=== PATIENT | male | born 1945 | race Caucasian/White ===

== ENCOUNTER 2018-04-02 10:15 | Outpatient (CLI) | payer MEDICARE, BC, SELFPAY ==
[2018-04-02 11:14] LABS: Absolute Basophil Count 0.03 k/cumm (0.0-0.2); Absolute Eosinophil Count 0.22 k/cumm (0.0-0.7); Absolute Lymphocyte Count 0.96 k/cumm (1.2-3.4); Absolute Monocyte Count 0.36 k/cumm (0.11-0.7); Basophils % 0.8; Eosinophils % 5.5; HCT 37.1 % (40.0-50.0); HGB 12.6 g/dL (13.5-17.5); Lymphocytes % 24.2; Mean Corpuscular Hemoglobin 29.5 pg (27.0-33.0); Mean Corpuscular Volume 86.9 fL (80-95); Mean Platelet Volume 8.6 fL (8.0-11.0); Monocytes % 9.1; Neutrophils % 60.4; Platelet Count 175 x1000/uL (130-400); RBC 4.27 m/cumm (4.50-6.00); RBC Distribution Width 13.1 % (11.8-14.1); White Blood Cell Count 3.97 k/cumm (4.4-10.8)
[2018-04-02 12:33] LABS: ALT 22 U/L (12-78); AST 19 U/L (15-37); Albumin 3.8 g/dL (3.4-5.0); Alkaline Phosphatase 68 U/L (46-116); Anion Gap 8.5 mmol/L (3-11); BUN 16 mg/dL (7-18); Bilirubin, Total 0.5 mg/dL (0.2-1.0); CO2 29.5 mmol/L (21.0-32.0); Calcium 8.9 mg/dL (8.5-10.1); Chloride 103 mmol/L (98-107); Cholesterol 183 mg/dL (50-200); Estimated GFR 49.68 (mL/min/1.73m2); Glucose 89 mg/dL (70-100); HDL Cholesterol 32 mg/dL (40-60); LDL CHOLESTEROL 104 mg/dL (<100); Potassium 3.7 mmol/L (3.5-5.1); Sodium 141 mmol/L (136-145); TSH (W/Ref FT4) 3.78 uIU/mL (0.358-3.74); Total Protein 6.8 g/dL (6.4-8.2); Triglyceride 214 mg/dL (30-150); Vitamin B12 1310 pg/mL (193-986)
[2018-04-02 12:57] LABS: FREE T4 0.95 ng/dL (0.76-1.46); Hemoglobin A1C 5.1 % (4.5-6.2)
== END 2018-04-02 10:35 ==
PROVIDERS: PCP Nurse Practitioner Family; Visit Provider Nurse Practitioner Family
DX: N18.9 Chronic kidney disease, unspecified (principal); E03.9 Hypothyroidism, unspecified; E78.5 Hyperlipidemia, unspecified; R73.01 Impaired fasting glucose; I10 Essential (primary) hypertension; F32.9 Major depressive disorder, single episode, unspecified
CPT/HCPCS: 36415; 80053; 80061; 83721; 82607; 83036; 84439; 84443; 85025

== ENCOUNTER 2018-04-09 15:48 | Outpatient (CLI) | payer MEDICARE, BC, SELFPAY ==
[2018-04-09 17:10] LABS: Iron 71 ug/dL (50-175); Total Iron Binding Capacity 370 ug/dL (250-450); Transferrin Sat 19 % (20-55)
[2018-04-09 17:25] LABS: Ferritin 37 ng/mL (8-388)
[2018-04-09 18:04] LABS: Folate > 20.0 ng/mL (8.6-20.0)
[2018-04-12 16:36] LABS: Erythropoietin 27.5 mIU/mL (2.6 - 18.5)
== END 2018-04-09 16:08 ==
PROVIDERS: PCP Nurse Practitioner Family; Visit Provider Nurse Practitioner Family
DX: D64.9 Anemia, unspecified (principal)
CPT/HCPCS: 36415; 82668; 82728; 82746; 83540; 83550

== ENCOUNTER 2018-07-15 08:19 | Outpatient (CLI) | payer OTHER, SELFPAY ==
[2018-07-15 14:21] LABS: Abs Immature Grans 0.01 k/cumm (0.0-0.09); Absolute Basophil Count 0.04 k/cumm (0.0-0.2); Absolute Eosinophil Count 0.23 k/cumm (0.0-0.7); Absolute Lymphocyte Count 1.37 k/cumm (1.2-3.4); Absolute Monocyte Count 0.44 k/cumm (0.11-0.7); Basophils % 0.8; Eosinophils % 4.6; HCT 38.5 % (40.0-50.0); HGB 13.8 g/dL (13.5-17.5); Immature Grans % 0.2; Lymphocytes % 27.5; Mean Corp. HGB Concentration 35.8 g/dL (32.0-36.0); Mean Corpuscular Hemoglobin 30.4 pg (27.0-33.0); Mean Corpuscular Volume 84.8 fL (80-95); Mean Platelet Volume 8.7 fL (8.0-11.0); Monocytes % 8.8; Neutrophils % 58.1; Platelet Count 154 x1000/uL (130-400); RBC 4.54 m/cumm (4.50-6.00); RBC Distribution Width 12.4 % (11.8-14.1); White Blood Cell Count 4.99 k/cumm (4.4-10.8)
== END 2018-07-15 08:39 ==
PROVIDERS: PCP Nurse Practitioner Family; Visit Provider Nurse Practitioner Family
DX: D64.9 Anemia, unspecified (principal)
CPT/HCPCS: 36415; 85025

== ENCOUNTER 2019-02-04 10:30 | Outpatient (CLI) | payer OTHER, SELFPAY ==
[2019-02-04 11:45] LABS: Hemoglobin A1C 5.2 % (4.5-6.2)
[2019-02-04 11:52] LABS: Anion Gap 8.5 mmol/L (3-11); BUN 19 mg/dL (7-18); CO2 31.5 mmol/L (21.0-32.0); CREATININE 1.41 mg/dL (0.70-1.30); Calcium 8.8 mg/dL (8.5-10.1); Calculated LDL 112 mg/dL; Chloride 102 mmol/L (98-107); Cholesterol 179 mg/dL (50-200); Estimated GFR 49.27 (mL/min/1.73m2); Glucose 90 mg/dL (70-100); HDL Cholesterol 39 mg/dL (40-60); Sodium 142 mmol/L (136-145); Triglyceride 144 mg/dL (30-150)
== END 2019-02-04 10:50 ==
PROVIDERS: PCP Nurse Practitioner Family; Visit Provider Nurse Practitioner Family
DX: I10 Essential (primary) hypertension (principal); E78.5 Hyperlipidemia, unspecified; R73.01 Impaired fasting glucose
CPT/HCPCS: 36415; 80048; 80061; 83036

== ENCOUNTER 2019-04-16 10:45 | Outpatient (CLI) | payer OTHER, SELFPAY ==
[2019-04-16 12:14] LABS: TSH (W/Ref FT4) 7.69 uIU/mL (0.36-3.74)
[2019-04-16 12:46] LABS: FREE T4 0.83 ng/dL (0.76-1.46)
== END 2019-04-16 11:05 ==
PROVIDERS: PCP Nurse Practitioner Family; Visit Provider Nurse Practitioner Family
DX: E03.9 Hypothyroidism, unspecified (principal)
CPT/HCPCS: 36415; 84439; 84443

== ENCOUNTER 2020-08-09 03:10 | Outpatient (CLI) | payer OTHER, SELFPAY ==
[2020-08-09 10:03] LABS: Abs Immature Grans 0.01 10^3/uL (0.0-0.06); Absolute Basophil Count 0.06 10^3/uL (0.0-0.2); Absolute Eosinophil Count 0.22 10^3/uL (0.0-0.7); Absolute Lymphocyte Count 1.14 10^3/uL (1.2-3.4); Absolute Monocyte Count 0.33 10^3/uL (0.1-0.8); Absolute Neutrophil Count 2.54 10^3/uL (1.2-6.7); Basophils % 1.4; Eosinophils % 5.1; HCT 43.1 % (40.0-50.0); HGB 14.8 g/dL (13.5-17.5); Immature Grans % 0.2; Lymphocytes % 26.5; MCH 29.5 pg (27.0-33.0); MCHC 34.3 % (32.0-36.0); MPV 8.4 fL (8.0-11.0); Monocytes % 7.7; Neutrophils % 59.1; Nucleated RBC 0 %; Platelet Count 171 10^3/uL (130-400); RBC 5.01 10^6/uL (4.36-5.78); RDW-SD 37.6 fL
[2020-08-09 11:36] LABS: ALT 37 U/L (16-63); AST 22 U/L (15-37); Albumin 4.1 g/dL (3.4-5.0); Alkaline Phosphatase 76 U/L (46-116); Anion Gap 8.9 mmol/L (3-11); BUN 13 mg/dL (7-18); Bilirubin, Total 0.4 mg/dL (0.2-1.0); CO2 30.1 mmol/L (21.0-32.0); CREATININE 1.3 mg/dL (0.70-1.30); Calcium 8.9 mg/dL (8.5-10.1); Calculated LDL 92 mg/dL (<100); Chloride 105 mmol/L (98-107); Cholesterol 173 mg/dL (<200); Estimated GFR 53.82 (mL/min/1.73m2); Glucose 84 mg/dL (74-106); HDL Cholesterol 33 mg/dL (40-60); Potassium 4.4 mmol/L (3.5-5.1); Sodium 144 mmol/L (136-145); TSH (W/Ref FT4) 6.61 uIU/mL (0.36-3.74); Total Protein 7.3 g/dL (6.4-8.2); Triglyceride 240 mg/dL (<150)
[2020-08-09 11:52] LABS: FREE T4 0.83 ng/dL (0.76-1.46)
== END 2020-08-09 03:11 | disposition home or self-care (01) ==
LOC: LBO 03:10
PROVIDERS: PCP Nurse Practitioner Family; Visit Provider Nurse Practitioner Family
DX: E03.9 Hypothyroidism, unspecified (principal); E78.5 Hyperlipidemia, unspecified; I10 Essential (primary) hypertension; R73.01 Impaired fasting glucose
CPT/HCPCS: 36415; 80053; 80061; 83036; 84439; 84443; 85025

== ENCOUNTER 2021-08-09 02:36 | Outpatient (CLI) | payer MEDICARE, SELFPAY | END 2021-08-09 02:37 | disposition home or self-care (01) | LOC: LBO 02:36 | PROVIDERS: PCP Nurse Practitioner Family; Visit Provider Nurse Practitioner Family ==

== ENCOUNTER 2021-08-20 05:59 | Outpatient (CLI) | payer MEDICARE, SELFPAY ==
[2021-08-20 09:57] LABS: Hemoglobin A1C 5.2 % (<5.7)
[2021-08-20 10:43] LABS: Anion Gap 4.2 mmol/L (3-11); BUN 15 mg/dL (7-18); CO2 30.8 mmol/L (21.0-32.0); CREATININE 1.3 mg/dL (0.70-1.30); Calcium 8.8 mg/dL (8.5-10.1); Chloride 104 mmol/L (98-107); Estimated GFR 53.67 (mL/min/1.73m2); Glucose 84 mg/dL (74-106); Potassium 4.2 mmol/L (3.5-5.1); Sodium 139 mmol/L (136-145); TSH (W/Ref FT4) 8.32 uIU/mL (0.36-3.74)
== END 2021-08-20 06:00 | disposition home or self-care (01) ==
LOC: LBO 05:59
PROVIDERS: PCP Nurse Practitioner Family; Referring Provider Nurse Practitioner Family; Visit Provider Nurse Practitioner Family
DX: E03.9 Hypothyroidism, unspecified (principal); I10 Essential (primary) hypertension; R73.01 Impaired fasting glucose; N18.9 Chronic kidney disease, unspecified
CPT/HCPCS: 36415; 80048; 83036; 84439; 84443

== ENCOUNTER 2022-01-06 03:54 | Outpatient (CLI) | payer MEDICARE, SELFPAY ==
[2022-01-06 16:01] LABS: TSH (W/Ref FT4) 2.74 uIU/mL (0.36-3.74)
== END 2022-01-06 03:55 | disposition home or self-care (01) ==
LOC: LBO 03:54
PROVIDERS: PCP Nurse Practitioner Family; Visit Provider Nurse Practitioner Family
DX: E03.9 Hypothyroidism, unspecified (principal)
CPT/HCPCS: 36415; 84443

== ENCOUNTER 2022-08-22 01:33 | Outpatient (CLI) | payer MEDICARE, SELFPAY ==
[2022-08-22 10:36] LABS: Abs Immature Grans 0.01 10^3/uL (0.0-0.06); Absolute Basophil Count 0.06 10^3/uL (0.0-0.2); Absolute Eosinophil Count 0.24 10^3/uL (0.0-0.7); Absolute Monocyte Count 0.51 10^3/uL (0.1-0.8); Absolute Neutrophil Count 4.14 10^3/uL (1.2-6.7); Eosinophils % 3.8; HGB 15.4 g/dL (13.5-17.5); Immature Grans % 0.2; Lymphocytes % 20.8; MCH 30.3 pg (27.0-33.0); MCHC 35.8 % (32.0-36.0); MCV 85 fL (80-95); MPV 8.6 fL (8.0-11.0); Monocytes % 8.1; Neutrophils % 66.1; Platelet Count 171 10^3/uL (130-400); RBC 5.09 10^6/uL (4.36-5.78); RDW 12.1 % (11.8-14.1); RDW-SD 37.1 fL; WBC 6.26 10^3/uL (4.4-10.8)
[2022-08-22 11:27] LABS: ALT 24 U/L (16-63); AST 16 U/L (15-37); Alkaline Phosphatase 103 U/L (46-116); Anion Gap 3.8 mmol/L (3-11); BUN 16 mg/dL (7-18); Bilirubin, Total 0.5 mg/dL (0.2-1.0); CO2 31.2 mmol/L (21.0-32.0); CREATININE 1.2 mg/dL (0.70-1.30); Calcium 9.5 mg/dL (8.5-10.1); Chloride 105 mmol/L (98-107); Estimated GFR 62.29 (mL/min/1.73m2); Glucose 106 mg/dL (74-106); Potassium 3.9 mmol/L (3.5-5.1); Sodium 140 mmol/L (136-145); Total Protein 7.7 g/dL (6.4-8.2)
[2022-08-22 11:42] LABS: FREE T4 0.96 ng/dL (0.76-1.46)
== END 2022-08-22 01:34 | disposition home or self-care (01) ==
PROVIDERS: PCP Nurse Practitioner Family; Visit Provider Nurse Practitioner Family
DX: E78.5 Hyperlipidemia, unspecified (principal); N18.9 Chronic kidney disease, unspecified; I10 Essential (primary) hypertension; Z13.1 Encounter for screening for diabetes mellitus; E03.9 Hypothyroidism, unspecified; R73.01 Impaired fasting glucose
CPT/HCPCS: 36415; 80053; 83036; 84439; 84443; 85025

== ENCOUNTER 2023-05-21 06:30 | Inpatient (IN) | payer MEDICARE, SELFPAY ==
[2023-05-21] VITALS (98 sets, daily range): BP systolic 118–230; BP diastolic 67–132; PULSE 57–101; RESP 9–126; TEMP 36.3–36.9; O2SAT 86–100
--- NOTE | 2023-05-21 06:00 | RT.EKG_ITS ---
APPROVED REPORT Exam: Resting ECG Reason for Exam: stroke alert Patient Location: E HR:74 bpm ECG Measurements Heart Rate 74 AXIS DC 180 P 60 QRSd 102 QRS 85 QT 397 T 8 QTc 441 Conclusion Sinus rhythm...normal P axis, V-rate 60- [address] segment or T wave abnormalities to suggest occluisve MN
--- NOTE | 2023-05-21 06:00 | DI.CT_ITS ---
Exam(s) CT HEAD - STROKE PROTOCOL EXAM: CT HEAD - STROKE PROTOCOL CLINICAL HISTORY: fall, slurred speech, AMS. TECHNIQUE: Imaging Protocol: Axial computed tomography images with coronal and sagittal reformatted images were created and reviewed COMPARISON: No previous for comparison. FINDINGS: The examination is limited due to patient motion artifact. Ventricles and Extra axial spaces: Normal in size and morphology for the patient's age. There is a 0. 8 cm round hyperdense lesion in the foramen of Monro most suggestive of a colloid cyst. No hydroceph alus is seen. Hemorrhage: None. Cerebral parenchyma: There is an area of decreased attenuation with a face mint of the sulci in the r ight occipital lobe. There is also an area of decreased attenuation in the medial aspect of the righ t thalamus. The findings are suspicious for acute infarct. There are areas of decreased attenuation in the white matter consistent with small vessel ischemic disease. Midline shift: None. Brainstem/Cerebellum: Normal. Calvarium: Normal. Visualized Paranasal sinuses/Mastoids: Clear. Soft Tissues: Unremarkable. IMPRESSION: 1. There are 2 areas of decreased attenuation, in the right occipital lobe and the right thalamus, eli spicious for acute infarct. MRI should be considered for further evaluation. 2. 0.8 cm hyperdense lesion in the foramen of Monro suggestive of a colloid cyst. There is no result ant hydrocephalus. 3. No calvarial fracture. RADIATION DOSE DELIVERED: 766.04mGy.cm Total DLP DATA REPOSITORY: All CT scans at this facility are submitted to the National Radiology Data Registry (NRDR) Dose Index Registry (DIR) with the [employer] (ACR). RADIATION OPTIMIZATION: All CT scans at this facility use at least one of these dose optimization te chniques: automated exposure control; mA and/or kV adjustment per patient size (includes targeted exa ms where dose is matched to clinical indication); or iterative reconstruction.
--- NOTE | 2023-05-21 06:37 | ED.GENADUL_ITS ---
HPI General Mode of arrival: EMS . Date/Time Provider Initiated Documentation: 05/21/23 06:37 . Limitations to Documentation: altered mental status . Information obtained by: patient, EMS and old records reviewed . HPI Narrative: 78yo M with hx of HTN, CKD3, hypothyroid, HLD presenting via EMS for altered mental status. History from EMS, patient unable to provide much history on arrival. Medical history from annual wellness visit note 08/13/22. Per EMS, called this morning and reported that patient fell at approximately 1700 yesterday and she helped him back to bed. Unknown if he struck his head. reportedly observed him stomping his feet and shaking his arms and noted that this morning he was acting confused. Per EMS, did not seem to be a reliable historian. Patient unable to provide meaningful history on arrival. Does state 'everything' hurts. Denies numbness or weakness. Related Data Home Medications Medication Instructions Recorded Confirmed cholecalciferol (vitamin D3) 25 1,000 unit PO DAILY 09/29/14 05/21/23 mcg (1,000 unit) capsule (Vitamin D3) multivitamin (Daily Multi-Vitamin 1 ea PO DAILY 09/29/14 05/21/23 tablet) omega-3 acid ethyl esters 1 gram 2 gm PO BID #120 tab-caps 12/19/14 05/21/23 capsule melatonin 10 mg capsule 10 mg PO HS PRN 11/10/18 05/21/23 glucosamine HCl 1,500 mg tablet 1,500 mg PO DAILY 08/02/20 05/21/23 atenolol 50 mg tablet See Rx Instructions .Route 06/30/22 05/21/23 .COMPLEX #90 tabs tamsulosin 0.4 mg capsule (Flomax) 0.4 mg PO DAILY #90 tab-caps 07/30/22 05/21/23 losartan 100 mg tablet 100 mg PO DAILY #90 tab-caps 08/14/22 05/21/23 trazodone 50 mg tablet 50 mg PO HS #90 tab-caps 09/30/22 05/21/23 levothyroxine 137 mcg tablet See Rx Instructions .Route 12/25/22 05/21/23 .COMPLEX #90 tabs omeprazole 20 mg capsule,delayed 20 mg PO DAILY #90 tab-caps 01/05/23 05/21/23 release Previous Rx's Medication Instructions Recorded atenolol 50 mg tablet See Rx Instructions .Route 06/30/22 .COMPLEX #90 tabs tamsulosin 0.4 mg capsule (Flomax) 0.4 mg PO DAILY #90 tab-caps 07/30/22 losartan 100 mg tablet 100 mg PO DAILY #90 tab-caps 08/14/22 trazodone 50 mg tablet 50 mg PO HS #90 tab-caps 09/30/22 levothyroxine 137 mcg tablet See Rx Instructions .Route 12/25/22 .COMPLEX #90 tabs omeprazole 20 mg capsule,delayed 20 mg PO DAILY #90 tab-caps 01/05/23 release Allergies Allergy/AdvReac Type Severity Reaction Status Date / Time bupropion AdvReac Other (See Verified 05/21/23 07:27 Comment) Review of Systems Narrative: see HPI Exam Narrative Exam Narrative: General: Alert, well nourished, in no acute distress. Head: Normocephalic, atraumatic Neck: Trachea midline, ?Neck supple. ENT: ?MMM.? No oropharygeal lesions or exudate. Cardiac: ?RRR, no murmurs appreciated Resp: No respiratory distress. CTAB. Abd: ?Soft, non-distended, nontender Extremities: ?No deformities.? No peripheral edema. Neuro: ? GCS 14. Oriented to person only.? PERRL.? Motor- 5/5 strength symmetric bilateral upper and lower extremities including shoulder abductors/adductors, elbow flexors/extensors, wrist flexors/extensors, finger abductors/adductors, hipflexors/extensors, knee flexors/extensors, ankle dorsiflexors and planter flexors. Sensation- ?Intact to light touch and symmetric multiple dermatomes including upper and lower extremities Gait: Steady gait with equal normal steps. No truncal ataxia. CRANIAL NERVES: II: Pupils equal and reactive, III, IV, : Rightward gaze preference, no leftward gaze past midline. No nystagmus. V: normal sensation in V1, V2, and V3 segments bilaterally VII: no asymmetry, no nasolabial fold flattening VIII: normal hearing to speech IX, X: normal palatal elevation, no uvular deviation XI: 5/5 head turn and 5/5 shoulder shrug bilaterally XII: midline tongue protrusion Medical Decision Making 78yo M with hx of HTN, CKD3, hypothyroid, HLD presenting via EMS for altered mental status. History from EMS, patient unable to provide much history on arrival. Medical history from annual wellness visit note 08/13/22. EMS obtained history from patient's , per EMS she did not appear to be a reliable historian. Reportedly patient fell yesterday at around 1700; this is our best approximation of last known well time. This morning was confused which is reportedly not normal for him. Normal blood glucose for EMS. Hypertensive on arrival 192/96 (improved to 172/80 without intervention); vital signs otherwise reassuring. On exam patient oriented to person only, rightward gaze preference with no leftward gaze past midline. Good strength and sensation throughout. Not a candidate for thrombolysis based on time of symptom onset. EKG on arrival with no sequalae of occlusive MT. Stroke labs sent. CT head non-con ordered; no intracranial hemmaroghe on view; discussed with Dr. Domingo of [facility] with findings of acute/subacute right occipital infarct as well as right thalamic infarct of indeterminate acuity. -Labs reviewed as below, CBC reassuring with no leukcoytosis or anemia, CMP with no actionable abnormalities, TSH normal; remainder of labs pending. -CTA ordered, likely MRI when available Signed out to oncoming physician, will need additional imaging/neurology/admission vs transfer Medical Records Medical records reviewed: Yes I reviewed the patient's medical records. Lab Data Lab results reviewed: Yes I reviewed the patient's lab results. Labs: Laboratory Tests Range/Units 05/21/23 05/21/23 06:38 06:38 WBC (4.4-10.8) 10^3/uL 7.59 RBC (4.36-5.78) 10^6/uL 4.62 Hgb (13.5-17.5) g/dL 14.2 Hct (40.0-50.0) % 39.2 L MCV (80-95) fL 85 MCH (27.0-33.0) pg 30.7 MCHC (32.0-36.0) % 36.2 H RDW (11.8-14.1) % 12.6 Plt Count (130-400) 10^3/uL 142 MPV (8.0-11.0) fL 8.5 Immature Gran % 0.4 Neutrophils % 88.2 Lymphocytes % 6.5 Monocytes % 4.2 Eosinophils % 0.3 Basophils % 0.4 Nucleated RBC % (0.0-0.3) % 0.0 Absolute Neutrophils (1.2-6.7) 10^3/uL 6.70 Absolute Lymphocytes (1.2-3.4) 10^3/uL 0.49 L Absolute Monocytes (0.1-0.8) 10^3/uL 0.32 Absolute Eosinophils (0.0-0.7) 10^3/uL 0.02 Absolute Basophils (0.0-0.2) 10^3/uL 0.03 Sodium (136-145) mmol/L 142 Potassium (3.5-5.1) mmol/L 4.1 Chloride (98-107) mmol/L 106 Carbon Dioxide (21.0-32.0) mmol/L 26.6 Anion Gap (3-11) mmol/L 9.4 BUN (7-18) mg/dL 14 Creatinine (0.70-1.30) mg/dL 1.2 Est GFR (CKD-EPI 2020) (mL/min/1.73m2) 61.90 Glucose (74-106) mg/dL 135 H Calcium (8.5-10.1) mg/dL 8.9 Total Bilirubin (0.2-1.0) mg/dL 0.6 AST (15-37) U/L 16 ALT (16-63) U/L 22 Alkaline Phosphatase (46-116) U/L 72 Troponin I (< or =60) ng/L < 50 Cancelled Total Protein (6.4-8.2) g/dL 7.3 Albumin (3.4-5.0) g/dL 3.9 TSH (0.36-3.74) uIU/mL 2.65 Quality:SDOH Health Related Social Needs: No Data to Display Critical Care Time Critical Care Time Critical Care Time: Yes Total Critical Care Time: 32 Attestation: Due to a high probability of clinically significant, life threatening deterioration, the patient required my highest level of preparedness to intervene emergently and I personally spent this critical care time directly and personally managing the patient. This critical care time included obtaining a history; examining the patient; pulse oximetry; ordering and review of studies; arranging urgent treatment with development of a management plan; evaluation of patient's response to treatment; frequent reassessment; and, discussions with other providers. This critical care time was performed to assess and manage the high probability of imminent, life-threatening deterioration that could result in multi-organ failure. It was exclusive of separately billable procedures. PFSH All Active Problems CKD (chronic kidney disease) (Acute) Insomnia, unspecified (Chronic 07/09/16) IFG (impaired fasting glucose) (Chronic 03/19/16) Hypothyroidism, unspecified (Chronic 04/23/15) Hypertension (Chronic 12/11/14) Hyperlipidemia (Chronic 04/23/15) GERD (gastroesophageal reflux disease) (Chronic 12/11/14) ADHD (attention deficit hyperactivity disorder), combined type (Chronic 11/04/17) Medical History Major depressive disorder with current active episode (11/04/17) Psychiatry consult (Dr. Calvillo) 10/2017 Sigmoid diverticulum (01/01/16) Surgical History [place]oscopy - IV Sedation (01/01/16) [place] [facility] [place] Mother Personal history of malignant neoplasm BREAST Heart disease VALVE REPLACEMENT Father Personal history of malignant neoplasm SKIN Brother Essential hypertension Hyperlipidemia Grandfather Personal history of malignant neoplasm Grandfather Heart disease Grandmother Stroke Grandmother No problems noted. Social History Smoking/Tobacco Use Status: Former Tobacco Use Quit Date: 04/27/1968 Smoking risk assessment performed?: Yes Alcohol Intake: former Drug use: Never Substance use type: does not use Caregiver/Support person: No Communication Needs: None current occupation: Retired (formerly worked for [employer]) What type of physical activity do you participate in: other Details: rowing machine Duration: 60-90 minutes/day Frequency: daily Sign Out Sign Out Data: Sign Out Comment: LKN 1700, confusion and rightward gaze deviation. Acute R occipital infarct, ? acute R thalamic infarct. Pending CTA, will need neuro and MRI Last updated by Colleen Cassidy MD at 05/21/23 07:28 Discharge Plan Discharge Details Chief Complaint: AMS/LOC Primary Care Provider: Serina Prakash ED Provider: Colleen Cassidy Home Meds and New Rx's Prescriptions: No Action melatonin 10 mg capsule 10 mg PO HS PRN glucosamine HCl 1,500 mg tablet 1,500 mg PO DAILY Rx Instructions: administer with a meal multivitamin [Daily Multi-Vitamin] 1 EACH tablet 1 ea PO DAILY cholecalciferol (vitamin D3) [Vitamin D3] 1,000 UNIT capsule 1,000 unit PO DAILY omega-3 acid ethyl esters 1 GM capsule 2 gm PO BID Qty: 120 atenolol 50 mg tablet See Rx Instructions .ROUTE .COMPLEX Qty: 90 3RF Dose Instruction: TAKE ONE TABLET BY MOUTH EVERY DAY Rx Instructions: TAKE ONE TABLET BY MOUTH EVERY DAY tamsulosin [Flomax] 0.4 mg capsule 0.4 mg PO DAILY Qty: 90 3RF losartan 100 mg tablet 100 mg PO DAILY Qty: 90 3RF trazodone 50 mg tablet 50 mg PO HS Qty: 90 3RF levothyroxine 137 mcg tablet See Rx Instructions .ROUTE .COMPLEX Qty: 90 3RF Dose Instruction: TAKE ONE TABLET BY MOUTH EVERY MORNING ON AN EMPTY STOMACH, AT LEAST 30-60 MINUTES BEFORE FOOD Rx Instructions: TAKE ONE TABLET BY MOUTH EVERY MORNING ON AN EMPTY STOMACH, AT LEAST 30-60 MINUTES BEFORE FOOD omeprazole 20 mg capsule,delayed release(DR/EC) 20 mg PO DAILY Qty: 90 3RF Rx Instructions: Take on an empty stomach at least 30 minutes before first meal
[2023-05-21 06:43] LABS: Abs Immature Grans 0.03 10^3/uL (0.0-0.06); Absolute Basophil Count 0.03 10^3/uL (0.0-0.2); Absolute Eosinophil Count 0.02 10^3/uL (0.0-0.7); Absolute Lymphocyte Count 0.49 10^3/uL (1.2-3.4); Absolute Monocyte Count 0.32 10^3/uL (0.1-0.8); Basophils % 0.4; Eosinophils % 0.3; HCT 39.2 % (40.0-50.0); HGB 14.2 g/dL (13.5-17.5); Immature Grans % 0.4; Lymphocytes % 6.5; MCH 30.7 pg (27.0-33.0); MCHC 36.2 % (32.0-36.0); MCV 85 fL (80-95); MPV 8.5 fL (8.0-11.0); Monocytes % 4.2; Neutrophils % 88.2; Platelet Count 142 10^3/uL (130-400); RBC 4.62 10^6/uL (4.36-5.78); RDW 12.6 % (11.8-14.1); RDW-SD 38.5 fL; WBC 7.59 10^3/uL (4.4-10.8)
[2023-05-21 06:57] LABS: PTT Activated 25.1 sec (23.6-32.8)
--- NOTE | 2023-05-21 07:08 | DI.VRAD_ITS ---
Addendum created by Jose Domingo MD on 05/21/2023 7:11:26 AM EST: Addendum: THIS REPORT CONTAINS FINDINGS THAT MAY BE CRITICAL TO PATIENT CARE. The findings were verbally communicated via telephone conference with DR. ELIZABETH MURRIETA at 7:10 AM EST on 05/21/2023. The findings were acknowledged and understood. Initial report created on 05/21/2023 7:08:32 AM EST: PROCEDURE INFORMATION: Exam: CT Head Without Contrast Exam date and time: 05/21/2023 6:55 AM Age: 78 years old Clinical indication: Stroke-like symptoms; Altered mental status/memory loss TECHNIQUE: Imaging protocol: Computed tomography of the head without contrast. Other technique: STROKE PROTOCOL was implemented. COMPARISON: No relevant prior studies available. FINDINGS: Brain: No acute intracranial hemorrhage is seen. There is subtle decreased attenuation involving right occipital lobe compatible with recent infarct. Focal decreased attenuation also noted in the right thalamus which could represent recent infarct. MR diffusion imaging could provide more accurate characterization of acute versus chronic ischemic disease. Very prominent atherosclerotic calcification involves the left carotid siphon. Note: Critical finding notification process initiated at 0703 hours EST. Cerebral ventricles: The ventricles are normal size and position for age. Incidental note of a 9 mm hyperdense lesion at the roof of the 3rd ventricle, compatible with colloid cyst. Paranasal sinuses: Visualized portions of paranasal sinuses are well aerated. Mastoid air cells: Visualized portions of mastoid sinuses are not opacified. Bones/joints: No obvious fracture or aggressive destructive lesion involving the cranium. Soft tissues: Other than as stated above, no obvious acute abnormality. IMPRESSION: 1. Acute or subacute right occipital lobe infarct. Right thalamic infarct also could be recent. No acute hemorrhage or significant mass effect. 2. 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 No hydrocephalus. ASSESSMENT: ASPECTS ([place] Stroke Program Early CT Score) is 10. Dictated and Authenticated by: Jose Domingo MD. Ordering:ELENA Macias MD
[2023-05-21 07:11] LABS: ALT 22 U/L (16-63); AST 16 U/L (15-37); Albumin 3.9 g/dL (3.4-5.0); Alkaline Phosphatase 72 U/L (46-116); Anion Gap 9.4 mmol/L (3-11); BUN 14 mg/dL (7-18); Bilirubin, Total 0.6 mg/dL (0.2-1.0); CO2 26.6 mmol/L (21.0-32.0); CREATININE 1.2 mg/dL (0.70-1.30); Calcium 8.9 mg/dL (8.5-10.1); Chloride 106 mmol/L (98-107); Glucose 135 mg/dL (74-106); Potassium 4.1 mmol/L (3.5-5.1); Sodium 142 mmol/L (136-145); TSH (W/Ref FT4) 2.65 uIU/mL (0.36-3.74); Total Protein 7.3 g/dL (6.4-8.2); Troponin I < 50 ng/L (< or =60)
[2023-05-21] MEDS: Normal Saline - Diluent 50 ML VIAL IJ (08:29)
--- NOTE | 2023-05-21 08:44 | DI.CT_ITS ---
Exam(s) CT BRAIN NECK CTA EXAM: CT BRAIN NECK CTA CLINICAL HISTORY: R occipital infarct, R thalamic infarct on non-con. TECHNIQUE: Imaging Protocol: Axial CT angiography was performed with multi-slice acquisition and mu lti-planar and/or 3D reconstructions. CONTRAST MATERIAL: Intravenous: Contrast contrast volume:structured data in ml mL COMPARISON: CT RENAL COLIC WO CONTRAST from 09/27/[address] HEAD - STROKE PROTOCOL from 05/21/2023 FINDINGS: The examination is limited due to patient motion artifact. CT Head w: Ventricles and Extra axial spaces: Normal in size and morphology for the patient's age. The 8 mm hype rdense round lesion in the region of the foramen of Monro is again seen and is most suggestive of a c olloid cyst. There is no hydrocephalus present. Hemorrhage: None. Cerebral parenchyma: There again seen areas of decreased attenuation in the right occipital lobe with sulcal effacement and in the right thalamus. The findings are most suspicious for acute infarcts. There is also a question of a subtle area of decreased attenuation in the anterior aspect of the left temporal lobe. No intraparenchymal enhancing masses are identified. Midline shift: None. Brainstem/Cerebellum: Normal. Calvarium: Normal. Visualized Paranasal sinuses/Mastoids: Clear. Soft Tissues: Unremarkable. Enhancement: Unremarkable. CTA Neck W: Common Carotid: Right: No dissection, occlusion or significant stenosis. Left: No dissection, occlusion or significant stenosis. External Carotid: Right: No occlusion or significant stenosis. Left: No occlusion or significant stenosis. Internal Carotid: Right: No dissection, occlusion or significant stenosis. Left: No dissection, occlusion or significant stenosis. Mild atherosclerosis at the origin of the le ft internal carotid artery. Vertebral Artery: Right: There is patient motion artifact which limits examination. No definite occlusion is seen. Left: Due to patient motion artifact, portions of the mid left vertebral artery are poorly visualize d. No definite occlusion is seen. Lung Apices: Normal. Bones: Within normal limits for the patient's age. There is reversal of the normal cervical lordosis centered at C4. Multilevel neural foraminal stenosis is seen in the cervical spine. Soft Tissues: Normal. Thyroid gland: There is a 6 mm hypodense nodule in the right lobe of the thyroid gland. No follow-up is recommended. CTA Brain W: Internal Carotid Arteries: There is atherosclerosis seen in the cavernous portions of the internal ca rotid arteries bilaterally. There is approximately 50 percent stenosis of the cavernous portion of t he left internal carotid artery. No significant stenosis is seen in the right internal carotid arter y. No occlusion is identified. No aneurysm is appreciated. Anterior Cerebral Arteries: Right: No aneurysm, occlusion or significant stenosis. Left: No aneurysm, occlusion or significant stenosis. Middle Cerebral Arteries: Right: No aneurysm, occlusion or significant stenosis. Left: No aneurysm, occlusion or significant stenosis. Posterior Cerebral Arteries: Right: No aneurysm, occlusion or significant stenosis. Left: There is occlusion of the left distal P1 segment and narrowing of the left P2 segment. Vertebral Arteries: Right: No aneurysm, occlusion or significant stenosis. Left: No aneurysm, occlusion or significant stenosis. Basilar Artery: No aneurysm, occlusion or significant stenosis. IMPRESSION: 1. Examination limited by patient motion artifact. 2. No definite occlusion is seen on the CT angiography of the neck. 3. Areas of decreased attenuation are again seen in the right thalamus and the right occipital lobe s uggestive of infarcts. Question of an area of decreased attenuation also seen anteriorly in the left temporal lobe. This may represent an infarct. 4. Occlusion of the distal left P1 segment and narrowing of the left P2 segment. 5. No intracranial enhancing masses are seen. RADIATION DOSE DELIVERED: 1,283.84mGy.cm Total DLP DATA REPOSITORY: All CT scans at this facility are submitted to the National Radiology Data Registry (NRDR) Dose Index Registry (DIR) with the [employer] (ACR). RADIATION OPTIMIZATION: All CT scans at this facility use at least one of these dose optimization te chniques: automated exposure control; mA and/or kV adjustment per patient size (includes targeted exa ms where dose is matched to clinical indication); or iterative reconstruction.
--- NOTE | 2023-05-21 10:25 | NUR.NOTE ---
Nursing Note: Pt confused, A&O x 1. Pt attempting to leave his bed and pull out his IV. printer repair technician assigned to sit with patient and re-orient patient as needed.
--- NOTE | 2023-05-21 10:35 | W.EDPROG ---
Date of service: 05/21/23 Time of Service: 10:35 Medical Decision Making Care was signed out by Dr. Cassidy, please see her documentation regarding initial ED presentation and course. Plan at signout was to follow-up on CTA imaging. CTA of the head and neck interpreted by radiology: Examination limited by patient motion artifact. No definitive occlusion is seen on the CTA angio of the neck. Areas of decreased attenuation are again seen in the right thalamus and right occipital lobe suggestive of infarcts. Question of an area of decreased attenuation also seen anteriorly in the left temporal lobe. This may represent an infarct. Occlusion of the distal left P1 segment and narrowing of the left P2 segment. No intracranial enhancing masses are seen. I called and spoke with neurology on-call at [facility] [place], Dr. Feldman, discussed ED presentation and course including diagnostics. CTA imaging and CT of the brain was sent for review. Diagnostics were reviewed by Dr. Feldman and he recommends no intervention at this time. Plan to admit the patient to an [facility] for further treatment. I will give full dose aspirin. I spoke with Dr. Pang, on-call hospitalist, who will admit the patient. Lab Data Lab results reviewed: Yes I reviewed the patient's lab results. Labs: Laboratory Tests Range/Units 05/21/23 05/21/23 06:38 06:38 WBC (4.4-10.8) 10^3/uL 7.59 RBC (4.36-5.78) 10^6/uL 4.62 Hgb (13.5-17.5) g/dL 14.2 Hct (40.0-50.0) % 39.2 L MCV (80-95) fL 85 MCH (27.0-33.0) pg 30.7 MCHC (32.0-36.0) % 36.2 H RDW (11.8-14.1) % 12.6 Plt Count (130-400) 10^3/uL 142 MPV (8.0-11.0) fL 8.5 Immature Gran % 0.4 Neutrophils % 88.2 Lymphocytes % 6.5 Monocytes % 4.2 Eosinophils % 0.3 Basophils % 0.4 Nucleated RBC % (0.0-0.3) % 0.0 Absolute Neutrophils (1.2-6.7) 10^3/uL 6.70 Absolute Lymphocytes (1.2-3.4) 10^3/uL 0.49 L Absolute Monocytes (0.1-0.8) 10^3/uL 0.32 Absolute Eosinophils (0.0-0.7) 10^3/uL 0.02 Absolute Basophils (0.0-0.2) 10^3/uL 0.03 APTT (23.6-32.8) sec 25.1 Sodium (136-145) mmol/L 142 Potassium (3.5-5.1) mmol/L 4.1 Chloride (98-107) mmol/L 106 Carbon Dioxide (21.0-32.0) mmol/L 26.6 Anion Gap (3-11) mmol/L 9.4 BUN (7-18) mg/dL 14 Creatinine (0.70-1.30) mg/dL 1.2 Est GFR (CKD-EPI 2020) (mL/min/1.73m2) 61.90 Glucose (74-106) mg/dL 135 H Calcium (8.5-10.1) mg/dL 8.9 Total Bilirubin (0.2-1.0) mg/dL 0.6 AST (15-37) U/L 16 ALT (16-63) U/L 22 Alkaline Phosphatase (46-116) U/L 72 Troponin I (< or =60) ng/L < 50 Cancelled Total Protein (6.4-8.2) g/dL 7.3 Albumin (3.4-5.0) g/dL 3.9 TSH (0.36-3.74) uIU/mL 2.65 Quality:SDOH Health Related Social Needs: No Data to Display Sign Out Sign Out Data: Sign Out Comment: LKN 1700, confusion and rightward gaze deviation. Acute R occipital infarct, ? acute R thalamic infarct. Pending CTA, will need neuro and MRI Last updated by Colleen Cassidy MD at 05/21/23 07:28 Discharge Plan Disposition Patient Dis[facility]: [facility] Condition: Serious Discharge Details Clinical Impression: Acute CVA (cerebrovascular accident), At risk for falls, Hypertension Admit Date/Time: 05/21/23 11:29 Admit Provider: Angel Pang Attending Provider: Angel Pang Primary Care Provider: Serina Prakash ED Provider: James Luna Discharge Data Discharge Date/Time-TO BE ENTERED AT DEPARTURE: 05/21/23 13:04
[2023-05-21 10:38] LABS: Bilirubin Negative (Negative); Blood Negative (Negative); Clarity Clear (Clear); Glucose Negative (Negative); Ketones Negative (Negative); Leukocyte Esterase Negative (Negative); Nitrite Negative (Negative); Urobilinogen 0.2 mg/dL (Up to 0.2)
[2023-05-21] MEDS: Aspirin 325 MG TAB PO (10:44)
[2023-05-21] MEDS: LORazepam 2 MG/ML VIAL 1 MG IVP ×2 (11:15→13:50)
[2023-05-21] MEDS: Midazolam 2 MG/2 ML VIAL (12:48)
--- NOTE | 2023-05-21 13:37 | W.PC.ACHO ---
Registration Status: REG ER Primary Language: Preferred Language: Thai ED Information & Data Chief Complaint AMS/LOC 05/21/23 06:40 Chief Complaint AMS/LOC 05/21/23 06:30 Triage Note Pt arrives via EMS s/p 05/21/23 06:30 calling states pt fell at approx. 1700. Pt was assisted back to bed by who states pt is not acting right. Pt arrives w alleged AMS/confusion. states pt did not take sleep meds last night but was seen stomping feet and shaking arms in a disorderly rhythm. EMS states pt tongue/jaw was moving sporadically. BG =141 +CSMTs on neuro exam by MD upon arrival. Pt regulary closing eyes and scrunching them. Unable to obtain futher hx from pt d/t pt condition. Medical / Surgical History (Last Reviewed 08/13/22 @ 13:31 by Serina Prakash NP) Sigmoid diverticulum (01/01/16) Major depressive disorder with current active episode (11/04/17) (Last Reviewed 08/13/22 @ 13:31 by Serina Prakash NP) Status post cholecystectomy Colonoscopy - IV Sedation (01/01/16) Most Recent Vital Signs Temperature 36.6 C 05/21/23 06:30 Temperature Source Tympanic 05/21/23 06:30 Pulse 88 05/21/23 12:47 Pulse 83 05/21/23 12:50 Respiratory Rate 22 05/21/23 12:50 Respiratory Effort Normal 05/21/23 06:40 Respiratory Depth Normal 05/21/23 06:40 Respiratory Pattern Normal 05/21/23 06:40 Blood Pressure 192/107 H 05/21/23 12:47 Blood Pressure Mean 134 05/21/23 12:47 Blood Pressure Position Supine 05/21/23 06:30 Pulse Oximetry 94 05/21/23 12:50 Oxygen Delivery Method Room Air 05/21/23 06:30 Oxygen Flow Rate 0 05/21/23 06:30 Pain Level 0 05/21/23 06:30 Allergies bupropion Adverse Reaction (Verified 05/21/23 07:27) Other (See Comment) muscle aches, tremor Precautions Isolation Fall precaution 05/21/23 06:40 Active Medications Generic Name Dose Route Start Last Admin Trade Name Freq PRN Reason Stop Dose Admin Sodium Chloride 50 ml 05/21/23 08:30 05/21/23 08:29 Normal Saline - Diluent 50 Ml Vial IJ 50 ml .FOR DI USE AISSATOU Administration IV IV Catheter Type [Right Saline Lock Antecubital] IV Catheter Type [Left Saline Lock Antecubital] IV Catheter Gauge [Right 18 Antecubital] IV Catheter Gauge [Left 18 Antecubital] Diet Orders Category Date Time Status Nothing Per Oral [DIET] Nutrition 05/21/23 Breakfast Active Diagnostics 05/21/23 05/21/23 05/21/23 Range/Units 10:32 06:38 06:38 WBC 7.59 (4.4-10.8) 10^3/uL RBC 4.62 (4.36-5.78) 10^6/uL Hgb 14.2 (13.5-17.5) g/dL Hct 39.2 L (40.0-50.0) % MCV 85 (80-95) fL MCH 30.7 (27.0-33.0) pg MCHC 36.2 H (32.0-36.0) % RDW 12.6 (11.8-14.1) % Plt Count 142 (130-400) 10^3/uL MPV 8.5 (8.0-11.0) fL Immature Gran % 0.4 Neutrophils % 88.2 Lymphocytes % 6.5 Monocytes % 4.2 Eosinophils % 0.3 Basophils % 0.4 Nucleated RBC % 0.0 (0.0-0.3) % Absolute Neutrophils 6.70 (1.2-6.7) 10^3/uL Absolute Lymphocytes 0.49 L (1.2-3.4) 10^3/uL Absolute Monocytes 0.32 (0.1-0.8) 10^3/uL Absolute Eosinophils 0.02 (0.0-0.7) 10^3/uL Absolute Basophils 0.03 (0.0-0.2) 10^3/uL APTT 25.1 (23.6-32.8) sec Sodium 142 (136-145) mmol/L Potassium 4.1 (3.5-5.1) mmol/L Chloride 106 (98-107) mmol/L Carbon Dioxide 26.6 (21.0-32.0) mmol/L Anion Gap 9.4 (3-11) mmol/L BUN 14 (7-18) mg/dL Creatinine 1.2 (0.70-1.30) mg/dL Est GFR (CKD-EPI 2020) 61.90 (mL/min/1.73m2) Glucose 135 H (74-106) mg/dL Calcium 8.9 (8.5-10.1) mg/dL Total Bilirubin 0.6 (0.2-1.0) mg/dL AST 16 (15-37) U/L ALT 22 (16-63) U/L Alkaline Phosphatase 72 (46-116) U/L Troponin I Cancelled < 50 (< or =60) ng/L Total Protein 7.3 (6.4-8.2) g/dL Albumin 3.9 (3.4-5.0) g/dL TSH 2.65 (0.36-3.74) uIU/mL Urine Color Yellow (Yellow) Urine Clarity Clear (Clear) Urine pH 6.0 (5-8) Ur Specific [place] 1.010 (1.005-1.025) Urine Protein Negative (Negative) mg/dL Urine Ketones Negative (Negative) mg/dL Urine Blood Negative (Negative) Urine Nitrite Negative (Negative) Urine Bilirubin Negative (Negative) Urine Urobilinogen 0.2 (Up to 0.2) mg/dL Ur Leukocyte Esterase Negative (Negative) Urine Glucose Negative (Negative) mg/dL [id number] Documentation Fingerstick Glucose Start: 05/21/23 06:13 Freq: .Stat Status: Active Protocol: Activity Type Activity Date Activity User E-sign Co-sign Detail Recorded Client Recorded Date Recorded By Document 05/21/23 09:10 OUMAR DAJONAS(3) [id number] 05/21/23 09:11 RINAG DAJOSEON(4) Intake and Output - 24 Hour Total 05/21/23 06:09 thru 05/21/23 06:30 Weight 85 kg Falls Risk Assessment History of Falls Admit Due to Fall 05/21/23 06:40 Contributing Factors Confusion,Unstable, 05/21/23 06:40 Medications Ambulatory Aids Independent 05/21/23 06:40 Tubes/Lines With any additional score 05/21/23 06:40 Gait Evaluation W/any additional score 05/21/23 06:40 Cognition Cognitive impairment 05/21/23 06:40 Fall Total Score 89 05/21/23 06:40 Level of Risk Maximum Risk 05/21/23 06:40 Restraint Information Behavior Requiring Restraints/ Harm to Patient,Harm to Staff & Others Seclusion Note Pt placed in soft restraints x 4. Pt altered, trying to get out of his bed. RN and MD attempted to re-orient patient and de-escalate without success. Pt behaving aggressively with staff, swinging arms and legs at staff. Problems (Last Reviewed 08/13/22 @ 13:31 by Serina Prakash NP) Hypertension (Chronic) At risk for falls (Acute) Acute CVA (cerebrovascular accident) (Acute) Notes 05/21/23 10:25 Nursing Notes by Sandhya Lockwood Nursing Note: Pt confused, A&O x 1. Pt attempting to leave his bed and pull out his IV. environmental services tech assigned to sit with patient and re-orient patient as needed. Initialized on 05/21/23 10:25 - END OF NOTE v v v v v v v v v Sending and/or Receiving Nurses: Please use comment section below to note any information pertinent to the patient hand-off not included above. Information / Comments: Report received from: Sandhya BRENNER from ER
[2023-05-21] MEDS: dexmedeTOMidine IN 0.9 % NACL 400 MCG/100 ML BTL IV (13:59)
[2023-05-21] MEDS: Pantoprazole 40 MG VIAL IVP (15:23)
[2023-05-21] MEDS: Enoxaparin 40 MG/0.4 ML SYR SC (15:23)
--- NOTE | 2023-05-21 15:23 | W.PM.HP.N ---
Date of service: 05/21/23 Time of Service: 15:24 Assessment and Plan Assessment and plan (1) Acute CVA (cerebrovascular accident): Status: Acute Assessment and plan: probable bilateral CVA which raises concerns for cardioembolic source. Hold anticoagulation for now, continue ASA suppository. dc precedex d/t risk for hypotension. If he becomes agitated off the precedex then I would try IM Haldol prn. will get MRI brain tomorrow along w/ echo bubble study. consult SITE IDENTIFICATION SPECIALIST, OT and PT all can see him tomorrow, hopefully he will be more alert and responsive. continue telemetry monitoring to look for PAF, will get 30 day event recorder upon discharge from hospital if no atrial arrhythmias are detected on this admission. Prognosis is guarded at this point. I will give gentle hydration w/ D5LR to help support his BP, cerebral perfusion and to prevent hypoglycemia. If not awakening w/ cessation of Precedex then may need EEG. No visible signs of seizures but remains at increased risk d/t recent CVA. When able to take po then will switch his ASA to oral and add atorvastatin. Glycohemoglobin A1c and lipid panel added to tomorrow labs. Patient seen w/ Dr. Cooney. Critical care time spent interviewing and examining the patient, reviewing studies, discussing case with patient's nurse and consulting physicians was 60 minutes (2) Hypothyroidism, unspecified: Status: Chronic Assessment and plan: levothyroxine changed to parenteral at half dose until he can take oral. Qualifiers: Hypothyroidism type: unspecified Qualified Code(s): E03.9 - Hypothyroidism, unspecified (3) Hypertension: Status: Chronic Assessment and plan: hold antihypertensive medication allowing passive elevated BP for 48 hours post stroke. Qualifiers: Hypertension type: essential hypertension Qualified Code(s): I10 - Essential (primary) hypertension (4) Hyperlipidemia: Status: Chronic Assessment and plan: check lipid panel and begin atorvastatin when able to take po Qualifiers: Hyperlipidemia type: unspecified Qualified Code(s): E78.5 - Hyperlipidemia, unspecified (5) GERD (gastroesophageal reflux disease): Status: Chronic Assessment and plan: will give iv protonix until able to take oral PPI Qualifiers: Esophagitis presence: esophagitis presence not specified Qualified Code(s): K21.9 - Gastro-esophageal reflux disease without esophagitis (6) DVT prophylaxis: Status: Acute Assessment and plan: enoxaparin 40 mg SC daily (7) Discharge planning issues: Status: Acute Assessment and plan: patient and his live alone in [facility], they moved here about 60 yr ago, they do not have any children nor any near by family. He has a brother who lives in [place] according to his . She requires his assitance at home as she gets around in wheel chair, and has had frequent falls. I anticipate that he will require a prolonged rehab period once his CVA has been worked up and he is stablilzed from his CVA. History of Present Illness History of Present Illness Chief Complaint: stroke Narrative: 78-year-old male with a history of GERD, hypertension, hypothyroidism who according to his he is usually fairly healthy vegetarian who was in his usual state of health until around 11 PM last night. When they went to bed last night he was complaining of a buzzing feeling in his head. However ED provider documented the EMS documents the and told them that the patient fell last night around 5 PM and she had to help him back to bed. However usually the patient has gait instability and requires a wheelchair and usually her has to help her back into her chair. This morning noted that he was confused and unsteady gait and called EMS. Evaluation in the emergency department included routine labs and CT imaging of his brain and cerebrovascular circulation. Noncontrast CT scan of his brain showed 2 areas of decreased attenuation in the right occipital lobe and right thalamus suspicious for acute infarct. 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 There is no evidence of hydrocephalus and no skull fracture. CTA of his head and neck was somewhat limited due to patient motion artifact but no definite occlusion was seen in the cervical vessels. However he had decreased attenuation again seen in the right thalamus and right occipital lobe suggestive of a stroke but also a questionable area of decreased attenuation seen anteriorly in the left temporal lobe. He was also found to have occlusion of the distal left P1 and narrowing of the left P2 segment. MRI was recommended but could not be completed because the patient was combative in the emergency department required sedation with Ativan and propofol. Echo with bubble study was ordered but could not be completed as the earth science laboratory technician was overbooked for echocardiograms for the day. Labs including CBC that was normal. Chemistry panel also was normal except for glucose of 135. No electrolyte abnormalities and normal kidney and liver function. TSH is normal at 2.65. Treatment in the emergency department consisted of aspirin 325 mg orally. Although the patient did swallow it he did have some coughing choking spell afterwards. Patient was made n.p.o. and was admitted for treatment of his CVA. Cardiac rhythm on his EKG and telemetry showed sinus rhythm. Review of his history with his reveals no history of heart failure or myocardial infarction and no history of cardiac arrhythmias that she is aware of. He had no antecedent complaints of chest pain or palpitations. His seem somewhat vague about his history he said that other than multivitamins and eating a vegetarian diet has been fairly healthy. However his med list does include levothyroxine for hypothyroidism as well as losartan and atenolol for hypertension and omeprazole for GERD as well as tamsulosin for BPH. After arrival to the intensive care unit patient was very combative disoriented not able to communicate with us not able to follow commands but moving all 4 extremities thrashing about the bed and required sedation with Ativan and Precedex drip. Patient is quite hypertensive on arrival with blood pressures in the 180s to low 200s stage. However since initiation of Precedex drip his blood pressures have come down into the 120s to 140 range. Review of Systems Unobtainable due to mental condition PFSH All Active Problems (Updated 05/21/23 @ 16:56 by Angel Pang MD) Discharge planning issues (Acute) DVT prophylaxis (Acute) Hypertension (Chronic) At risk for falls (Acute) Acute CVA (cerebrovascular accident) (Acute) CKD (chronic kidney disease) (Acute) Insomnia, unspecified (Chronic 07/09/16) IFG (impaired fasting glucose) (Chronic 03/19/16) Hypothyroidism, unspecified (Chronic 04/23/15) Hypertension (Chronic 12/11/14) Hyperlipidemia (Chronic 04/23/15) GERD (gastroesophageal reflux disease) (Chronic 12/11/14) ADHD (attention deficit hyperactivity disorder), combined 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 Calvillo) 10/2017 Surgical History Status post cholecystectomy [facility] Colonoscopy - IV Sedation (01/01/16) Family History Mother Personal history of malignant neoplasm BREAST Heart disease VALVE REPLACEMENT Father Personal history of malignant neoplasm SKIN Brother Essential hypertension Hyperlipidemia Grandfather Personal history of malignant neoplasm Grandfather Heart disease Grandmother Stroke Grandmother No problems noted. 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 Duration: 60-90 minutes/day Frequency: daily Meds Allergies and Home Medications Allergies Allergy/AdvReac Type Severity Reaction Status Date / Time bupropion AdvReac Other (See Verified 05/21/23 07:27 Comment) Home Medications Medication Instructions Recorded Confirmed Type cholecalciferol (vitamin D3) 25 1,000 unit PO DAILY 09/29/14 05/21/23 History mcg (1,000 unit) capsule (Vitamin D3) multivitamin (Daily Multi-Vitamin 1 ea PO DAILY 09/29/14 05/21/23 History tablet) omega-3 acid ethyl esters 1 gram 2 gm PO BID #120 tab-caps 12/19/14 05/21/23 History capsule melatonin 10 mg capsule 10 mg PO HS PRN 11/10/18 05/21/23 History glucosamine HCl 1,500 mg tablet 1,500 mg PO DAILY 08/02/20 05/21/23 History atenolol 50 mg tablet See Rx Instructions .Route 06/30/22 05/21/23 Rx .COMPLEX #90 tabs tamsulosin 0.4 mg capsule (Flomax) 0.4 mg PO DAILY #90 tab-caps 07/30/22 05/21/23 Rx losartan 100 mg tablet 100 mg PO DAILY #90 tab-caps 08/14/22 05/21/23 Rx trazodone 50 mg tablet 50 mg PO HS #90 tab-caps 09/30/22 05/21/23 Rx levothyroxine 137 mcg tablet See Rx Instructions .Route 12/25/22 05/21/23 Rx .COMPLEX #90 tabs omeprazole 20 mg capsule,delayed 20 mg PO DAILY #90 tab-caps 01/05/23 05/21/23 Rx release Exam Narrative Exam Narrative: Elderly white male who is somnolent not responsive to commands but responsive to tactile stimulation. There is no facial asymmetry. Pupils admit point sluggish but reactive to direct and consensual light. There are some asymmetry with the right pupil slightly larger than the left. Negative doll's eyes. Corneal reflex intact. Gag reflex intact. Tongue is midline. Neck supple normal palpation of C-spine. Normal carotid pulses no bruits no JVD no thyromegaly Lungs are clear to auscultation anteriorly and laterally. Heart is regular rate and rhythm no S3 or S4 gallop normal S1-S2 heart tones Abdomen soft nondistended normal bowel sounds no organomegaly, scar in left inguinal space consistent w/ inguinal herniorrhaphy Neuro: HEENT as above, motor, unable to follow commands, but brisk withdrawal of right hand/arm to tactile stimulation, left hand/arm w/ decorticate posturing, withdrawal of both feet and legs to tactile stimulation, DTR brisk, left toe questionable upgoing w/ Babinski, right toe is neutral neutral A lot of myoclonus of legs w/ any stimulation Results Labs 05/21/23 06:38 05/21/23 06:38 Labs: Laboratory Results - last 24 hr 05/21/23 05/21/23 05/21/23 06:38 06:38 10:32 WBC 7.59 RBC 4.62 Hgb 14.2 Hct 39.2 L MCV 85 MCH 30.7 MCHC 36.2 H RDW 12.6 Plt Count 142 MPV 8.5 Immature Gran % 0.4 Neutrophils % 88.2 Lymphocytes % 6.5 Monocytes % 4.2 Eosinophils % 0.3 Basophils % 0.4 Nucleated RBC % 0.0 Absolute Neutrophils 6.70 Absolute Lymphocytes 0.49 L Absolute Monocytes 0.32 Absolute Eosinophils 0.02 Absolute Basophils 0.03 APTT 25.1 Sodium 142 Potassium 4.1 Chloride 106 Carbon Dioxide 26.6 Anion Gap 9.4 BUN 14 Creatinine 1.2 Est GFR (CKD-EPI 2021) 61.90 Glucose 135 H Calcium 8.9 Total Bilirubin 0.6 AST 16 ALT 22 Alkaline Phosphatase 72 Troponin I < 50 Cancelled Total Protein 7.3 Albumin 3.9 TSH 2.65 Urine Color Yellow Urine Clarity Clear Urine pH 6.0 Ur Specific [place] 1.010 Urine Protein Negative Urine Ketones Negative Urine Blood Negative Urine Nitrite Negative Urine Bilirubin Negative Urine Urobilinogen 0.2 Ur Leukocyte Esterase Negative Urine Glucose Negative Last Vital Signs Temp 36.6 C 05/21/23 06:30 Pulse 88 05/21/23 12:47 Resp 22 05/21/23 12:50 BP 192/107 H 05/21/23 12:47 Pulse Ox 94 05/21/23 12:50 Time Spent Time spent with Patient: 55-74 minutes Time was spent: preparing to see the patient(eg.review tests), referring, communicating with other health intensive care anaesthetist, indepentently interpreting results, counseling the patient (Counseling patient's counseling patient's ) and care coordination
--- NOTE | 2023-05-21 15:57 | NCONE_ITS ---
Date of service: 05/21/23 Time of Service: 15:57 Assessment and Plan Assessment and plan (1) Acute CVA (cerebrovascular accident): Status: Acute (2) Hypertension: Status: Chronic Assessment and plan: Mr. Hanna presents with AMS and agitation in the setting of acute R occipital and thalamic strokes with possible L temporal ischemia as well. Unclear what other neurological deficits he may have at this time as exam was limited due to presence of sedation. Etiology of his strokes remains unknown. Work-up: -MRI brain w/o to asses for acute stroke -TTE with bubble study -Telemetry -A1c -Lipid panel Medications: -aspirin daily for secondary stroke prevention - 324mg MT currently until AMS resolves -atorvastatin 80mg daily for secondary stroke prevention once able to swallow (then titrate at d/c for goal LDL <70) Other: -Allow permissive hypertension [id number], then can slowly lower BP -Physical therapy for leg weakness, gait training -Occupation therapy for upper extremity weakness, activities of daily living -Speech therapy for speech and swallow If his mental status does not improve, would consider EEG as further work-up. Would also consider updated CTH if still not able to get MRI brain. He has the colloid cyst and while not obviously obstructing at this time, it could be early obstructing, though the likelihood of this is low. (3) Colloid cyst of brain: Status: Acute History of Present Illness History of Present Illness Chief Complaint: stroke Narrative: Handedness: right. HPI: Mr. Hanna is a 78 year-old with hypertension, hyperlipidemia, CKD, pre- diabetes, hypothyroidism, insomnia, GERD, ADHD, depression, and vegitarianism who is quite active. is at bedside. Mr. Hanna's called EMS after he woke up this am confused. In the ER, he was altered, unable to follow commands, with an apparent R gaze preference. BP was 192/96. CTH concerning for stroke as below. He was not a candidate for tPA as he was outside of the time window. He was given ASA 325mg x1 in the ER. He subsequently became agitated, treated with lorazepam and Propofol . Upon arriving upstairs was again agitated and given further lorazepam and now on Precedex drip. He is quite sedated currently with occasional flexion movements of the legs. Work-up: -CTH (05/21/23): R occipital and R thalamus hypodensities concerning for acute stroke. He also has what appears to be a colloid cyst in the roof of the third ventricle/foramen of monro without obvious hydrocephalus. I reviewed these images personally and this is my personal interpretation. -CTA head/neck (05/21/23): Limited by motion artifact. In addition to findings on CTH, may also have L anterior temporal ischemia as well. L DIRECTOR OF HOUSING AND ENERGY SERVICES narrowing, otherwise no obvious stenosis. I reviewed these images personally and this is my personal interpretation. -TSH: 2.65 Review of Systems Unobtainable due to mental status PFSH All Active Problems (Updated 05/21/23 @ 21:43 by Angela Cooney MD) Colloid cyst of brain (Acute) Discharge planning issues (Acute) DVT prophylaxis (Acute) Hypertension (Chronic) At risk for falls (Acute) Acute CVA (cerebrovascular accident) (Acute) CKD (chronic kidney disease) (Acute) Insomnia, unspecified (Chronic 07/09/16) IFG (impaired fasting glucose) (Chronic 03/19/16) Hypothyroidism, unspecified (Chronic 04/23/15) Hypertension (Chronic 12/11/14) Hyperlipidemia (Chronic 04/23/15) GERD (gastroesophageal reflux disease) (Chronic 12/11/14) ADHD (attention deficit hyperactivity disorder), combined 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 Calvillo) 10/2017 Surgical History [place] [facility] [place] - IV Sedation (01/01/16) Family History Mother Personal history of malignant neoplasm BREAST Heart disease VALVE REPLACEMENT Father Personal history of malignant neoplasm SKIN Brother Essential hypertension Hyperlipidemia Grandfather Personal history of malignant neoplasm Grandfather Heart disease Grandmother Stroke Grandmother No problems noted. 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 Duration: 60-90 minutes/day Frequency: daily Visit Medication and Allergies Active Medications Generic Name Dose Route Start Last Admin Trade Name Freq PRN Reason Stop Dose Admin Acetaminophen 650 mg 05/21/23 13:52 Acetaminophen 650 Mg Supp MT Q4H PRN PRN Aspirin 300 mg 05/22/23 08:30 Aspirin 300 Mg Supp MT DAILY AISSATOU Enoxaparin Sodium 40 mg 05/21/23 14:00 05/21/23 15:23 Enoxaparin 40 Mg/0.4 Ml Syr SC 40 mg Q24H AISSATOU Administration Dexmedetomidine/Sodium Chloride 400 mcg in 100 mls @ 4.25 mls/hr 05/21/23 14:00 05/21/23 15:29 Precedex IV 0.2 mcg/kg/hr INFUSION AISSATOU 4.25 mls/hr Titration Protocol 0.2 MCG/KG/HR IV Miscellaneous Supplies 1 each 05/21/23 06:15 Iv Access IV DIRECTED AISSATOU Levothyroxine Sodium 62 mcg 05/22/23 08:30 Levothyroxine 100 Mcg Vial IVP DAILY AISSATOU Lorazepam 1 mg 05/21/23 13:49 05/21/23 13:50 Lorazepam 2 Mg/Ml Vial IVP 1 mg Q2H PRN PRN Administration Pantoprazole Sodium 40 mg 05/21/23 14:00 05/21/23 15:23 Pantoprazole 40 Mg Vial IVP 40 mg Q24H AISSATOU Administration Allergies bupropion Adverse Reaction (Verified 05/21/23 07:27) Other (See Comment) Exam Narrative Exam Narrative: Physical Exam: Constitutional: Patient of apparent stated age, well nourished, well developed, kicking legs at time, but appears calm; does not respond to voice/noxious stimuli Neck: Supple, no meningismus CV: RRR Resp: CTAB Abd: Soft, nontender, nondistended Neuro: MS/Language/Speech: does not respond to voice/noxious stimuli CN: R pupil slightly larger than left - both sluggish; dolls eyes absent Sensori-Motor: Decorticate posturing in the LUE to noxious stimuli and withdrawal in all other extremities. Reflexes: 2+ DTRs, toes neutral bilaterally Results Last Vital Signs Temp 98.4 F 05/21/23 15:48 Pulse 61 05/21/23 15:31 Resp 18 05/21/23 15:31 BP 143/77 H 05/21/23 15:31 Pulse Ox 96 05/21/23 15:31 Labs 05/21/23 06:38 05/21/23 06:38 Labs: Laboratory Results - last 24 hr 05/21/23 05/21/23 05/21/23 06:38 06:38 10:32 WBC 7.59 RBC 4.62 Hgb 14.2 Hct 39.2 L MCV 85 MCH 30.7 MCHC 36.2 H RDW 12.6 Plt Count 142 MPV 8.5 Immature Gran % 0.4 Neutrophils % 88.2 Lymphocytes % 6.5 Monocytes % 4.2 Eosinophils % 0.3 Basophils % 0.4 Nucleated RBC % 0.0 Absolute Neutrophils 6.70 Absolute Lymphocytes 0.49 L Absolute Monocytes 0.32 Absolute Eosinophils 0.02 Absolute Basophils 0.03 APTT 25.1 Sodium 142 Potassium 4.1 Chloride 106 Carbon Dioxide 26.6 Anion Gap 9.4 BUN 14 Creatinine 1.2 Est GFR (CKD-EPI 2020) 61.90 Glucose 135 H Calcium 8.9 Total Bilirubin 0.6 AST 16 ALT 22 Alkaline Phosphatase 72 Troponin I < 50 Cancelled Total Protein 7.3 Albumin 3.9 TSH 2.65 Urine Color Yellow Urine Clarity Clear Urine pH 6.0 Ur Specific [place] 1.010 Urine Protein Negative Urine Ketones Negative Urine Blood Negative Urine Nitrite Negative Urine Bilirubin Negative Urine Urobilinogen 0.2 Ur Leukocyte Esterase Negative Urine Glucose Negative
--- NOTE | 2023-05-21 16:23 | PT.INNT ---
PT Notes Visit Reasons: Acute CVA Attempted PT evalaution for this gentlemen who came in with acute CVA. Became agitated so was administered Precedex, now sedated. Dr. Pang and Dr. Cooney both recommended seeing patient tomorrow morning for evaluation.
--- NOTE | 2023-05-21 16:31 | STREC_ITS ---
Date of service: 05/21/23 Time of Service: 16:32 Speech Therapy Recommendations Report ST Recommendations: RADIOLOGY CLERK consult received/attempted. DRY WALL FINISHER deferred as patient currently sedated/administered Precedex due to agitation. Will re-attempt tomorrow 05/22. Coding
--- NOTE | 2023-05-21 16:31 | PDOC.STREC ---
Date of service: 05/21/23 Time of Service: 16:32 Speech Therapy Recommendations Report ST Recommendations: MACHINE LOAD CLERK consult received/attempted. EVALUATION ADVISOR deferred as patient currently sedated/administered Precedex due to agitation. Will re-attempt tomorrow 05/22. Coding
--- NOTE | 2023-05-21 17:17 | CHAPLAIN ---
Ilya had recently arrived to the ICU from the ED when I first met him. He was retrained because he had been combative and trying to pull out IVs. This behavior is very unlike him according to his , Tara. He has had some kind of stroke and his called the ambulance this morning. I was able to get her something to eat and sit with her for a while. Ilya is calm and resting at this point. Tara said Ilya is the one who does the most around the house. 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 They live less than a mile from the hospital, with four dogs and a cat. Tara is going home for the night and will return tomorrow when the roads are clear. (we're expecting some icing overnight.) Tara said they don't have any children and there is really no one else that she would call for support.
[2023-05-21 17:39] LABS: Hemoglobin A1C 4.9 % (<5.7)
[2023-05-21] MEDS: DEXTROSE 5%-LACTATED RINGERS 1,000 ML 85 ML IV (19:53)
[2023-05-21] MEDS: Lidocaine 2% Jelly 6 ML SYR (23:11)
[2023-05-22] VITALS (87 sets, daily range): BP systolic 110–194; BP diastolic 50–115; PULSE 63–127; RESP 2–32; TEMP 36.7–38.2; O2SAT 81–99
[2023-05-22] MEDS: LORazepam 2 MG/ML VIAL 1 MG IVP ×4 (06:43→15:50)
[2023-05-22] MEDS: Normal Saline Flush 10 ML SYR ×3 (06:44→14:28)
--- NOTE | 2023-05-22 07:29 | NUR.NOTE ---
0600-pt is suddenly very restless and wants to get oob to go downstairs. grabbing ahold of the 2 nurses and trying to force them to take him downstairs. Security called and came to room. medicated with 1mg iv lorazepam and pt eventually laid back to bed. Unable to restart the IVF at 0600 as per MD order. Lab was unable to draw bloods. This reported to 7-3 shift.
[2023-05-22 07:50] LABS: Abs Immature Grans 0.01 10^3/uL (0.0-0.06); Absolute Basophil Count 0.05 10^3/uL (0.0-0.2); Absolute Lymphocyte Count 0.86 10^3/uL (1.2-3.4); Absolute Monocyte Count 0.65 10^3/uL (0.1-0.8); Absolute Neutrophil Count 5.02 10^3/uL (1.2-6.7); Basophils % 0.7; Eosinophils % 1.5; HCT 39.8 % (40.0-50.0); HGB 14.2 g/dL (13.5-17.5); Immature Grans % 0.1; Lymphocytes % 12.9; MCH 30.2 pg (27.0-33.0); MCHC 35.7 % (32.0-36.0); MCV 85 fL (80-95); MPV 8.8 fL (8.0-11.0); Monocytes % 9.7; Neutrophils % 75.1; Platelet Count 144 10^3/uL (130-400); RDW 12.3 % (11.8-14.1); WBC 6.69 10^3/uL (4.4-10.8)
[2023-05-22 08:05] LABS: Anion Gap 8.3 mmol/L (3-11); BUN 12 mg/dL (7-18); CO2 26.7 mmol/L (21.0-32.0); CREATININE 1.3 mg/dL (0.70-1.30); Calculated LDL 100 mg/dL (<100); Chloride 108 mmol/L (98-107); Cholesterol 162 mg/dL (<200); Estimated GFR 56.23 (mL/min/1.73m2); Glucose 105 mg/dL (74-106); HDL Cholesterol 41 mg/dL (40-60); Potassium 3.3 mmol/L (3.5-5.1); Sodium 143 mmol/L (136-145); Triglyceride 107 mg/dL (<150)
[2023-05-22 09:10] LABS: Lab Add On Test DONE
--- NOTE | 2023-05-22 09:20 | PDOC.CMIN ---
Date of service: 05/22/23 Time of Service: 09:20 Care Management Initial Assmt Initial Assessment REASON FOR HOSPITALIZATION:: Acute CVA PREVIOUS FUNCTIONAL STATUS/SOCIAL/FAMILY SUPPORTS:: Ilya live with his Tara in [facility]. They have no children or any relatives in the area. CURRENT FUNCTIONAL STATUS:: Ilya was lying in bed when CM went to see him. He had been restless and agitated and was medicated with Ativan and Haldol and was asleep at the time of the visit. Ilya has evidence of 3 separate infarcts in his brain and has been confused since admission. CM attempted to reach his for more information, but had to leave a voice mail and no return call was received. ADVANCE DIRECTIVES:: none Has patient been provided with info about the portal/API?: Yes Did the patient sign up for the portal?: Yes CODE STATUS:: Full Code INSURANCE COVERAGE / FINANCIAL ISSUES:: MVP Medicare replacement PRIMARY CARE PHYSICIAN:: Serina Prakash PATIENT/FAMILY EDUCATION NEEDS:: follow up with PCP and neurology Will likely need SNF ANTICIPATED BARRIERS TO DISCHARGE:: SNF bed availability TRANSPORTATION:: to be determined by disposition PLAN:: Anticipate Ilya will transfer to a group home facility for short term rehab when medically cleared. He will follow up with their provider and plan of care. Transportation will be determined by disposition. CM will follow and continue to assess for discharge planning concerns. and PFSH All Active Problems (Updated 05/21/23 @ 21:43 by Angela Cooney MD) Colloid cyst of brain (Acute) Discharge planning issues (Acute) DVT prophylaxis (Acute) Hypertension (Chronic) At risk for falls (Acute) Acute CVA (cerebrovascular accident) (Acute) CKD (chronic kidney disease) (Acute) Insomnia, unspecified (Chronic 07/09/16) IFG (impaired fasting glucose) (Chronic 03/19/16) Hypothyroidism, unspecified (Chronic 04/23/15) Hypertension (Chronic 12/11/14) Hyperlipidemia (Chronic 04/23/15) GERD (gastroesophageal reflux disease) (Chronic 12/11/14) ADHD (attention deficit hyperactivity disorder), combined 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 Calvillo) 10/2017 Surgical History Status post cholecystectomy [facility] [place] Colonoscopy - IV Sedation (01/01/16) Family History Mother Personal history of malignant neoplasm BREAST Heart disease VALVE REPLACEMENT Father Personal history of malignant neoplasm SKIN Brother Essential hypertension Hyperlipidemia Grandfather Personal history of malignant neoplasm Grandfather Heart disease Grandmother Stroke Grandmother No problems noted. 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
--- NOTE | 2023-05-22 09:21 | W.PM.PROGNOT ---
Date of Service Date of service: 05/22/23 Time of Service: 09:21 Assessment and Plan Assessment and plan (1) Acute CVA (cerebrovascular accident): Status: Acute Assessment and plan: Status post acute right occipital and thalamic stroke and probable left temporal stroke as well. Suspect embolic source. Proceed with history of stroke workup including MRI of the brain and echocardiogram with bubble study. Will await feeding him until ENVIRONMENTAL LAW PROFESSOR consult has been completed. Continue aspirin per rectal suppository but if he is able to safely swallow I will switch him to oral aspirin and start him on atorvastatin. Now the patient is more alert hopefully we can get a PT and OT consult as well as ENVIRONMENTAL LAW PROFESSOR. Not sure how cooperative however he will be. I have ordered low-dose Valium and Haldol for his agitation so we can complete the echo and MRI scan. Dr. Cooney's input from yesterday was appreciated. Critical care time spent interviewing and examining the patient, reviewing studies, discussing case with patient's nurse and consulting physicians was 30 minutes (2) Colloid cyst of brain: Status: Acute Assessment and plan: Per CT scan no evidence of hydrocephalus. This can be followed up as an outpatient with repeat MRI scan in 6 months. (3) Hypothyroidism, unspecified: Status: Chronic Assessment and plan: TSH within normal range. Levothyroxine was switched to parenteral form however if he is able to safely swallow we will switch him back to his home dose. Qualifiers: Hypothyroidism type: unspecified Qualified Code(s): E03.9 - Hypothyroidism, unspecified (4) Hypertension: Status: Chronic Assessment and plan: Allowing passive hypertension for 48 hours after her stroke and then resume his antihypertensives to gradually bring down his blood pressure. I would only treat his blood pressure acutely if his systolic is over 210 or diastolic over 110. Qualifiers: Hypertension type: essential hypertension Qualified Code(s): I10 - Essential (primary) hypertension (5) Hyperlipidemia: Status: Chronic Assessment and plan: Begin atorvastatin once he can safely swallow. Qualifiers: Hyperlipidemia type: unspecified Qualified Code(s): E78.5 - Hyperlipidemia, unspecified (6) GERD (gastroesophageal reflux disease): Status: Chronic Assessment and plan: Continue IV Protonix but switch to oral PPI once he can safely swallow Qualifiers: Esophagitis presence: esophagitis presence not specified Qualified Code(s): K21.9 - Gastro-esophageal reflux disease without esophagitis (7) DVT prophylaxis: Status: Acute Assessment and plan: enoxaparin 40 mg SC daily (8) Discharge planning issues: Status: Acute Assessment and plan: patient and his live alone in [facility], they moved here about 60 yr ago, they do not have any children nor any near by family. He has a brother who lives in [place] according to his . She requires his assitance at home as she gets around in wheel chair, and has had frequent falls. I anticipate that he will require a prolonged rehab period once his CVA has been worked up and he is stablilzed from his CVA. Patient remains full code per my discussion with his yesterday. Patient continues to require hospitalization and in particular he needs close monitoring due to his behavioral issues therefore I decided to leave him in the ICU for today. I will start him on low-dose scheduled Haldol to try to help with his behavioral issues. Subjective Subjective Interval history since last seen: Ilya is more awake this morning however he is restless constantly trying to get out of bed. He is able to state the hand up but requires assistance from nursing to prevent any falls. When I tried to interview him this morning he gave non sequitur answers and some of his answers seem to be purposely incorrect. For example when I asked him to do finger counting he said he replied how many fingers I was holding up in front of his face and said too many and then later he said 247. However he did follow simple commands such as raising his right arm or his left arm when I asked him to her raising his right leg and left leg when I asked him to. He indicated to nursing staff he just wants to get out of here. When I asked him if he understood where he is at or why he is here he could not give me an answer. I explained to him that he had a stroke and that he is in the hospital in [facility]. Exam Narrative Exam Narrative: Patient has no dysarthric speech he is alert oriented to self but not to place time or circumstance. No facial asymmetry extraocular motions intact I cannot discern his visual galindo as he was not cooperative for the exam. Extremities he moves all 4 extremities well seems to have slightly weak handgrip on the left compared to the right but otherwise moves his hands and arms well. Same thing with the lower extremities he seems to move his legs with hip flexion extension. Lungs are clear to auscultation Heart is regular he is slightly tachycardic but he is in a regular sinus rhythm. Abdomen soft and nondistended nontender. Objective Last Vital Signs Temp 37.4 C 05/22/23 07:30 Pulse 70 05/22/23 03:36 Resp 20 05/22/23 03:36 BP 161/106 H 05/22/23 03:36 Pulse Ox 96 05/22/23 03:36 Laboratory Results - last 24 hr 05/21/23 05/21/23 05/22/23 06:38 10:32 07:35 WBC 6.69 RBC 4.70 Hgb 14.2 Hct 39.8 L MCV 85 MCH 30.2 MCHC 35.7 RDW 12.3 Plt Count 144 MPV 8.8 Immature Gran % 0.1 Neutrophils % 75.1 Lymphocytes % 12.9 Monocytes % 9.7 Eosinophils % 1.5 Basophils % 0.7 Nucleated RBC % 0.0 Absolute Neutrophils 5.02 Absolute Lymphocytes 0.86 L Absolute Monocytes 0.65 Absolute Eosinophils 0.10 Absolute Basophils 0.05 Sodium 143 Potassium 3.3 L Chloride 108 H Carbon Dioxide 26.7 Anion Gap 8.3 BUN 12 Creatinine 1.3 Est GFR (CKD-EPI 2020) 56.23 Glucose 105 Hemoglobin A1c 4.9 Calcium 9.0 Triglycerides Cancelled Total Cholesterol LDL Cholesterol, Calc HDL Cholesterol Urine Color Yellow Urine Clarity Clear Urine pH 6.0 Ur Specific [place] 1.010 Urine Protein Negative Urine Ketones Negative Urine Blood Negative Urine Nitrite Negative Urine Bilirubin Negative Urine Urobilinogen 0.2 Ur Leukocyte Esterase Negative Urine Glucose Negative Add-On Test Request 05/22/23 05/22/23 05/22/23 07:35 07:35 07:35 WBC RBC Hgb Hct MCV MCH MCHC RDW Plt Count MPV Immature Gran % Neutrophils % Lymphocytes % Monocytes % Eosinophils % Basophils % Nucleated RBC % Absolute Neutrophils Absolute Lymphocytes Absolute Monocytes Absolute Eosinophils Absolute Basophils Sodium Potassium Chloride Carbon Dioxide Anion Gap BUN Creatinine Est GFR (CKD-EPI 2020) Glucose Hemoglobin A1c Calcium Triglycerides 107 Total Cholesterol Cancelled 162 LDL Cholesterol, Calc Cancelled 100 HDL Cholesterol Cancelled Urine Color Urine Clarity Urine pH Ur Specific [place] Urine Protein Urine Ketones Urine Blood Urine Nitrite Urine Bilirubin Urine Urobilinogen Ur Leukocyte Esterase Urine Glucose Add-On Test Request 05/22/23 05/22/23 07:35 09:10 WBC RBC Hgb Hct MCV MCH MCHC RDW Plt Count MPV Immature Gran % Neutrophils % Lymphocytes % Monocytes % Eosinophils % Basophils % Nucleated RBC % Absolute Neutrophils Absolute Lymphocytes Absolute Monocytes Absolute Eosinophils Absolute Basophils Sodium Potassium Chloride Carbon Dioxide Anion Gap BUN Creatinine Est GFR (CKD-EPI 2020) Glucose Hemoglobin A1c Calcium Triglycerides Total Cholesterol LDL Cholesterol, Calc HDL Cholesterol 41 Urine Color Urine Clarity Urine pH Ur Specific [place] Urine Protein Urine Ketones Urine Blood Urine Nitrite Urine Bilirubin Urine Urobilinogen Ur Leukocyte Esterase Urine Glucose Add-On Test Request DONE Time Spent with Patient Time Spent with Patient: 25-34 minutes Time was spent: preparing to see the patient(eg.review tests), ordering medications,tests, procedures, referring, communicating with other health managed care liaison, indepentently interpreting results, counseling the patient and care coordination
[2023-05-22 09:23] LABS: Magnesium 1.9 mg/dL (1.8-2.4)
--- NOTE | 2023-05-22 09:30 | DI.US_ITS ---
APPROVED REPORT EXAM: Comprehensive 2D, Doppler, and color-flow Echocardiogram Patient Location: In-Patient [employer] Farmer: Connor Mercado RDCS (AE) Indications: bilateral CVA Echo Enhancing Agent Indication: Rule out Shunt Agent(s) / Amount(s) Used: Agitated Saline 40.0 cc Comments: Contrast study was performed with 4 IV injections of 10ccs of agitated normal saline. Patient was unable to cooperate with maneuvers. Negative contrast study for shunt flow. Other Information Technically limited study due to inability to position patient, uncooperative patient. Conclusion Technically limited study 1. Normal chamber sizes 2. Moderate mitral annular calcification, otherwise normal valves. No significant regurgitation or st enosis. 3. Normal LV function, EF 55-60%. Normal RV function. 4. No intracardiac shunt by doppler or agitated saline contrast. 5. No pericardial effusion. Wall motion Left Ventricle The left ventricle is grossly normal size. The left ventricular systolic function is normal. The left ventricular ejection fraction is within the normal range. Unable to assess LV wall thickness. There is normal LV segmental wall motion. There is no ventricular septal defect visualized. LVEF is 56-58%. Right Ventricle Right ventricle is mildly dilated. Right ventricular systolic function is grossly normal. Atria The left atrium size is normal. Right atrium is mildly dilated. Saline bubble contrast intravenous in jection does not demonstrate PFO. Aortic Valve The aortic valve is normal in structure. Number of aortic valve leaflets could not be assessed. There is no aortic valvular stenosis. No aortic regurgitation is present. Mitral Valve Moderate mitral annular calcification. No evidence of mitral valve stenosis. There is no mitral valve regurgitation noted. Tricuspid Valve The tricuspid valve is normal in structure. There is no tricuspid valve stenosis. Trace tricuspid reg urgitation. Unable to assess PA pressure. Pulmonic Valve Pulmonic valve is not well visualized. Great Vessels The aortic root is normal in size. Ascending aorta is not well visualized. Aortic arch is not well vi sualized. The IVC collapses <50% with inspiration. Pericardium There is no pericardial effusion. 2D Dimensions Ao Root d 3.24 cm M: 3.1 - 3.7 M-Mode TAPSE 1.94 cm (M/F) >1.7 Auto EF LV EDV A4C 82.9 mL LV EDV A2C 110.8 mL LV EDV BP LV ESV A4C 36.4 mL LV ESV A2C 46.5 mL LV ESV BP LVEF(%) A4C 56.1 % LVEF(%) A2C 58.0 % LVEF(%) BP LV SV A4C 46.5 ml LV SV A2C 64.2 ml LV SV BP LV CO A4C 4.0 L/min LV CO A2C 5.6 L/min LV CO BP HR A4C 85.92 BPM HR A2C 86.92 BPM LV EDV Index (BP) LA Volume LA Length A4C 3.1 cm LA Length A2C 5.4 cm LA Area A4C s 8.44 cm2 LA Area A2C s 14.27 cm2 LA Vol A4C A-L 19.30 mL LA Vol A2C A-L 32.16 mL LA Vol Biplane A-L 32.7 mL LA Vol/BSA A4C A-L LA Vol/BSA A2C A-L LA Vol/BSA BP A-L 16.6 mL/m2 LA Vol A4C MOD 18.6 mL LA Vol A2C MOD 31.6 mL LA Vol BP MOD 31.2 mL RA Volume RA Area A4C 14.1 cm2 RA ESV A4C (A-L) 37.3mL RA Vol/BSA A4C A-L RA Length A4C 4.5 cm RA ESV A4C (MOD) 35.9mL LV Diastology MV E' medial 0.084 (>0.07 m/s) MV E Vmax 0.55 (0.4-1.3 m/s) MV E/E' MED 6.60 (<14) MV A Vmax 1.10 (0.4-1.3 m/s) MV E' lateral 0.137 (>0.1 m/s) E/A Ratio 0.5 MV E/E' LAT 4.03 (<14) MV E' Average 0.111 m/s MV E/E'(average) 5.01 Aortic Valve AoV Vmax 1.26 m/s LVOT Vmax 1.10 m/s AoV Peak Grad 6.4 mmHg LVOT Peak Grad 4.8 mmHg AoV Area (Vmax) 2.76 cm2 LVOT VTI 0.224 m AoV VTI 0.252 m LVOT Mean Grad 3.2 mmHg AoV Mean Chavo. 0.92 m/s LVOT SV 71.07 mL AoV Mean Grad 3.8 mmHg LVOT Diam s 2.00 cm AoV Area (VTI) 2.82 cm2 Velocity Ratio 0.87 Mitral Valve MV DT 233 (160-240 msec)
--- NOTE | 2023-05-22 09:32 | OT.INNT ---
Occupational Therapy Notes 05/22/23 OT consult received and pts chart was reviewed. OT attempted to consult with pt and RN notes that pt will not be able to perform evaluation at this time. OT will attempt consult again on Thursday. CARI Moyer/Satnam
[2023-05-22] MEDS: diazePAM 10 MG/2 ML SYR 2 MG IVP (09:38)
[2023-05-22] MEDS: Haloperidol 5 MG/ML VIAL 2 MG IM/IV ×3 (09:39→19:18)
[2023-05-22] MEDS: POTASSIUM CHLORIDE 10 MEQ/100 ML BAG 100 MEQ IVPB ×3 (09:42→16:32)
[2023-05-22] MEDS: Levothyroxine 100 MCG VIAL 62 MCG IVP (09:47)
--- NOTE | 2023-05-22 11:50 | DI.MRI_ITS ---
Exam(s) MR BRAIN WO EXAM: MR BRAIN WO CLINICAL HISTORY: CVA. TECHNIQUE: Multiplanar multisequence MRI of the brain was performed. CONTRAST MATERIAL: IV Contrast: ML of Dotarem contrast administered. COMPARISON: CT CT HEAD - STROKE PROTOCOL from 05/21/2023 FINDINGS: VENTRICLES AND EXTRA AXIAL SPACES: Normal in size and morphology for the patient's age. Small colloi d cyst foramen of Monro. HEMORRHAGE: Susceptibility weighted images show petechial microhemorrhage right thalamus. Petechial microhemorrhage anterior right occipital lobe. Some microhemorrhage also seen posterior right occipi alison lobe. CEREBRAL PARENCHYMA: Restricted diffusion seen extending from the right posteromedial temporal lobe t hrough the right occipital lobe. Areas of restricted diffusion seen in both thalami. Small focus of restricted diffusion anterior right temporal lobe. No space-occupying lesion identified. Mild unde rlying white matter changes small vessel disease. MIDLINE SHIFT: None. BRAINSTEM/CEREBELLUM: Normal. CALVARIUM: Normal. ENHANCEMENT: No suspicious enhancement identified. VISUALIZED PARANASAL SINUSES/MASTOIDS: Clear. Orbits: Unremarkable. Pituitary: Normal. Vasculature: Normal flow voids. IMPRESSION: Areas of acute infarct involving the right occipital lobe and portions of the right temporal lobe as well as bilateral thalami. micro hemorrhages seen in right thalamus and posterior right occipital lobe. DATA REPOSITORY:
--- NOTE | 2023-05-22 11:52 | PT.INNT ---
PT Notes Visit Reasons: Acute CVA Attempted consultation at various times this morning. Patient reportedly agitated and combative. Will hold PT for this am, and have nursing contact me if he's appropriate this afternoon.
[2023-05-22] MEDS: OLANZapine 10 MG VIAL 5 MG IM (13:32)
[2023-05-22] MEDS: Haloperidol 5 MG/ML VIAL IM/IV (14:10)
[2023-05-22] MEDS: Pantoprazole 40 MG VIAL IVP (14:30)
[2023-05-22] MEDS: Enoxaparin 40 MG/0.4 ML SYR SC (14:30)
[2023-05-22] MEDS: Normal Saline Flush 10 ML SYR IVP ×2 (15:54→19:18)
[2023-05-22] MEDS: Acetaminophen 650 MG SUPP PR (16:34)
[2023-05-22 19:57] LABS: Bilirubin Small (Negative); Blood Large (Negative); Clarity Cloudy (Clear); Glucose Negative (Negative); Ketones Trace mg/dL (Negative); Leukocyte Esterase Trace (Negative); Nitrite Negative (Negative); Urobilinogen 0.2 mg/dL (Up to 0.2)
[2023-05-22 20:00] LABS: Bacteria Few HPF (Negative); Casts Negative LPF (Negative); Crystals Negative HPF (Negative); Epithelial Cells Rare HPF (Negative); Mucus Negative (Negative); RBC >50 HPF (0-2)
[2023-05-22 20:01] LABS: C & S Indicated? Yes
--- NOTE | 2023-05-22 21:39 | PDOC.EEG ---
Neurology EEG EEG: [facility] Department of Neurology INPATIENT EEG REPORT Date of Recordin05/22/23 Interpreting Physician: Dr. Angela Cooney Reason for study: Mr. Hanna was admitted for AMS secondary to stroke, with ongoing mental status alteration. 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 Last Admin: 05/22/23 09:38 Dose: 2 mg Enoxaparin Sodium (Enoxaparin 40 Mg/0.4 Ml Syr) 40 mg SC Q24H [facility] Last Admin: 05/22/23 14:30 Dose: 40 mg Haloperidol Lactate (Haloperidol 5 Mg/Ml Vial) 2 mg IM/IV Q6H PRN PRN Last Admin: 05/22/23 10:54 Dose: 2 mg Haloperidol Lactate (Haloperidol 5 Mg/Ml Vial) 2 mg IM/IV BID [facility] Last Admin: 05/22/23 19:18 Dose: 2 mg Potassium Cl/Dextrose/Lact Ringer's (Kcl 20meq/D5lr) 1,000 mls @ 80 mls/hr IV INFUSION [facility] Last Admin: 05/22/23 09:40 Dose: 80 mls/hr IV Miscellaneous Supplies (Iv Access) 1 each IV DIRECTED [facility] Levothyroxine Sodium (Levothyroxine 100 Mcg Vial) 62 mcg IVP DAILY [facility] Last Admin: 05/22/23 09:47 Dose: 62 mcg Lidocaine HCl (Lidocaine 2% Jelly 11 Ml Syr) 11 ml UR Q6H PRN PRN PRN Reason: use for straight cath Lorazepam (Lorazepam 2 Mg/Ml Vial) 1 mg IVP Q2H PRN PRN Last Admin: 05/22/23 15:50 Dose: 1 mg Pantoprazole Sodium (Pantoprazole 40 Mg Vial) 40 mg IVP Q24H [facility] Last Admin: 05/22/23 14:30 Dose: 40 mg Sodium Chloride (Normal Saline Flush 10 Ml Syr) 0 ml IVP PRN PRN Last Admin: 05/22/23 19:18 Dose: 20 ml METHODS: A 21 channel digitized electroencephalogram was performed in the [facility] Med/Surg Floor or ICU. The 10/20 international system of electrode placement was used and bipolar and referential electrode montages were recorded. In addition to EEG the patient was monitored for EKG and lateral/vertical eye movements. Activation procedures of photic stimulation and hyperventilation were performed if applicable. Video was used during activation procedures and during events where applicable. The duration of the recording was 30 minutes. DESCRIPTION OF EEG: There were no identifying features to the EEG. There was continuous, non-rhythmic, low-amplitude delta activity with mixed undertones of low voltage alpha and beta activity; along with muscle and motion artifact at times. No posterior dominant rhythm could be identified. There was no epileptic activity. Activating Procedures: Photic stimulation was performed which produced no posterior driving response. Hyperventilation was not performed. EKG: EKG revealed normal sinus rhythm. INTERPRETATION: This EEG is abnormal due to continuous, non-rhythmic, generalized slowing without normal features. PRIOR EEG: none CLINICAL CORRELATION: The background slowing is suggestive of a moderate-severe diffuse cerebral encephalopathy of broad differential including toxic-metabolic etiology. No obvious focal regions of cerebral dysfunction or epileptiform activity was present. Clinical correlation is advised. Angela Cooney MD Date of service: 05/22/23 Coding CPT Codes EEG COMA OR SLEEP ONLY - [id number] ([id number])
[2023-05-22] MEDS: Albuterol/Ipratropium 3 ML UPD VIAL UPD (23:55)
[2023-05-23] VITALS (63 sets, daily range): BP systolic 101–178; BP diastolic 64–130; PULSE 65–129; RESP 2–26; TEMP 36.6–36.7; O2SAT 91–100
[2023-05-23] MEDS: Haloperidol 5 MG/ML VIAL 2 MG IM/IV ×2 (04:15→07:37)
--- NOTE | 2023-05-23 05:30 | RT.EKG_ITS ---
APPROVED REPORT Exam: Resting ECG Reason for Exam: rhythm change Patient Location: I HR:89 bpm ECG Measurements Heart Rate 89 AXIS MI [id number] P [id number] QRSd 131 QRS 75 QT 382 T -38 QTc 465 Conclusion Atrial fibrillation...V-rate 66-112, irreg A-activity Nonspecific intraventricular conduction delay...QRSd >115mS, not LBBB/RBBB Nonspecific T abnormalities, inferior leads...T <-0.10mV, II III aVF I have reviewed and interpreted ECG and agree with software generated interpretation.
[2023-05-23] MEDS: LORazepam 2 MG/ML VIAL 1 MG IVP ×3 (06:26→14:37)
[2023-05-23] MEDS: Normal Saline Flush 10 ML SYR IVP ×5 (06:42→14:38)
[2023-05-23 06:55] LABS: Abs Immature Grans 0.01 10^3/uL (0.0-0.06); Absolute Basophil Count 0.04 10^3/uL (0.0-0.2); Absolute Eosinophil Count 0.18 10^3/uL (0.0-0.7); Absolute Monocyte Count 0.66 10^3/uL (0.1-0.8); Basophils % 0.7; HCT 39.9 % (40.0-50.0); HGB 14.4 g/dL (13.5-17.5); Immature Grans % 0.2; Lymphocytes % 16.7; MCH 30.4 pg (27.0-33.0); MCHC 36.1 % (32.0-36.0); MCV 84 fL (80-95); Neutrophils % 68.4; Platelet Count 143 10^3/uL (130-400); RBC 4.74 10^6/uL (4.36-5.78); RDW 12.3 % (11.8-14.1); RDW-SD 37.2 fL; WBC 5.99 10^3/uL (4.4-10.8)
[2023-05-23 07:16] LABS: Anion Gap 9.3 mmol/L (3-11); BUN 12 mg/dL (7-18); CO2 26.7 mmol/L (21.0-32.0); CREATININE 1.1 mg/dL (0.70-1.30); Chloride 106 mmol/L (98-107); Estimated GFR 68.71 (mL/min/1.73m2); Glucose 112 mg/dL (74-106); Potassium 3.5 mmol/L (3.5-5.1); Sodium 142 mmol/L (136-145)
--- NOTE | 2023-05-23 07:41 | NUR.NOTE ---
Patient quite anxious at change of shift. Patient is given 2mg of Haldol IVP. Patient was pulling at this sequeira catheter and trying to dislodge his IV. Patient is not in restraints.Nursing Note:
[2023-05-23] MEDS: Levothyroxine 100 MCG VIAL 62 MCG IVP (08:00)
--- NOTE | 2023-05-23 08:49 | NUR.NOTE ---
Patient's vital signs are stable. Patient sleeping quietly. Head of bed at 24 degrees.Nursing Note:
--- NOTE | 2023-05-23 10:53 | NUR.NOTE ---
Patient leans to his left side when sleeping up in chair.Nursing Note:
--- NOTE | 2023-05-23 11:12 | PGE_ITS ---
Date of Service Date of service: 05/23/23 Time of Service: 11:12 Assessment and Plan Assessment and plan (1) Acute CVA (cerebrovascular accident): Status: Acute Assessment and plan: Status post embolic CVA involving right occipital lobe, right temporal lobe and bilateral thalami with some microhemorrhages seen in the right thalamus and right posterior occipital lobe. Patient's deficits seem to include some cognitive dysfunction as well as gait imbalance and probable vision loss. I will ask nursing to contact [facility] [employer] for video consult today and make attempts at swallowing evaluation. Nursing did report that they attempted some ice chips but he would not let them give him anything by mouth. The severity of the patient's stroke and his deficits along his social situation will make things rather complicated. He and his have no children and no close relatives nearby and his has some disabilities and will not be able to manage him at home. He remains a full code which I will address with her again. If there were some improvement in his cognition and ability to participate in therapy then I would consider referral to highly skilled stroke rehab center such as [facility]. However the patient will need to be able to participate in therapy for at least 3 to 4 hours a day. Continue rectal aspirin until is able to take oral aspirin. Will consider anticoagulation once he is 10 to 14 days out from his stroke. However I would like repeat MRI scan before anticoagulation to make sure these microhemorrhages do not progress. Once is able to take oral we will start him on statin therapy. Patient does not require ICU care specifically but he does need one-to-one nursing care. I will ask for telepsych consult to assist with choosing medications to help control his agitation. Haldol seems to work but does not last for very long. Lorazepam and Valium seem to make him too sedated and seems to affect his blood pressures. I did order some Geodon which the nurses have not given yet. Professional time spent interviewing and examining patient, discussion of goals of care with hospital team (care management, nursing and consulting professional s) was 45 minutes. 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 This can be followed up as an outpatient with repeat MRI scan in 6 months. (3) Hypothyroidism, unspecified: Status: Chronic Assessment and plan: TSH within normal range. Levothyroxine was switched to parenteral form however if he is able to safely swallow we will switch him back to his home dose. Qualifiers: Hypothyroidism type: unspecified Qualified Code(s): E03.9 - Hypothyroidism, unspecified (4) Hypertension: Status: Chronic Assessment and plan: Allowing passive hypertension for 48 hours after her stroke and then resume his antihypertensives to gradually bring down his blood pressure. I would only treat his blood pressure acutely if his systolic is over 210 or diastolic over 110. Qualifiers: Hypertension type: essential hypertension Qualified Code(s): I10 - Essential (primary) hypertension (5) Hyperlipidemia: Status: Chronic Assessment and plan: Begin atorvastatin once he can safely swallow. Qualifiers: Hyperlipidemia type: unspecified Qualified Code(s): E78.5 - Hyperlipidemia, unspecified (6) GERD (gastroesophageal reflux disease): Status: Chronic Assessment and plan: Continue IV Protonix but switch to oral PPI once he can safely swallow Qualifiers: Esophagitis presence: esophagitis presence not specified Qualified Code(s): K21.9 - Gastro-esophageal reflux disease without esophagitis (7) DVT prophylaxis: Status: Acute Assessment and plan: enoxaparin 40 mg SC daily (8) Discharge planning issues: Status: Acute Assessment and plan: patient and his live alone in [facility], they moved here about 60 yr ago, they do not have any children nor any near by family. He has a brother who lives in [place] according to his . She requires his assitance at home as she gets around in wheel chair, and has had frequent falls. I anticipate that he will require a prolonged rehab period once his CVA has been worked up and he is stablilzed from his CVA. Patient remains full code per my discussion with his yesterday. Patient continues to require hospitalization and in particular he needs close monitoring due to his behavioral issues therefore I decided to leave him in the ICU for today. I will start him on low-dose scheduled Haldol to try to help with his behavioral issues. (9) Atrial flutter: Status: Acute Assessment and plan: Did order Lopressor 2.5 mg IV every hour as needed sustained tachycardia above 120. Did not want to put him on routine Lopressor doses as I did not want to drop his blood pressure. If he has sustained tachycardia he may need to go on some scheduled Lopressor. Currently is not a candidate for anticoagulation due to the subacute timing of his stroke. Once his stroke is stabilized and were 10 to 14 days out from his stroke then we will consider anticoagulation after re peating his MRI scan. Qualifiers: Atrial flutter type: typical Qualified Code(s): I48.3 - Typical atrial flutter Subjective Subjective Interval history since last seen: patient with a lot of agitation, restless, he is not redirectable. He is not violent but just agitated and confused. He keeps trying to get out of bed or out of his chair. His MRI of the brain demonstrated, right temporal and right occipital w/ some micro hemorrhages in these areas but also w/ bilateral thalamic CVA. Overnight he went into atrial flutter therefore this is the probable cause of his CVA's. Exam Narrative Exam Narrative: Ilya is awake, unclear as to his cognitive functioning, he does follow c ommands but inconsistent, he is restless made multiple attempts to get out of his chair while I was in the room assessing him, unfortunately there seems to be no goal as to where he is trying to go. We asked him if he was trying to use the toilet and he nodded yes but when his nurse and I tried to direct him to the toilet and get him to pull downhis briefs, he pulled them up and would not sit on the toilet but tried to walk into a corner Speech is quiet, and minimal, no facial droop, he is able to open his eyes but he does not seem to focus on anyone LUngs: clear Heart: regular and tachycardic, no murmur Abdomen: soft, nondistended Has sequeira in place, clear, yellow, he keeps pulling on it Extremities: no edema and no focal weakenss of his hands, arms or legs; gait is very unsteady Objective Last Vital Signs Temp 36.7 C 05/23/23 10:47 Pulse 122 H 05/23/23 10:47 Resp 18 05/23/23 10:47 BP 105/75 05/23/23 10:47 Pulse Ox 95 05/23/23 10:47 Laboratory Results - last 24 hr 05/22/23 05/23/23 19:06 05:40 WBC 5.99 RBC 4.74 Hgb 14.4 Hct 39.9 L MCV 84 MCH 30.4 MCHC 36.1 H RDW 12.3 Plt Count 143 MPV 9.0 Immature Gran % 0.2 Neutrophils % 68.4 Lymphocytes % 16.7 Monocytes % 11.0 Eosinophils % 3.0 Basophils % 0.7 Nucleated RBC % 0.0 Absolute Neutrophils 4.10 Absolute Lymphocytes 1.00 L Absolute Monocytes 0.66 Absolute Eosinophils 0.18 Absolute Basophils 0.04 Sodium 142 Potassium 3.5 Chloride 106 Carbon Dioxide 26.7 Anion Gap 9.3 BUN 12 Creatinine 1.1 Est GFR (CKD-EPI 2020) 68.71 Glucose 112 H Calcium 9.0 Urine Color [place] Urine Clarity Cloudy Urine pH 7.0 Ur Specific [place] 1.020 Urine Protein 30 H Urine Ketones Trace H Urine Blood Large H Urine Nitrite Negative Urine Bilirubin Small H Urine Urobilinogen 0.2 Ur Leukocyte Esterase Trace H Urine RBC >50 H Urine WBC 5-10 Ur Epithelial Cells Rare Urine Crystals Negative Urine Bacteria Few Urine Casts Negative Urine Mucus Negative Ur Culture Indicated? Yes Urine Glucose Negative Time Spent with Patient Time Spent with Patient: 35-49 minutes Time was spent: preparing to see the patient(eg.review tests), ordering medications,tests, procedures, referring, communicating with other health child adolescent care, indepentently interpreting results, counseling the patient and care coordination
[2023-05-23] MEDS: Ziprasidone 20 MG VIAL IM ×2 (11:24→22:29)
--- NOTE | 2023-05-23 11:28 | PT.INIE ---
PT Notes Visit Reasons: Acute CVA Inpatient Physical Therapy Evaluation Date: May 23, 2023 Referring Doctor: Dr. Angel Pang PT Orders: PT CONSULT: Falls safety assessment Precautions: Standard, falls Patient Profile/Admitting Diagnosis: Patient is a 78-year-old male admitted on May 21, 2023. Arrived in emergency department suffering acute CVA. Patient had right occipital and m stroke and left temporal stroke with questionable embolus as a source. PMHX: PFSH All Active Problems (Updated 05/21/23 @ 16:56 by Angel Pang MD) Discharge planning issues (Acute) DVT prophylaxis (Acute) Hypertension (Chronic) At risk for falls (Acute) Acute CVA (cerebrovascular accident) (Acute) CKD (chronic kidney disease) (Acute) Insomnia, unspecified (Chronic 07/09/16) IFG (impaired fasting glucose) (Chronic 03/19/16) Hypothyroidism, unspecified (Chronic 04/23/15) Hypertension (Chronic 12/11/14) Hyperlipidemia (Chronic 04/23/15) GERD (gastroesophageal reflux disease) (Chronic 12/11/14) ADHD (attention deficit hyperactivity disorder), combined 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 Calvillo) 10/2017 [facility] [place] [facility]) Meds Allergies and Home Medications Allergies Allergy/AdvReac Type Severity Reaction Status Date / Time bupropion AdvReac Other (See Verified 05/21/23 07:27 Comment) Home Medications Medication Instructions Recorded Confirmed Type cholecalciferol (vitamin D3) 25 1,000 unit PO DAILY 09/29/14 05/21/23 History mcg (1,000 unit) capsule (Vitamin D3) multivitamin (Daily Multi-Vitamin 1 ea PO DAILY 09/29/14 05/21/23 History tablet) omega-3 acid ethyl esters 1 gram 2 gm PO BID #120 tab-caps 12/19/14 05/21/23 History capsule melatonin 10 mg capsule 10 mg PO HS PRN 11/10/18 05/21/23 History glucosamine HCl 1,500 mg tablet 1,500 mg PO DAILY 08/02/20 05/21/23 History atenolol 50 mg tablet See Rx Instructions .Route 06/30/22 05/21/23 Rx .COMPLEX #90 tabs tamsulosin 0.4 mg capsule (Flomax) 0.4 mg PO DAILY #90 tab-caps 07/30/22 05/21/23 Rx losartan 100 mg tablet 100 mg PO DAILY #90 tab-caps 08/14/22 05/21/23 Rx trazodone 50 mg tablet 50 mg PO HS #90 tab-caps 09/30/22 05/21/23 Rx levothyroxine 137 mcg tablet See Rx Instructions .Route 12/25/22 05/21/23 Rx .COMPLEX #90 tabs omeprazole 20 mg capsule,delayed 20 mg PO DAILY #90 tab-caps 01/05/23 05/21/23 Rx release Social History/Home Situation: Lives with his in [facility]. Retired [employer]. No family in the area. Current Functional Limitations: Bed mobility, ambulation, performance of self-care ADLs Equipment Owned/DME: Undetermined Subjective: No subjective as patient noncommunicative for evaluation. Per nursing he is responded to his name and follows simple commands randomly. Objective: General Observation: Upon start of evaluation patient was in bedside chair with nursing present. Nursing indicates that he has spontaneous movements attempting to walk with no intent. Has IV port left upper extremity, catheter, telemetry. Mental Status: Not oriented to place, time. Does respond to his name but maintains eyes closed. Pain: None reported Vital Signs: Monitored via nursing ROM: Overall range of motion and strength difficult to assess secondary to limited communication capabilities, and difficulty/inability following direction Right Upper Extremity: Active glenohumeral joint flexion 90 degrees, active assisted 130 degrees, elbow flexion and extension active assisted within normal limits. Left Upper Extremity: Active glenohumeral joint 75 degrees, active assistive 130. Right Lower Extremity: Patient is able to perform heel slide flexing hip to 60 degrees. In sitting he is able to achieve 90 degrees of flexion, active assisted knee flexion and extension within normal limits. Left Lower Extremity: Perform heel slide to 45 degrees, active assisted 80, in sitting able to achieve 90 degrees of flexion. Active assisted knee flexion and extension within normal limits Strength: Difficult to assess secondary to patient mental status and inability to follow direction. Right Upper Extremity: Decreased plater printed circuit board panels strength Left Upper Extremity: Decreased plater printed circuit board panels Right Lower Extremity: Straight leg raise with 0 degree lag Left Lower Extremity: Straight leg raise with 25 degree lag Sensation: Unable to assess Bed Mobility/Transfers: Sit?stand: Min assist x 1 to front wheel walker Sit?supine: Mod assist x 1 for leg placement in bed Bed mobility: Mod assist x 1 Stand?sit: Contact-guard x 1 Gait: Patient ambulates 10 feet in room by bed with mod assist x 1 with front wheel walker and continual verbal cues for proper/direction Balance: Static Sitting: Fair Dynamic Sitting: Poor Static Standing: Poor Dynamic Standing: Poor Special Tests: Mobility Limitations Standardized Measure [facility] AM-PAC 6 clicks Basic Mobility Inpatient Short Form: Raw Score: 11 Standardized Score: [] CMS Score: 72% Informed Consent/Education: Patient instructed in purpose of PT consult and plan of care. ASSESSMENT: Patient is at high risk for fall. Limited ability to perform bed mobility, functional mobility, following direction, noncommunicative from recent CVA . Patient will require the use of a front- wheeled walker and assist of 1 caregiver for essential transfers, ambulation, self-care ADLs to minimize fall risk and ensure safety Patient presents with clinical signs and symptoms consistent with current/admitting diagnoses that have resulted to mobility limitations, gait instability, generalized weakness, and overall ADL decline as demonstrated by the following impairment level findings: 1. Decreased strength to B upper and lower extremities 2. Impaired sitting/standing balance 3. Impaired activity tolerance Impairments are contributing to the following functional limitations: 1. Decline in bed mobility skills 2. Decline in transfer skills 3. Difficulty with ambulation without assistive device and physical assistance 4. Increased completion time for mobility ADL performance 5. Increased risk for falls 6. Difficulty with managing steps alone safely Patient is assessed as a 50051 high complexity based on the following: History: 78-year-old male with past medical history as indicated above Examination: Demonstrable impairment in strength, balance, and mobility level with underlying impairments and functional limitations as exhibited above as well as deficit score of 72% utilizing the [facility] Mobility Inpatient Short Form Presentation: Evolving Decision Makin high complexity Goals: Goals X1 week 1. Supine-Sit SBA 2. Sit-Supine SBA 3. Sit-Stand CGx1 to front wheeled walker 4. Stand-Sit CG X1 with FWW 5. Bed-Chair CGx1 with FWW 6. Chair-Bed CGx1 with FWW 7. CGx1 with gait on level surface with use of FWW for at least 15-30 feet (enough to cover bedroom<>bathroom and bedroom<>kitchen distances at home) 8. Supervision with home exercise program 9. Fair static and dynamic standing balance/tolerance Plan of Care/Treatment Plan: 1-2x/day, 7 days/week x 1 week. Plan of care has been reviewed with the PAYROLL MANAGER providing the service under Physical Therapy direction. Initiate Physical Therapy intervention for strengthening, bed mobility, transfers, gait, stairs, balance training, use of assistive device. DISCHARGE RECOMMENDATIONS: [] [] Home with no services [] [] Home with services [specify] [] Home with outpatient PT [] [] SNF for continued rehabilitation [] [] [facility] [] X SNF versus LTC based on ability to participate and progress TREATMENT CODE/TIME: 29592 IE 11:10-11:30 Thank you for this referral. Please sign an return this page within 30 days if you agree with the above POC. Thank you! Physician Signature Date [facility] Martinez Chavis PT,DPT Disclaimer: This note was created using [employer] voice recognition software. It was reviewed for major content. However, there may be multiple small discrepancies and errors due to the voice recognition aspects of the software.
[2023-05-23] MEDS: Water,Injection,Sterile 10 ML VIAL ×2 (11:32→22:29)
--- NOTE | 2023-05-23 11:50 | NUR.NOTE ---
visits her .Nursing Note:
--- NOTE | 2023-05-23 11:55 | NUR.NOTE ---
Dr. Pang speaks privately with about code status, prognosis and care plan.Nursing Note:
--- NOTE | 2023-05-23 12:59 | NUR.NOTE ---
Patient trying to get out of bed. Patient is given 1mg of IVP Ativan for anxiety.Nursing Note:
--- NOTE | 2023-05-23 13:20 | NUR.NOTE ---
Patient wrips off telemetry and is moving around in bed with eyes closed.Nursing Note:
[2023-05-23] MEDS: Pantoprazole 40 MG VIAL IVP (14:07)
[2023-05-23] MEDS: Enoxaparin 40 MG/0.4 ML SYR SC (14:09)
[2023-05-23] MEDS: Aspirin 300 MG SUPP PR (15:24)
--- NOTE | 2023-05-23 15:44 | PDOC.CMPRO ---
Date of service: 05/23/23 Time of Service: 15:44 Care Management Progress Note Progress Note Text Progress Note Text: S/O:CM met with Tara, Ilya's , again this morning. She has been told by the provider that Ilya's prognosis is not good. With the multiple infarcts and involvement of the thalamus, he is not likely to recover to baseline functioning. CM discussed the fact that he will likely need at least short term rehab and that it would be best to start the referral process. Tara was able to agree to 6 facilities in the area and referrals will be sent. Additionaly she may want to look at long range planning and LTM. A referral was sent to [facility] to assist with that process. A: Ilya is a 78 year old man admitted on 05/21/23 with an acute CVA P:Ilya is likely going to need to transfer to a SNF for short term rehab, if not for [facility] care. Referrals have been sent to [facility], [facility], [facility], [facility] and [facility] A referral was also sent to [facility] for long range planning, options counseling and community case management. CM will follow and continue to asses for discharge needs. SDOH(Care Management) Screening Will the Patient Participate in the Screening?: Unable to obtain
[2023-05-24] VITALS (32 sets, daily range): BP systolic 97–188; BP diastolic 64–102; PULSE 68–119; RESP 12–31; TEMP 36.5–37.3; O2SAT 92–98
[2023-05-24] MEDS: Aspirin 300 MG SUPP PR (07:21)
[2023-05-24] MEDS: Normal Saline Flush 10 ML SYR IVP ×2 (07:43→13:45)
[2023-05-24] MEDS: Water,Injection,Sterile 10 ML VIAL ×2 (07:43→19:57)
[2023-05-24] MEDS: Ziprasidone 20 MG VIAL IM ×2 (07:43→19:57)
[2023-05-24] MEDS: Levothyroxine 100 MCG VIAL 62 MCG IVP (08:12)
--- NOTE | 2023-05-24 09:44 | W.PM.PROGNOT ---
Date of Service Date of service: 05/24/23 Time of Service: 09:44 Assessment and Plan Assessment and plan (1) Acute CVA (cerebrovascular accident): Status: Acute Assessment and plan: Status post embolic CVA involving right occipital lobe, right temporal lobe and bilateral thalami with some microhemorrhages seen in the right thalamus and right posterior occipital lobe. Patient's deficits seem to include some cognitive dysfunction as well as gait imbalance and probable vision loss. when more alert will ask for LOW VOLTAGE TECHNICIAN to revisit him and perform bedside swallow evaluation. I will dc the morning Geodon but continue this at night. Professional time spent interviewing and examining patient, discussion of goals of care with hospital team (care management, nursing and consulting professionals) was 30 minutes. (2) Atrial flutter: Status: Acute Assessment and plan: now back in sinus rhythm. 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 This can be followed up as an outpatient with repeat MRI scan in 6 months. (4) Hypothyroidism, unspecified: Status: Chronic Assessment and plan: TSH within normal range. Levothyroxine was switched to parenteral form however if he is able to safely swallow we will switch him back to his home dose. Qualifiers: Hypothyroidism type: unspecified Qualified Code(s): E03.9 - Hypothyroidism, unspecified (5) Hypertension: Status: Chronic Assessment and plan: at present he has not exhibited any extreme elevations in his BP since he first presented to the E.D. No antihypertensive have been given. although he has prn lopressor for rate control if his paroxysmal atrial flutter becomes significantly tachycardic ie. over 130 bpm Qualifiers: Hypertension type: essential hypertension Qualified Code(s): I10 - Essential (primary) hypertension (6) Hyperlipidemia: Status: Chronic Assessment and plan: Begin atorvastatin once he can safely swallow. Qualifiers: Hyperlipidemia type: unspecified Qualified Code(s): E78.5 - Hyperlipidemia, unspecified (7) GERD (gastroesophageal reflux disease): Status: Chronic Assessment and plan: Continue IV Protonix but switch to oral PPI once he can safely swallow Qualifiers: Esophagitis presence: esophagitis presence not specified Qualified Code(s): K21.9 - Gastro-esophageal reflux disease without esophagitis (8) DVT prophylaxis: Status: Acute Assessment and plan: enoxaparin 40 mg SC daily (9) Discharge planning issues: Status: Acute Assessment and plan: patient remains full code, requires continued hospitalization and needs close supervision by nursing d/t his cognitive deficits although at this point does not need ICU care. Subjective Subjective Interval history since last seen: Patient did well last night w/ the Geodon. Slept well. More agitated this moring but asking nursing for drink of water. Will ask nursing to call LOW VOLTAGE TECHNICIAN for bedside swallow evaluation today. However after given Geodon this morning now more lethargic. Exam Narrative Exam Narrative: Patient's somnolent but arousable with tactile stimulation. However not able to sustain alertness enough to perform a bedside swallowing eval at present time. I did not notice any facial droop. Seems to move all 4 extremities with tactile stimulation. He did squeeze each hand individually upon command. Vital signs are stable heart rate is now sinus rhythm rate in the 80s and 90s. Blood pressure is stable his oxygen saturation is 93%. He seems to be protecting his airway from any secretions. Lungs are clear to auscultation Heart is regular rhythm is now sinus rhythm , No murmur rub Abdomen soft nondistended nontender normal bowel sounds Objective Last Vital Signs Temp 36.5 C 05/24/23 03:36 Pulse 70 05/24/23 05:01 Resp 21 05/24/23 05:01 BP 112/80 05/24/23 05:01 Pulse Ox 98 05/24/23 04:01 Time Spent with Patient Time Spent with Patient: 25-34 minutes Time was spent: preparing to see the patient(eg.review tests), ordering medications,tests, procedures, referring, communicating with other health coronary care unit nurse, indepentently interpreting results and care coordination
--- NOTE | 2023-05-24 12:30 | PT.INTREAT ---
PT Notes Visit Reasons: Acute CVA Date: 05/24/2023 PRECAUTIONS: Standard, falls SUBJECTIVE: Coordinated time with pt wit ICU nurse availability ensure pt is well rested, Nurse reports pt as been awake last night and needed to be medicated to prevent pt from pulling IV line out, pt still medicated this morning but is calmer and is able to follow single word instructions wit tactile cues. OBJECTIVE: ?pt in bed naked, pulling on tegaderm cover for the IV line. ? PAIN: not able to provide answer with inquiry. VITALS: closely monitored in ICU Therapeutic Activities [id number] 15mins: Direct one-on-one instruction in dynamic activities to improve functional performance. ?? BED MOBILITY/TRANSFERS? Rolling L/R: max A Supine-sit: ?Mod/max A ? Sit-supine: ?Mod/max A ? Sit-stand: ? Mod A? Stand-sit: ??Mod A ? Bed-Chair:? Mod A ? Chair-bed: Mod A Provided skilled cues and instruction on performance and technique throughout. Gait Training [id number] 15mins: Direct one-on-one instruction and skilled instruction in: Employing an assistive device Modified weight-bearing status Movement sequencing Turning and movement with proper form Provided verbal cues for equipment management and technique Provided instruction in gait pattern Patient education regarding pacing and breathing techniques to maximize activity tolerance? GAIT? Assistive Device: ?FWW? Weight bearing: FWB Assist: Max A Distance:??30'x4 WC follow seated rest break in between distances ? Deviation: ?shuffling gait, stoop forward posture ASSESSMENT:?Pt able to respond well wit tactile cue and single word commands, pt still heavily medicated, barely opening his eyes resulting in pt leaning towards the left, trunk extensor tapping with tactile cue on sternal part of chest allows pt to get upright, tactile cue for redirection wit FWW. PLAN: will continue with balance training, global strengthening and general conditioning for improved safety, mobility and activity tolerance until pt is safe for DC. TREATMENT CODE/TIME: [id number], [id number], 30mins (10:45-11:15am) ?
[2023-05-24] MEDS: Pantoprazole 40 MG VIAL IVP (13:45)
[2023-05-24] MEDS: Enoxaparin 40 MG/0.4 ML SYR SC (13:46)
--- NOTE | 2023-05-24 18:27 | W.PALLCONSUL ---
Date of service: 05/25/23 Time of Service: 07:00 History of Present Illness History of Present Illness Chief Complaint: CVA Narrative: From H and P History of Present Illness History of Present Illness Chief Complaint: stroke Narrative: 78-year-old male with a history of GERD, hypertension, hypothyroidism who according to his he is usually fairly healthy vegetarian who was in his usual state of health until around 11 PM last night. When they went to bed last night he was complaining of a buzzing feeling in his head. However ED provider documented the EMS documents the and told them that the patient fell last night around 5 PM and she had to help him back to bed. However usually the patient has gait instability and requires a wheelchair and usually her has to help her back into her chair. This morning noted that he was confused and unsteady gait and called EMS. Evaluation in the emergency department included routine labs and CT imaging of his brain and cerebrovascular circulation. Noncontrast CT scan of his brain showed 2 areas of decreased attenuation in the right occipital lobe and right thalamus suspicious for acute infarct. 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 There is no evidence of hydrocephalus and no skull fracture. CTA of his head and neck was somewhat limited due to patient motion artifact but no definite occlusion was seen in the cervical vessels. However he had decreased attenuation again seen in the right thalamus and right occipital lobe suggestive of a stroke but also a questionable area of decreased attenuation seen anteriorly in the left temporal lobe. He was also found to have occlusion of the distal left P1 and narrowing of the left P2 segment. MRI was recommended but could not be completed because the patient was combative in the emergency department required sedation with Ativan and propofol. Echo with bubble study was ordered but could not be completed as the corrections identification technician was overbooked for echocardiograms for the day. Labs including CBC that was normal. Chemistry panel also was normal except for glucose of 135. No electrolyte abnormalities and normal kidney and liver function. TSH is normal at 2.65. Treatment in the emergency department consisted of aspirin 325 mg orally. Although the patient did swallow it he did have some coughing choking spell afterwards. Patient was made n.p.o. and was admitted for treatment of his CVA. Cardiac rhythm on his EKG and telemetry showed sinus rhythm. Review of his history with his reveals no history of heart failure or myocardial infarction and no history of cardiac arrhythmias that she is aware of. He had no antecedent complaints of chest pain or palpitations. His seem somewhat vague about his history he said that other than multivitamins and eating a vegetarian diet has been fairly healthy. However his med list does include levothyroxine for hypothyroidism as well as losartan and atenolol for hypertension and omeprazole for GERD as well as tamsulosin for BPH. After arrival to the intensive care unit patient was very combative disoriented not able to communicate with us not able to follow commands but moving all 4 extremities thrashing about the bed and required sedation with Ativan and Precedex drip. Patient is quite hypertensive on arrival with blood pressures in the 180s to low 200s stage. However since initiation of Precedex drip his blood pressures have come down into the 120s to 140 range. Interim Hx: Per nursing Ilya did not receive any as needed medication overnight. They also stated that he does not have anyone on his HIPAA form. He has been intermittently confused I went in to see Ilya with nursing. He understood that he was in the hospital. He wanted to know what was going on. I did tell him he had had several strokes. He asked what he should do from here. I did talk to him about CODE STATUS. Specifically I talked to him about what CPR was, what it was capable of doing, and the downside of doing those things i.e. chest compressions etc. He was able to repeat these things back to me. We also discussed healthcare agent. He states that his should make decisions for him if he is unable to. Regarding HIPPA, his can get information as and anyone who calls there is no one that he wants to omit from being able to get information about him Consults Consult date: 05/25/23 Requesting physician: Angel Pang Assessment and Plan Assessment and plan (1) Colloid cyst of brain: Status: Acute (2) Acute CVA (cerebrovascular accident): Status: Acute Assessment and plan: Today I primarily assessed capacity for Ilya. He does have capacity to make the decision regarding CODE STATUS. He clearly understood the options. He stated 3 times that he would want CPR and he wants to give treatment a chance to see how well it would work. He understands that the risk to CPR. He also understood that his multiple CVAs could result in him not being able to go home and to go into a [place]. He still clearly stated that he wants to try. Regarding healthcare agent?he immediately said that his should make decisions if he is unable to make them. Regarding HIPAA?he states that his can get information if she calls. He said actually anyone can get information if they call. He did not designate anyone who should not receive information. Initially I had planned to come back at 230 today and speak with Ilya and his . Ilya has capacity today therefore I do not feel that I need to come back this afternoon to clarify his CODE STATUS. He is a full code. My plan is to return and see Ilya perhaps tomorrow to evaluate how he is doing and if after thinking about things he would like to change his CODE STATUS or his future plans. Review of Systems Narrative: Although he was waking up as we talked, he became clear and clear. He did not have any specific complaints but was trying to make heads or tails of what was going on. PFSH All Active Problems (Updated 05/23/23 @ 11:41 by Angel Pang MD) Atrial flutter (Acute) Colloid cyst of brain (Acute) Discharge planning issues (Acute) DVT prophylaxis (Acute) Hypertension (Chronic) At risk for falls (Acute) Acute CVA (cerebrovascular accident) (Acute) CKD (chronic kidney disease) (Acute) Insomnia, unspecified (Chronic 07/09/16) IFG (impaired fasting glucose) (Chronic 03/19/16) Hypothyroidism, unspecified (Chronic 04/23/15) Hypertension (Chronic 12/11/14) Hyperlipidemia (Chronic 04/23/15) GERD (gastroesophageal reflux disease) (Chronic 12/11/14) ADHD (attention deficit hyperactivity disorder), combined 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 Calvillo) 10/2017 Surgical History Status post cholecyst[place] [facility] [place] Colonoscopy - IV Sedation (01/01/16) Family History Mother Personal history of malignant neoplasm BREAST Heart disease VALVE REPLACEMENT Father Personal history of malignant neoplasm SKIN Brother Essential hypertension Hyperlipidemia Grandfather Personal history of malignant neoplasm Grandfather Heart disease Grandmother Stroke Grandmother No problems noted. 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 He was able to think ahead as to what needed to be done and not be done. He understood what a stroke was. He understand that he had a stroke and that he may or may not recuperate from the stroke His heart was regular. His lungs little effort, but I did not appreciate any rales. His skin had a rash where the EKG leads were placed. He did not have any edema. He was not able to tell me how many fingers I had in front of him. He is initially said 47 and then corrected it and said for. I had 2 fingers up. I did not do a complete neuroexam 1. Able to Understand Medical Problem: Observations: He understood that he had a stroke. He understood that he may end up in a [place] health [place] facility for the rest of his life. He understood that his life may be significantly different because of the strokes. 2. Able to Understand Proposed Treatment: Observations: He understood that he wanted to give it a try to see how much better he could get. 3. Able to Understand Alternative to Proposed Treatment (if any): Observations: He did ask me what he should do from here on out. When I gave him alternatives of comfort care versus full code, he was very clear that he wanted to give this a try and see if he could get better and go home 4. Able to Understand Option of Refusing Proposed Treatment (including withholding or withdrawing proposed treatment): Observations: We discussed alternatives 5. Able to Appreciate Reasonably Foreseeable Consequences of Accepting Proposed Treatment: Observations: We discussed that he may be in a [place] health [place] facility for the rest of his life 6. Able to Appreciate Resonably Foreseeable Consequences of Refusing Proposed Treatment (including withholding or withdrawing proposed treatment): We discussed the option of not having CPR and allowing natural . Observation: Note: for questions 7a/7b a Yes answer means the person's decision is affected by the depression of psychosis. 7a. The Person's Decision is Affected by Depression: Observations: Unable to observe but did not appear depressed. 7b. The Person's Decision is Affected by Delusion/Psychosis: Observations: No delusions or psychosis Overall Impression: Definitely Capable Probably Capable XXXX Probably Incapable Definitely Incapable Comments: Results Last Vital Signs Temp 99.1 F 05/24/23 15:23 Pulse 86 05/24/23 15:23 Resp 19 05/24/23 14:00 BP 188/81 H 05/24/23 15:23 Pulse Ox 98 05/24/23 15:23 Labs 05/25/23 05:33 05/23/23 05:40
[2023-05-25] VITALS (12 sets, daily range): BP systolic 138–163; BP diastolic 72–132; PULSE 71–105; RESP 14–21; TEMP 36.7–37.5; O2SAT 96–98
[2023-05-25] MEDS: Acetaminophen 650 MG SUPP PR (01:43)
[2023-05-25 06:41] LABS: Abs Immature Grans 0.01 10^3/uL (0.0-0.06); Absolute Basophil Count 0.04 10^3/uL (0.0-0.2); Absolute Lymphocyte Count 0.81 10^3/uL (1.2-3.4); Absolute Monocyte Count 0.67 10^3/uL (0.1-0.8); Absolute Neutrophil Count 3.94 10^3/uL (1.2-6.7); Basophils % 0.7; Eosinophils % 3.5; HCT 39.5 % (40.0-50.0); HGB 14.1 g/dL (13.5-17.5); Immature Grans % 0.2; Lymphocytes % 14.3; MCH 30.3 pg (27.0-33.0); MCHC 35.7 % (32.0-36.0); MCV 85 fL (80-95); MPV 9.3 fL (8.0-11.0); Monocytes % 11.8; Neutrophils % 69.5; Platelet Count 146 10^3/uL (130-400); RBC 4.65 10^6/uL (4.36-5.78); RDW 12.1 % (11.8-14.1); RDW-SD 37.2 fL; WBC 5.67 10^3/uL (4.4-10.8)
[2023-05-25 07:20] LABS: ALT 28 U/L (16-63); AST 36 U/L (15-37); Albumin 3.2 g/dL (3.4-5.0); Alkaline Phosphatase 60 U/L (46-116); Anion Gap 10.8 mmol/L (3-11); BUN 14 mg/dL (7-18); Bilirubin, Total 1.2 mg/dL (0.2-1.0); CO2 26.2 mmol/L (21.0-32.0); CREATININE 1.1 mg/dL (0.70-1.30); Chloride 108 mmol/L (98-107); Estimated GFR 68.71 (mL/min/1.73m2); Glucose 101 mg/dL (74-106); Potassium 3.7 mmol/L (3.5-5.1); Sodium 145 mmol/L (136-145); Total Protein 6.7 g/dL (6.4-8.2)
--- NOTE | 2023-05-25 08:20 | STREC_ITS ---
Date of service: 05/25/23 Time of Service: 08:10 Speech Therapy Recommendations Report ST Recommendations: PRESS BRAKE OPERATOR evaluation attempted 810AM. Nursing and PRESS BRAKE OPERATOR attempted to wake patient, though unable to do so due to somnolence. Nursing reports patient was alert and able to answer questions appropriately earlier this morning. Plan to re-attempt PRESS BRAKE OPERATOR eval later this morning/early afternoon. Coding
--- NOTE | 2023-05-25 08:20 | PDOC.STREC ---
Date of service: 05/25/23 Time of Service: 08:10 Speech Therapy Recommendations Report ST Recommendations: FIELD CONTACT TECHNICIAN evaluation attempted 810AM. Nursing and FIELD CONTACT TECHNICIAN attempted to wake patient, though unable to do so due to somnolence. Nursing reports patient was alert and able to answer questions appropriately earlier this morning. Plan to re-attempt FIELD CONTACT TECHNICIAN eval later this morning/early afternoon. Coding
--- NOTE | 2023-05-25 08:31 | PDOC.CMPRO ---
Date of service: 05/25/23 Time of Service: 10:48 Care Management Progress Note Progress Note Text Progress Note Text: S/O:Ilya has sherita transitioned to Med-surg status but remains in the ICU. He is still confused and impulsive. He tries to get OOB but is unable to safely ambulate. This morning he met with Dr. Ochoa for a Palliative consult. According to Dr. Ochoa, he was alert and oriented enough to discuss code status. Ilya was clear that he wanted to be a full code; she asked 3 separate times. He also was able to identify that he wants his and his brother on his HIPAA form. After that conversation Ilya fell back asleep and when he woke up again he was as confused as before. A: Ilya is a 78 year old man admitted on 05/21/23 with an acute CVA P:Ilya is likely going to need to transfer to a SNF for short term rehab, if not for intermission coordinator care. Referrals have been sent to [facility], [facility], [facility], [facility] and [facility]. A referral was also sent to [facility] for long range planning, options counseling and community case management. CM will follow and continue to asses for discharge needs. SDOH(Care Management) Screening Will the Patient Participate in the Screening?: Unable to obtain
[2023-05-25] MEDS: Aspirin 300 MG SUPP PR (08:50)
--- NOTE | 2023-05-25 09:38 | W.PM.PROGNOT ---
Date of Service Date of service: 05/25/23 Time of Service: 09:38 Assessment and Plan Assessment and plan (1) Acute CVA (cerebrovascular accident): Status: Acute Assessment and plan: -Status post embolic CVA involving right occipital lobe, right temporal lobe and bilateral thalami with some microhemorrhages seen in the right thalamus and right posterior occipital lobe. -deficits seem to include some cognitive dysfunction as well as gait imbalance and probable vision loss. -apprecaite FAMILY PARTNER for eval and bedside swallow evaluation (2) Atrial flutter: Status: Acute Assessment and plan: -now back in sinus rhythm -continue lopressor 2.5 mg IVP q1h prn sustained tachycardia > = 130 bpm Qualifiers: Atrial flutter type: typical Qualified Code(s): I48.3 - Typical atrial flutter (3) Colloid cyst of brain: Status: Acute Assessment and plan: -Per CT scan no evidence of hydrocephalus -followed up as an outpatient with repeat MRI scan in 6 months. (4) Hypothyroidism, unspecified: Status: Chronic Assessment and plan: -TSH within normal range. -Levothyroxine was switched to parenteral form however if he is able to safely swallow we will switch him back to his home dose. Qualifiers: Hypothyroidism type: unspecified Qualified Code(s): E03.9 - Hypothyroidism, unspecified (5) Hypertension: Status: Chronic Assessment and plan: -at present he has not exhibited any extreme elevations in his BP since he first presented to the E.D. -No antihypertensive have been given. -although he has prn lopressor for rate control if his paroxysmal atrial flutter becomes significantly tachycardic ie. over 130 bpm Qualifiers: Hypertension type: essential hypertension Qualified Code(s): I10 - Essential (primary) hypertension (6) Hyperlipidemia: Status: Chronic Assessment and plan: -Begin atorvastatin once he can safely swallow. Qualifiers: Hyperlipidemia type: unspecified Qualified Code(s): E78.5 - Hyperlipidemia, unspecified (7) GERD (gastroesophageal reflux disease): Status: Chronic Assessment and plan: -Continue IV Protonix but switch to oral PPI once he can safely swallow Qualifiers: Esophagitis presence: esophagitis presence not specified Qualified Code(s): K21.9 - Gastro-esophageal reflux disease without esophagitis (8) DVT prophylaxis: Status: Acute Assessment and plan: -enoxaparin 40 mg SC daily Subjective Subjective Interval history since last seen: Patient trying to get out of bed but is redirectable and able to lay still. He is able to state that he has no complaints or concerns at this time. Exam Narrative Exam Narrative: Elderly gentleman lying in bed in no acute distress, awake, alert, able to state his name, current location, but is unable to completely verbalize why he was in this hospital/his current situation, heart regular rhythm, lungs clear to auscultation bilaterally, cranial nerves II through XII intact, does not follow commands but does appear to be able to move bilateral upper and lower extremities spontaneously Objective Last Vital Signs Temp 99.5 F 05/25/23 00:30 Pulse 93 H 05/25/23 00:30 Resp 20 05/25/23 00:30 BP 185/98 H 05/24/23 22:17 Pulse Ox 97 05/24/23 20:01 Laboratory Results - last 24 hr 05/25/23 05:33 WBC 5.67 RBC 4.65 Hgb 14.1 Hct 39.5 L MCV 85 MCH 30.3 MCHC 35.7 RDW 12.1 Plt Count 146 MPV 9.3 Immature Gran % 0.2 Neutrophils % 69.5 Lymphocytes % 14.3 Monocytes % 11.8 Eosinophils % 3.5 Basophils % 0.7 Nucleated RBC % 0.0 Absolute Neutrophils 3.94 Absolute Lymphocytes 0.81 L Absolute Monocytes 0.67 Absolute Eosinophils 0.20 Absolute Basophils 0.04 Sodium 145 Potassium 3.7 Chloride 108 H Carbon Dioxide 26.2 Anion Gap 10.8 BUN 14 Creatinine 1.1 Est GFR (CKD-EPI 2020) 68.71 Glucose 101 Calcium 9.0 Total Bilirubin 1.2 H AST 36 ALT 28 Alkaline Phosphatase 60 Total Protein 6.7 Albumin 3.2 L Time Spent with Patient Time Spent with Patient: >50 minutes Time was spent: preparing to see the patient(eg.review tests), obtaining and/or reviewing separately otained hiistory, ordering medications,tests, procedures, referring, communicating with other health school childcare attendant, indepentently interpreting results, counseling the patient and care coordination
[2023-05-25] MEDS: Levothyroxine 100 MCG VIAL 62 MCG IVP (10:44)
--- NOTE | 2023-05-25 11:23 | PHA.REVIEW2 ---
Pharmacy Admission Review Admission Clinical Review Admission Pharmacy Review: (Updated 05/23/23 @ 11:41 by Angel Pang MD) Atrial flutter (Acute) Colloid cyst of brain (Acute) Discharge planning issues (Acute) DVT prophylaxis (Acute) At risk for falls (Acute) Acute CVA (cerebrovascular accident) (Acute) bupropion Adverse Reaction (Verified 05/21/23 07:27) Other (See Comment) Resuscitation Status Full Code Height 5 ft 10 in Weight 77.2 kg Comments Comments/Follow Ups: Swallow evaluation scheduled for today. If patient able to switch back to PO, watch for addition of home meds and switches from IV to PO of current orders. Pharmacy Admission Review Renal Dosing Renal Dosing: BUN 14 mg/dL (7-18) 05/25/23 05:33 Creatinine 1.1 mg/dL (0.70-1.30) 05/25/23 05:33 Medications needing adjustments: Reviewed (CrCl 60 mL/min) Anticoagulation Anticoagulation: Hgb 14.1 g/dL (13.5-17.5) 05/25/23 05:33 Hct 39.5 % (40.0-50.0) L 05/25/23 05:33 Plt Count 146 10^3/uL (130-400) 05/25/23 05:33 Creatinine 1.1 mg/dL (0.70-1.30) 05/25/23 05:33 DVT Prophylaxis: Reviewed Medications: Enoxaparin (40mg q24h) Relevant Labs Relevant Labs: Sodium 145 mmol/L (136-145) 05/25/23 05:33 Potassium 3.7 mmol/L (3.5-5.1) 05/25/23 05:33 Chloride 108 mmol/L (98-107) H 05/25/23 05:33 Magnesium 1.9 mg/dL (1.8-2.4) 05/22/23 07:35 Electrolytes, C-Reactive P, ESR: Reviewed Cardiac Review Cardiac Review: Troponin I < 50 ng/L (< or =60) 05/21/23 06:38 Troponin I Cancelled 05/21/23 06:38 BP, HR, EF%: Reviewed (HR 93, no BP in file for today) QTc Review QTc: Reviewed (441 on 05/21/23) IV to PO Switch IV Medications: Reviewed (currently NPO pending swallow evaluation. Will watch for switch from IV to PO once patient is able to swallow.) Home Meds Home Med List reviewed: Reviewed Relevent Home Meds Not ordered & why?: On home med list but not ordered: atenolol, Vitamin D3, glucosamine, losartan, melatonin, multivitamin, omega 3 acid, Tamsulosin and trazodone Omeprazole (has order for IV pantoprazole) Patient currently NPO, will watch for addition of home medications when patient improves Current Meds Current Medication Order Review: Reviewed Comments Comments/Follow Ups: Swallow evaluation scheduled for today. If patient able to switch back to PO, watch for addition of home meds and switches from IV to PO of current orders.
--- NOTE | 2023-05-25 11:32 | PTTR_ITS ---
Date of service: 05/25/23 Time of Service: 10:18 PT Notes Visit Reasons: Acute CVA Inpatient Physical Therapy Treatment Note [facility] Date: 05/25/23 PRECAUTIONS: Fall, standard, activity as tolerated. SUBJECTIVE: Patient reports feeling blah. Appears agitated but redirectable. OBJECTIVE: Patient is climbing out of bed when this clinician arrives, in spite of bilateral double railings in place. No gown, 1 sock. No bed alarm active. Agreeable to therapy. ? PAIN: none reported VITALS: monitored by nursing staff. Therapeutic Activities ([id number]): Direct one-on-one instruction in dynamic activities to improve functional performance. ? BED MOBILITY/TRANSFERS? Rolling L/R: not assessed Supine-sit: SBA? Sit-supine: SBA ? Sit-stand: SBA? Stand-sit: SBA ? Bed-Chair: CGA to ambulate with FWW for 15 feet to the chair. ? Chair-bed: CGA to ambulate with FWW for 15 feet to the bed.? Patient is impulsive, attempting to stand without staff present and with only one grippy sock in place. Patient dons other sock when it is handed to him with SBA, sitting EOB, with minimal verbal cues and no LOB. Provided skilled cues and instruction on performance and technique throughout. ASSESSMENT:? Patient tolerates therapy well, reports feeling completely exhau sted at close of session. Patient returns to sidelying in bed, bed alarm activated. Patient very quickly falls asleep. PLAN: Continue global strengthening per plan of care until patient is medically cleared for discharge and obtains safe discharge plan. TREATMENT CODE/TIME: 13 minutes beginning at 10:18
--- NOTE | 2023-05-25 12:01 | W.PM.PROGNOT ---
Date of Service Date of service: 05/25/23 Time of Service: 12:01 Assessment and Plan Assessment and plan (1) Acute CVA (cerebrovascular accident): Status: Acute (2) Colloid cyst of brain: Status: Acute (3) Atrial flutter: Status: Acute Qualifiers: Atrial flutter type: typical Qualified Code(s): I48.3 - Typical atrial flutter (4) Hypertension: Status: Chronic Assessment and plan: #1. 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 His full neurological deficits are unknown at this time due to agitation and sedation. Bilateral thalamic stroke is very rare, and dominated by behavioral, cognitive, and wakefulness issues. His agitation seems to have finally improved and he is currently on Geodon 20mg HS. Unclear if his sleepiness is secondary to the Geodon or part of his strokes. Discussed with hospital team and will try to reduce Geodon further to 15mg HS. If unable to tolerate lowering the dose, then would consider an alerting medication during the day such as amantadine or Provigil, etc to aid interaction and ability to participate in therapy. Medications: -aspirin daily for secondary stroke prevention - 300mg WA until able to take PO - then would switch to ASA 81mg daily until day 14 at which time he can be started on anticoagulation such as apixaban 5mg BID; would not do sooner given very large stroke and with microhemorrhage already present Other: -Ok to start slowly lowering BP -Continue PT, OT, ST as tolerated #2. Colloid cyst. Not obviously obstructing at this time. Will plan for outpatient serial imaging again in 6months to monitor. Subjective Subjective Interval history since last seen: I was able to see Mr. Hanna today. I have not seen him since 05/21/23 at which time he was medically sedated. It seems that he has continued to have agitation that is slowly improving. Currently on geodon 20mg HS which was reduced from BID - last am dose on 05/23 - due to oversedation. Has not needed prn lorazepam since the night of 05/23. Per nursing, he has moments of alertness lasting 5-10min in which he can interact and follow commands. But then will sleep for the next hour. Cycle to repeat. He was able to have a short evaluation with ST and with palliatiave care. He has undergone further work-up as below. 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 Small area of acute ischemia in the R anteior temporal lobe and the R parietal cortex. Also with acute bilateral thalamic strokes. There is petechial hemorrhagic conversion in the R occipital lobe and R>L thalami. I reviewed these images personally and this is my personal interpretation. -TTE (05/22/22): EF 55-60%, no wall motion abnormalities. LA normal. No PFO. -A1c 4.9 -LDL 100 -Telemetry: p.afib/aflutter -EEG (05/22/23): generalized slowing. Exam Narrative Exam Narrative: Physical Exam: Constitutional: Patient of apparent stated age, well nourished, well developed, no acute distress, sleeping Neck: Supple, no meningismus CV: RRR Resp: CTAB Abd: Soft, nontender, nondistended, +BS Neuro: MS/Language/Speech: sleeping; it took some effort to get him to awaken; no aphasia or dysarthria; oriented to self only; he knew he was in the hospital but did not know why. He did tell me he has been urinating every 10-15mintues and can confirm with nursing that he does urinate frequently. He also told me this was normal for him prior to his hospital stay. I tried to get him to do a physical exam - he did move both arms for me but then he told me to leave him alone and closed his eyes Objective Last Vital Signs Temp 98.8 F 05/25/23 09:34 Pulse 71 05/25/23 09:34 Resp 16 05/25/23 09:34 BP 158/73 H 05/25/23 09:34 Pulse Ox 97 05/24/23 20:01 Laboratory Results - last 24 hr 05/25/23 05:33 WBC 5.67 RBC 4.65 Hgb 14.1 Hct 39.5 L MCV 85 MCH 30.3 MCHC 35.7 RDW 12.1 Plt Count 146 MPV 9.3 Immature Gran % 0.2 Neutrophils % 69.5 Lymphocytes % 14.3 Monocytes % 11.8 Eosinophils % 3.5 Basophils % 0.7 Nucleated RBC % 0.0 Absolute Neutrophils 3.94 Absolute Lymphocytes 0.81 L Absolute Monocytes 0.67 Absolute Eosinophils 0.20 Absolute Basophils 0.04 Sodium 145 Potassium 3.7 Chloride 108 H Carbon Dioxide 26.2 Anion Gap 10.8 BUN 14 Creatinine 1.1 Est GFR (CKD-EPI 2020) 68.71 Glucose 101 Calcium 9.0 Total Bilirubin 1.2 H AST 36 ALT 28 Alkaline Phosphatase 60 Total Protein 6.7 Albumin 3.2 L Time Spent with Patient Time Spent with Patient: >50 minutes Time was spent: preparing to see the patient(eg.review tests), obtaining and/or reviewing separately otained hiistory, referring, communicating with other health tree care foreman, indepentently interpreting results and care coordination
[2023-05-25] MEDS: Normal Saline Flush 10 ML SYR IVP ×2 (14:06→23:41)
[2023-05-25] MEDS: Pantoprazole 40 MG VIAL IVP (14:06)
[2023-05-25] MEDS: Enoxaparin 40 MG/0.4 ML SYR SC (14:06)
--- NOTE | 2023-05-25 14:53 | PT.INTREAT ---
PT Notes Visit Reasons: Acute CVA Inpatient Physical Therapy Treatment Note [facility] Date: 05/25/2023 PRECAUTIONS: Fall. Impulsive. Impaired safety awareness. Activity as tolerated. SUBJECTIVE: More alert and able to follow instructions. Wanted to walk very much. OBJECTIVE: Resting in bed. No lines. Now able to follow single-step commands. ? PAIN: No verbalization nor actuation of pain throughout session. VITALS: BP 160/94 mmHg, SaO2 94% on RA after first walk ? BED MOBILITY/TRANSFERS: Maximal cueing provided for use of B hands as needed for support, movement sequence, AD management, and posture to reduce fall risk and minimize pain report. Nurse Dominguez assisted for safety. ? Supine-sit: hand-held assist ? Sit-supine: minimal assist ? Sit-stand: contact guard assist ? Stand-sit: contact guard assist ? Bed-Chair: contact guard assist with minimal assist with maneuvering wheelchair ? Chair-bed: contact guard assist with minimal assist with maneuvering wheelchair ? ? GAIT: Provided maximal verbal, tactile, and visual cueing to cover a distance of 50 feet for the first walk using front-wheeled walker with wheelchair follow of Nurse Dominguez and contact-guard assist of Nurse Paulino for safety. Vital signs taken as above to ensure that they are WNL with activity. After about 3 minutes of seated rest, patient covered a distance of about 80 feet but with much more flexion in the trunk, starting to get fatugued. He was able to walk back to his room and needed maximal redirection to sit on bed as he wanted to walk some more. Gait not as ataxic as it was yesterday. Needed repeated cueing for posture, hand placement, directional changes and activity cessation. BERT wider, keshawn improved. Obstacle navigation poor, requiring assistance from PT to maneuver FWW. THERA EX: Moderate verbal. visual, and tactile cueing to perform exercises below: Seated rowing exercises with resistance provided by PT against patient's pushing forward and patient's pulling back x 10 Seated hip flexion x 10 Seated LAQ x 10 for 2 sets Bridging x 10 ASSESSMENT:? Patient at high risk for agitation due to affectation of bilateral thalami. Level of alertness improving. Activity tolerance improving. Requires high volume of cueing for task initiation, task sustenance, and task completion. Has difficulty with transitioning in between tasks. Impulsivity increases risk for falls. Attention to safety impaired. Hypophonic, unsure if this is his baseline speech volume. Will continue to benefit from PT. Will need OT evaluation for self-care and safety training. PLAN: Coordinate treatment sessions with medications given to minimize agitation. Minimize amount of stimuli during session to allow increased ability to focus into task. Proceed with neuromuscular re-education, progressive strengthening, and functional mobility training per PT POC. TREATMENT CODE/TIME: 70426 x 20 minutes for 1 unit, 74653 x 11 minutes for 1 unit beginning at 14:53 PM.
--- NOTE | 2023-05-25 15:48 | W.SPSTE ---
Date of service: 05/25/23 Time of Service: 11:40 Subjective Clinical (Bedside) Swallow Evaluation Speech Language Pathology Referred by: Dr Pang Referral Type: Clinical Swallow Evaluation Reason for Referral/HPI: Ilya Hanna is a 78 yo male who was adm to [facility] 05/21/23 with altered mental status. MRI of the brain revealed areas of acute infarct involving the right occipital lobe and portions of the right temporal lobe as well as bilateral thalami, with microhemorrhages noted in the R thalamus and posterior R occipital lobe. Ilya has been NPO since admission in light of altered mental status. He is currently in the ICU, though plan to transition to medsur status today. Nursing reports fluctuating mental status- he was able to respond to questions appropriately earlier this morning. BALL ROLLING MACHINE OPERATOR IMPRESSIONS & RECOMMENDATIONS: Ilya presents with acute at least moderate oral pharyngeal sensorimotor dysphagia, exacerbated by fluctuating mental status and fatigue. Patient received asleep, though able to awake with verbal/tactile cueing. He refused to be transferred to a chair, but was agreeable to BALL ROLLING MACHINE OPERATOR evaluation in upright position in bed. Ilya vocalized responses to this clinician ('mmhmm') but provided very minimal verbal responses despite being asked to repeat and say words. He did express one sentence length utterance - I don't see what's so special about this. When clinician was attempting to palpate the swallow, Ilya made biting motions towards this clinician's hand, but appeared to be possibly doing so with humor. Oral mechanism examination was difficult to assess, though no overt labial/lingual weakness or discoordination appreciated. Patient accepted sips of thin liquid via straw, demonstrating 2-3 swallows per sip without overt s/s aspiration. He accepted approximately 1 ounce of pudding before closing eyes and being difficult to re-arouse. Overall, patient is considered high risk for aspiration, malnutrition, and dehydration in light of current status, though these risks can be mitigated with the following diet modifications and strict aspiration precautions, listed below. Patient will likely require small PO snacks throughout day in light of high fatigability. BALL ROLLING MACHINE OPERATOR to continue to monitor need for MBSS/readiness for diet advancement. FURTHER BALL ROLLING MACHINE OPERATOR SERVICES: Patient to be followed while on unit for diet upgrade as appropriate. Upon Discharge, recommend BALL ROLLING MACHINE OPERATOR services at [facility] Diet Recommendations: SOLIDS- L4 Puree Solids LIQUIDS- Thin Liquids, Straw OK MEDICATIONS- Crushed in applesauce/pudding. Alter medications only as advised by MD or Pharmacist SUPERVISION- 1:1 assistance/close supervision with ALL PO RISK MANAGEMENT: Ewing upright for all PO. Out of bed/in chair encouraged for meals. Encourage physical mobility as tolerated. Oral hygiene before/after PO intake using either suction swab or toothbrush if patient cognitively appropriate PO intake only when awake/alert? Strategies/Adaptations/Assistive Equipment: Reduce auditory and/or visual distractions when eating Small sips and bites when eating Slow rate of intake, Posture/Positioning Needs: Maintain upright position at least 30 minutes after meals SUBJECTIVE: Patient received confused, high fatigability, agreeable to evaluation. See impressions above for further details re: presentation Pain Reported? None Baseline Swallow Function: Unknown- patient did not answer questions r/t baseline diet/swallow function PO Trials Assessed: Ice IDDSI 0 Thin Liquids IDDSI 4 Puree Solid Respiratory Status: Tolerated room air without distress Oral Mechanism Examination: Dentition is WFL. Oral mucosa is dry, with flaking on tongue surface/lips. Oral hygiene provided with suction swab before/after meal. Oral hygiene was noted to be fair. Oral cavity appeared to respond well with oral gel product. Cranial Nerve Assessment: CN V ? Trigeminal Facial Sensation WNL Jaw Strength/ROM WNL ?WNL CN VII- Facial WNL labial ROM, strength, coordination. WNL lingual sensation WNL CN IX ? Glossopharyngeal No evidence of nasal emissions Unable to view palate CN X ? Vagus WNL Vocal quality and volume. Strong/sharp volitional cough Unable to view volitional cough. Minimal vocalizations noted, vocal quality clear CX XII ? Hypoglossal WNL lingual ROM, strength, coordination WNL Oral Phase Findings: Difficulty with spoon stripping Pharyngeal Phase Findings: Reduced hyolaryngeal elevation/excursion 2-3 swallows per sip of liquid No coughing or throat clearing noted ASSESSMENT: Further BALL ROLLING MACHINE OPERATOR Services indicated. Patient to be followed while on unit. Recommendation at Discharge: BALL ROLLING MACHINE OPERATOR Services at [facility] Facility Suggested Referrals: N/A Recommended Procedures: Consider MBSS Recommendations: ? SOLIDS: 7-Regular Solids, 7-Regular/Easy to Chew Solids, 6-Soft & Bite-Sized Solids, 5-Minced & Moist Solids, 4-Pureed Solids, 3-Liquidised Solids, N/A - NPO LIQUIDS: 0-Thin Liquids, 1-Slightly Thick Liquids, 2-Mildly Thick Liquids, 3-Moderately Thick Liquids, 4-Extremely Thick Liquids, N/A - NPO except for PO intake risk management as outlined Education Provided to: [Nursing, Patient, Family, Physician ] Topics Addressed: anatomy/physiology of swallowing mechanism, overt s/sx to monitor for re: potential aspiration of food / liquids, recommendations for improved oral care, Apraxia of Speech Dx PLAN: Frequency: 2-3x/week for 1-2 weeks Goals: Cellophane Press Operator Goals: Patient will remain free from aspiration-related illness, malnutrition, and dehydration. Patient/family will verbalize comprehension of education provided re: dx [ ], strategies to maximize functioning, and role of ST. Short Term Goals: Patient will participate in ongoing diagnostic treatment addressing areas of [ ] Patient will tolerate [ ] Diet and Thin liquids without overt s/s aspiration across 2/2 visits. Patient will tolerate PO trials for consideration of diet upgrade without overt s/s aspiration across 2/2 visits. BALL ROLLING MACHINE OPERATOR CPT Code: 15312 Clinical Swallowing [id number]?Evaluation of speech sound production with evaluation of language comprehension and expression TOTAL TIME: [ ] Minutes Coding CPT Codes EVALUATE SWALLOWING FUNCTION - 45271 ([id number]) Additional Codes Date of Service (90293) Date of service: 05/25/23
[2023-05-25] MEDS: Water,Injection,Sterile 10 ML VIAL (20:55)
[2023-05-25] MEDS: Ziprasidone 20 MG VIAL 15 MG IM (20:56)
[2023-05-25] MEDS: LORazepam 2 MG/ML VIAL 1 MG IVP (23:42)
[2023-05-26] VITALS (11 sets, daily range): BP systolic 129–190; BP diastolic 90–138; PULSE 70–108; RESP 20–24; TEMP 36.3–37.2; O2SAT 94–98
[2023-05-26] MEDS: LORazepam 2 MG/ML VIAL 1 MG IVP ×4 (02:15→20:16)
[2023-05-26] MEDS: Normal Saline Flush 10 ML SYR IVP ×3 (06:55→13:46)
--- NOTE | 2023-05-26 07:39 | PCPN_ITS ---
Date of service: 05/26/23 Time of Service: 07:39 Assessment and Plan Assessment and plan (1) Acute CVA (cerebrovascular accident): Status: Acute (2) Palliative care patient: Status: Acute Assessment and plan: Ilya unfortunately is much worse today than he was yesterday. I expect that this will continue considering the widespread and multiple areas in his brain that did show changes on MRI for stroke. I think it would be very difficult for Ilya's body to heal his strokes enough to be able to go home. Time will tell. I do think in the meantime it is very important that care management work for getting guardianship for Ilya. He did designate his as healthcare agent yesterday but there is concern that she does not have the mental capacity to do this. I think that with the lack of other people in Ilya's life he will need a public guardian. Also care management needs to pursue making contact with his to be certain that she is okay. If they are unable to contact her I would recommend a wellness check by the police. Although Ilya does not seem to be lashing out only to be protecting himself, I do expect that this will worsen over time. The lorazepam seems to have helped considerably. Subjective Subjective Interval history since last seen: Ilya is clearly different today. Yesterday he had.'s of lucency and even walked from his bed to the door of the ICU. Overnight he was very restless and required Ativan 1 mg twice. Nursing states that he has been swinging, not intentionally hitting but just trying to keep people away from him. They have been unable to do mouth care. His mental status waxes and wanes. Staff is also very concerned about his who is so weak that she needs wheelchair assistance to get to her car. She has not been in in 24 hours. There is concern about her capacity in general both physically and mentally. Exam Narrative Exam Narrative: Ilya is lying in bed and does not respond to voice or touch by the electronic instrument trades worker. His mouth is fairly bloody because he will not allow mouth care. He has a rash where the EKG pads were. His heart is regular. His breathing is decreased as far as depth. Objective Last Vital Signs Temp 97.9 F 05/26/23 04:25 Pulse 101 H 05/26/23 04:25 Resp 14 05/25/23 20:34 BP 138/72 05/25/23 20:35 Pulse Ox 96 05/26/23 04:25
--- NOTE | 2023-05-26 08:42 | CMPROGNOTE_ITS ---
Date of service: 05/26/23 Time of Service: 08:42 Care Management Progress Note Progress Note Text Progress Note Text: S/O: 9542 CM attempted phone contact with , Tara; left voicemail. Medication adjustments continue to be monitored closely. Hospitalist reports plans to reduce Geodon this evening, introduce stimulant tomorrow morning. CM following. Tara came in the afternoon, to visit. CM continues to follow. A: 78 year old admitted to [facility] 05/21/23 for acute CVA P: Ilya is likely going to need to transfer to a SNF for short term rehab, if not for [facility] care. Referrals have been sent to [facility], [facility], [facility], [facility] and [facility]. A referral was also sent to [facility] [place] [facility] for long range planning, options counseling and community case management. CM will follow and continue to assess for discharge needs. Per Hospitalist: deficits seem to include some cognitive dysfunction as well as gait imbalance and probable vision loss. -appreciate SILK SCREEN PRINTING RACKER for eval and bedside swallow evaluation Per Palliative: Ilya unfortunately is much worse today than he was yesterday. I expect that this will continue considering the widespread and multiple areas in his brain that did show changes on MRI for stroke. I think it would be very difficult for Ilya's body to heal his strokes enough to be able to go home. Time will tell. I do think in the meantime it is very important that care management work for getting guardianship for Ilya. He did designate his as healthcare agent yesterday but there is concern that she does not have the mental capacity to do this. I think that with the lack of other people in Ilya's life he will need a public guardian. Also care management needs to pursue making contact with his to be certain that she is okay. If they are unable to contact her I would recommend a wellness check by the police. Although Ilya does not seem to be lashing out only to be protecting himself, I do expect that this will worsen over time. The lorazepam seems to have helped considerably. Per Neurology: His full neurological deficits are unknown at this time due to agitation and sedation. Bilateral thalamic stroke is very rare, and dominated by behavioral, cognitive, and wakefulness issues. His agitation seems to have finally improved and he is currently on Geodon 20mg HS. Unclear if his sleepiness is secondary to the Geodon or part of his strokes. Discussed with hospital team and will try to reduce Geodon further to 15mg HS. If unable to tolerate lowering the dose, then would consider an alerting medication during the day such as amantadine or Provigil, etc to aid interaction and ability to participate in therapy. SDOH(Care Management) Screening Will the Patient Participate in the Screening?: Unable to obtain
[2023-05-26] MEDS: Aspirin 300 MG SUPP PR (09:07)
--- NOTE | 2023-05-26 09:09 | PGE_ITS ---
Date of Service Date of service: 05/26/23 Time of Service: 09:09 Assessment and Plan Assessment and plan (1) Acute CVA (cerebrovascular accident): Status: Acute Assessment and plan: -Status post embolic CVA involving right occipital lobe, right temporal lobe and bilateral thalami with some microhemorrhages seen in the right thalamus and right posterior occipital lobe. -deficits seem to include some cognitive dysfunction as well as gait imbalance and probable vision loss. -Had been on 20 mg of Geodon twice daily the patient was somnolent, this was decreased to 20 mg at bedtime -After discussion with neurologist Dr. Cooney on 05/25/2023, plan was to decrease to 15 mg at bedtime -However, overnight 05/25/2023 patient had multiple episodes of severe agitation and required 2 doses of as needed Ativan -After discussing with Dr. Cooney plan is to go back to 20mg geodon this evening, and assess the patient over the next few days for his potential need of provigil/nuvigil if he remains somnolent during the daytime (2) Atrial flutter: Status: Acute Assessment and plan: -now back in sinus rhythm -continue lopressor 2.5 mg IVP q1h prn sustained tachycardia > = 130 bpm Qualifiers: Atrial flutter type: typical Qualified Code(s): I48.3 - Typical atrial flutter (3) Colloid cyst of brain: Status: Acute Assessment and plan: -Per CT scan no evidence of hydrocephalus -followed up as an outpatient with repeat MRI scan in 6 months. (4) Hypothyroidism, unspecified: Status: Chronic Assessment and plan: -TSH within normal range. -Levothyroxine was switched to parenteral form however if he is able to safely swallow we will switch him back to his home dose. Qualifiers: Hypothyroidism type: unspecified Qualified Code(s): E03.9 - Hypothyroidism, unspecified (5) Hypertension: Status: Chronic Assessment and plan: -at present he has not exhibited any extreme elevations in his BP since he first presented to the [facility]. -No antihypertensive have been given. -although he has prn lopressor for rate control if his paroxysmal atrial flutter becomes significantly tachycardic ie. over 130 bpm Qualifiers: Hypertension type: essential hypertension Qualified Code(s): I10 - Esse ntial (primary) hypertension (6) Hyperlipidemia: Status: Chronic Assessment and plan: -Begin atorvastatin once he can safely swallow. Qualifiers: Hyperlipidemia type: unspecified Qualified Code(s): E78.5 - Hyperlipidemia, unspecified (7) GERD (gastroesophageal reflux disease): Status: Chronic Assessment and plan: -Continue IV Protonix but switch to oral PPI once he can safely swallow Qualifiers: Esophagitis presence: esophagitis presence not specified Qualified Code(s): K21.9 - Gastro-esophageal reflux disease without esophagitis (8) DVT prophylaxis: Status: Acute Assessment and plan: -enoxaparin 40 mg SC daily Subjective Subjective Interval history since last seen: Patient very somnolent this morning, does awaken to verbal stimuli but is not o riented to person or place. He did require 2 doses of as needed Ativan overnight for severe agitation Exam Narrative Exam Narrative: Elderly gentleman lying in bed in no acute distress, somnolent, does awaken to verbal stimuli, heart regular rhythm, lungs clear to auscultation bilaterally, cranial nerves II through XII intact, does not follow commands but does appear to be able to move bilateral upper and lower extremities spontaneously Objective Last Vital Signs Temp 98.1 F 05/26/23 08:37 Pulse 82 05/26/23 08:37 Resp 14 05/25/23 20:34 BP 138/72 05/25/23 20:35 Pulse Ox 96 05/26/23 08:37 Time Spent with Patient Time Spent with Patient: >50 minutes Time was spent: preparing to see the patient(eg.review tests), obtaining and/or reviewing separately otained hiistory, ordering medications,tests, procedures, referring, communicating with other health assisted living care manager, indepentently interpreting results, counseling the patient and care coordination
--- NOTE | 2023-05-26 10:01 | PGE_ITS ---
Date of Service Date of service: 05/26/23 Time of Service: 10:01 Assessment and Plan Assessment and plan (1) Acute CVA (cerebrovascular accident): Status: Acute (2) Colloid cyst of brain: Status: Acute (3) Atrial flutter: Status: Acute Qualifiers: Atrial flutter type: typical Qualified Code(s): I48.3 - Typical atrial flutter (4) Hypertension: Status: Chronic Assessment and plan: #1. 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 His full neur ological deficits are unknown at this time due to agitation and sedation. Bilateral thalamic stroke is very rare, and dominated by behavioral, cognitive, and wakefulness issues - with poor prognosis. Increased agitation with reduction in Geodon. Agree with increasing back to 20mg HS. Once agitation under control, if still having daytime somnolence, would consider adding an alerting medication in the am. I spoke with pharmacy regarding options of amantadine vs Provigil/Nuvigil; both amantadine and Provigil/modafanil in stock (Nuvigil is non-formulary). Given both options available, risks for both (including increased agitation), but would probably favor starting with modafanil 200mg daily in the am. Medications: -aspirin daily for secondary stroke prevention - 300mg GA until able to take PO - then would switch to ASA 81mg daily until after day 14 (06/05/23) at which time he can be started on anticoagulation such as apixaban 5mg BID; would not do sooner given very large stroke and with microhemorrhage already present Other: -Ok to start slowly lowering BP -Continue PT, OT, ST as tolerated #2. Colloid cyst. Not obviously obstructing at this time. Will plan for outpatient serial imaging again in 6months to monitor. (5) Agitation: Status: Acute (6) Hypersomnolence: Status: Acute Subjective Subjective Interval history since last seen: Seen by ST yesterday afternoon and cleared for pureeds and clears. However, not intaking any significant amount and still not able to take medications PO. Geodon reduced to 15mg HS last evening. Unfortunately, increased agitation overnight requiring lorazepam 1mg x2. This was helpful. Agitation better this am. Intermittently awake. Was able to walk a short distance in the ICE this am, but with 2 assist, significant stooping at the waist, and then fell asleep standing, so put back to bed. No one else was able to get ahold of yesterday either. Wellness check has been placed. Exam Narrative Exam Narrative: Physical Exam: Constitutional: Patient of apparent stated age, well nourished, well developed, no acute distress, sleeping Neuro: MS/Language/Speech: sleeping; it took some effort to get him to awaken; significant hypophonia and mild dysarthria this am. Identified himself as Ree- chard this am; said is Chyna vs Jessenia (I thought it was Midge). Moved arms for me, R>L. Couldn't cooperate to do an exam due to sleepiness. R haydeninski. Objective Last Vital Signs Temp 98.1 F 05/26/23 08:37 Pulse 82 05/26/23 08:37 Resp 14 05/25/23 20:34 BP 138/72 05/25/23 20:35 Pulse Ox 96 05/26/23 08:37 Time Spent with Patient Time Spent with Patient: 35-49 minutes Time was spent: preparing to see the patient(eg.review tests), obtaining and/or reviewing separately otained hiistory, referring, communicating with other health rn intensive care unit and care coordination
[2023-05-26] MEDS: Levothyroxine 100 MCG VIAL 62 MCG IVP (10:30)
--- NOTE | 2023-05-26 11:11 | PTTR_ITS ---
Date of service: 05/26/23 Time of Service: 09:39 PT Notes Visit Reasons: Acute CVA Inpatient Physical Therapy Treatment Note [facility] Date: 05/26/23 PRECAUTIONS: Fall, standard, activity as tolerated. Impulsive. Impaired safety awareness. SUBJECTIVE: This clinician is alerted by ELIDIA Babin that patient is awake and trying to move, such that now would be a good time for therapy. OBJECTIVE: Sitting up in bedside chair. Does not respond verbally. Decides to go for a walk shortly after this clinician enters room. ? PAIN: none reported. VITALS: monitored by nursing staff. Therapeutic Activities ([id number]): Direct one-on-one instruction in dynamic activities to improve functional performance. ? BED MOBILITY/TRANSFERS? Rolling L/R: not assessed Supine-sit: not assessed? Sit-supine: dependent/max assist x2, although patient had already fallen back asleep. This may not be territory service representative of patient's capability when he is more alert. ?Sit-stand: SBA. Contact guard would be preferred due to patient's impaired safety awareness. ? Stand-sit: min assist x2 ? Bed-Chair: not assessed ? Chair-bed: not assessed Provided skilled cues and instruction on performance and technique throughout. Gait Training ([id number]): Direct one-on-one instruction and skilled instruction in: [] employing an assistive device [] modified weight-bearing status [x] movement sequencing [x] turning and movement with proper form [x] Provided verbal cues for equipment management and technique [x] Provided instruction in gait pattern [x] Patient education regarding pacing and breathing techniques to maximize activity tolerance? GAIT? Assistive Device: FWW? Weight bearing: full Assist: CGA-mod assist x2, patient started off well, but required more assistance as he fatigued. Wheelchair follow provided by ELIDIA Mckeon. ELIDIA Babin and SERENA provided intermittent assistance with steering walker around obstacles. ? Distance:?40 feet ? Deviation: Provided maximal verbal, tactile, and visual cueing to decrease flexion in the trunk, which worsens rapidly with fatigue. Wide BERT. Patient fatigued rapidly, appearing to fall asleep standing up. Gait becomes very unsafe with fatigue. Patient assisted into wheelchair, does not open his eyes. ELIDIA Mckeon and this clinician assist patient from wheelchair to bed max assist x2, then dependent sit-supine. ? ASSESSMENT:? Patient fatigues quickly. Wheelchair follow and x2 assist required for safety. PLAN: Continue global strengthening per plan of care within patient tolerance until patient is medically cleared for discharge. TREATMENT CODE/TIME: 12 minutes beginning at 9:39
--- NOTE | 2023-05-26 11:53 | W.NUTRFU ---
Date of service: 05/26/23 Time of Service: 11:53 Nutrition Note NOTE: Mr Cyndi is a 78yo male who is admitted after acute CVA with continuing neurological deficits and agitation. PMH nutritionally significant for HTN, HLD, GERD, CKD, impaired FBG. Her is currently full code status with no COLST form I can see at this time. Due to his current condition pt has been NPO status since 05/21 breakfast meal and just cleared at dinner last night for supervisted puree and thin liquids, with current poor po intake. Wt history is a little inconsistent but will monitor daily weight trends. Without question this pt has had prolonged lack of oral intake and is at high risk for malnutrition and wt loss. Estimated energy needs: 1798kcals (1.2AF with MSJ), 77-92g protein (1-1.2g/kg) 1798mL fluid (1ml per required kcal) Nutrition diagnosis: inadequate energy intake related to prolonged npo status and his neurological status as evidenced by his current acute condition. Nutrition intervention: Will monitor for toleration of upgraded diet today. IF po intake remains poor, would highly recommend considering tube feeds if pt agitation is not a barrier. Monitoring: will continue to monitor PO intake closely and communicate with nursing to get updates on his po intake and toleration of purees Time Spent in Nutritional Counseling and Treatment: 0 face to face, 20 min admin
--- NOTE | 2023-05-26 12:44 | SPP_ITS ---
Date of service: 05/26/23 Time of Service: 12:00 Subjective Patient was contacted in ICU for lunch meal. He was somnolant upon arrival, but per RN, was stirring and she was able to wake the patient, transfer (2person assist) to commode, and then transfer up to chair. During this time, Patient was minimally responsive to verbal instructions but responsive to tactile/visual cueing. Once seated in chair, tray with PO trials was presented. Patient remained with eyes closed throughout, but responsive consistently to Y/N questions using head shake/nod only. He provided no verbal responses to orientation question such as name. Identity verified via wristband. Per nursing, patient tolerated juice and yogurt earlier this AM without s/sx aspiration, including self-feeding yogurt with a spoon. Objective/Assessment/Plan Objective Treatment Techniques & Outcomes: PO Trials Assessed: IDDSI 0 Thin Liquids or 1 Slightly Thick (protein shake) via cup edge IDDSI 4 Puree Solid Attempting IDDSI 6 Soft/Bite size (small pieces of cheese) but patient shakes head in refusal Feeding behaviors/observations: Self-feeding (eyes closed) with [facility] assistance with liquids from small cup, patient taking consecutive small sips up to 1-2 oz at a time through pursed lips. Attempts to continue sipping liquid continued even when cup was removed from lips. Patient requiring 2x pauses to take deep breaths and then continued sipping liquids spontaneously. Noting intact breathing/swallowing pattern throughout (avfiue-[id number]-[id number]) trials. Oral Phase Findings: Difficulty with spoon stripping for puree Pharyngeal Phase Findings: Does not initiate swallow with purees but initiates consistently and promptly with Liquids. Possible reduced hyolaryngeal elevation/excursion, though noting low laryngeal carriage at rest (age-related). No coughing or throat clearing noted. Breath sounds remained dry/clear throughout. Goals: Casting Machine Operator Automatic Goals: Patient will remain free from aspiration-related illness, malnutrition, and dehydration. Short Term Goals: Patient will tolerate Puree Diet and Thin liquids without overt s/s aspiration across 2/2 visits. Patient will tolerate PO trials for consideration of diet upgrade without overt s/s aspiration across 2/2 visits. Assessment Patient continued good tolerance of liquids this date without s/sx aspiration. His ability to take purees at this time is highly dependent on mental status/wakefulness, at times with inadequate sensory awareness necessary to facilitate puree intake. Nursing should continue to offer these during periods of particularly high wakefulness. Overall, patient is considered high risk for aspiration, malnutrition, and dehydration in light of current status, though these risks can be mitigated with the following diet modifications and strict aspiration precautions, listed below. Patient will likely require small PO snacks throughout day in light of high fatigability. MUSIC REHABILITATION THERAPIST to continue to monitor need for MBSS/readiness for diet advancement. Plan Plan: Patient to be followed while on unit for diet upgrade as appropriate. Upon Discharge, recommend MUSIC REHABILITATION THERAPIST services at senior care Recommendations Recommendations: Diet Recommendations: SOLIDS- L4 Puree Solids LIQUIDS- Thin Liquids, Straw [place] MEDICATIONS- Crushed in applesauce/pudding or liquid. Given variable wakefulness/acceptance of PO, may continue to require medications via alternative means. Alter medications only as advised by MD or Pharmacist SUPERVISION- 1:1 assistance/close supervision with ALL PO RISK MANAGEMENT: [place] upright for all PO. Out of bed/in chair encouraged for meals. Encourage physical mobility as tolerated. Oral hygiene before/after PO intake using either suction swab or toothbrush if patient cognitively appropriate PO intake only when awake/alert? Strategies/Adaptations/Assistive Equipment: Reduce auditory and/or visual distractions when eating Small sips and bites when eating Slow rate of intake, Posture/Positioning Needs: Maintain upright position at least 30 minutes after meals Total Time Spent: 20 minutes 12:00pm-12:20pm Coding CPT Codes ORAL FUNCTION THERAPY - 92811 ([id number]) Additional Codes Date of Service ([id number]) Date of service: 05/26/23
--- NOTE | 2023-05-26 13:27 | PT.INNT ---
Date of service: 05/26/23 Time of Service: 13:22 PT Notes Visit Reasons: Acute CVA Patient was agitated moments before this clinician's arrival, received PRN Ativan. Pt on hold per RN.
[2023-05-26] MEDS: Pantoprazole 40 MG VIAL IVP (13:47)
[2023-05-26] MEDS: Enoxaparin 40 MG/0.4 ML SYR SC (13:47)
--- NOTE | 2023-05-26 14:52 | NUR.NOTE ---
Nursing Note: At approximately 1300 patient became very agitated and walked to sink area in room and kept pushing forward. Patient not oriented or following commands at this time. Patient was a 3-4 assist back to bed. Patient was determined he was going to get OOB again. Ativan 1 mg IVP was given at approximately [address] Gonzales was notified. Patient's Midge present in room during this time. At approximately 1425 patient positioned himself to right side in bed with his eyes closed and resting.
--- NOTE | 2023-05-26 16:35 | CHAPLAIN ---
Ilya continues to not be oriented to where he is. I heard him tell the nurse no when asked where he is, and he responded Kaushik when asked what is name is. His Tara visited late morning and stayed until 4:30. We provided her with lunch and the nurse sent her home with a sandwich and drinks. She drives herself but needs assistance with a wheelchair to get up to the ICU. Today Tara said she has two friends, one in [place] and one in [place], who have been checking on her. She is taking care of their four dogs. Tara said she has been falling and Ilya was able to help her get up, before he was admitted here. According to Dr. Ochoa's pallliative care notes, she suggests that Ilya have a guardian, as he's not likely to go home, and that she doesn't consider Tara to be capable of being Ilya's guardian.
[2023-05-26] MEDS: Ziprasidone 20 MG VIAL IM (18:16)
[2023-05-27] VITALS (11 sets, daily range): BP systolic 131–186; BP diastolic 70–108; PULSE 82–93; RESP 11–20; TEMP 36.3–36.8; O2SAT 94–99
[2023-05-27] MEDS: LORazepam 2 MG/ML VIAL 1 MG IVP ×3 (01:00→13:40)
[2023-05-27] MEDS: Normal Saline Flush 10 ML SYR IVP ×3 (01:01→14:35)
[2023-05-27] MEDS: Aspirin 300 MG SUPP PR (08:41)
--- NOTE | 2023-05-27 09:12 | PDOC.CMPRO ---
Date of service: 05/27/23 Time of Service: 09:12 Care Management Progress Note Progress Note Text Progress Note Text: S/O: Marybeth was lying in bed asleep when CM met with him. He is undergoing medication adjustments and had received Ativan about an hour earlier. Tara, his , was visiting at the time of the visit. CM, nursing staff and [facility] staff have tried unsuccessfully to contact Tara by phone. Messages have been left with no return call. CM discussed this with Tara today and learned that she is often up late at night and sleeps late in the morning and does not hear her phone. She admitted that she forgets to check for messages often but stated that she will do so from now on. Tara has identified several areas of concern regarding herself and the current situation with Ilya. He is unlikely to return home any time soon, and se has been depending on him for a great deal, including managing the household and bills. CM asked Tara for permission to speak to her PCP office to communicate concerns and collaborate on ways to support Tara. She agreed, and CM reached out to the [facility] at [facility] Internal medicine A: 78 year old admitted to [facility] 05/21/23 for acute CVA P: Ilya is likely going to need to transfer to a SNF for short term rehab, if not for terminal supervisor care. Referrals have been sent to [facility], [facility], [facility], [facility] and [facility]. A referral was also sent to [facility] for long range planning, options counseling and community case management. CM will follow and continue to assess for discharge needs. SDOH(Care Management) Screening Will the Patient Participate in the Screening?: Unable to obtain
--- NOTE | 2023-05-27 09:14 | OT.INNT ---
Occupational Therapy Notes 05/27/23 OT consult received and pts chart was reviewed. OT did attempt consult and pt was sleeping. Nursing would like to hold on OT consult until pt wakes up. OT will attempt consult tomorrow morning. Shaila Gerard, OTR/L
[2023-05-27] MEDS: Levothyroxine 100 MCG VIAL 62 MCG IVP (09:16)
--- NOTE | 2023-05-27 09:54 | PGE_ITS ---
Date of Service Date of service: 05/27/23 Time of Service: 09:54 Assessment and Plan Assessment and plan (1) Acute CVA (cerebrovascular accident): Status: Acute Assessment and plan: -Status post embolic CVA involving right occipital lobe, right temporal lobe and bilateral thalami with some microhemorrhages seen in the right thalamus and right posterior occipital lobe. -deficits seem to include some cognitive dysfunction as well as gait imbalance and probable vision loss. -Had been on 20 mg of Geodon twice daily the patient was somnolent, this was decreased to 20 mg at bedtime -After discussion with neurologist Dr. Cooney on 05/25/2023, plan was to decrease to 15 mg at bedtime -However, overnight 05/25/2023 patient had multiple episodes of severe agitation and required 2 doses of as needed Ativan -After discussing with Dr. Cooney plan is to go back to 20mg geodon PM 05/26; needed ativan PRN twice overnight (2) Atrial flutter: Status: Acute Assessment and plan: -now back in sinus rhythm -continue lopressor 2.5 mg IVP q1h prn sustained tachycardia > = 130 bpm Qualifiers: Atrial flutter type: typical Qualified Code(s): I48.3 - Typical atrial flutter (3) Colloid cyst of brain: Status: Acute Assessment and plan: -Per CT scan no evidence of hydrocephalus -followed up as an outpatient with repeat MRI scan in 6 months. (4) Hypothyroidism, unspecified: Status: Chronic Assessment and plan: -TSH within normal range. -Levothyroxine was switched to parenteral form however if he is able to safely swallow we will switch him back to his home dose. Qualifiers: Hypothyroidism type: unspecified Qualified Code(s): E03.9 - Hypothyroidism, unspecified (5) Hypertension: Status: Chronic Assessment and plan: -at present he has not exhibited any extreme elevations in his BP since he first presented to the [facility]. -No antihypertensive have been given. -although he has prn lopressor for rate control if his paroxysmal atrial flutter becomes significantly tachycardic ie. over 130 bpm Qualifiers: Hypertension type: essential hypertension Qualified Code(s): I10 - Essential (primary) hypertension (6) Hyperlipidemia: Status: Chronic Assessment and plan: -Begin atorvastatin once he can safely swallow. Qualifiers: Hyperlipidemia type: unspecified Qualified Code(s): E78.5 - Hyperlipidemia, unspecified (7) GERD (gastroesophageal reflux disease): Status: Chronic Assessment and plan: -Continue IV Protonix but switch to oral PPI once he can safely swallow Qualifiers: Esophagitis presence: esophagitis presence not specified Qualified Cod e(s): K21.9 - Gastro-esophageal reflux disease without esophagitis (8) DVT prophylaxis: Status: Acute Assessment and plan: -enoxaparin 40 mg SC daily Subjective Subjective Interval history since last seen: Patient somnolent this morning but was seen participating with OT and appears to be following commands. Exam Narrative Exam Narrative: Elderly gentleman sitting up in the chair participating with OT, heart regular rhythm, lungs clear to auscultation bilaterally, cranial nerves II through XII intact, does not follow commands but does appear to be able to move bilateral upper and lower extremities spontaneously Objective Last Vital Signs Temp 97.5 F L 05/27/23 05:17 Pulse 90 05/27/23 05:17 Resp 20 05/27/23 05:17 BP 155/94 H 05/27/23 03:46 Pulse Ox 95 05/27/23 05:17 Time Spent with Patient Time Spent with Patient: >50 minutes Time was spent: preparing to see the patient(eg.review tests), obtaining and/or reviewing separately otained hiistory, ordering medications,tests, procedures, referring, communicating with other health nurse behavioral health care, indepentently interpreting results, counseling the patient and care coordination
--- NOTE | 2023-05-27 10:03 | OTIE_ITS ---
Occupational Therapy Notes Inpatient Occupational Therapy Evaluation Date: 05/27/23 Referring Doctor: Dr. Gonzales OT Orders: Non urgent Precautions: Fall, standard, Full PATIENT PROFILE/ADMITTING DIAGNOSIS: Pt is a 78 year old male who is admitted in the ICU for the following dx of right occipital and m stroke and left temporal stroke with questionable embolus as a source. Past Medical History: All Active Problems (Updated 05/21/23 @ 16:56 by Angel Pang MD) Discharge planning issues (Acute) DVT prophylaxis (Acute) Hypertension (Chronic) At risk for falls (Acute) Acute CVA (cerebrovascular accident) (Acute) CKD (chronic kidney disease) (Acute) Insomnia, unspecified (Chronic 07/09/16) IFG (impaired fasting glucose) (Chronic 03/19/16) Hypothyroidism, unspecified (Chronic 04/23/15) Hypertension (Chronic 12/11/14) Hyperlipidemia (Chronic 04/23/15) GERD (gastroesophageal reflux disease) (Chronic 12/11/14) ADHD (attention deficit hyperactivity disorder), combined 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 Calvillo) 10/2017 [place] History [place] [facility] [place] Social History/Home Situation: Unable to assess from discussion with pt. I know pt has a and lived at home prior. Equipment owned/DME: Unable to assess. SUBJECTIVE: Pt was sitting in chair when OT arrived. He is able to respond verbally but is minimal. He was receptive to OT consult. OBJECTIVE: General Observation: Pt does not open his eyes but can respond verbally. Weakness in (B) UE and increased fatigue with prolonged functional activity. He has skin redness from heart monitor patches on his chest, connected to monitor with wrap on (R) UE in Upper arm likely covering IV access. Mental Status: Alert to name Pain: Unable to assess with pt. No c/o pain while performing OT consult. ROM: RUE AROM WFL with slower processing to verbal cues but able to perform L UE AROM WFL with slower processing to verbal cues but able to perform STRENGTH: Did not test at todays session. FUNCTIONAL MOBILITY/ADLS: BATHING max (A) Set up/ clean up Bathing UE mod vc and tactile cue pt was able to (I) wash his face, (B) UE with min (A) to underarms, (I) abdomen, max (A) back, max (A) hair. OT placed cloth on pts hand and he was able to follow vc for bathing routine. At times tactile cues were utilized for direction of washing that was needed. Bathing LE NT as pt was fatigued from UE DRESSING seated in chair with mod vc and mod (A) Dressing UE Pt was able to lift his (B) UE off chair to (A) with dressing, max (A) with pulling on to arms Dressing LE NT OT recommends mod-max at this time GROOMING seated in chair with mod vc and tactile cue pt was able to brush his hair with min (A). TOILETING NT EATING NT today with OT but pt has AROM WFL to being hand to mouth. With mod vc and max (A) set up, pt would be able to (I) bring food to mouth. *Pts fatigue limits him in his tolerance to activity. He has about 15-20 minutes for activity before requiring rest. BALANCE: Static sitting Good Dynamic Sitting Good with max (A) support to pts core and back SPECIAL TESTS: Daily Activity Limitations Standardized Measure [facility] AM -PAC ?6 clicks? Daily Activity Inpatient Short Form: Raw score: 12 Standardized score: 30.60 CMS score: 66.57% INFORMED CONSENT/EDUCATION: Pt instructed in purpose of OT Consult and plan of care. ASSESSMENT: Patient is a 78-year-old male referred to occupational therapy services with diagnosis of acute CVA, hypersomnolence, agitation, atrial flutter, colloid cyst of brain, DVT prophylaxis, HTN, at risk for falls. Patient presents with clinical signs and symptoms consistent with dx, as demonstrated by the following impairment level findings/functional limitations: Impairments in ADL/IADL and leisure activities, decreased gross and fine motor control, requires mod-max (A) vc and tactile cues at times, decreased functional activity time with increased fatigue, decreased cognitive awareness and agitation related to CVA dx, decreased executive processing and functioning without vc, decreased task initiation without vc. AMPAC score 12 Patient is assessed as a high 83670 complexity based on the following: History: see above Examination: see functional limitations as noted above Presentation: evolving Decision Making: high complexity GOALS Goals x1 week 1. Oral Hygiene with mod vc pt will be able to brush his teeth 2. Dressing- with mod (A) pt will be able to (A) with UE dressing by lifting his UE and mod LE by lifting his legs (I) 3. Bathing- seated in chair with min vc (I) UE and mod (A) LE 4. Toileting- mod (A) on commode 5. Eating- Mod vc (I) with hand to mouth PLAN OF CARE/TREATMENT PLAN: 1x/day, 5 days/ week x 1week Initiate Occupational Therapy Services for bathing, dressing, grooming, toileting, eating, transfer training. DISCHARGE RECOMMENDATIONS OT recommends SNF vs. LTC TREATMENT TIME/MINUTES/CODES 41234, 13216, 25 minutes [facility] [place], [place]
--- NOTE | 2023-05-27 11:32 | PT.INTREAT ---
Date of service: 05/27/23 Time of Service: 10:10 PT Notes Visit Reasons: Acute CVA Inpatient Physical Therapy Treatment Note [facility] Date: 05/27/23 PRECAUTIONS: Fall, standard, activity as tolerated. Impulsive. Lacks safety awareness. SUBJECTIVE: Patient reported to have had a very productive session with OT this am. Might be fatigued, per RNs Linda and Chrissy, but worth attempting. AFTERNOON: This therapist contacted by ELIDIA Mckeon to come see patient who is moving and cruising. Upon entering patient's room, report received that patient is agitated. OBJECTIVE: Sitting up in bedside chair, agreeable to therapy. Minimally alert. Opens eyes to look around when verbally cued, then closes eyes again. AFTERNOON: Patient is seated EOB and braced on the right arm and shoulder by SERENA Busch, left arm and shoulder by ELIDIA Lowe. Patient is hunched forward, head down, straining against staff members. ? PAIN: none reported. VITALS: monitored by nursing staff. ? Therapeutic Activities ([id number]): Direct one-on-one instruction in dynamic activities to improve functional performance. ? BED MOBILITY/TRANSFERS? Rolling L/R: not assessed Supine-sit: not assessed? Sit-supine: dependent/max assist x2, although patient had already fallen back asleep. This may not be commercial pest control representative of patient's capability when he is more alert. AFTERNOON: max assist of 3-4, as patient is resisting and unsafe. ? Sit-stand: CGA x2 with gait belt AFTERNOON: mod-max assist of 3? Stand-sit: min assist x2 AFTERNOON: Max assist of 4 ? Bed-Chair: not assessed ?AFTERNOON: Max assist of 3-4 ? Chair-bed: dependent/max assist x2, although patient had already fallen back asleep. This may not be commercial pest control representative of patient's capability when he is more alert. Provided skilled cues and instruction on performance and technique throughout. Gait Training ([id number]): Direct one-on-one instruction and skilled instruction in: [x] employing an assistive device [] modified weight-bearing status [x] movement sequencing [x] turning and movement with proper form [x] Provided verbal cues for equipment management and technique [] Provided instruction in gait pattern [] Patient education regarding pacing and breathing techniques to maximize activity tolerance? GAIT? Assistive Device: FWW ? Weight bearing: full Assist: CGA to mod assist of one at gait belt. Performance worsens rapidly as patient fatigues. ? Distance:? 30 feet ? Deviation: Posture kyphotic, worsens with fatigue, patient able to correct with tactile and verbal cues but only momentarily. Short, shuffling steps with some scissoring noted which again can be corrected with verbal cues, but only momentarily. Patient falls asleep mid treatment session, same as yesterday. ? ASSESSMENT:? Patient fatigues quickly. Performance worse today than yesterday, although this may be due to having already received treatment this morning with OT. AFTERNOON: Patient is agitated / combative. Skilled time spent today managing patient safety during transfer on/off commode in an attempt to alleviate agitation (unsuccessful). ELIDIA Mckeon notes that patient seems to become agitated at about this time most days. PLAN: Continue global strengthening per plan of care until patient is medically cleared for discharge and obtains a safe discharge plan. TREATMENT CODE/TIME: 15 minutes beginning at 10:10 and 18 minutes beginning at 13:18
[2023-05-27] MEDS: Pantoprazole 40 MG VIAL IVP (14:35)
[2023-05-27] MEDS: Enoxaparin 40 MG/0.4 ML SYR SC (14:36)
--- NOTE | 2023-05-27 15:38 | CHAPLAIN ---
I spent time with Ilya's , Tara, this afternoon. Ilya was sleeping although he continues to have times of restlessness and agitation. Tara was eating soup and a sandwich that nursing had ordered for her. Today she talked about her experience with breast cancer. She said he sees an oncologist at [facility] and wonders how she'll get there now, as Ilya used to drive her. She mentioned a friend in [place] who would likely drive her, but she is hesitant to ask for help. She also mentioned a friend in [place] and said this friend is like the energizer tony, although she's ten years older than I am. Also today, Tara said she is realizing all the things Ilya used to do for her when she found she couldn't open a jelly jar this morning and couldn't find the screwy renee to help her. Tara and Ilya are members of the local [employer] and volunteered with that group. Milk Pasteurizer Estephanie Hernandez got permission from Fernando to contact Tara's Primary Care, Dr. Estrada at [facility], to provide support for Tara and also contacted [facility] [facility] to reach out to Tara. Elizabeth have 4 dogs at home that Tara is caring for now. She lives here in time to get home before dark. I will continue to visit.
--- NOTE | 2023-05-27 16:08 | CMPROGNOTE_ITS ---
Date of service: 05/27/23 Time of Service: 16:09 Care Management Progress Note Progress Note Text Progress Note Text: S/O:Ilya was lying in bed asleep when CM met with him. He is undergoing medication adjustments and had received Ativan about an hour earlier. Tara, his , was visiting at the time of the visit. CM, nursing staff and [facility] staff have tried unsuccessfully to contact Tara by phone. Messages have been left with no return call. CM discussed this with Tara today and learned that she is often up late at night and sleeps late in the morning and does not hear her phone. She admitted that she forgets to check for messages often but stated that she will do so from now on. Tara has identified several areas of concern regarding herself and the current situation with Ilya. He is unlikely to return home any time soon, and she has been depending on him for a great deal, including managing the household and bills. She admits to being forgetful and is feeling overwhelmed. ANAI asked Tara for permission to contact her PCP practice to share her concerns and ours and perhaps collaborate to increase support in the community. CM reached out to the CCC at [facility] and left a message with Linda Ge, the [facility]. A: Ilya is a 78 year old man admitted on 05/21/23 with an acute CVA P:Ilya is likely going to need to transfer to a SNF for short term rehab, if not for watermelon harvesting supervisor care. Referrals have been sent to [facility], [facility], [facility], [facility] and [facility]. A referral was also sent to [facility] [place] [facility] for long range planning, options counseling and community case management. CM will follow and continue to asses for discharge needs. SDOH(Care Management) Screening Will the Patient Participate in the Screening?: Unable to obtain
--- NOTE | 2023-05-27 16:35 | W.PM.PROGNOT ---
Date of Service Date of service: 05/27/23 Time of Service: 16:35 Assessment and Plan Assessment and plan (1) Acute CVA (cerebrovascular accident): Status: Acute (2) Colloid cyst of brain: Status: Acute (3) Atrial flutter: Status: Acute Qualifiers: Atrial flutter type: typical Qualified Code(s): I48.3 - Typical atrial flutter (4) Agitation: Status: Acute (5) Hypersomnolence: Status: Acute (6) Hypertension: Status: Chronic Assessment and plan: #1. 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 His full neurological deficits are unknown at this time due to alternating agitation and sedation. Bilateral thalamic stroke is very rare, and dominated by behavioral, cognitive, and wakefulness issues - with poor prognosis. Continue to balance agitation with Geodon/prn lorazepam/other meds as needed, and daytime sedation (consider addition of modafanil 200mg daily or amantadine 100mg daily in am - though these can both worsen the agitation). Glad he was able to get calories in today. Medications: -aspirin daily for secondary stroke prevention - 300mg VA until able to take PO - then would switch to ASA 81mg daily until after day 14 (06/05/23) at which time he can be started on anticoagulation such as apixaban 5mg BID; would not do sooner given very large stroke and with microhemorrhage already present Other: -Ok to start slowly lowering BP -Continue PT, OT, ST as tolerated #2. Colloid cyst. Not obviously obstructing at this time. Will plan for outpatient serial imaging again in 6months to monitor. Subjective Subjective Interval history since last seen: Geodon increased to 20mg HS last night. Still had to have lorazepam 1mg x 2 overnight due to agitation. Less somnolent this am and able to eat a good breakfast as well as participate with PT/OT. Taking short walks. Still gets tired easily. Received another 1mg of lorazepam this afternoon as well. I spoke with Tara for sometime and reviewed all of the findings thus far, treatment plan, prognosis, etc. Exam Narrative Exam Narrative: Patient sleeping, I did not wake up him as he had been given lorazepam earlier for agitation. Objective Last Vital Signs Temp 98.2 F 05/27/23 15:07 Pulse 82 05/27/23 15:07 Resp 14 05/27/23 15:07 BP 131/73 05/27/23 15:07 Pulse Ox 96 05/27/23 15:07 Time Spent with Patient Time Spent with Patient: 35-49 minutes Time was spent: preparing to see the patient(eg.review tests), obtaining and/or reviewing separately otained hiistory and referring, communicating with other health primary care sales representative
--- NOTE | 2023-05-27 17:24 | PDOC.STREC ---
Date of service: 05/27/23 Time of Service: 17:24 Speech Therapy Recommendations Report ST Recommendations: CERTIFIED REHABILITATION COUNSELOR attempting to contact patient x2 this date, initially patient had just recently finished eating late breakfast and nursing requested to defer until mid-afternoon, but at that time patient was becoming increasingly agitated and nursing requesting to defer CERTIFIED REHABILITATION COUNSELOR session until tomorrow. Per nursing, patient ate 2 servings of custard and an ensure at breakfast, and tends to do best with PO intake and mental status for breakfast, usually around 9am. CERTIFIED REHABILITATION COUNSELOR will continue to follow-up with patient for PO trials of upgraded textures, as able. Coding
[2023-05-27] MEDS: Ziprasidone 20 MG VIAL IM (20:46)
[2023-05-27] MEDS: Water,Injection,Sterile 10 ML VIAL (20:47)
[2023-05-28] VITALS (11 sets, daily range): BP systolic 134–191; BP diastolic 81–160; PULSE 65–109; RESP 16–20; TEMP 35.9–36.9; O2SAT 94–99
[2023-05-28] MEDS: LORazepam 2 MG/ML VIAL 1 MG IVP ×3 (03:38→17:36)
--- NOTE | 2023-05-28 03:39 | NUR.NOTE ---
Nursing Note: Pt made repeated attempts to climb over bed rails. Attempts at redirection and toileting were made several times with continuing agitation present. Pt given dose of PRN ativan.
--- NOTE | 2023-05-28 06:56 | NUR.NOTE ---
Nursing Note: Patient with epidsodes of extreme hypertension this morning after getting oob to commode. Dr Avendano was notifeid of this information. Patient is calm at this time. Post Void Residual Bladder Scan was 30-131-36. Order is for I&O cath for greater than 500ml.
--- NOTE | 2023-05-28 08:27 | CMPROGNOTE_ITS ---
Date of service: 05/28/23 Time of Service: 08:27 Care Management Progress Note Progress Note Text Progress Note Text: S/O:Ilya was lying in bed dozing when CM met with him. His Tara was visiting at the time and CM conversed with her. She received a message from [facility] last week in follow up to the referral sent by CM. She has not called them back yet but stated that she intends to. CM also reached out to Tara's PCP office but had to leave a message. CM will attempt to reach the [facility] again tomorrow.Ilya has been intermittently agitated and somnolent. Medication adjustments continue. Late this afternoon Ilya became restless and tried to get out of bed. He grabbed his and one of the LNAs arms in an aggressive, impulsive way. It took 3 staff members to help him regain control and to administer Ativan. A: Ilya is a 78 year old man admitted on 05/21/23 with an acute CVA P:Ilya is likely going to need to transfer to a SNF for short term rehab, if not for termite renewal inspector care. Referrals have been sent to [facility], [facility], [facility], [facility] and [facility]. A referral was also sent to [facility] [place] [facility] for long range planning, options counseling and community case management for both Ilya and his . CM will follow and continue to asses for discharge needs. SDOH(Care Management) Screening Will the Patient Participate in the Screening?: Unable to obtain
--- NOTE | 2023-05-28 09:12 | OTTR_ITS ---
Occupational Therapy Notes Occupational Therapy Inpatient Treatment Note Date: 05/28/23 PRECAUTIONS: Fall, Standard, Full SUBJECTIVE: Pt was lying in bed when OT arrived. Nursing states that he just returned to bed and that he ate a little bit this morning. He did say yes to getting washed up. OBJECTIVE: PAIN:Unable to fully assess at this time. No pain behaviors noted throughout BATHING: Lying in bed with max (A) set up and clean up Upper Body: Mod vc and min tactile cues pt was (I) with washing face, (B) hands and forearms and underarms. He denies his abdomen Lower Body: (I) with (B) LE from thigh to ankles with appropriate leg bend and ideal ROM of UE. Mod vc and mod tactile cue provided. DRESSING: NT today. Pt had just been fully washed by JOURNAL ENTRY AUDIT CLERK so he just got a new gown. GROOMING: Lying in bed, pt is (I) with brushing his hair. OT did attempt oral hygiene today which pt denied. He was not interested in brushing his teeth and denies this. TOILETING: NT EATING: Performed with nursing. They note that he would not hold his own spoon. Pt has AROM WFL to preform this (I) but denied this morning. ASSESSMENT: Pt tolerated 25 minutes today with only 1 break during OT session. He has notable fatigue post session and falls asleep right away when done performing his ADLs. OVerall he responds well with OT to verbal and tactile cues. This allows him increased functional (I) with his ADL routines. He was able to open his eyes during OT session and verbally respond to questions. Responds better to yes or no questions but is cognitively confused. For example he states he does not have a but does. Appropriate body mechanics noted today in the LE for his bathing routines. OT will attempt to work on oral hygiene tomorrow and increased functional activity tolerance as pts symptoms allow. PLAN: Tomorrow work on dressing, bathing and oral hygiene with attempted tolerance of 30 minutes of services at a minimum to progress pts functional activity tolerance. TREATMENT CODES/TIME: [id number], 25 minutes Shaila Gerard OTR/L [facility]
[2023-05-28] MEDS: Levothyroxine 100 MCG VIAL 62 MCG IVP (09:13)
[2023-05-28] MEDS: Normal Saline Flush 10 ML SYR IVP ×4 (09:14→17:19)
[2023-05-28] MEDS: Aspirin 300 MG SUPP PR (09:14)
--- NOTE | 2023-05-28 10:39 | W.PM.PROGNOT ---
Date of Service Date of service: 05/28/23 Time of Service: 10:39 Assessment and Plan Assessment and plan (1) Acute CVA (cerebrovascular accident): Status: Acute Assessment and plan: -Status post embolic CVA involving right occipital lobe, right temporal lobe and bilateral thalami with some microhemorrhages seen in the right thalamus and right posterior occipital lobe. -deficits seem to include some cognitive dysfunction as well as gait imbalance and probable vision loss. -Had been on 20 mg of Geodon twice daily the patient was somnolent, this was decreased to 20 mg at bedtime -After discussion with neurologist Dr. Cooney on 05/25/2023, plan was to decrease to 15 mg at bedtime -However, overnight 05/25/2023 patient had multiple episodes of severe agitation and required 2 doses of as needed Ativan -After discussing with Dr. Cooney plan is to go back to 20mg geodon PM 05/26; needed ativan PRN twice overnight (2) Atrial flutter: Status: Acute Assessment and plan: -now back in sinus rhythm -continue lopressor 2.5 mg IVP q1h prn sustained tachycardia > = 130 bpm Qualifiers: Atrial flutter type: typical Qualified Code(s): I48.3 - Typical atrial flutter (3) Colloid cyst of brain: Status: Acute Assessment and plan: -Per CT scan no evidence of hydrocephalus -followed up as an outpatient with repeat MRI scan in 6 months. (4) Hypothyroidism, unspecified: Status: Chronic Assessment and plan: -TSH within normal range. -Levothyroxine was switched to parenteral form however if he is able to safely swallow we will switch him back to his home dose. Qualifiers: Hypothyroidism type: unspecified Qualified Code(s): E03.9 - Hypothyroidism, unspecified (5) Hypertension: Status: Chronic Assessment and plan: -at present he has not exhibited any extreme elevations in his BP since he first presented to the E.D. -No antihypertensive have been given. -although he has prn lopressor for rate control if his paroxysmal atrial flutter becomes significantly tachycardic ie. over 130 bpm Qualifiers: Hypertension type: essential hypertension Qualified Code(s): I10 - Essential (primary) hypertension (6) Hyperlipidemia: Status: Chronic Assessment and plan: -Begin atorvastatin once he can safely swallow. Qualifiers: Hyperlipidemia type: unspecified Qualified Code(s): E78.5 - Hyperlipidemia, unspecified (7) GERD (gastroesophageal reflux disease): Status: Chronic Assessment and plan: -Continue IV Protonix but switch to oral PPI once he can safely swallow Qualifiers: Esophagitis presence: esophagitis presence not specified Qualified Code(s): K21.9 - Gastro-esophageal reflux disease without esophagitis (8) DVT prophylaxis: Status: Acute Assessment and plan: -enoxaparin 40 mg SC daily Subjective Subjective Interval history since last seen: Patient appears more awake and cooperative today, does not appear to be in any acute distress Exam Narrative Exam Narrative: Elderly gentleman laying in bed in no acute distress, cooperative, awake, alert, does respond appropriately to certain commands, heart regular rhythm, lungs clear to auscultation bilaterally Objective Last Vital Signs Temp 98.4 F 05/28/23 07:53 Pulse 77 05/28/23 07:53 Resp 18 05/28/23 07:53 BP 134/81 05/28/23 07:53 Pulse Ox 94 05/28/23 07:53 Time Spent with Patient Time Spent with Patient: >50 minutes Time was spent: preparing to see the patient(eg.review tests), obtaining and/or reviewing separately otained hiistory, ordering medications,tests, procedures, referring, communicating with other health post acute care nurse, indepentently interpreting results, counseling the patient and care coordination
--- NOTE | 2023-05-28 11:40 | PTTR_ITS ---
Date of service: 05/28/23 Time of Service: 11:00 PT Notes Visit Reasons: Acute CVA Inpatient Physical Therapy Treatment Note [facility] Date: 05/28/23 PRECAUTIONS: Fall, standard, activity as tolerated. Impulsive. Poor safety awareness. SUBJECTIVE: Patient is due to change rooms from ICU to Med Surg. RN Chrissy, ELIDIA Sun, SERENA Busch, and this clinician approach patient who is becoming minimally responsive after a period of deep sleep. Patient unable to participate in conversation. AFTERNOON: Patient encountered in the hallway with ELIDIA Sun and SERENA Busch. This clinician joins, providing wheelchair follow as well as third contact on gait belt for safety. OBJECTIVE: Patient appears to be asleep, albeit fidgety. Responds to verbal cues with gestures or grunts, no discernible words. ?AFTERNOON: Patient much more alert, able to make eye contact, occasional appropriate responses. ? PAIN: Difficult to assess VITALS: monitored by nursing staff. Therapeutic Activities ([id number]): Direct one-on-one instruction in dynamic activities to improve functional performance. ? BED MOBILITY/TRANSFERS? Rolling L/R: independent to max assist of 2 depending on patient's intrinsic motivation, level of alertness. Supine-sit: independent to mod assist of 2 depending on patient's intrinsic motivation, level of alertness. ? Sit-supine: dependent or max of 2 ? Sit-stand: mod assist of 2-3 at gait belt, verbal cues as well as tactile cues under axilla? Stand-sit: CGA to max assist of 2 depending on patient's intrinsic mot ivation, level of understanding? Bed-Chair: not assessed ? Chair-bed: Mod assist of 2-3 at gait belt, assist to steer FWW, verbal cues to feel bed behind legs. Provided skilled cues and instruction on performance and technique throughout. Gait Training ([id number]): Direct one-on-one instruction and skilled instruction in: [x] employing an assistive device [] modified weight-bearing status [x] movement sequencing [x] turning and movement with proper form [x] Provided verbal cues for equipment management and technique [x] Provided instruction in gait pattern [] Patient education regarding pacing and breathing techniques to maximize activity tolerance? GAIT? Assistive Device: FWW ? Weight bearing: full Assist: min to max assist of 2-3 depending on patient's level of alertness vs fatigue? Distance:? 8 feet, 110 feet, 96 feet? Deviation: ? Posture kyphotic, worsens with fatigue, patient able to correct with tactile and verbal cues but only momentarily. Short, shuffling steps with some scissoring noted which again can be corrected with verbal cues and maintained a bit longer than yesterday, 10-12 steps as opposed to 2-4. Patient requires more assistance to steer walker today vs yesterday, possibly be cause he is in a new and unfamiliar room ? ASSESSMENT:? Patient is reported by ELIDIA Babin and SERENA Busch to be much improved vs when he was admitted; they report seeing improvement every day. This clinician sees some improvement today vs yesterday, however patient's performance within the day is extremely variable. PLAN: Continue global strengthening per plan of care until patient is medically cleared for discharge and obtains a safe discharge plan. TREATMENT CODE/TIME: 35 minutes beginning at 11:00, 11 minutes beginning at 11:45, and 18 minutes beginning at 14:13 for a total of 64 minutes today.
--- NOTE | 2023-05-28 12:09 | STREC_ITS ---
Date of service: 05/28/23 Time of Service: 12:00 Speech Therapy Recommendations Report ST Recommendations: [employer] treatment attempted at 12:00; patient recently finished working with PT and asleep/unable to wake. Per RN/BRIM MOLDER, patient tolerating current modified diet (L4 Puree, Thin liquids) without overt s/s aspiration. Patient eating 1-2 custards and protein shakes in morning, though PO intake has been minimal in afternoon/evening related to somnolence and agitation. Confirmed with RN that when patient is alert enough to tolerate puree puddings, OK to have meds crushed in applesauce/custard. Reinforced aspiration precautions with BRIM MOLDER and visual sign hung in patient's room outlining aspiration precautions. [employer] to continue to follow. Diet Recommendations: SOLIDS- L4 Puree Solids LIQUIDS- Thin Liquids, Straw OK MEDICATIONS- Crushed in applesauce/pudding or liquid. Given variable wakefulness/acceptance of PO, may continue to require medications via alternative means if not alert. Alter medications only as advised by MD or Pharmacist SUPERVISION- 1:1 assistance/close supervision with ALL PO RISK MANAGEMENT: Pollard upright for all PO. Out of bed/in chair encouraged for meals. Encourage physical mobility as tolerated. Oral hygiene before/after PO intake using either suction swab or toothbrush if patient cognitively appropriate PO intake only when awake/alert? Strategies/Adaptations/Assistive Equipment: Reduce auditory and/or visual distractions when eating Small sips and bites when eating Slow rate of intake, Posture/Positioning Needs: Maintain upright position at least 30 minutes after meals Coding
[2023-05-28] MEDS: Enoxaparin 40 MG/0.4 ML SYR SC (14:49)
[2023-05-28] MEDS: Pantoprazole 40 MG VIAL IVP (14:49)
--- NOTE | 2023-05-28 16:20 | PGE_ITS ---
Date of Service Date of service: 05/28/23 Time of Service: 16:20 Assessment and Plan Assessment and plan (1) Acute CVA (cerebrovascular accident): Status: Acute (2) Colloid cyst of brain: Status: Acute (3) Atrial flutter: Status: Acute Qualifiers: Atrial flutter type: typical Qualified Code(s): I48.3 - Typical atrial flutter (4) Agitation: Status: Acute (5) Hypersomnolence: Status: Acute (6) Hypertension: Status: Chronic Assessment and plan: #1. 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 Bilateral thalamic stroke is very rare, and dominated by behavioral, cognitive, and wakefulness issues - with poor prognosis. Continue to balance agitation with Geodon/prn lorazepam/other meds as needed, and daytime sedation - though this seems to be improving. (consider addition of modafanil 200mg daily or amantadine 100mg daily in am - though these can both worsen the agitation). Medications: -aspirin daily for secondary stroke prevention - 300mg PA until able to take PO - then would switch to ASA 81mg daily until after day 14 (06/05/23) at which time he can be started on anticoagulation such as apixaban 5mg BID; would not do sooner given very large stroke and with microhemorrhage already present Other: -Ok to start slowly lowering BP -Continue PT, OT, ST as tolerated -continue delirium measures #2. Colloid cyst. Not obviously obstructing at this time. Will plan for outpatient serial imaging again in 6months to monitor. Subjective Subjective Interval history since last seen: Mr. Hanna apparently was more awake today and thus able to participate in rehab better. PO intake this am was good, but it doesn't sound like he ate any lunch. Moved to the floor. Exam Narrative Exam Narrative: Agitated when I went in, but then able to calm him. He kept stating he was confused, trying to find his (who was in the room but on his left), and get out of bed. I was able to redirect him and remind him where he is. He then calmed down. He is unfortunately in a room where L-side is to the door, etc. But nursing already working to move him to a room where door and visitors will all be on his right. this will help with reducing delirium. Objective Last Vital Signs Temp 97.7 F 05/28/23 14:51 Pulse 95 H 05/28/23 14:51 Resp 16 05/28/23 14:51 BP 144/100 H 05/28/23 15:36 Pulse Ox 94 05/28/23 14:51 Time Spent with Patient Time Spent with Patient: 25-34 minutes Time was spent: preparing to see the patient(eg.review tests), obtaining and/or reviewing separately otained hiistory, referring, communicating with other health manager critical care unit, counseling the patient and care coordination
[2023-05-28 16:33] LABS: Abs Immature Grans 0.01 10^3/uL (0.0-0.06); Absolute Basophil Count 0.06 10^3/uL (0.0-0.2); Absolute Eosinophil Count 0.24 10^3/uL (0.0-0.7); Absolute Lymphocyte Count 1.19 10^3/uL (1.2-3.4); Absolute Monocyte Count 0.59 10^3/uL (0.1-0.8); Absolute Neutrophil Count 4.27 10^3/uL (1.2-6.7); Basophils % 0.9; Eosinophils % 3.8; HCT 42.5 % (40.0-50.0); HGB 15.3 g/dL (13.5-17.5); Immature Grans % 0.2; Lymphocytes % 18.7; MCH 30.3 pg (27.0-33.0); MCV 84 fL (80-95); MPV 8.4 fL (8.0-11.0); Monocytes % 9.3; Neutrophils % 67.1; Platelet Count 183 10^3/uL (130-400); RBC 5.05 10^6/uL (4.36-5.78); RDW 12.2 % (11.8-14.1); RDW-SD 36.9 fL; WBC 6.36 10^3/uL (4.4-10.8)
[2023-05-28] MEDS: Ziprasidone 20 MG VIAL IM (19:03)
[2023-05-28] MEDS: Water,Injection,Sterile 10 ML VIAL IM (19:03)
[2023-05-29 08:40] VITALS: BP 146/78; PULSE 109; RESP 18; TEMP 36.2; O2SAT 96
[2023-05-29] MEDS: Atenolol 50 MG TAB PO (09:04)
[2023-05-29] MEDS: Normal Saline Flush 10 ML SYR IVP (09:11)
--- NOTE | 2023-05-29 09:36 | CMPROGNOTE_ITS ---
Date of service: 05/29/23 Time of Service: 09:36 Care Management Progress Note Progress Note Text Progress Note Text: S/O:Ilya was lying in bed when CM met with him. He was much more awake and interactive today although he does remain confused and impulsive. His Tara was visiting at the time. Ilya was trying to get out of bed, stating that he wanted to go flying. Per Dr. Hendricks, Ilya is likely to have visual impairment on his left side so he has been moved to a room which provides a view of the hallway on his right side.Yesterday afternoon Ilya became very agitated and combative and required prn Ativan. He has not required any Ativan since. A: Ilya is a 78 year old man admitted on 05/21/23 with an acute CVA P:Ilya is likely going to need to transfer to a SNF for short term rehab, if not for jail care. Referrals have been sent to [facility], [facility], [facility], [facility] and [facility]. A referral was also sent to [facility] for long range planning, options counseling and community case management for both Ilya and his . CM will follow and continue to asses for discharge needs. SDOH(Care Management) Screening Will the Patient Participate in the Screening?: Unable to obtain
--- NOTE | 2023-05-29 09:45 | PHA.REVIEW2 ---
Pharmacy Admission Review Admission Clinical Review Admission Pharmacy Review: (Updated 05/26/23 @ 10:34 by Angela Cooney MD) Hypersomnolence (Acute) Agitation (Acute) Palliative care patient (Acute) Atrial flutter (Acute) Colloid cyst of brain (Acute) Discharge planning issues (Acute) DVT prophylaxis (Acute) At risk for falls (Acute) Acute CVA (cerebrovascular accident) (Acute) bupropion Adverse Reaction (Verified 05/21/23 07:27) Other (See Comment) Resuscitation Status Full Code Height 5 ft 10 in Weight 74.7 kg Pharmacy Admission Review Renal Dosing Renal Dosing: BUN 14 mg/dL (7-18) 05/25/23 05:33 Creatinine 1.1 mg/dL (0.70-1.30) 05/25/23 05:33 Anticoagulation Anticoagulation: Hgb 15.3 g/dL (13.5-17.5) 05/28/23 16:25 Hct 42.5 % (40.0-50.0) 05/28/23 16:25 Plt Count 183 10^3/uL (130-400) 05/28/23 16:25 Creatinine 1.1 mg/dL (0.70-1.30) 05/25/23 05:33 Relevant Labs Relevant Labs: Sodium 145 mmol/L (136-145) 05/25/23 05:33 Potassium 3.7 mmol/L (3.5-5.1) 05/25/23 05:33 Chloride 108 mmol/L (98-107) H 05/25/23 05:33 Magnesium 1.9 mg/dL (1.8-2.4) 05/22/23 07:35 Cardiac Review Cardiac Review: Troponin I < 50 ng/L (< or =60) 05/21/23 06:38 Troponin I Cancelled 05/21/23 06:38 SOAP Subjective: Hypertensive overnight, with sitter, attempts to exit bed over railing, no c/o pain, some attempts to remove IV access...behavior escalated early this morning, IV access restarted after infiltration this morning Objective: BP 146/78, pulse 109, afebrile, labs stable 05/28/23 Assessment: ASA is rectally for CVA and also on Lovenox 40mg, will transition to Apixiban and low dose Aspirin after ~ 14 days per Neurologist consult. Levothyroxine is IV @ reduced dose at this time. Levy is scheduled for 8pm dosing daily, req'd Lorazepam 1mg IVP x 2 doses in the last 24 hours Plan: Care management making referrals for short term, possibly group home rehab
--- NOTE | 2023-05-29 09:52 | PT.INNT ---
PT Notes Visit Reasons: Acute CVA Pt sleeping 9:30am, nurse requested to hold therapy until pt wakes up. Nursing will inform therapist when pt wakes up to maximize pt rest period.
--- NOTE | 2023-05-29 09:55 | PT.INNT ---
PT Notes Visit Reasons: Acute CVA Date: 05/29/23 PRECAUTIONS: Fall, standard, activity as tolerated. Impulsive. Poor safety awareness. SUBJECTIVE: Pt approached multiple times during the course of the morning, pt initially on hold per nursing request to allow pt to sleep longer, pt with 1 on 1 adult sitter for safety and fall prevention, therapist informed when pt woke up, pt able to respond appropriately with verbal instructions, pt agreed to participating with therapy. OBJECTIVE: PAIN: none reported VITALS: monitored by nursing Therapeutic Activities [id number] 15mins: Direct one-on-one instruction in dynamic activities to improve functional performance. ?? BED MOBILITY/TRANSFERS? Rolling L/R: supervision Supine-sit: ?supervision ? Sit-supine: ?supervision? Sit-stand: ?[employer] +2 with contact on gait belt for guidance with movement? ?(min A of 2) ? Stand-sit: [employer] +2 with contact on gait belt for guidance with movement? ?(min A of 2) ? Bed-Chair:?[employer] +2 with contact on gait belt for guidance with movement? (min A of 2) ? Chair-bed: [employer] +2 with contact on gait belt for guidance with movement? ?(min A of 2) ? Provided skilled cues and instruction on performance and technique throughout. Gait Training: Direct one-on-one instruction and skilled instruction in: Employing an assistive device Modified weight-bearing status Movement sequencing Turning and movement with proper form Provided verbal cues for equipment management and technique Provided instruction in gait pattern Patient education regarding pacing and breathing techniques to maximize activity tolerance? GAIT? Assistive Device: ??No AD ? Weight bearing: FWB Assist: ?[employer] MIXER+2 with contact on gait belt for guidance with movement?(min A of 2) ? Distance:?? 300'x1? Deviation: ?Shuffling gait pattern, stoop forward posture, ? Provided skilled instruction in proper exercise performance Provided skilled manual cues to facilitate proper muscle recruitment and/or form: ASSESSMENT:?Pt still very impulsive, going out of bed when pt feels like going out of bed without warning, able to be redirected with verbal and tactile cue. PLAN: Continue global strengthening per plan of care until patient is medically cleared for discharge and obtains safe discharge plan. TREATMENT CODE/TIME: [id number] 15mins (10:15-10:30am)
--- NOTE | 2023-05-29 10:36 | PGE_ITS ---
Date of Service Date of service: 05/29/23 Time of Service: 10:36 Assessment and Plan Assessment and plan (1) Acute CVA (cerebrovascular accident): Status: Acute Assessment and plan: -Status post embolic CVA involving right occipital lobe, right temporal lobe and bilateral thalami with some microhemorrhages seen in the right thalamus and right posterior occipital lobe. -deficits seem to include some cognitive dysfunction as well as gait imbalance and probable vision loss. -Had been on 20 mg of Geodon twice daily the patient was somnolent, this was decreased to 20 mg at bedtime -After discussion with neurologist Dr. Cooney on 05/25/2023, plan was to decrease to 15 mg at bedtime -However, overnight 05/25/2023 patient had multiple episodes of severe agitation and required 2 doses of as needed Ativan -After discussing with Dr. Cooney plan is to go back to 20mg geodon PM 05/26; -Patient appears to have had improvement since being transferred to [facility] -However, has increased Geodon to twice daily and thus far today, patient appears to be doing well; hopefully this will decrease need for as needed Ativan (2) Atrial flutter: Status: Acute Assessment and plan: -now back in sinus rhythm -continue lopressor 2.5 mg IVP q1h prn sustained tachycardia > = 130 bpm Qualifiers: Atrial flutter type: typical Qualified Code(s): I48.3 - Typical atrial flutter (3) Colloid cyst of brain: Status: Acute Assessment and plan: -Per CT scan no evidence of hydrocephalus -followed up as an outpatient with repeat MRI scan in 6 months. (4) Hypothyroidism, unspecified: Status: Chronic Assessment and plan: -TSH within normal range. -Levothyroxine was switched to parenteral form however if he is able to safely swallow we will switch him back to his home dose. Qualifiers: Hypothyroidism type: unspecified Qualified Code(s): E03.9 - Hypothyroidism, unspecified (5) Hypertension: Status: Chronic Assessment and plan: -at present he has not exhibited any extreme elevations in his BP since he first presented to the [facility] -No antihypertensive have been given. -although he has prn lopressor for rate control if his paroxysmal atrial flutter becomes significantly tachycardic ie. over 130 bpm Qualifiers: Hypertension type: essential hypertension Qualified Code(s): I10 - Essential (primary) hypertension (6) Hyperlipidemia: Status: Chronic Assessment and plan: -Begin atorvastatin once he can safely swallow. Qualifiers: Hyperlipidemia type: unspecified Qualified Code(s): E78.5 - Hyperlipidemia, unspecified (7) GERD (gastroesophageal reflux disease): Status: Chronic Assessment and plan: -Continue IV Protonix but switch to oral PPI once he can safely swallow Qualifiers: Esophagitis presence: esophagitis presence not specified Qualified Code(s): K21.9 - Gastro-esophageal reflux disease without esophagitis (8) DVT prophylaxis: Status: Acute Assessment and plan: -enoxaparin 40 mg SC daily Subjective Subjective Interval history since last seen: Patient seen walking in the [place] with nursing staff, following commands appear to be ambulating well but with assistance. Exam Narrative Exam Narrative: Elderly gentleman laying in bed in no acute distress, cooperative, awake, alert, does respond appropriately to certain commands, heart regular rhythm, lungs clear to auscultation bilaterally Objective Last Vital Signs Temp 97.2 F L 05/29/23 08:40 Pulse 109 H 05/29/23 08:40 Resp 18 05/29/23 08:40 BP 146/78 H 05/29/23 08:40 Pulse Ox 96 05/29/23 08:40 Laboratory Results - last 24 hr 05/28/23 16:25 WBC 6.36 RBC 5.05 Hgb 15.3 Hct 42.5 MCV 84 MCH 30.3 MCHC 36.0 RDW 12.2 Plt Count 183 MPV 8.4 Immature Gran % 0.2 Neutrophils % 67.1 Lymphocytes % 18.7 Monocytes % 9.3 Eosinophils % 3.8 Basophils % 0.9 Nucleated RBC % 0.0 Absolute Neutrophils 4.27 Absolute Lymphocytes 1.19 L Absolute Monocytes 0.59 Absolute Eosinophils 0.24 Absolute Basophils 0.06 Time Spent with Patient Time Spent with Patient: >50 minutes Time was spent: preparing to see the patient(eg.review tests), obtaining and/or reviewing separately otained hiistory, ordering medications,tests, procedures, referring, communicating with other health pharmacist critical care, indepentently interpreting results, counseling the patient and care coordination
[2023-05-29 11:30] VITALS: BP 180/93; PULSE 86; RESP 18; TEMP 36.9; O2SAT 97
--- NOTE | 2023-05-29 12:52 | PT.INPN ---
PT Notes Visit Reasons: Acute CVA Inpatient Physical Therapy Progress Note Date: 05/29/2023 Dates of Service: 05/23/2023-05/29/2023 Referring Doctor: Angel Pang MD PT Orders: PT CONSULT: Falls safety assessment Precautions: Standad. Activity as tolerated. Impaired safety awareness. Subjective: Patient has had improving wakefulness cycles enabling him to participate in therapy. Wanted to get out of bed and to walk. Complained of being fatigued and being tired after his second walk today. Objective: General Observation: Seated at edge of bed with FORMING YARDAGE CONTROL OPERATOR, waiting to be walked. Eyes stay open significantly longer. Mental Status: Responds when name is called. Able to follow simple commands with repetition. Pain: None verbalized/expressed Vital Signs: Closeley monitored via nursing ROM: Unable to formally assess at this time Right Upper Extremity: Grossly WFL Left Upper Extremity: Grossly WFL Right Lower Extremity: Grossly WFL Left Lower Extremity: Grossly WFL Strength: Unable to formally assess at this time Right Upper Extremity: Grossly 3-/5 Left Upper Extremity: Grossly 3/5 Right Lower Extremity: Grossly 3-/5 Left Lower Extremity: Grossly 3/5 Sensation: Unable to assess Bed Mobility/Transfers: Sit?stand: minimal assist of 2 Sit?supine: minimal assist of 2 Stand?sit: minimal assist of 2 Gait: Improved from being only able to cover less than 30 feet on day of evaluation to 300 feet as of today requiring minimal to moderate assist of 2 with 2 caregivers on each side of patient with one hand supporting patient's hand and the other holding onto gait belt. Impaired perception of vertical orientation in the frontal plane as patient tends to bend forward attempting to stabilize himself and increasing tendency to fall forward. Use of walker unsafe at this time as AD management skill is currently severely impaired. Requested MEDICAL RECORDS COORDINATOR Jose Daniel to complete ambulation activity with patient and with FORMING YARDAGE CONTROL OPERATOR. Balance: Static Sitting: Fair Dynamic Sitting: Poor Static Standing: Poor Dynamic Standing: Poor Special Tests: Mobility Limitations Standardized Measure [facility] AM-PAC 6 clicks Basic Mobility Inpatient Short Form: Raw Score: 12 CMS Score: 69% deficit Informed Consent/Education: Patient and patient's have been instructed in purpose of PT consult and plan of care. ASSESSMENT: Level of awareness steadily increasing, allowing for increased participation during session. Safety awareness however continue to be limited, increasing risk for falls. Session tolerance and ability to follow instructions contribute to good prognosis in achieving mobility goals below. unable to provide needed physical assistance for who requires assist of 2 for safe mobility ADL performance. Goals: Goals X1 week 1. Supine-Sit SBA NOT MET, CONTINUE 2. Sit-Supine SBA NOT MET, CONTINUE 3. Sit-Stand CGx1 to front wheeled walker NOT MET, CONTINUE 4. Stand-Sit CG X1 with FWW NOT MET, CONTINUE 5. Bed-Chair CGx1 with FWW NOT MET, CONTINUE 6. Chair-Bed CGx1 with FWW NOT MET, CONTINUE 7. CGx1 with gait on level surface with use of FWW for at least 15-30 feet (enough to cover bedroom<>bathroom and bedroom<>kitchen distances at home) NOT MET, CONTINUE 8. Supervision with home exercise program NOT MET, CONTINUE 9. Fair static and dynamic standing balance/tolerance NOT MET, CONTINUE Plan of Care/Treatment Plan: 1-2x/day, 7 days/week x 1 week. Plan of care has been reviewed with the MEDICAL RECORDS COORDINATOR providing the service under Physical Therapy direction. Initiate Physical Therapy intervention for strengthening, bed mobility, transfers, gait, stairs, balance training, use of assistive device. -Initiate training with and use of FWW for all mobility performance to maximize independence and reduce fall risk. DISCHARGE RECOMMENDATIONS: [] Home with no services [] [] Home with services [specify] [] Home with outpatient PT [] [] SNF for continued rehabilitation [] [] Long-Term Care [] [X] SNF versus LTC based on ability to participate and progress TREATMENT CODE/TIME: [id number] x 18 minutes beginning at 12:52 PM.
--- NOTE | 2023-05-29 14:26 | PT.INTREAT ---
PT Notes Visit Reasons: Acute CVA Date: 05/29/23 PRECAUTIONS: Fall, standard, activity as tolerated. Impulsive. Poor safety awareness. SUBJECTIVE: Pt approached multiple times during the course of the morning, pt initially on hold per nursing request to allow pt to sleep longer, pt with 1 on 1 adult sitter for safety and fall prevention, therapist informed when pt woke up, pt able to respond appropriately with verbal instructions, pt agreed to participating with therapy. OBJECTIVE: PAIN: none reported VITALS: monitored by nursing Therapeutic Activities 75058 15mins: Direct one-on-one instruction in dynamic activities to improve functional performance. ?? BED MOBILITY/TRANSFERS? Rolling L/R: supervision Supine-sit: ?supervision ? Sit-supine: ?supervision? Sit-stand: ?VINEYARD WORKER +2 with contact on gait belt for guidance with movement? ?(min A of 2) ? Stand-sit: VINEYARD WORKER +2 with contact on gait belt for guidance with movement? ?(min A of 2) ? Bed-Chair:?VINEYARD WORKER +2 with contact on gait belt for guidance with movement? (min A of 2) ? Chair-bed: VINEYARD WORKER +2 with contact on gait belt for guidance with movement? ?(min A of 2) ? Provided skilled cues and instruction on performance and technique throughout. Gait Training: Direct one-on-one instruction and skilled instruction in: Employing an assistive device Modified weight-bearing status Movement sequencing Turning and movement with proper form Provided verbal cues for equipment management and technique Provided instruction in gait pattern Patient education regarding pacing and breathing techniques to maximize activity tolerance? GAIT? Assistive Device: ??No AD ? Weight bearing: FWB Assist: ?VINEYARD WORKER+2 with contact on gait belt for guidance with movement?(min A of 2) ? Distance:?? 300'x1? Deviation: ?Shuffling gait pattern, stoop forward posture, ? Provided skilled instruction in proper exercise performance Provided skilled manual cues to facilitate proper muscle recruitment and/or form: ASSESSMENT:?Pt still very impulsive, going out of bed when pt feels like going out of bed without warning, able to be redirected with verbal and tactile cue. PLAN: Continue global strengthening per plan of care until patient is medically cleared for discharge and obtains safe discharge plan. TREATMENT CODE/TIME: [id number] 15mins (10:15-10:30am)
[2023-05-29] MEDS: Ziprasidone 20 MG VIAL IM ×2 (14:31→21:35)
--- NOTE | 2023-05-29 14:34 | PTTR_ITS ---
PT Notes Visit Reasons: Acute CVA Date: 05/29/23 PRECAUTIONS: Fall, standard, activity as tolerated. Impulsive. Poor safety awareness. SUBJECTIVE: Pt agreed to participating with therapy this afternoon. OBJECTIVE: PAIN: none reported VITALS: monitored by nursing Therapeutic Activities 30422 15mins: Direct one-on-one instruction in dynamic activities to improve functional performance. ?? BED MOBILITY/TRANSFERS? Rolling L/R: supervision Supine-sit: ?supervision ? Sit-supine: ?supervision? Sit-stand: ?COMPUTING ARCHITECT +2 with contact on gait belt for guidance with movement? ?(min A of 2) ? Stand-sit: COMPUTING ARCHITECT +2 with contact on gait belt for guidance with movement? ?(min A of 2) ? Bed-Chair:?COMPUTING ARCHITECT +2 with contact on gait belt for guidance with movement? (min A of 2) ? Chair-bed: COMPUTING ARCHITECT +2 with contact on gait belt for guidance with movement? ?(min A of 2) ? Provided skilled cues and instruction on performance and technique throughout. Gait Training: Direct one-on-one instruction and skilled instruction in: Employing an assistive device Modified weight-bearing status Movement sequencing Turning and movement with proper form Provided verbal cues for equipment management and technique Provided instruction in gait pattern Patient education regarding pacing and breathing techniques to maximize activity tolerance? GAIT? Assistive Device: ??No AD ? Weight bearing: FWB Assist: ?COMPUTING ARCHITECT+2 with contact on gait belt for guidance with movement?(mod A of 2) ? Distance:?? 150'x1? Deviation: ?Shuffling gait pattern, stoop forward posture, ? Provided skilled instruction in proper exercise performance Provided skilled manual cues to facilitate proper muscle recruitment and/or form: ASSESSMENT:?Pt demonstrated increased shuffling, stoop forward posture, required increased tactile and verbal cue for posture correction, increase step height. pt also showed signs of fatigue at 130' yosi requiring pt to go to bed to rest, Nurse Chrissy checked pt vitals post gait training reports vitals are WNL. PLAN: Continue global strengthening per plan of care until patient is medically cleared for discharge and obtains safe discharge plan. TREATMENT CODE/TIME: [id number] 15mins (1:00-1:15pm)
--- NOTE | 2023-05-29 14:38 | SPP_ITS ---
Date of service: 05/29/23 Time of Service: 12:10 Subjective Patient was contacted in his room on med/surge for lunch meal. His was also present in the room. Per RN/PATIENT REGISTRATION SUPERVISOR, patient refusing PO for lunch. QUALITY CONTROL ENGINEERING TECHNICIAN trialing upgraded solid textures this date. Patient with minimal verbal responses this date, appearing quite fatigued (keeping eyes closed, but continues to follow instructions such as open your mouth say 'aaaaahhhh'. Interim updates: Per nursing, he recently pulled his IV line out, RN asked QUALITY CONTROL ENGINEERING TECHNICIAN for updated PO medication recommendations this date. Unclear if IV will be replaced, awaiting MD input. Reportedly, patient with decreasing levels of agitation and increasing levels of participation recently, and demonstrating recall of orientation information with nursing such as location, day of week, etc. Objective/Assessment/Plan Objective Treatment Techniques & Outcomes: PO Trials Assessed: IDDSI 0: Thin Liquids via straw IDDSI 6: Soft/Bite sized (egg salad) IDDSI 7: Regular (Saltine cracker) Feeding behaviors/observations: Self-feeding with some verbal/[place] assistance Oral Phase Findings: Some reduction in rotary mastication, very brief duration of chewing before swallow L sided pocketing of solid food and mild lingual residue. Pharyngeal Phase Findings: Possible reduced hyolaryngeal elevation/excursion, though noting low laryngeal carriage at rest (age-related). No coughing or throat clearing noted. Breath sounds remained dry/clear throughout. QUALITY CONTROL ENGINEERING TECHNICIAN providing oral care with suction kits after PO trials, patient with clamping oral fixation behaviors, difficult to adequately clean surface of tongue. Patient/Caregiver/Staff Education: Verbal ed to patient's regarding role of QUALITY CONTROL ENGINEERING TECHNICIAN, rationale for diet recommendations, s/sx to watch for aspiration, relationship between aspiration and respiratory fxn Assessment Patient shows improving naturalistic response to solid bolus this date, initiates chewing with some rotary mastication preserved. However, in setting of continued cognitive deficits and exacerbated by fatigue, he does not demonstrate adequate oral-sensory awareness to ensure safety of upgraded chewable/solid textures or whole tablets this date (pocketing, inadequate chewing). He would be appropriate for PO meds that are crushable. QUALITY CONTROL ENGINEERING TECHNICIAN provided education to RN that it is ok to trial small whole pills but that given low awareness, patient may try to chew these, so, for example, extended release should not be given orally. If any PO meds are given, give in puree and RN should check carefully for pocketing to ensure meds clear the oral cavity and are actually swallowed. QUALITY CONTROL ENGINEERING TECHNICIAN to continue to monitor need for MBSS/readiness for diet advancement. If mentation continues improving, suspect he will be appropriate for MBSS and possibly diet advancement in coming days. Overall, patient is considered high risk for aspiration, malnutrition, and dehydration in light of current status, though these risks can be mitigated with the following diet modifications and strict aspiration precautions, listed below. Patient will likely require small PO snacks throughout day in light of high fatigability. QUALITY CONTROL ENGINEERING TECHNICIAN to continue to monitor need for MBSS/readiness for diet advancement. Plan Plan: Patient to be followed while on unit for diet upgrade as appropriate. Upon Discharge, recommend QUALITY CONTROL ENGINEERING TECHNICIAN services at care home Recommendations Recommendations: Diet Recommendations: SOLIDS- L4 Puree Solids LIQUIDS- Thin Liquids, Straw [place] MEDICATIONS- Crushed in applesauce/pudding or liquid. Given variable wakefulness/acceptance of PO, may continue to require medications via alternative means. Alter medications only as advised by MD or Pharmacist SUPERVISION- 1:1 assistance/close supervision with ALL PO RISK MANAGEMENT: [place] upright for all PO. Out of bed/in chair encouraged for meals. Encourage physical mobility as tolerated. Oral hygiene before/after PO intake using either suction swab or toothbrush if patient cognitively appropriate PO intake only when awake/alert? Strategies/Adaptations/Assistive Equipment: Reduce auditory and/or visual distractions when eating Small sips and bites when eating Slow rate of intake, Posture/Positioning Needs: Maintain upright position at least 30 minutes after meals Total Time Spent: 25 minutes starting at 12:10 pm Coding CPT Codes ORAL FUNCTION THERAPY - 20651 ([id number]) Additional Codes Date of Service (70541) Date of service: 05/29/23
[2023-05-29] MEDS: Aspirin 81 MG CHEW 324 MG CH (14:47)
[2023-05-29] MEDS: Enoxaparin 40 MG/0.4 ML SYR SC (14:48)
[2023-05-29 21:24] VITALS: PULSE 84; RESP 20
[2023-05-29] MEDS: Water,Injection,Sterile 10 ML VIAL IM (21:36)
[2023-05-29 21:42] VITALS: BP 184/81; PULSE 89; RESP 20; TEMP 37.9; O2SAT 95
[2023-05-30 02:15] VITALS: BP 177/90; PULSE 82; RESP 16; TEMP 36.7; O2SAT 97
[2023-05-30 08:28] VITALS: BP 136/90; PULSE 74; RESP 18; TEMP 36.2; O2SAT 98
[2023-05-30] MEDS: Aspirin 81 MG CHEW 324 MG CH (08:48)
[2023-05-30] MEDS: Atenolol 50 MG TAB PO (08:49)
--- NOTE | 2023-05-30 09:43 | PGE_ITS ---
Date of Service Date of service: 05/30/23 Time of Service: 09:43 Assessment and Plan Assessment and plan (1) Acute CVA (cerebrovascular accident): Status: Acute Assessment and plan: -Status post embolic CVA involving right occipital lobe, right temporal lobe and bilateral thalami with some microhemorrhages seen in the right thalamus and right posterior occipital lobe. -deficits seem to include some cognitive dysfunction as well as gait imbalance and probable vision loss. -Had been on 20 mg of Geodon twice daily the patient was somnolent, this was decreased to 20 mg at bedtime -After discussion with neurologist Dr. Cooney on 05/25/2023, plan was to decrease to 15 mg at bedtime -However, overnight 05/25/2023 patient had multiple episodes of severe agitation and required 2 doses of as needed Ativan -After discussing with Dr. 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 (4) Hypothyroidism, unspecified: Status: Chronic Assessment and plan: -TSH within normal range. -Levothyroxine was switched to parenteral form however if he is able to safely swallow we will switch him back to his home dose. Qualifiers: Hypothyroidism type: unspecified Qualified Code(s): E03.9 - Hypothyroidism, unspecified (5) Hypertension: Status: Chronic Assessment and plan: -at present he has not exhibited any extreme elevations in his BP since he first presented to the [facility]. -No antihypertensive have been given. -although he has prn lopressor for rate control if his paroxysmal atrial flutter becomes significantly tachycardic ie. over 130 bpm Qualifiers: Hypertension type: essential hypertension Qualified Code(s): I10 - Essential (primary) hypertension (6) Hyperlipidemia: Status: Chronic Assessment and plan: -Begin atorvastatin once he can safely swallow. Qualifiers: Hyperlipidemia type: unspecified Qualified Code(s): E78.5 - Hyperlipidemia, unspecified (7) GERD (gastroesophageal reflux disease): Status: Chronic Assessment and plan: -Continue IV Protonix but switch to oral PPI once he can safely swallow Qualifiers: Esophagitis presence: esophagitis presence not specified Qualified Code(s): K21.9 - Gastro-esophageal reflux disease without esophagitis (8) DVT prophylaxis: Status: Acute Assessment and plan: -enoxaparin 40 mg SC daily Subjective Subjective Interval history since last seen: Patient laying in bed, is able to state he is intermittently confused, but currently he knows where he is and does not have any complaints or concerns Exam Narrative Exam Narrative: Elderly gentleman laying in bed in no acute distress, cooperative, awake, alert, does respond appropriately to certain commands, heart regular rhythm, lungs clear to auscultation bilaterally Objective Last Vital Signs Temp 97.2 F L 05/30/23 08:28 Pulse 74 05/30/23 08:28 Resp 18 05/30/23 08:28 BP 136/90 05/30/23 08:28 Pulse Ox 98 05/30/23 08:28 Time Spent with Patient Time Spent with Patient: >50 minutes Time was spent: preparing to see the patient(eg.review tests), obtaining and/or reviewing separately otained hiistory, ordering medications,tests, procedures, referring, communicating with other health healthcare consulting manager, indepentently interpreting results, counseling the patient and care coordination
--- NOTE | 2023-05-30 10:42 | PT.INNT ---
PT Notes Visit Reasons: Acute CVA Checked on patient x 2. Pt was difficult to arouse the first attempt and not able to arouse the second attempt. I did make nursing aware and we decided to hold on PT today and she would check with his doctor about his status.
[2023-05-30 10:56] VITALS: BP 116/72; PULSE 67; TEMP 35.9; O2SAT 97
[2023-05-30] MEDS: Enoxaparin 40 MG/0.4 ML SYR SC (13:48)
[2023-05-30 15:28] VITALS: BP 145/87; PULSE 65; RESP 18; TEMP 36.4; O2SAT 96
[2023-05-30 16:54] LABS: Bilirubin Moderate (Negative); Blood Negative (Negative); Clarity Sl Cloudy (Clear); Glucose Negative (Negative); Ketones Negative (Negative); Leukocyte Esterase Negative (Negative); Nitrite Negative (Negative); Specific Gravity >= 1.030 (1.005-1.025)
[2023-05-30 17:11] LABS: Bacteria Negative HPF (Negative); C & S Indicated? No; Casts 0-2 Hyaline LPF (Negative); Crystals Negative HPF (Negative); Epithelial Cells Rare HPF (Negative); Mucus Trace (Negative); RBC 0-2 HPF (0-2); WBC 0-2 HPF (0-5)
[2023-05-30 19:15] VITALS: PULSE 64; RESP 20
[2023-05-30] MEDS: Ziprasidone 20 MG VIAL IM (21:08)
[2023-05-30 21:09] VITALS: BP 167/92; PULSE 74; RESP 18; TEMP 36.7; O2SAT 97
[2023-05-30] MEDS: Water,Injection,Sterile 10 ML VIAL IM (21:09)
[2023-05-31 06:08] VITALS: BP 127/68; PULSE 70; RESP 18; TEMP 36; O2SAT 96
[2023-05-31 08:28] VITALS: BP 168/104; PULSE 70; RESP 16; TEMP 36.2; O2SAT 95
[2023-05-31] MEDS: Aspirin 81 MG CHEW 324 MG CH (08:31)
[2023-05-31] MEDS: Atenolol 50 MG TAB PO (08:31)
--- NOTE | 2023-05-31 10:13 | PT.INTREAT ---
PT Notes Visit Reasons: Acute CVA Inpatient Physical Therapy Treatment Note [facility] Date: 05/31/23 OBJECTIVE: ? Therapeutic Activities (14102p[2]): Direct one-on-one instruction in dynamic activities to improve functional performance. ? BED MOBILITY/TRANSFERS? Sit-stand: CGA x 2 vc's? Stand-sit: CGAx2 vc's ? Provided skilled cues and instruction on performance and technique throughout. ? Therapeutic Exercises (68287s[2]): Direct one-on-one instruction in therapeutic exercises to develop strength, endurance, range of motion and flexibility. ? Exercises ? seated marching x 10 UE rowing x 10 Ambulation ? Assistive Device: FWW ? Weight bearing: Cull Assist: CGAx2 ? Distance:? Marching in place x 3 with seated rests and vc's ? ASSESSMENT:? Pt was more much more alert and oriented today. Still required max c's for commands. PLAN: Cont as per PT POC. TREATMENT CODE/TIME: 9:25-9:40 (15) TA
[2023-05-31 13:05] VITALS: BP 135/87; PULSE 54; RESP 16; TEMP 35.7; O2SAT 96
[2023-05-31 14:13] LABS: Abs Immature Grans 0.02 10^3/uL (0.0-0.06); Absolute Basophil Count 0.06 10^3/uL (0.0-0.2); Absolute Eosinophil Count 0.18 10^3/uL (0.0-0.7); Absolute Lymphocyte Count 0.83 10^3/uL (1.2-3.4); Absolute Monocyte Count 0.64 10^3/uL (0.1-0.8); Absolute Neutrophil Count 5.37 10^3/uL (1.2-6.7); Basophils % 0.8; Eosinophils % 2.5; HCT 45.4 % (40.0-50.0); HGB 16.4 g/dL (13.5-17.5); Immature Grans % 0.3; Lymphocytes % 11.7; MCH 30.7 pg (27.0-33.0); MCHC 36.1 % (32.0-36.0); MCV 85 fL (80-95); Neutrophils % 75.7; Platelet Count 197 10^3/uL (130-400); RBC 5.34 10^6/uL (4.36-5.78); RDW 12.2 % (11.8-14.1); RDW-SD 37.7 fL
--- NOTE | 2023-05-31 16:47 | W.PM.PROGNOT ---
Date of Service Date of service: 05/31/23 Time of Service: 16:47 Assessment and Plan Assessment and plan (1) Acute CVA (cerebrovascular accident): Status: Acute Assessment and plan: S/p embolic CVA right occipital lobe, right temporal lobe and bilateral thalami with some microhemorrhages in the right thalamus and right posterior occipital lobe. Deficits wax and wane: cognitive dysfunction, agitation/sedation, gait imbalance, probable vision loss. For now, continue geodon 20 mg PO BID. Consider addition of modafinil. Continue aspirin (I changed the dose to 81 mg PO daily) until 06/05, when he can be started on apixaban. (2) Atrial flutter: Status: Acute Assessment and plan: Converted to NSR (new diagnosis). The likely cause of the embolic CVA. He is on atenolol. Has prn IV lopressor. Read discussion re anticoagulation above. 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 Will need repeat MRI scan in 6 months as outpatient. (4) Hypothyroidism, unspecified: Status: Chronic Assessment and plan: Continue levothyroxine. Qualifiers: Hypothyroidism type: unspecified Qualified Code(s): E03.9 - Hypothyroidism, unspecified (5) Hypertension: Status: Chronic Assessment and plan: He is on atenolol. BPs seem mostly controlled. Continue this. Qualifiers: Hypertension type: essential hypertension Qualified Code(s): I10 - Essential (primary) hypertension (6) Hyperlipidemia: Status: Chronic Assessment and plan: Start atorvastatin. Qualifiers: Hyperlipidemia type: unspecified Qualified Code(s): E78.5 - Hyperlipidemia, unspecified (7) GERD (gastroesophageal reflux disease): Status: Chronic Assessment and plan: Continue nexium. Qualifiers: Esophagitis presence: esophagitis presence not specified Qualified Code(s): K21.9 - Gastro-esophageal reflux disease without esophagitis (8) DVT prophylaxis: Status: Acute Assessment and plan: Enoxaparin 40 mg SC daily (9) Discharge planning issues: Status: Acute Assessment and plan: Full code PT/OT/Speech/Palliative care/Psychiatry consulted (I do not see a psychiatry consult note). Subjective Subjective Interval history since last seen: Per Mrs Hanna at bedside, Mr Hanna, while a little more awake now, has been very sleepy so far today. He did not receive his morning dose of geodon due to sedation. When I interviewed him, he answered no to all my questions (including if he had pain/headache/CP/SOB/nausea) except for when I asked him permission to listen to him, to which he said sure. Exam Narrative Exam Narrative: General: Pleasant elderly male who is speaking very quietly, monosyllabic answers HEENT: Prefers to keep the eyes closed, does focus on me when I stand on both his R and his L side Heart: RRR, no m/r/g Lungs: CTAB Abdomen: soft, nontender, nondistended Extremities: no edema BLEs, moving all 4 extremities on command, the strength appears to be preserved Objective Last Vital Signs Temp 35.7 C L 05/31/23 13:05 Pulse 54 L 05/31/23 13:05 Resp 16 05/31/23 13:05 BP 135/87 05/31/23 13:05 Pulse Ox 96 05/31/23 13:05 Laboratory Results - last 24 hr 05/30/23 05/31/23 15:55 14:03 WBC 7.10 RBC 5.34 Hgb 16.4 Hct 45.4 MCV 85 MCH 30.7 MCHC 36.1 H RDW 12.2 Plt Count 197 MPV 9.0 Immature Gran % 0.3 Neutrophils % 75.7 Lymphocytes % 11.7 Monocytes % 9.0 Eosinophils % 2.5 Basophils % 0.8 Nucleated RBC % 0.0 Absolute Neutrophils 5.37 Absolute Lymphocytes 0.83 L Absolute Monocytes 0.64 Absolute Eosinophils 0.18 Absolute Basophils 0.06 Urine Color Dark Yellow Urine Clarity Sl Cloudy Urine pH 6.0 Ur Specific [place] >= 1.030 H Urine Protein 30 H Urine Ketones Negative Urine Blood Negative Urine Nitrite Negative Urine Bilirubin Moderate H Urine Urobilinogen 1.0 H Ur Leukocyte Esterase Negative Urine RBC 0-2 Urine WBC 0-2 Ur Epithelial Cells Rare Urine Crystals Negative Urine Bacteria Negative Urine Casts 0-2 Hyaline Urine Mucus Trace Ur Culture Indicated? No Urine Glucose Negative Time Spent with Patient Time Spent with Patient: 35-49 minutes Time was spent: preparing to see the patient(eg.review tests), obtaining and/or [facility], ordering medications,tests, procedures, referring, communicating with other health hospice home care coordinator, indepentently interpreting results, counseling the patient and care coordination
[2023-05-31 19:08] VITALS: BP 145/81; PULSE 74; RESP 16; TEMP 36.1; O2SAT 95
[2023-05-31] MEDS: Atorvastatin 40 MG TAB PO (20:02)
[2023-05-31] MEDS: Ziprasidone 20 MG VIAL IM (20:03)
[2023-05-31] MEDS: Water,Injection,Sterile 10 ML VIAL IM (20:18)
[2023-05-31 23:38] VITALS: BP 137/88; PULSE 77; RESP 16; TEMP 36.3; O2SAT 98
[2023-06-01 05:53] VITALS: BP 149/85; PULSE 63; RESP 16; TEMP 36.5; O2SAT 97
[2023-06-01 06:45] LABS: Abs Immature Grans 0.02 10^3/uL (0.0-0.06); Absolute Basophil Count 0.07 10^3/uL (0.0-0.2); Absolute Eosinophil Count 0.21 10^3/uL (0.0-0.7); Absolute Lymphocyte Count 1.35 10^3/uL (1.2-3.4); Absolute Monocyte Count 0.74 10^3/uL (0.1-0.8); Absolute Neutrophil Count 4.44 10^3/uL (1.2-6.7); Eosinophils % 3.1; HCT 46.4 % (40.0-50.0); HGB 16.6 g/dL (13.5-17.5); Immature Grans % 0.3; Lymphocytes % 19.8; MCH 30.5 pg (27.0-33.0); MCHC 35.8 % (32.0-36.0); MCV 85 fL (80-95); MPV 9.3 fL (8.0-11.0); Monocytes % 10.8; Platelet Count 221 10^3/uL (130-400); RBC 5.44 10^6/uL (4.36-5.78); RDW 12.1 % (11.8-14.1); RDW-SD 37.1 fL; WBC 6.83 10^3/uL (4.4-10.8)
[2023-06-01 06:56] LABS: Anion Gap 8.1 mmol/L (3-11); BUN 32 mg/dL (7-18); CO2 29.9 mmol/L (21.0-32.0); CREATININE 1.3 mg/dL (0.70-1.30); Calcium 9.7 mg/dL (8.5-10.1); Chloride 106 mmol/L (98-107); Estimated GFR 56.23 (mL/min/1.73m2); Glucose 94 mg/dL (74-106); Magnesium 2.3 mg/dL (1.8-2.4); Potassium 3.5 mmol/L (3.5-5.1); Sodium 144 mmol/L (136-145)
--- NOTE | 2023-06-01 08:17 | W.PALPGNOTE ---
Date of service: 06/01/23 Time of Service: 08:17 Assessment and Plan Assessment and plan (1) Palliative care patient: Status: Acute (2) Acute CVA (cerebrovascular accident): Status: Acute Assessment and plan: The burden of Ilya's multiple CVAs is becoming more clear. He did not have capacity to make any decisions for himself today. Per staff his is unable to make decisions for him. I spoke to him at length when he was initially admitted and he did have capacity and was loosened. He does not now. Care management needs to be working on placement for Ilya in a long-term care facility. It would be wonderful if his would also be able to be placed in a facility with him. He also needs guardianship as he is not able to make decisions, his does not appear to be able to make decisions, and he has no other relatives Subjective Subjective Interval history since last seen: Staff states that Ilya has been in and out of awareness of his surroundings. Sometimes he gets combative. He spends much of his time with his hands over his eyes and speaks very softly. Exam Narrative Exam Narrative: Was almost impossible to hear Ilya. I needed to turn off the TV and shut the door so there was not any ambient noise. He said numerous times when I asked questions that it was against the rules. He states no to most questions I asked including pain hunger discomfort seeing his etc. his hands are over his eyes. At 1 point I asked him how many fingers I was holding up and he said 4. I was holding up to. His heart is regular lungs pretty good air movement and he cooperated with the exam. Objective Last Vital Signs Temp 97.7 F 06/01/23 05:53 Pulse 63 06/01/23 05:53 Resp 16 06/01/23 05:53 BP 149/85 H 06/01/23 05:53 Pulse Ox 97 06/01/23 05:53 Laboratory Results - last 24 hr 05/31/23 06/01/23 14:03 06:12 WBC 7.10 6.83 RBC 5.34 5.44 Hgb 16.4 16.6 Hct 45.4 46.4 MCV 85 85 MCH 30.7 30.5 MCHC 36.1 H 35.8 RDW 12.2 12.1 Plt Count 197 221 MPV 9.0 9.3 Immature Gran % 0.3 0.3 Neutrophils % 75.7 65.0 Lymphocytes % 11.7 19.8 Monocytes % 9.0 10.8 Eosinophils % 2.5 3.1 Basophils % 0.8 1.0 Nucleated RBC % 0.0 0.0 Absolute Neutrophils 5.37 4.44 Absolute Lymphocytes 0.83 L 1.35 Absolute Monocytes 0.64 0.74 Absolute Eosinophils 0.18 0.21 Absolute Basophils 0.06 0.07 Sodium 144 Potassium 3.5 Chloride 106 Carbon Dioxide 29.9 Anion Gap 8.1 BUN 32 H Creatinine 1.3 Est GFR (CKD-EPI 2020) 56.23 Glucose 94 Calcium 9.7 Magnesium 2.3
--- NOTE | 2023-06-01 08:22 | OT.INTREAT ---
Occupational Therapy Notes Occupational Therapy Inpatient Treatment Note Date: 06/01/23 PRECAUTIONS: Fall, Standard, Full SUBJECTIVE: Pt was sitting in chair when OT arrived. He was more alert today and was able to open his eyes and verbally communicate. OBJECTIVE: PAIN:Unable to fully assess at this time. No pain behaviors noted throughout BATHING: sitting in chair with max (A) set up and clean up Upper Body: Mod vc and min tactile cues pt was (I) with washing face, (B) hands and forearms and underarms. He denies his abdomen again today but does wash this (I) when OT did not ask later on. Lower Body: (I) with (B) LE from thigh to ankles with appropriate leg bend and ideal ROM of UE. Mod vc and mod tactile cue provided. DRESSING: Mod (A) donning gown. He is able to lift his (B) UE up. GROOMING: sitting in chair, pt is (I) with brushing his hair. OT did attempt oral hygiene today which pt denied. He has not had breakfast yet so OT will hold on this. TOILETING: NT ASSESSMENT: Pt tolerated 20 minutes today with no breaks during OT session. He has notable fatigue post session and falls asleep right away after when done performing his ADLs. Overall he responds well with OT to verbal and tactile cues. This allows him increased functional (I) with his ADL routines. He was able to open his eyes during OT session and verbally respond to questions. He is responding with more communicative sentences. He is able to make eye contact although not always appropriate times. He has a slight delay in response and task initiation. PLAN: To keep progressing towards standing ADLs as pts symptoms allow. TREATMENT CODES/TIME: [id number], 20 minutes Shaila Gerard OTR/L [facility]
[2023-06-01] MEDS: Atenolol 50 MG TAB PO (08:29)
[2023-06-01] MEDS: Aspirin 81 MG CHEW CH (08:29)
[2023-06-01] MEDS: Normal Saline Flush 10 ML SYR IVP ×2 (08:29→19:38)
--- NOTE | 2023-06-01 08:47 | CMPROGNOTE_ITS ---
Date of service: 06/01/23 Time of Service: 08:47 Care Management Progress Note Progress Note Text Progress Note Text: S/O:Ilya was lying in bed when CM met with him. He was asleep and had been for a couple of hours. Ilya has been getting very restless and ambulation with staff around the unit seems to help. His BIG DATA ANALYTICS LEAD shared that he had gone for a long walk just prior to napping. His gait remains erratic but with 2 assist and a gait belt, he is able to safely walk. Tara came to visit at the end of the day. Gerald pena, over the weekend she visited but tries to leave by 5 pm or so to avoid night time driving.Ilya had a psychiatry consult to evaluate capacity today and was found not to have capacity regarding his medical condition and treatment. He was also seen by Palliative care. A: Ilya is a 78 year old man admitted on 05/21/23 with an acute CVA P:Ilya is likely going to need to transfer to a SNF for short term rehab, if not for remote computer terminal operator care. Referrals have been sent to [facility], [facility], [facility] and [facility]. A referral was also sent to [facility] for long range planning, options counseling and community case management for both Ilya and his . CM will follow and continue to asses for discharge needs. SDOH(Care Management) Screening Will the Patient Participate in the Screening?: Unable to obtain
[2023-06-01] MEDS: Ziprasidone 20 MG CAP PO ×2 (09:16→21:08)
--- NOTE | 2023-06-01 09:40 | SPP_ITS ---
Date of service: 06/01/23 Time of Service: 08:25 Subjective Patient received sitting upright in a chair with breakfast meal, immediately following treatment with OT. Ilya whispered in sentence length responses- with some appropriate responses (I need more of that) as well as perseveration of seemingly unrelated phrases (put it on my face). He remained alert with eyes open for majority of breakfast. When prompted to speak in a louder voice, he did demonstrate phonation, with moderate hoarseness. Ilya was oriented to his name and . He could not answer where he was or why he was in the hospital. When told he had a stroke, he demonstrated a wide-eyed expression and stated wow I did not know that. Approximately 5 minutes later, this clinician re-asked Ilya where he was and why he was in the hospital and he stated he did not know. When it was again shared with him that he had a stroke, he demonstrated a surprised a response. Nursing contacting WAFER FABRICATION OPERATOR this morning, requesting trial whole capsule of geodon with goal of switching to PO. Objective/Assessment/Plan Objective Treatment Techniques & Outcomes: PO Trials Assessed: IDDSI 0: Thin Liquids via straw IDDSI 4: Oatmeal, Applesauce Meds administered by RN: small whole capsule (geodon) within applesauce, custard, followed by sips of liquid Feeding behaviors/observations: Max [place] assist provided for feeding. Patient attempted to independently self- feed solids, but rubbed spoon under nose/on cheeks. Min to mod assist for drinking liquids via straw. Oral Care: Completed with toothbrush followed by swab. Patient able to swish/spit appropriately with prompting. Oral hydration gel applied to lingual surface and lips after meal. Positioning: [place] upright in a chair. Oral Phase Findings: Impaired spoon stripping noted intermittently Intermittent oral holding patterns noted with thin liquids No evidence of residue/pocketing at end of meal Pharyngeal Phase Findings: Possible reduced hyolaryngeal elevation/excursion, though noting low laryngeal carriage at rest (age-related). Cough noted x4 with oatmeal Patient/Caregiver/Staff Education: Provided to nursing re: WAFER FABRICATION OPERATOR findings/aspiration precautions. Assessment Ilya appears to be demonstrating slow progress overall with alertness, though continues to fluctuate notably. Cognition remains primary concern impacting his dysphagia, though unable to rule out oral pharyngeal discoordination or weakness post stroke. With breakfast today, he was able to eat 100% of oatmeal and approximately 400ml of water. He did demonstrate cough intermittently with oatmeal, anticipate largely related to distraction/talking while swallowing. In light of this, patient is not yet appropriate for diet upgrade. In regards to PO pills, Ilya initially tolerated small pill in applesauce without issue during breakfast. When a small capsule in applesauce was provided 15-20 minutes after breakfast- Ilya expectorated it several times before eventually swallowing. Thus, taking pills within the context of meals would be beneficial. For PO meds- Ilya's level of alertness/cognition are considered the primary factors for whether or not he can tolerate small whole capsules. Continue to recommend pills be taken crushed (if large) or whole (if small) in applesauce/custard/pudding, followed by sips of liquid, within context of meals. Recommend viewing of oral cavity as well as use of oral swab around cheeks to ensure he is not pocketing. Plan Plan: Patient to be followed while on unit for diet upgrade as appropriate. 3-4x/weekly, 2 weeks Continue monitor need for MBSS Upon Discharge, recommend WAFER FABRICATION OPERATOR services at [facility] Recommendations Diet: 4-Pureed/Extremely Thick Liquids: 0-Thin Liquids Other: Medications - If pt alert, OK small capsules whole in applesauce/custard/pudding followed by sips of liquid. View oral cavity and use swab in cheeks to ensure he is not pocketing. [place] upright for all PO. Out of bed/in chair encouraged for meals. Encourage physical mobility as tolerated. Oral hygiene before/after PO intake using either suction swab or toothbrush if patient cognitively appropriate PO intake only when awake/alert Strategies/Adaptations/Assistive Equipment: Reduce auditory and/or visual distractions when eating Small sips and bites when eating Slow rate of intake Posture/Positioning Needs: Maintain upright position at least 30 minutes after meals Supervision: Direct supervision via of [facility] staff, assist w/feeding Additional Notes: Associate Data Scientist Goals: Patient will remain free from aspiration-related illness, malnutrition, and dehydration. Short Term Goals: Patient will tolerate Puree Diet and Thin liquids without overt s/s aspiration across 2/2 visits. Patient will tolerate PO trials for consideration of diet upgrade without overt s/s aspiration across 2/2 visits. Total Time Spent: 40 minutes (825AM-905AM) Coding CPT Codes ORAL FUNCTION THERAPY - 76815 ([id number]) Additional Codes Date of Service (87087) Date of service: 06/01/23
--- NOTE | 2023-06-01 10:49 | PT.INTREAT ---
Date of service: 06/01/23 Time of Service: 10:23 PT Notes Visit Reasons: Acute CVA Inpatient Physical Therapy Treatment Note [facility] Date: 06/01/23 PRECAUTIONS: Fall, standard, activity as tolerated. Impulsive. Poor safety awareness. SUBJECTIVE: Patient much more alert today than this clinician has ever witnessed. Patient's voice still weak, but intermittently speaks at a low-normal volume rather than a whisper. Speaks coherent sentences as often as this clinician is able to hear him. OBJECTIVE: Up walking in hallway with FWW and CGA from POLICE COMMUNICATIONS DISPATCHER Rose Mary when this clinician encounters him. Agreeable to therapy. ? PAIN: none reported. VITALS: monitored by nursing staff. ? ? BED MOBILITY/TRANSFERS? Rolling L/R: not assessed Supine-sit: SBA ? Sit-supine: SBA to mod assist depending on patient motivation ? Sit-stand: SBA? Stand-sit: SBA to mod assist depending on patient motivation ? Bed-Chair: SBA to mod assist depending on patient motivation ? Chair-bed: SBA to mod assist depending on patient motivation Gait Training ([id number]): Direct one-on-one instruction and skilled instruction in: [x] employing an assistive device [] modified weight-bearing status [x] movement sequencing [x] turning and movement with proper form [x] Provided verbal cues for equipment management and technique [x] Provided instruction in gait pattern [] Patient education regarding pacing and breathing techniques to maximize activity tolerance? GAIT? Assistive Device: FWW? Weight bearing: full Assist: CGA-min assist to steer walker, max verbal cues to steer walker, maintain upright posture. ? Distance:? 150 feet? Deviation: Patient's gait is much more fluid today than it has been recently - Patient better able to maintain upright posture with occasional verbal cues. Maintains short shuffling steps, no scissoring noted. Cues to keep both hands on walker, keep walker close.? AFTERNOON: Patient's posture is worse, requires more verbal cues, more assistance to steer FWW, scissoring present. ? ASSESSMENT:? Patient tolerates therapy well x2. Reportedly more content in the chair vs the bed. PLAN: Continue global strengthening per plan of care until patient is medically cleared for discharge. TREATMENT CODE/TIME: []
[2023-06-01 11:02] VITALS: BP 129/78; PULSE 64; RESP 17; TEMP 37; O2SAT 99
--- NOTE | 2023-06-01 13:29 | PSYCO_ITS ---
Date of service: 06/01/23 Time of Service: 13:30 Summary Note Name: Ilya Hanna?: 1945 Date?and?Time: 06/01/2023 11:24:27 AM Location of the patient: [facility] IP?Location of the doctor: [facility] [place] Length of consult: 45 minutes This evaluation was conducted via video telepsychiatry with the assistance of onsite staff Reason for consult: Psychiatric Evaluation Requested by: Medicine team History of Present Illness: Patient is a 78 year old male who resides in a single family home with his in [place], [place]. He has a past psychiatric history significant for ADHD. He has a past medical history significant for atrial flutter, chronic kidney disease, hypertension, hypothyroidism, hyperlipidemia, GERD. 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 Psychiatry was consulted for capacity and concerns for agitation. On psychiatric interview, patient is oriented to self only. Patient is not able to speak above a whisper and is easily distractible. Patient required frequent help by nursing staff at the bedside and was not able to engage in a meaningful manner during psychiatric interview. Per nursing patient has been intermittently agitated, impulsive and aggressive in his behaviors. Per medical team patient has bene trialed on a number of medications including lorazepam, diphenhydramine and most recently ziprasidone. Medical team reports ziprasidone has been somewhat effective but has caused increased sedation. Collateral Contacted: No?Reason for not contacting the collateral:None available Sleep issues?: Yes?Sleep Quantity:?unable to articulate?Sleep Quality:?patient has been agitated Psychiatric History/Treatment History:? Past diagnoses: ADHD Hospitalizations: Unknown-NA Current Treatment:Unknown-NA Suicide Assessment: PSS-3: 1) Over the past 2 weeks have you felt down, depressed or hopeless??Unknown-NA? 2) Over the past 2 weeks have you had thoughts of killing yourself??Unknown-NA 3) Have you ever in your life attempted to kill yourself??Unknown-NA Within the past 6 months??? JCO-based Safety Assessment: Risk Factors Stressors: chronic medical conditions, acute CVA Attempts/Self-injury: Unknown-NA Impulsivity:Yes?Description:?behavioral disturbances Drug/Alcohol History:Unknown-NA Trauma History:Unknown-NA Access to firearms:Unknown-NA HI/Violence/Property destruction:Unknown-NA Legal: Unknown-NA Family Psych History:Unknown-NA ? Family History of suicide:Unknown-NA Protective Factors:? Can handle stress well??No ? Confucianist??Unknown-NA ? External: ? Social supports/ Therapeutic relationships: Yes?Description:? Relationship history: ? Living situation: lives with in [place] ? Employment: Unknown-NA ? Education: unknown ? Responsibility to family/children/work: Unknown-NA ? Future orientation:Unknown-NA Health History: ? Medical History: He has a past medical history significant for atrial flutter, chronic kidney disease, hypertension, hypothyroidism, hyp erlipidemia, GERD, and recent occipital and thalamic strokes ? Medications & Freq: trazodone 50 mg at bedtime ? Allergies: bupropion Mental Status Exam: Appearance and Attire:?dressed in hospital gown Psychomotor agitation:?Psychomotor agitation Attitude and behavior:?minimally cooperative, not reliable historian, Speech:?speaks in a whisper, soft, slow, difficult to understand Mood:?Irritable, Anxious Affect:?congruent with mood Thought process:?difficult to assess due to limit speech Thought content:?no apparent delusions or paranoia Perception:?did not appear to be responding to internal stimuli Intel:?difficult to assess due to limit speech Abstract:?Poor reasoning Language:?Impaired to Naming, Impaired to Word finding, Impaired to Repetition Orientation:?oriented to self only Sense:?Distractible Knowledge:?impaired post stroke Memory:?Impaired to Immediate recall, Impaired to Recent recall (3 min), Impaired to Remote recall, Impaired to Executive function Insight:?poor insight Judgement:?poor judgment Gait:?Unsteady Impression/Risk Assessment: Current Suicide Risk Elevated??No ? Current Violence Risk Elevated??Yes ??Description:?agitation and aggression reported by staff Issues with ability to care for self??Yes ??Description:?decline in activities of daily living since strokes Summary: Patient does not have the capacity to make his own medical decisions about his stroke care and treatment. Patient is unable to appreciate the situation and its consequences, not able to rationally manipulate information, and understand relevant information concerning his underlying medical conditions and consequences. Diagnosis: G9341 Metabolic encephalopathy CPT Codes: 59667 - Psychiatric Diagnostic Evaluation with Medical Services Treatment Plan:? General: Regarding this patient?s decision making capacity: Decisional capacity is a unique evaluation of the cognitive process by which a patient approaches a unique decision at a specific point in time. It is possible for an individual to have decisional capacity about one circumstance, but not another, at the same point in time; or to have decisional capacity about a decision when at a previous time it did not appear to be present. This provider has most specifically assessed this patient?s decisional capacity to make his own medical decisions about his stroke care and treatment. The elements of capacity are: 1) Understand relevant information regarding condition and treatment. 2) Manipulate information rationally. 3) Appreciate the situation and its consequences. 4) Communicate a choice and maintain this over time. In this case, the patient did not demonstrate decisional capacity to make his own medical decisions about his stroke care and treatment. Whether or not this patient would have decisional capacity regarding any other procedure or care plan would need to be assessed further at the time the decision was present. In terms of agitation recommended Depakote PO/IV 125 mg twice daily for agitation and impulsivity, if not effective would increase to 250 mg twice daily over the next 24-48 hours. ? Level of Care: Continue current status ? Psychiatric Clearance: No??Description:?very confused ? Observation level ? 1:1 needed?: Yes?Notes:?as per hospital policy ? Pharmacological: see above ? Patient psychotic?No ? Therapy: None ? Follow up needed while in the hospital?: Yes?Follow up Frequency:? 24hr ? Discussed plan with onsite steam drier tender: Yes Who Dr. Bañuelos hospitalist ? Other:
--- NOTE | 2023-06-01 13:38 | PSYCO_ITS ---
Date of service: 06/01/23 Time of Service: 13:38 Summary Note Name: Ilya Hanna?: 1945 Date?and?Time: 06/01/2023 11:24:27 AM Location of the patient: [facility] IP?Location of the doctor: [facility] [place] Length of consult: 45 minutes This evaluation was conducted via video telepsychiatry with the assistance of onsite staff Reason for consult: Psychiatric Evaluation Requested by: Medicine team History of Present Illness: Patient is a 78 year old male who resides in a single family home with his in [place], [place]. He has a past psychiatric history significant for ADHD. He has a past medical history significant for atrial flutter, chronic kidney disease, hypertension, hypothyroidism, hyperlipidemia, GERD. 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 Psychiatry was consulted for capacity and concerns for agitation. On psychiatric interview, patient is oriented to self only. Patient is not able to speak above a whisper and is easily distractible. Patient required frequent help by nursing staff at the bedside and was not able to engage in a meaningful manner during psychiatric interview. Per nursing patient has been intermittently agitated, impulsive and aggressive in his behaviors. Per medical team patient has bene trialed on a number of medications including lorazepam, diphenhydramine and most recently ziprasidone. Medical team reports ziprasidone has been somewhat effective but has caused increased sedation. Collateral Contacted: No?Reason for not contacting the collateral:None available Sleep issues?: Yes?Sleep Quantity:?unable to articulate?Sleep Quality:?patient has been agitated Psychiatric History/Treatment History:? Past diagnoses: ADHD Hospitalizations: Unknown-NA Current Treatment:Unknown-NA Suicide Assessment: PSS-3: 1) Over the past 2 weeks have you felt down, depressed or hopeless??Unknown-NA? 2) Over the past 2 weeks have you had thoughts of killing yourself??Unknown-NA 3) Have you ever in your life attempted to kill yourself??Unknown-NA Within the past 6 months??? JCO-based Safety Assessment: Risk Factors Stressors: chronic medical conditions, acute CVA Attempts/Self-injury: Unknown-NA Impulsivity:Yes?Description:?behavioral disturbances Drug/Alcohol History:Unknown-NA Trauma History:Unknown-NA Access to firearms:Unknown-NA HI/Violence/Property destruction:Unknown-NA Legal: Unknown-NA Family Psych History:Unknown-NA ? Family History of suicide:Unknown-NA Protective Factors:? Can handle stress well??No ? Restoration??Unknown-NA ? External: ? Social supports/ Therapeutic relationships: Yes?Description:? Relationship history: ? Living situation: lives with in [place] ? Employment: Unknown-NA ? Education: unknown ? Responsibility to family/children/work: Unknown-NA ? Future orientation:Unknown-NA Health History: ? Medical History: He has a past medical history significant for atrial flutter, chronic kidney disease, hypertension, hypothyroidism, hyp erlipidemia, GERD, and recent occipital and thalamic strokes ? Medications & Freq: trazodone 50 mg at bedtime ? Allergies: bupropion Mental Status Exam: Appearance and Attire:?dressed in hospital gown Psychomotor agitation:?Psychomotor agitation Attitude and behavior:?minimally cooperative, not reliable historian, Speech:?speaks in a whisper, soft, slow, difficult to understand Mood:?Irritable, Anxious Affect:?congruent with mood Thought process:?difficult to assess due to limit speech Thought content:?no apparent delusions or paranoia Perception:?did not appear to be responding to internal stimuli Intel:?difficult to assess due to limit speech Abstract:?Poor reasoning Language:?Impaired to Naming, Impaired to Word finding, Impaired to Repetition Orientation:?oriented to self only Sense:?Distractible Knowledge:?impaired post stroke Memory:?Impaired to Immediate recall, Impaired to Recent recall (3 min), Impaired to Remote recall, Impaired to Executive function Insight:?poor insight Judgement:?poor judgment Gait:?Unsteady Impression/Risk Assessment: Current Suicide Risk Elevated??No ? Current Violence Risk Elevated??Yes ??Description:?agitation and aggression reported by staff Issues with ability to care for self??Yes ??Description:?decline in activities of daily living since strokes Summary: Patient does not have the capacity to make his own medical decisions about his stroke care and treatment. Patient is unable to appreciate the situation and its consequences, not able to rationally manipulate information, and understand relevant information concerning his underlying medical conditions and consequences. Diagnosis: G9341 Metabolic encephalopathy CPT Codes: 04674 - Psychiatric Diagnostic Evaluation with Medical Services Treatment Plan:? General: Regarding this patient?s decision making capacity: Decisional capacity is a unique evaluation of the cognitive process by which a patient approaches a unique decision at a specific point in time. It is possible for an individual to have decisional capacity about one circumstance, but not another, at the same point in time; or to have decisional capacity about a decision when at a previous time it did not appear to be present. This provider has most specifically assessed this patient?s decisional capacity to make his own medical decisions about his stroke care and treatment. The elements of capacity are: 1) Understand relevant information regarding condition and treatment. 2) Manipulate information rationally. 3) Appreciate the situation and its consequences. 4) Communicate a choice and maintain this over time. In this case, the patient did not demonstrate decisional capacity to make his own medical decisions about his stroke care and treatment. Whether or not this patient would have decisional capacity regarding any other procedure or care plan would need to be assessed further at the time the decision was present. In terms of agitation recommended Depakote PO/IV 125 mg twice daily for agitation and impulsivity, if not effective would increase to 250 mg twice daily over the next 24-48 hours. ? Level of Care: Continue current status ? Psychiatric Clearance: No??Description:?very confused ? Observation level ? 1:1 needed?: Yes?Notes:?as per hospital policy ? Pharmacological: see above ? Patient psychotic?No ? Therapy: None ? Follow up needed while in the hospital?: Yes?Follow up Frequency:? 24hr ? Discussed plan with onsite front desk team member: Yes Who Dr. Bañuelos hospitalist ? Other:
[2023-06-01 15:34] VITALS: BP 125/85; PULSE 50; RESP 12; TEMP 35.8; O2SAT 97
[2023-06-01 16:54] LABS: Lab Add On Test DONE
[2023-06-01 17:13] LABS: ALT 54 U/L (16-63); AST 26 U/L (15-37); Albumin 3.7 g/dL (3.4-5.0); Alkaline Phosphatase 133 U/L (46-116); Bilirubin, Direct 0.3 mg/dL (0.0-0.2); Total Protein 7.8 g/dL (6.4-8.2)
--- NOTE | 2023-06-01 17:30 | PGE_ITS ---
Date of Service Date of service: 06/01/23 Time of Service: 17:30 Assessment and Plan Assessment and plan (1) Acute CVA (cerebrovascular accident): Status: Acute Assessment and plan: S/p embolic CVA right occipital lobe, right temporal lobe and bilateral thalami with some microhemorrhages in the right thalamus and right posterior occipital lobe. Deficits wax and wane: cognitive dysfunction, agitation/sedation, gait imbalance, probable vision loss. Start depakote 125 mg BID, will increase to 250 mg BID within the next couple of days. Decrease geodon to 20 mg PO QHS. Consider addition of modafinil. Continue aspirin 81 mg PO daily until 06/05, when he can be started on apixaban. (2) Atrial flutter: Status: Acute Assessment and plan: Converted to NSR (new diagnosis). The likely cause of the embolic CVA. He is on atenolol. Read discussion re anticoagulation above. 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 Will need repeat MRI scan in 6 months as outpatient. (4) Hypothyroidism, unspecified: Status: Chronic Assessment and plan: Continue levothyroxine. Qualifiers: Hypothyroidism type: unspecified Qualified Code(s): E03.9 - Hypothyroidism, unspecified (5) Hypertension: Status: Chronic Assessment and plan: He is on atenolol. BPs seem mostly controlled. Continue this. Qualifiers: Hypertension type: essential hypertension Qualified Code(s): I10 - Essential (primary) hypertension (6) Hyperlipidemia: Status: Chronic Assessment and plan: Continue atorvastatin. Qualifiers: Hyperlipidemia type: unspecified Qualified Code(s): E78.5 - Hyperlipidemia, unspecified (7) GERD (gastroesophageal reflux disease): Status: Chronic Assessment and plan: Continue nexium. Qualifiers: Esophagitis presence: esophagitis presence not specified Qualified Code(s): K21.9 - Gastro-esophageal reflux disease without esophagitis (8) DVT prophylaxis: Status: Acute Assessment and plan: Enoxaparin 40 mg SC daily (9) Discharge planning issues: Status: Acute Assessment and plan: Full code PT/OT/Speech/Palliative care/Psychiatry consulted Continues to require hospitalization Subjective Subjective Interval history since last seen: Mr Hanna was restless last night and received 50 mg of PO benadryl, after which he did, evidently, calm down. Today he ambulated with a walker. He was evaluated by psychiatry who found him to not have capacity to make medical decisions and recommended depakote, as long as his LFTs were ok. He denies a headache, dizziness, CP, SOB, n/v. Exam Narrative Exam Narrative: General: Pleasant elderly male who is speaking very quietly, monosyllabic answers, sitting up in a chair, observed walking with a walker HEENT: Prefers to keep the eyes closed, does open them, does track Heart: RRR, no m/r/g Lungs: CTAB Abdomen: soft, nontender, nondistended Extremities: no edema BLEs, moving all 4 extremities on command, the strength appears to be preserved Objective Last Vital Signs Temp 35.8 C L 06/01/23 15:34 Pulse 50 L 06/01/23 15:34 Resp 12 06/01/23 15:34 BP 125/85 06/01/23 15:34 Pulse Ox 97 06/01/23 15:34 Laboratory Results - last 24 hr 06/01/23 06:12 WBC 6.83 RBC 5.44 Hgb 16.6 Hct 46.4 MCV 85 MCH 30.5 MCHC 35.8 RDW 12.1 Plt Count 221 MPV 9.3 Immature Gran % 0.3 Neutrophils % 65.0 Lymphocytes % 19.8 Monocytes % 10.8 Eosinophils % 3.1 Basophils % 1.0 Nucleated RBC % 0.0 Absolute Neutrophils 4.44 Absolute Lymphocytes 1.35 Absolute Monocytes 0.74 Absolute Eosinophils 0.21 Absolute Basophils 0.07 Sodium 144 Potassium 3.5 Chloride 106 Carbon Dioxide 29.9 Anion Gap 8.1 BUN 32 H Creatinine 1.3 Est GFR (CKD-EPI 2020) 56.23 Glucose 94 Calcium 9.7 Magnesium 2.3 Total Bilirubin 1.0 Conjugated Bilirubin 0.3 H AST 26 ALT 54 Alkaline Phosphatase 133 H Total Protein 7.8 Albumin 3.7 Add-On Test Request DONE Time Spent with Patient Time Spent with Patient: 35-49 minutes Time was spent: preparing to see the patient(eg.review tests), obtaining and/or reviewing separately otained hiistory, ordering medications,tests, procedures, referring, communicating with other health nonfarm animal caretaker, indepentently interpreting results, counseling the patient and care coordination
[2023-06-01] MEDS: Acetaminophen Solution 650 MG/20.3 ML CUP PO ×2 (17:44→22:08)
[2023-06-01 19:23] VITALS: BP 146/82; PULSE 74; RESP 16; TEMP 35.4; O2SAT 96
[2023-06-01] MEDS: Atorvastatin 40 MG TAB PO (19:38)
[2023-06-01] MEDS: Divalproex 125 MG SPRINKLE PO (19:38)
[2023-06-01] MEDS: Docusate Sodium 100 MG/10 ML CUP PO (19:38)
[2023-06-02 08:33] VITALS: BP 147/92; PULSE 69; RESP 18; TEMP 35.4; O2SAT 95
[2023-06-02] MEDS: Docusate Sodium 100 MG/10 ML CUP PO ×2 (08:59→20:16)
[2023-06-02] MEDS: Aspirin 81 MG CHEW CH (09:00)
[2023-06-02] MEDS: Divalproex 125 MG SPRINKLE PO (09:00)
[2023-06-02] MEDS: Atenolol 50 MG TAB PO (09:00)
--- NOTE | 2023-06-02 10:07 | CMPROGNOTE_ITS ---
Date of service: 06/02/23 Time of Service: 10:07 Care Management Progress Note Progress Note Text Progress Note Text: S/O:Ilya was lying in bed when CM met with him. He was awake and was interacting with the staff and his , although was not really coherent in his thought process. CM met with Ilya's Tara today. Several staff members have expressed concern about Tara's falls and and vague presentation. Today, In a brief huddle on the unit, concerns about Tara's safety were discussed as she fell again last evening in Ilya's room. Again, Tara refused to be seen in the ED. It was decided that it would be safest for Tara if she were to r emain in the wheelchair while visiting with Ilya. CM discussed this with her and she verbalized understanding and agreement. CM also reached out to Tara's PCP and coordinated an appointment for her for next week (06/09/23 at 11:[address] Raymond). Tara had agreed to go to an appointment if scheduled. CM also encouraged Tara to contact [facility]. A referral was sent by CM last week and they were unable to reach her by phone. Today she indicated that she would make to call. A: Ilya is a 78 year old man admitted on 05/21/23 with an acute CVA P:Ilya is likely going to need to transfer to a SNF for short term rehab, if not for long term care social worker care. Referrals have been sent to [facility], [facility], [facility], [facility] and [facility]. A referral was also sent to [facility] [place] [facility] for long range planning, options counseling and community case management for both Ilya and his . CM will follow and continue to asses for discharge needs. SDOH(Care Management) Screening Will the Patient Participate in the Screening?: Unable to obtain
[2023-06-02 11:13] VITALS: BP 133/82; PULSE 83; RESP 17; TEMP 35.6; O2SAT 93
--- NOTE | 2023-06-02 12:17 | PGE_ITS ---
Date of Service Date of service: 06/02/23 Time of Service: 12:17 Assessment and Plan Assessment and plan (1) Acute CVA (cerebrovascular accident): Status: Acute (2) Colloid cyst of brain: Status: Acute (3) Atrial flutter: Status: Acute Qualifiers: Atrial flutter type: typical Qualified Code(s): I48.3 - Typical atrial flutter (4) Agitation: Status: Acute (5) Hypersomnolence: Status: Acute (6) Hypertension: Status: Chronic Assessment and plan: #1. 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 His full neurological deficits are unknown at this time due to alternating agitation and sedation, but these are from the stroke and he has a left homonymous hemianopsia in addition to apparent cognitive deficits. Bilateral thalamic stroke is very rare, and dominated by behavioral, cognitive, and wakefulness issues - with poor prognosis. Agree with transition to Depakote for agitation/mood. If sedation continues to be an issue off Geodon, would consider the addition of modafanil 200mg daily or amantadine 100mg daily in am to aid in participation in PT/OT/ST etc - though these can both worsen the agitation. Medications: -aspirin daily for secondary stroke prevention until after day 14 (06/05/23) at which time he can be started on anticoagulation such as apixaban 5mg BID; would not do sooner given very large stroke and with microhemorrhage already present Other: -Continue PT, OT, ST as tolerated -continue delirium measures #2. Colloid cyst. Not obviously obstructing at this time. Will plan for outpati ent serial imaging again in 6months to monitor. Will sign off for now. Please call with any further questions or concerns. He should f/up in neurology clinic in 2months. Subjective Subjective Interval history since last seen: Apparently had increasing agitation since I saw him last week such that Geodon was increased to 20mg TID in order to reduce need for prn lorazpeam. He no longer has IV access. Psych consult yesterday rec'd transitioning to Depakote to see if this was less sedating for him. Still not clear if Geodon or the strokes (or both) are causing the sedation. He received 20mg BID of Geodon yesterday and Depakote 125mg HS and this this am. Hospitalist team planning on last dose of Geodon being tonight. Exam Narrative Exam Narrative: He was sitting with eyes closed - sleeping? He was eventually able to awake to voice. He was able to answer simple yes/no questions. He had no complaints VF testing completed and he does appear to have a L HH. He then closed his eyes and said he didn't want to do any further exam. Did not respond after that. Per sitter has been asleep most of the morning. Objective Last Vital Signs Temp 96.1 F L 06/02/23 11:13 Pulse 83 06/02/23 11:13 Resp 17 06/02/23 11:13 BP 133/82 06/02/23 11:13 Pulse Ox 93 06/02/23 11:13 Laboratory Results - last 24 hr 06/01/23 06:12 Total Bilirubin 1.0 Conjugated Bilirubin 0.3 H AST 26 ALT 54 Alkaline Phosphatase 133 H Total Protein 7.8 Albumin 3.7 Add-On Test Request DONE Time Spent with Patient Time Spent with Patient: 25-34 minutes Time was spent: preparing to see the patient(eg.review tests), obtaining and/or reviewing separately otained hiistory and referring, communicating with other health healthcare account manager
--- NOTE | 2023-06-02 14:34 | PT.INTREAT ---
PT Notes Visit Reasons: Acute CVA Date: 06/02/23 PRECAUTIONS: Fall, standard, activity as tolerated. Impulsive. Poor safety awareness. SUBJECTIVE: Pt approached around 1pm this afternoon with pt initially refusing to participate with therapy, pt awake and coherent, able to verbalize that he would like to rest for now but would be agreeable later, pt re approached later in the afternoon with pt ready and looking forward to walking with this therapist. OBJECTIVE: PAIN: none reported VITALS: monitored by nursing Therapeutic Activities 68142 25mins: Direct one-on-one instruction in dynamic activities to improve functional performance. ?? BED MOBILITY/TRANSFERS? Rolling L/R: supervision Supine-sit: ?supervision ? Sit-supine: ?supervision? Sit-stand: ?min A ? Stand-sit: min A? Bed-Chair:?min A ? Chair-bed: min A ? Provided skilled cues and instruction on performance and technique throughout. Gait Training: Direct one-on-one instruction and skilled instruction in: Employing an assistive device Modified weight-bearing status Movement sequencing Turning and movement with proper form Provided verbal cues for equipment management and technique Provided instruction in gait pattern Patient education regarding pacing and breathing techniques to maximize activity tolerance? GAIT? Assistive Device: ??FWW ? Weight bearing: FWB Assist: ?min A ? Distance:?? 300'x1? standing rest break every 50'? Deviation: ?Shuffling gait pattern, stoop forward posture, ? Provided skilled instruction in proper exercise performance Provided skilled manual cues to facilitate proper muscle recruitment and/or form: ASSESSMENT:?Pt very eager with getting moving, pt cue to stay closer to FWW to improve walking posture, looking ahead vs. looking down, tactile cue for FWW positioning since pt has tendency to lean on the right side, cue for armrest poush up to get situated well in recliner post session. PLAN: Continue global strengthening per plan of care until patient is medically cleared for discharge and obtains safe discharge plan. TREATMENT CODE/TIME: [id number] 25mins (2:05-2:30pm)
[2023-06-02] MEDS: Enoxaparin 40 MG/0.4 ML SYR SC (15:06)
[2023-06-02] MEDS: Acetaminophen Solution 650 MG/20.3 ML CUP PO (16:17)
--- NOTE | 2023-06-02 18:30 | W.PM.PROGNOT ---
Date of Service Date of service: 06/02/23 Time of Service: 17:00 Assessment and Plan Assessment and plan (1) Acute CVA (cerebrovascular accident): Status: Acute Assessment and plan: S/p embolic CVA right occipital lobe, right temporal lobe and bilateral thalami with some microhemorrhages in the right thalamus and right posterior occipital lobe. Deficits wax and wane: cognitive dysfunction, agitation/sedation, gait imbalance, probable vision loss. Increase depakote to 250 mg BID. Continue geodon 20 mg PO QHS with plans to d/c this tomorrow. Consider addition of modafinil. Continue aspirin 81 mg PO daily until 06/05, when he can be started on apixaban. (2) Atrial flutter: Status: Acute Assessment and plan: Converted to NSR (new diagnosis). The likely cause of the embolic CVA. He is on atenolol. Read discussion re anticoagulation above. 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 Will need repeat MRI scan in 6 months as outpatient. (4) Hypothyroidism, unspecified: Status: Chronic Assessment and plan: Continue levothyroxine. Qualifiers: Hypothyroidism type: unspecified Qualified Code(s): E03.9 - Hypothyroidism, unspecified (5) Hypertension: Status: Chronic Assessment and plan: He is on atenolol. BPs seem mostly controlled. Continue this. Qualifiers: Hypertension type: essential hypertension Qualified Code(s): I10 - Essential (primary) hypertension (6) Hyperlipidemia: Status: Chronic Assessment and plan: Continue atorvastatin. Qualifiers: Hyperlipidemia type: unspecified Qualified Code(s): E78.5 - Hyperlipidemia, unspecified (7) GERD (gastroesophageal reflux disease): Status: Chronic Assessment and plan: Continue nexium. Qualifiers: Esophagitis presence: esophagitis presence not specified Qualified Code(s): K21.9 - Gastro-esophageal reflux disease without esophagitis (8) DVT prophylaxis: Status: Acute Assessment and plan: Enoxaparin 40 mg SC daily (9) Discharge planning issues: Status: Acute Assessment and plan: Full code PT/OT/Speech/Palliative care/Psychiatry consulted Continues to require hospitalization. Discussed with Dr Cooney. Subjective Subjective Interval history since last seen: Pt reported a headache earlier to nursing today, but it has resolved by the time of my visit. He reports needing air, but is not short of breath. He is holding up a fan close to his face and says he likes the freedom of air. He otherwise denies CP, SOB, n/v. Exam Narrative Exam Narrative: General: Pleasant elderly male who is speaking very quietly, monosyllabic answers, A&Ox1, in bed, holding a fan close to his face HEENT: Prefers to keep the eyes closed, does open them, does track Heart: RRR, no m/r/g Lungs: CTAB Abdomen: soft, nontender, nondistended Extremities: no edema BLEs, moving all 4 extremities on command, the strength appears to be preserved Objective Last Vital Signs Temp 35.6 C L 06/02/23 11:13 Pulse 83 06/02/23 11:13 Resp 17 06/02/23 11:13 BP 133/82 06/02/23 11:13 Pulse Ox 93 06/02/23 11:13 Time Spent with Patient Time Spent with Patient: 35-49 minutes Time was spent: preparing to see the patient(eg.review tests), obtaining and/or reviewing separately otained hiistory, ordering medications,tests, procedures, referring, communicating with other health transition of care specialist, indepentently interpreting results, counseling the patient and care coordination
[2023-06-02 19:16] VITALS: BP 150/80; PULSE 63; RESP 17; TEMP 36.5; O2SAT 95
[2023-06-02] MEDS: Ziprasidone 20 MG CAP PO (20:16)
[2023-06-02] MEDS: Divalproex 125 MG SPRINKLE 250 MG PO (20:17)
[2023-06-02] MEDS: Atorvastatin 40 MG TAB PO (20:21)
[2023-06-03 08:23] VITALS: BP 138/81; PULSE 63; RESP 16; TEMP 36.1; O2SAT 97
--- NOTE | 2023-06-03 10:41 | CMPROGNOTE_ITS ---
Date of service: 06/03/23 Time of Service: 10:41 Care Management Progress Note Progress Note Text Progress Note Text: S/O:Ilya was lying in bed when CM met with him. He was awake and more talkative than before. per nursing, Ilya had a good day. He worked well with PT this morning but as the session continued became more agitated and less able to follow direction. He did ask for regular clothes to wear. His will be asked to bring some in for him. Tara visited last evening and late this afternoon and was compliant with the request to remain in her wheelchair for safety reasons. A: Ilya is a 78 year old man admitted on 05/21/23 with an acute CVA P:Ilya is likely going to need to transfer to a SNF for short term rehab, if not for correction care. Referrals have been sent to [facility], [facility], [facility], [facility] and [facility] A referral was also sent to [facility] [place] [facility] for long range planning, options counseling and community case management for both Ilya and his . CM will follow and continue to asses for discharge needs. SDOH(Care Management) Screening Will the Patient Participate in the Screening?: Unable to obtain
[2023-06-03] MEDS: Aspirin 81 MG CHEW CH (11:07)
[2023-06-03] MEDS: Docusate Sodium 100 MG/10 ML CUP PO ×2 (11:07→20:08)
[2023-06-03] MEDS: Acetaminophen 325 MG TAB 650 MG PO (11:07)
[2023-06-03] MEDS: Divalproex 125 MG SPRINKLE 250 MG PO ×2 (11:07→20:08)
[2023-06-03] MEDS: Atenolol 50 MG TAB PO (11:08)
[2023-06-03 11:47] VITALS: BP 127/81; PULSE 70; RESP 15; TEMP 35.8; O2SAT 94
--- NOTE | 2023-06-03 11:59 | PT.INTREAT ---
Date of service: 06/03/23 Time of Service: 11:10 PT Notes Visit Reasons: Acute CVA Inpatient Physical Therapy Treatment Note [facility] Date: 06/03/23 PRECAUTIONS: Fall, standard, activity as tolerated. Impulsive. Poor safety awareness. SUBJECTIVE: Patient sitting up in recliner, just finished having his hair washed. Wearing paper shirt / pants. Proceeds to perseverate on how he wishes to look normal, wear real clothes. Agrees that the paper pants are better than the hospital gown, but not by much. OBJECTIVE: Sitting up in recliner, agreeable to therapy. ? PAIN: denies pain VITALS: monitored by nursing staff. Therapeutic Activities ([id number]): Direct one-on-one instruction in dynamic activities to improve functional performance. ? BED MOBILITY/TRANSFERS? Rolling L/R: not assessed Supine-sit: not assessed ? Sit-supine: not assessed ? Sit-stand: SBA ? Stand-sit: SBA ? Bed-Chair: CGA ? Chair-bed: CGA Provided skilled cues and instruction on performance and technique throughout. Gait Training (08609g7): Direct one-on-one instruction and skilled instruction in: [x] employing an assistive device [] modified weight-bearing status [x] movement sequencing [x] turning and movement with proper form [x] Provided verbal cues for equipment management and technique [] Provided instruction in gait pattern [] Patient education regarding pacing and breathing techniques to maximize activity tolerance? GAIT? Assistive Device: FWW ? Weight bearing: full Assist: min assist via gait belt, occasional min assist to steer FWW ? Distance:? 200 feet ? Deviation: Patient starts out much better today, able to steer FWW independently, with good form (close enough to the walker and centered within it, good hand placement, good posture) for approx. 75 feet, then patient seems to become agitated, posture sharmin, step height decreases, scissoring increases, patient moves walker aggressively and swings it wide away from himself when cornering. LOB noted x3 which this clinician had to assist patient to recover from. ? ASSESSMENT:? Patient is more alert today than previously, however he is also more aggressively unsafe. PLAN: Continue global strengthening per plan of care until patient is medically cleared for discharge and obtains safe discharge plan. TREATMENT CODE/TIME: 23 minutes beginning at 11:10
[2023-06-03] MEDS: Enoxaparin 40 MG/0.4 ML SYR SC (14:22)
[2023-06-03 15:18] VITALS: BP 126/82; PULSE 67; RESP 17; TEMP 35.9; O2SAT 96
--- NOTE | 2023-06-03 16:56 | PT.INNT ---
Date of service: 06/03/23 Time of Service: 16:52 PT Notes Visit Reasons: Acute CVA Patient is seated in his bedside recliner. is visiting. Patient is perseverating on COVID-19 exposure, due to 's report that a friend of theirs has the virus. Patient refuses therapy x3, stating that this clinician is wasting [her] time, and finishing with waving a hand in the investigative writer's face and saying firmly ivana. Patient's acknowledges that patient does not appear to wish to go for a walk.
--- NOTE | 2023-06-03 18:59 | W.PM.PROGNOT ---
Date of Service Date of service: 06/03/23 Time of Service: 17:45 Assessment and Plan Assessment and plan (1) Acute CVA (cerebrovascular accident): Status: Acute Assessment and plan: S/p embolic CVA right occipital lobe, right temporal lobe and bilateral thalami with some microhemorrhages in the right thalamus and right posterior occipital lobe. Deficits wax and wane: cognitive dysfunction, agitation/sedation, gait imbalance, probable vision loss. Continue depakote 250 mg BID. D/c elsadon. Consider addition of modafinil. Continue aspirin 81 mg PO daily until 06/05, when he can be started on apixaban. (2) Atrial flutter: Status: Acute Assessment and plan: Converted to NSR (new diagnosis). The likely cause of the embolic CVA. He is on atenolol. Read discussion re anticoagulation above. 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 Will need repeat MRI scan in 6 months as outpatient. (4) Hypothyroidism, unspecified: Status: Chronic Assessment and plan: Continue levothyroxine. Qualifiers: Hypothyroidism type: unspecified Qualified Code(s): E03.9 - Hypothyroidism, unspecified (5) Hypertension: Status: Chronic Assessment and plan: He is on atenolol. BPs seem mostly controlled. Continue this. Qualifiers: Hypertension type: essential hypertension Qualified Code(s): I10 - Essential (primary) hypertension (6) Hyperlipidemia: Status: Chronic Assessment and plan: Continue atorvastatin. Qualifiers: Hyperlipidemia type: unspecified Qualified Code(s): E78.5 - Hyperlipidemia, unspecified (7) GERD (gastroesophageal reflux disease): Status: Chronic Assessment and plan: Continue nexium. Qualifiers: Esophagitis presence: esophagitis presence not specified Qualified Code(s): K21.9 - Gastro-esophageal reflux disease without esophagitis (8) DVT prophylaxis: Status: Acute Assessment and plan: Enoxaparin 40 mg SC daily (9) Discharge planning issues: Status: Acute Assessment and plan: Full code PT/OT/Speech/Palliative care/Psychiatry consulted Continues to require hospitalization. Subjective Subjective Interval history since last seen: Mr Hanna had a nausea today, but it has now resolved. No headache, dizziness, CP, SOB, n/v. Was doing well today, but got restless with arrival of his . He requests clothes to wear (he had taken them off). Exam Narrative Exam Narrative: General: Pleasant elderly male who is speaking very quietly, in longer sentences, A&Ox1, in bed, appears to be more interactive today HEENT: EOMI, MMM Heart: RRR, no m/r/g Lungs: CTAB Abdomen: soft, nontender, nondistended Extremities: no edema BLEs, moving all 4 extremities on command, the strength appears to be preserved Objective Last Vital Signs Temp 35.9 C L 06/03/23 15:18 Pulse 67 06/03/23 15:18 Resp 17 06/03/23 15:18 BP 126/82 06/03/23 15:18 Pulse Ox 96 06/03/23 15:18 Time Spent with Patient Time Spent with Patient: 25-34 minutes Time was spent: preparing to see the patient(eg.review tests), obtaining and/or reviewing separately otained hiistory, ordering medications,tests, procedures, referring, communicating with other health critical care transport nurse, indepentently interpreting results, counseling the patient and care coordination
[2023-06-03] MEDS: Atorvastatin 40 MG TAB PO (20:08)
[2023-06-03 23:21] VITALS: BP 152/78; PULSE 70; RESP 17; TEMP 36.7; O2SAT 93
[2023-06-04 03:29] VITALS: BP 146/73; PULSE 70; RESP 16; TEMP 36.6; O2SAT 96
[2023-06-04 07:38] VITALS: BP 159/84; PULSE 66; RESP 18; TEMP 36.1; O2SAT 97
[2023-06-04] MEDS: Atenolol 50 MG TAB PO (08:14)
[2023-06-04] MEDS: Aspirin 81 MG CHEW CH (08:14)
[2023-06-04] MEDS: Docusate Sodium 100 MG/10 ML CUP PO (08:14)
[2023-06-04] MEDS: Divalproex 125 MG SPRINKLE 250 MG PO (08:15)
--- NOTE | 2023-06-04 08:59 | NT_ITS ---
Occupational Therapy Notes 06/04/23 OT attempted to work with pt this morning. He was sitting in the chair when OT arrived and states that he is not interested in performing his ADLs. He was able to don and doffing his (B) socks (I). He then smelled his sock and said that the room smelled and it was bothering him. OT does attempt to assist pt in ADLs in the sitting position but he states he is bothered this morning and would like to hold. OT will attempt to resume services tomorrow. Shaila Gerard, OTR/[facility]
--- NOTE | 2023-06-04 10:50 | W.SPSTP ---
Date of service: 06/04/23 Time of Service: 09:00 Subjective Patient received in chair, approximately 1 hour after breakfast. His eyes remained closed and he spoke in whispered speech which was difficult to understand. Ilya perseverated on a smell in his room, requesting this clinician help wipe his hands. *CASINO FLOOR PERSON reports increased coughing with liquids, and thus has been thickening liquids to mildly thick. Nursing reports patient is tolerating pills OK- does attempt to chew pills at times. Objective PO Trials Assessed: IDDSI 0: Thin Liquids via straw (2 sips) IDDSI 2: Mildly thick liquids via straw (2 sips) Feeding behaviors/observations: Pt able to hold cup independently, with min assist x1 for navigating straw to mouth. Oral Care: Completed recently Positioning: Arcade upright in a chair. Oral Phase Findings: No oral holding with liquids this date Limited trials assessed overall Pharyngeal Phase Findings: Possible reduced hyolaryngeal elevation/excursion, though noting low laryngeal carriage at rest (age-related). Cough noted following thin liquids Patient/Caregiver/Staff Education: Provided to nursing/CASINO FLOOR PERSON re: ABSORPTION OPERATOR findings/aspiration precautions. Assessment Ilya was seen for ABSORPTION OPERATOR follow up today, with primary goal to re-assess liquids tolerance in the setting of CASINO FLOOR PERSON report of increased coughing with thin liquids. Of note, CASINO FLOOR PERSON has been thickening to mildly thick yesterday and today. Ilya accepted very limited amounts of PO overall with this clinician. With initial refusals, it was beneficial to not directly ask him to take a sip but more remove the cup and then hand it back to him a moment later. He did demonstrate notable coughing in 1 out of 2 sips of thin liquid, which was not present with mildly thick liquid sips. In light of this finding paired with CASINO FLOOR PERSON report, recommend diet recommendation change as outlined below. An MBSS would be beneficial to further assess swallow function, though with patient's fluctuating alertness, confusion, refusals, and agitation I am hesitant that he could successfully participate at this time. Will continue to monitor readiness for MBSS. Please note diet change and aspiration precautions below- updated yellow aspiration precautions sign listed in patient's room. Recommendations Diet: 4-Pureed/Extremely Thick Liquids: 2- Mildly Thick Liquids Other: Medications - If pt alert, OK small capsules whole in applesauce/custard/pudding followed by sips of liquid. View oral cavity and use swab in cheeks to ensure he is not pocketing. Arcade upright for all PO. Out of bed/in chair encouraged for meals. Encourage physical mobility as tolerated. Oral hygiene before/after PO intake using either suction swab or toothbrush if patient cognitively appropriate PO intake only when awake/alert Strategies/Adaptations/Assistive Equipment: Reduce auditory and/or visual distractions when eating Small sips and bites when eating Slow rate of intake Posture/Positioning Needs: Maintain upright position at least 30 minutes after meals Supervision: Direct supervision via of [facility] staff, assist w/feeding Plan Patient to be followed while on unit for diet upgrade as appropriate. 3-4x/weekly, 2 weeks Continue monitor need for MBSS Upon Discharge, recommend ABSORPTION OPERATOR services at detention [employer] Equipment Operator Goals: Patient will remain free from aspiration-related illness, malnutrition, and dehydration. Short Term Goals: Patient will tolerate Puree Diet and Thin liquids without overt s/s aspiration across 2/2 visits. Patient will tolerate PO trials for consideration of diet upgrade without overt s/s aspiration across 2/2 visits. Total Time Spent: 20 minutes ([id number])
[2023-06-04 11:01] VITALS: BP 153/81; PULSE 65; RESP 18; TEMP 36.4; O2SAT 98
[2023-06-04] MEDS: Enoxaparin 40 MG/0.4 ML SYR SC (14:33)
--- NOTE | 2023-06-04 14:56 | W.PM.PROGNOT ---
Date of Service Date of service: 06/04/23 Time of Service: 14:56 Assessment and Plan Assessment and plan (1) Acute CVA (cerebrovascular accident): Status: Acute Assessment and plan: S/p embolic CVA right occipital lobe, right temporal lobe and bilateral thalami with some microhemorrhages in the right thalamus and right posterior occipital lobe. Deficits wax and wane: cognitive dysfunction, agitation/sedation, gait imbalance, probable vision loss. Continue depakote 250 mg BID; check LFTs in a few days Consider addition of modafinil. Continue aspirin 81 mg PO daily until 06/05, when he can be started on apixaban. (2) Atrial flutter: Status: Acute Assessment and plan: Converted to NSR (new diagnosis). The likely cause of the embolic CVA. He is on atenolol. Read discussion re anticoagulation above. 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 Will need repeat MRI scan in 6 months as outpatient. (4) Hypothyroidism, unspecified: Status: Chronic Assessment and plan: Continue levothyroxine. Qualifiers: Hypothyroidism type: unspecified Qualified Code(s): E03.9 - Hypothyroidism, unspecified (5) Hypertension: Status: Chronic Assessment and plan: He is on atenolol. BPs seem mostly controlled. Continue this. Qualifiers: Hypertension type: essential hypertension Qualified Code(s): I10 - Essential (primary) hypertension (6) Hyperlipidemia: Status: Chronic Assessment and plan: Continue atorvastatin. Qualifiers: Hyperlipidemia type: unspecified Qualified Code(s): E78.5 - Hyperlipidemia, unspecified (7) GERD (gastroesophageal reflux disease): Status: Chronic Assessment and plan: Continue nexium. Qualifiers: Esophagitis presence: esophagitis presence not specified Qualified Code(s): K21.9 - Gastro-esophageal reflux disease without esophagitis (8) DVT prophylaxis: Status: Acute Assessment and plan: Enoxaparin 40 mg SC daily (9) Discharge planning issues: Status: Acute Assessment and plan: Full code PT/OT/Speech/Palliative care/Psychiatry consulted Continues to require hospitalization. Subjective Subjective Patient reports: no new complaints Interval history since last seen: Sitting in a chair, family in the room with him, smiling, pleasant. Exam Narrative Exam Narrative: General: Pleasant elderly, sitting reclined in chair, A&Ox1, smiling, good eye contact. HEENT: EOMI, MMM Heart: RRR, no m/r/g Lungs: CTAB Abdomen: soft, nontender, nondistended Extremities: no edema BLEs, moving all 4 extremities on command, the strength appears to be preserved Objective Last Vital Signs Temp 36.4 C L 06/04/23 11:01 Pulse 65 06/04/23 11:01 Resp 18 06/04/23 11:01 BP 153/81 H 06/04/23 11:01 Pulse Ox 98 06/04/23 11:01 Time Spent with Patient Time Spent with Patient: 35-49 minutes Time was spent: preparing to see the patient(eg.review tests), ordering medications,tests, procedures, referring, communicating with other health patient care secretary, indepentently interpreting results, counseling the patient and care coordination
--- NOTE | 2023-06-04 20:59 | CMPROGNOTE_ITS ---
Date of service: 06/04/23 Time of Service: 20:59 Care Management Progress Note Progress Note Text Progress Note Text: S/O:Ilya was lying in bed visiting with Tara when CM met with him. He appeared calm and was smiling. Ilya continues to show slow improvement in mentation and is able to ambulate more steadily with staff and PT, although these gains are not consistent. No bed offers have been received from any of the long-term facilities that referrals were sent to which includes all of the SNFs in [place] and many in [place]. A: Ilya is a 78 year old man admitted on 05/21/23 with an acute CVA P:Ilya is likely going to need to transfer to a SNF for short term rehab, if not for assistant terminal manager care. Referrals have been sent to [facility], [facility], [facility] and [facility]. A referral was also sent to [facility] for long range planning, options counseling and community case management for both Ilya and his . CM will follow and continue to asses for discharge needs. SDOH(Care Management) Screening Will the Patient Participate in the Screening?: Unable to obtain
[2023-06-05 00:17] VITALS: BP 137/85; PULSE 71; RESP 18; TEMP 36.5; O2SAT 94
--- NOTE | 2023-06-05 08:36 | CMPROGNOTE_ITS ---
Date of service: 06/05/23 Time of Service: 08:36 Care Management Progress Note Progress Note Text Progress Note Text: S/O:Ilya was sitting up on the side of his bed when CM met with him. His was with him and they appeared to be interacting well. Tara informed CM that she has been driving Ilya's truck because her Prius is not charged. She was unclear why this is a barrier and why she didn't charge it last night. Ilya continues to have periods of lucidity and appeared to be more stable when ambulating. His Geodon has been discontinued now and he is just receiving Depakote which seems to be working to stabilize his mood.He will likely be transitioned to SB-1 next week if he remains medically stable. A: Ilya is a 78 year old man admitted on 05/21/23 with an acute CVA P:Ilya is likely going to need to transfer to a SNF for short term rehab, if not for half-way care. Referrals have been sent to [facility], [facility], [facility] and [facility]. A referral was also sent to [facility] for long range planning, options counseling and community case management for both Ilya and his . CM will follow and continue to asses for discharge needs. SDOH(Care Management) Screening Will the Patient Participate in the Screening?: Unable to obtain
[2023-06-05 11:14] VITALS: BP 124/81; PULSE 71; RESP 16; TEMP 35.9; O2SAT 92
[2023-06-05] MEDS: Apixaban 5 MG TAB PO ×2 (11:15→21:20)
[2023-06-05] MEDS: Atenolol 50 MG TAB PO (11:15)
[2023-06-05] MEDS: Docusate Sodium 100 MG/10 ML CUP PO ×2 (11:15→21:20)
[2023-06-05] MEDS: Divalproex 125 MG SPRINKLE 250 MG PO ×2 (11:15→21:20)
--- NOTE | 2023-06-05 13:33 | PT.INPN ---
PT Notes Visit Reasons: Acute CVA Inpatient Physical Therapy Progress Note Date: 06/05/2023 Dates of Service: 05/30/2023-06/05/2023 Referring Doctor: Angel Pang MD PT Orders: PT CONSULT: Falls safety assessment Precautions: Standard. Activity as tolerated. Impaired safety awareness. Subjective: Seen attempting to get up from bed, Nurse Chrissy came to help along with this clinician. Objective: General Observation: Restless, attempting to get ut of bed alone when PT arrived. Nurse Chrissy came in to help patient. Mental Status: Responds when name is called. Able to follow simple commands with repetition. Pain: None verbalized/expressed Vital Signs: Closely monitored via nursing ROM: Unable to formally assess at this time Right Upper Extremity: Grossly WFL Left Upper Extremity: Grossly WFL Right Lower Extremity: Grossly WFL Left Lower Extremity: Grossly WFL Strength: Unable to formally assess at this time Right Upper Extremity: Grossly 3-/5 Left Upper Extremity: Grossly 3/5 Right Lower Extremity: Grossly 3-/5 Left Lower Extremity: Grossly 3/5 Sensation: Unable to assess Bed Mobility/Transfers: Sit?stand: minimal assist Sit?supine: minimal assist Stand?sit: minimal assist Gait: Covered 100 feet with front-wheeled walker requiring repeated assistance with maneuvering walker. Minimal assist and maximal verbal.tactile/and visual cueing provided for safety, AD management, directional change, and overall safety. Balance: Static Sitting: Good Dynamic Sitting: Good Static Standing: Fair Dynamic Standing: fair Special Tests: Mobility Limitations Standardized Measure [facility] AM-PAC 6 clicks Basic Mobility Inpatient Short Form: Raw Score: 18 CMS Score: 47% deficit Informed Consent/Education: Patient and patient's have been instructed in purpose of PT consult and plan of care. ASSESSMENT: Safety awareness, along with impulsivity, continues to increase risk for falls. Session tolerance and ability to follow instructions contribute to good prognosis in achieving mobility goals below. unable to provide needed physical assistance for who currently requires assist of 1for safe mobility ADL performance. Goals: Goals X1 week 1. Supine-Sit SBA NOT MET, CONTINUE 2. Sit-Supine SBA NOT MET, CONTINUE 3. Sit-Stand CGx1 to front wheeled walker NOT MET, CONTINUE 4. Stand-Sit CG X1 with FWW NOT MET, CONTINUE 5. Bed-Chair CGx1 with FWW NOT MET, CONTINUE 6. Chair-Bed CGx1 with FWW NOT MET, CONTINUE 7. CGx1 with gait on level surface with use of FWW for at least 15-30 feet (enough to cover bedroom<>bathroom and bedroom<>kitchen distances at home) NOT MET, CONTINUE 8. Supervision with home exercise program NOT MET, CONTINUE 9. Fair static and dynamic standing balance/tolerance NOT MET, CONTINUE Plan of Care/Treatment Plan: 1-2x/day, 7 days/week x 1 week. Plan of care has been reviewed with the FOREIGN CLERK providing the service under Physical Therapy direction. Initiate Physical Therapy intervention for strengthening, bed mobility, transfers, gait, stairs, balance training, use of assistive device. -Continue training with and use of FWW for all mobility performance to maximize independence and reduce fall risk. DISCHARGE RECOMMENDATIONS: [] Home with no services [] [] Home with services [specify] [] Home with outpatient PT [] [] SNF for continued rehabilitation [] [] Assisted Care [] [X] SNF versus LTC based on ability to participate and progress TREATMENT CODE/TIME: 84409 x 20 minutes for 1 unit (13:33-13:53).
[2023-06-05 14:09] VITALS: BP 151/88; PULSE 69; RESP 16; TEMP 36.1; O2SAT 98
--- NOTE | 2023-06-05 16:54 | PT.INNT ---
Date of service: 06/05/23 Time of Service: 11:06 PT Notes Visit Reasons: Acute CVA Patient refuses to participate in therapy this morning, covering his face with both hands, shaking his head no and whispering no, no, no, when asked if he would like to go for a walk. Also refuses to engage in seated or bed level exercises.
--- NOTE | 2023-06-05 17:35 | W.PM.PROGNOT ---
Date of Service Date of service: 06/05/23 Time of Service: 17:35 Assessment and Plan Assessment and plan (1) Acute CVA (cerebrovascular accident): Status: Acute Assessment and plan: S/p embolic CVA right occipital lobe, right temporal lobe and bilateral thalami with some microhemorrhages in the right thalamus and right posterior occipital lobe. Deficits wax and wane: cognitive dysfunction, agitation/sedation, gait imbalance, probable vision loss. Continue depakote 250 mg BID; check LFTs in a few days Consider addition of modafinil. Continue aspirin 81 mg PO daily until 06/05, when he can be started on apixaban. Seroquel 25 mg given for agitation and also a sitter (2) Atrial flutter: Status: Resolved Assessment and plan: Converted to NSR (new diagnosis). The likely cause of the embolic CVA. He is on atenolol. Read discussion re anticoagulation above. 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 Will need repeat MRI scan in 6 months as outpatient. (4) Hypothyroidism, unspecified: Status: Chronic Assessment and plan: Continue levothyroxine. Qualifiers: Hypothyroidism type: unspecified Qualified Code(s): E03.9 - Hypothyroidism, unspecified (5) Hypertension: Status: Chronic Assessment and plan: He is on atenolol. BPs seem mostly controlled. Continue this. Qualifiers: Hypertension type: essential hypertension Qualified Code(s): I10 - Essential (primary) hypertension (6) Hyperlipidemia: Status: Chronic Assessment and plan: Continue atorvastatin. Qualifiers: Hyperlipidemia type: unspecified Qualified Code(s): E78.5 - Hyperlipidemia, unspecified (7) GERD (gastroesophageal reflux disease): Status: Chronic Assessment and plan: Continue nexium. Qualifiers: Esophagitis presence: esophagitis presence not specified Qualified Code(s): K21.9 - Gastro-esophageal reflux disease without esophagitis (8) DVT prophylaxis: Status: Acute Assessment and plan: Enoxaparin 40 mg SC daily (9) Discharge planning issues: Status: Acute Assessment and plan: Full code PT/OT/Speech/Palliative care/Psychiatry consulted Continues to require hospitalization. Placement referrals sent Discussed with Dr Bañuelos Subjective Subjective Patient reports: no new complaints Interval history since last seen: visiting today, increased confusion, getting up without assistance. Exam Narrative Exam Narrative: General: Pleasant elderly, sitting on the edge of the bed, A&Ox1, smiling, good eye contact. HEENT: EOMI, MMM Heart: RRR, no m/r/g Lungs: CTAB Abdomen: soft, nontender, nondistended Extremities: no edema BLEs, moving all 4 extremities on command, the strength appears to be preserved Objective Last Vital Signs Temp 36.1 C L 06/05/23 14:09 Pulse 69 06/05/23 14:09 Resp 16 06/05/23 14:09 BP 151/88 H 06/05/23 14:09 Pulse Ox 98 06/05/23 14:09 Time Spent with Patient Time Spent with Patient: 25-34 minutes Time was spent: preparing to see the patient(eg.review tests), ordering medications,tests, procedures, referring, communicating with other health care transitions manager, indepentently interpreting results, counseling the patient and care coordination
[2023-06-05] MEDS: QUEtiapine 25 MG TAB PO (18:30)
[2023-06-05] MEDS: Atorvastatin 40 MG TAB PO (21:20)
[2023-06-06 06:38] VITALS: BP 133/46; PULSE 60; RESP 14; TEMP 36; O2SAT 94
[2023-06-06] MEDS: Atenolol 50 MG TAB PO (09:13)
[2023-06-06] MEDS: Divalproex 125 MG SPRINKLE 250 MG PO ×2 (09:13→20:03)
[2023-06-06] MEDS: Apixaban 5 MG TAB PO ×2 (09:13→20:03)
[2023-06-06] MEDS: Docusate Sodium 100 MG/10 ML CUP PO ×2 (09:16→20:06)
[2023-06-06 12:55] VITALS: BP 130/74; PULSE 63; RESP 16; TEMP 36.8; O2SAT 94
--- NOTE | 2023-06-06 15:10 | PGE_ITS ---
Date of Service Date of service: 06/06/23 Time of Service: 15:11 Assessment and Plan Assessment and plan (1) Acute CVA (cerebrovascular accident): Status: Acute Assessment and plan: S/p embolic CVA right occipital lobe, right temporal lobe and bilateral thalami with some microhemorrhages in the right thalamus and right posterior occipital lobe. Deficits wax and wane: cognitive dysfunction, agitation/sedation, gait imbalance, probable vision loss. Continue depakote 250 mg BID; check LFTs in a few days Consider addition of modafinil. Now on apixaban for PAF and treatment of embolism continue w/ P.T. (2) Atrial flutter: Status: Resolved Assessment and plan: Converted to NSR (new diagnosis). The likely cause of the embolic CVA. He is on atenolol. Read discussion re anticoagulation above. 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 Will need repeat MRI scan in 6 months as outpatient. (4) Hypothyroidism, unspecified: Status: Chronic Assessment and plan: Continue levothyroxine. Qualifiers: Hypothyroidism type: unspecified Qualified Code(s): E03.9 - H ypothyroidism, unspecified (5) Hypertension: Status: Chronic Assessment and plan: He is on atenolol. BPs seem mostly controlled. Continue this. Qualifiers: Hypertension type: essential hypertension Qualified Code(s): I10 - Essential (primary) hypertension (6) Hyperlipidemia: Status: Chronic Assessment and plan: Continue atorvastatin. Qualifiers: Hyperlipidemia type: unspecified Qualified Code(s): E78.5 - Hyperlipidemia, unspecified (7) GERD (gastroesophageal reflux disease): Status: Chronic Assessment and plan: Continue nexium. Qualifiers: Esophagitis presence: esophagitis presence not specified Qualified Code(s): K21.9 - Gastro-esophageal reflux disease without esophagitis (8) DVT prophylaxis: Status: Acute Assessment and plan: Enoxaparin 40 mg SC daily (9) Discharge planning issues: Status: Acute Assessment and plan: Full code PT/OT/Speech/Palliative care/Psychiatry consulted Continues to require hospitalization. Placement referrals sent Plan for change to swing bed status on Thursday if no acceptance at SNF. Subjective Subjective Interval history since last seen: Patient remains calm and cooperative, he denies any acute complaints however, his conversations remain tangential w/ frequent word salad of non-sequitur responses. Exam Narrative Exam Narrative: Alert, cooperative, no facial asymmetry, I can not discern his vision but he seems to not look at me directly and I get the sense that he has significant VF impairment Lungs: CTA Heart: RRR, no m,r,g Abdomen: benign Extremities: normal ROM and strength Objective Last Vital Signs Temp 36.8 C 06/06/23 12:55 Pulse 63 06/06/23 12:55 Resp 16 06/06/23 12:55 BP 130/74 06/06/23 12:55 Pulse Ox 94 06/06/23 12:55 Time Spent with Patient Time Spent with Patient: 25-34 minutes Time was spent: preparing to see the patient(eg.review tests), ordering medications,tests, procedures, referring, communicating with other health palliative care specialist, indepentently interpreting results and care coordination
[2023-06-06] MEDS: Atorvastatin 40 MG TAB PO (20:03)
[2023-06-07 03:35] VITALS: BP 151/80; PULSE 65; RESP 16; TEMP 35.7; O2SAT 96
[2023-06-07 08:45] VITALS: BP 128/84; PULSE 62; RESP 20; TEMP 36.6; O2SAT 97
[2023-06-07] MEDS: Atenolol 50 MG TAB PO (08:54)
[2023-06-07] MEDS: Docusate Sodium 100 MG/10 ML CUP PO ×2 (08:54→20:32)
[2023-06-07] MEDS: Divalproex 125 MG SPRINKLE 250 MG PO ×2 (08:54→20:32)
[2023-06-07] MEDS: Apixaban 5 MG TAB PO ×2 (08:55→20:32)
[2023-06-07] MEDS: Acetaminophen 325 MG TAB 650 MG PO ×3 (09:22→20:32)
[2023-06-07 12:17] VITALS: BP 112/74; PULSE 51; RESP 14; TEMP 36.9; O2SAT 97
[2023-06-07 14:53] VITALS: BP 144/84; PULSE 65; RESP 14; TEMP 36; O2SAT 98
--- NOTE | 2023-06-07 15:28 | W.PM.PROGNOT ---
Date of Service Date of service: 06/07/23 Time of Service: 15:28 Assessment and Plan Assessment and plan (1) Acute CVA (cerebrovascular accident): Status: Acute Assessment and plan: S/p embolic CVA right occipital lobe, right temporal lobe and bilateral thalami with some microhemorrhages in the right thalamus and right posterior occipital lobe. Deficits wax and wane: cognitive dysfunction, agitation/sedation, gait imbalance, probable vision loss. Continue depakote 250 mg BID; check LFTs in a few days trial of Provigil to see if we can improve his alertness during the day Will also trial marinol to improve his eating Now on apixaban for PAF and treatment of embolism continue w/ P.T. (2) Atrial flutter: Status: Resolved Assessment and plan: Converted to NSR (new diagnosis). The likely cause of the embolic CVA. He is on atenolol. 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 Will need repeat MRI scan in 6 months as outpatient. (4) Hypothyroidism, unspecified: Status: Chronic Assessment and plan: Continue levothyroxine. Qualifiers: Hypothyroidism type: unspecified Qualified Code(s): E03.9 - Hypothyroidism, unspecified (5) Hypertension: Status: Chronic Assessment and plan: He is on atenolol. BPs seem mostly controlled. Continue this. Qualifiers: Hypertension type: essential hypertension Qualified Code(s): I10 - Essential (primary) hypertension (6) Hyperlipidemia: Status: Chronic Assessment and plan: Continue atorvastatin. Qualifiers: Hyperlipidemia type: unspecified Qualified Code(s): E78.5 - Hyperlipidemia, unspecified (7) GERD (gastroesophageal reflux disease): Status: Chronic Assessment and plan: Continue nexium. Qualifiers: Esophagitis presence: esophagitis presence not specified Qualified Code(s): K21.9 - Gastro-esophageal reflux disease without esophagitis (8) DVT prophylaxis: Status: Acute Assessment and plan: now on apixaban (9) Discharge planning issues: Status: Acute Assessment and plan: Full code PT/OT/Speech/Palliative care/Psychiatry consulted Continues to require hospitalization. Placement referrals sent Plan for change to swing bed status on Thursday if no acceptance at SNF. Subjective Subjective Interval history since last seen: No acute complaints. Nursing reports excessive sleepiness during the day but otherwise behavior has been controlled. Intake is less than optimal but no noted choking spells. Exam Narrative Exam Narrative: Lethargic elderly white male who awakens easily seems to respond to commands appropriately nods yes and no appropriately to questions however when he converses he has word salad and has trouble stringing together his thoughts. Lungs are clear to auscultation anteriorly Heart is regular rate and rhythm Abdomen soft nontender nondistended Extremities without edema Neurologic exam no facial asymmetry no focal motor deficits of his arms and legs however his visual field seems to be impaired because he has trouble expressing himself I cannot determine exactly the degree of visual impairment. Objective Last Vital Signs Temp 36.0 C L 06/07/23 14:53 Pulse 65 06/07/23 14:53 Resp 14 06/07/23 14:53 BP 144/84 H 06/07/23 14:53 Pulse Ox 98 06/07/23 14:53 Time Spent with Patient Time Spent with Patient: 25-34 minutes Time was spent: preparing to see the patient(eg.review tests), ordering medications,tests, procedures, referring, communicating with other health hospice home care coordinator, indepentently interpreting results and care coordination
[2023-06-07] MEDS: Dronabinol 2.5 MG CAP PO (15:41)
[2023-06-07 18:42] VITALS: BP 127/75; PULSE 70; RESP 16; TEMP 36.5; O2SAT 100
--- NOTE | 2023-06-07 19:45 | NUR.NOTE ---
Nursing Note: varying exceptionalities teacher reported for duty, there was some confusion as to if she is able to preform hands on care or not. the supervisor inspection department and charge were made aware of my concerns that this patient is at risk of falling if he does not have someone who can preform hands on care. I was reasssured that this was within the scope of her ability to stop the patient from falling if needed. supervisor inspection department decided to keep the sitting situation as is, with said pso as varying exceptionalities teacher. wctm.
[2023-06-07] MEDS: Atorvastatin 40 MG TAB PO (20:32)
--- NOTE | 2023-06-08 03:53 | NUR.NOTE ---
Nursing Note:pts sitter was pulled at 0300 due to staffing issues. pt still requires sitter for safety. pt resting in chair at this time. wctm.
[2023-06-08 07:28] LABS: ALT 29 U/L (16-63); AST 27 U/L (15-37); Albumin 3.6 g/dL (3.4-5.0); Alkaline Phosphatase 95 U/L (46-116); Anion Gap 11.4 mmol/L (3-11); BUN 21 mg/dL (7-18); Bilirubin, Total 0.9 mg/dL (0.2-1.0); CO2 27.6 mmol/L (21.0-32.0); CREATININE 1.1 mg/dL (0.70-1.30); Calcium 9.8 mg/dL (8.5-10.1); Chloride 107 mmol/L (98-107); Estimated GFR 68.71 (mL/min/1.73m2); Glucose 101 mg/dL (74-106); Sodium 146 mmol/L (136-145); Total Protein 7.7 g/dL (6.4-8.2)
--- NOTE | 2023-06-08 07:39 | W.PALPGNOTE ---
Date of service: 06/08/23 Time of Service: 07:39 Assessment and Plan Assessment and plan (1) Agitation: Status: Acute (2) Acute CVA (cerebrovascular accident): Status: Acute (3) Palliative care patient: Status: Acute Assessment and plan: At this point care management has been looking for placement for Ilya. He will most likely need long-term placement. Soon after his CVA he did have a lucid time when I talked to him about CODE STATUS. At this point I do think he needs guardianship or a discussion with his regarding the realistic expectations that how he is today is how he will be. From hearing about his life in the past I do think that he was involved and active. This may need to be changed if his condition does not drastically improve. Hopefully long-term placement will be found. Subjective Subjective Interval history since last seen: Ilya was resting comfortably. Staff states that if you go slow with him and allow him time to process instructions, he is cooperative. Sometimes he gets overwhelmed and then tries to get people away from him. He does have cadre with him. She states that although she was only there for half hour, he has been calm Exam Narrative Exam Narrative: Lying in bed resting, he looks comfortable. He does have rate controlled heart. Lungs did not cooperate with the exam but I did not hear any rales. No edema. Objective Last Vital Signs Temp 97.7 F 06/07/23 18:42 Pulse 70 06/07/23 18:42 Resp 16 06/07/23 18:42 BP 127/75 06/07/23 18:42 Pulse Ox 100 06/07/23 18:42 Laboratory Results - last 24 hr 06/08/23 06:02 Sodium 146 H Potassium 4.0 Chloride 107 Carbon Dioxide 27.6 Anion Gap 11.4 H BUN 21 H Creatinine 1.1 Est GFR (CKD-EPI 2020) 68.71 Glucose 101 Calcium 9.8 Total Bilirubin 0.9 AST 27 ALT 29 Alkaline Phosphatase 95 Total Protein 7.7 Albumin 3.6
--- NOTE | 2023-06-08 09:00 | OT.INNT ---
Occupational Therapy Notes 06/08/23 OT attempted to work with pt who was sleeping. It was recommended by staff to let pt sleep and rest not waking him up for services. OT will continue with skilled services tomorrow morning. Shaila Gerard, OTR/L
[2023-06-08 09:13] VITALS: BP 115/86; PULSE 78; RESP 16; TEMP 36.3; O2SAT 98
--- NOTE | 2023-06-08 09:44 | CMPROGNOTE_ITS ---
Date of service: 06/08/23 Time of Service: 09:44 Care Management Progress Note Progress Note Text Progress Note Text: S/O:Ilya was sitting up in a chair when CM met with him. He continues to work with PT and was able to follow directions today. Mentally, Ilya waxes and wanes with his ability to comprehend and communicate, but seems to be making progress. Tara did not visit today. A: Ilya is a 78 year old man admitted on 05/21/23 with an acute CVA P:Ilya is likely going to need to transfer to a SNF for short term rehab, if not for assistant terminal manager care. Referrals have been sent to [facility], [facility], [facility], [facility] and [facility]. A referral was also sent to [facility] for long range planning, options counseling and community case management for both Ilya and his . CM will follow and continue to asses for discharge needs. SDOH(Care Management) Screening Will the Patient Participate in the Screening?: Unable to obtain
[2023-06-08] MEDS: Modafinil 100 MG TAB PO (10:09)
[2023-06-08] MEDS: Dronabinol 2.5 MG CAP PO ×2 (10:09→15:45)
[2023-06-08] MEDS: Atenolol 50 MG TAB PO (10:09)
[2023-06-08] MEDS: Apixaban 5 MG TAB PO (10:09)
[2023-06-08] MEDS: Divalproex 125 MG SPRINKLE 250 MG PO (10:10)
--- NOTE | 2023-06-08 11:29 | W.PM.DS.N ---
Date of service: 06/08/23 Time of Service: 11:30 DS: Diagnosis Discharge Diagnosis (1) Acute CVA (cerebrovascular accident): Status: Acute (2) Atrial flutter: Status: Resolved (3) Colloid cyst of brain: Status: Acute (4) Hypothyroidism, unspecified: Status: Chronic (5) Hypertension: Status: Chronic (6) Hyperlipidemia: Status: Chronic (7) GERD (gastroesophageal reflux disease): Status: Chronic Discharge Plan Disposition Patient Disposition: Swing Bed(Skilled,SB1) Condition: Stable Discharge Details Reason For Visit: Acute CVA Admit Date/Time: 05/21/23 11:29 Admit Provider: Angel Pang Attending Provider: Angel Pang Primary Care Provider: Serina Prakash Hospital Course Hospital Course: This is a 78-year-old male patient past medical history significant for hypertension hyperlipidemia chronic kidney disease hypothyroidism GERD ADHD depression prediabetes who is a vegetarian and quite active who presented to the emergency department with with AMS and agitation in the setting of acute R occipital and thalamic strokes with possible L temporal ischemia. He was admitted under hospitalist services with neurologic consultation. Hospital course complicated with significant agitation requiring lorazepam propofol and Precedex to control his symptoms. His hospital course was prolonged secondary to this agitation restlessness and confusion. He was eventually started on Geodon with marked improvement in his symptoms over time. While being monitored on telemetry, noted to have atrial flutter and was started on low-dose beta-elbert. This is most likely the etiology of his embolic CVA. He was initially not a candidate for anticoagulation due to the subacute timing of his stroke but it was safely started on apixaban on June 05 which he has been tolerating well. He has been working with physical therapy and has been reambulated. He still does require significant supervision and has been requiring assistance with meals. He was also noted to be somnolent during the day and was started on modafinil. He was also started on Marinol to help increase appetite. Case management has been following closely for discharge planning. Deficits that continue to wax and wane include cognitive dysfunction agitation/sedation, gait imbalance and probable vision loss he will require skilled rehabilitation prior to final disposition. He was started on Depakote per neurology recommendations, thus liver functions will need to be followed. Also noted to have a colloid cyst of the brain with no evidence of hydrocephalus. He will need an repeat MRI in 6 months. he is being discharged to [facility] level [address] status[address] discharge discussed with Dr Bird Davis Medlavon and New Rx's Prescriptions: No Action melatonin 10 mg capsule 10 mg PO HS PRN glucosamine HCl 1,500 mg tablet 1,500 mg PO DAILY Rx Instructions: administer with a meal multivitamin [Daily Multi-Vitamin] 1 EACH tablet 1 ea PO DAILY cholecalciferol (vitamin D3) [Vitamin D3] 1,000 UNIT capsule 1,000 unit PO DAILY omega-3 acid ethyl esters 1 GM capsule 2 gm PO BID Qty: 120 atenolol 50 mg tablet See Rx Instructions .ROUTE .COMPLEX Qty: 90 3RF Dose Instruction: TAKE ONE TABLET BY MOUTH EVERY DAY Rx Instructions: TAKE ONE TABLET BY MOUTH EVERY DAY tamsulosin [Flomax] 0.4 mg capsule 0.4 mg PO DAILY Qty: 90 3RF losartan 100 mg tablet 100 mg PO DAILY Qty: 90 3RF trazodone 50 mg tablet 50 mg PO HS Qty: 90 3RF levothyroxine 137 mcg tablet See Rx Instructions .ROUTE .COMPLEX Qty: 90 3RF Dose Instruction: TAKE ONE TABLET BY MOUTH EVERY MORNING ON AN EMPTY STOMACH, AT LEAST 30-60 MINUTES BEFORE FOOD Rx Instructions: TAKE ONE TABLET BY MOUTH EVERY MORNING ON AN EMPTY STOMACH, AT LEAST 30-60 MINUTES BEFORE FOOD omeprazole 20 mg capsule,delayed release(DR/EC) 20 mg PO DAILY Qty: 90 3RF Rx Instructions: Take on an empty stomach at least 30 minutes before first meal Discharge Instructions Activity:: Activity as Tolerated Equipment/Supplies:: No Equipment Needed Diet:: As Tolerated Discharge Orders Discharge Orders: Discharge Order (Routine); Ordered 06/08/23 Ordered By: Erny Dunn DS: Summary Time Spent with Patient providing and/or coordinating discharge services: Greater than 30 minutes Status at Discharge Functional status at discharge: uses cane/walker Overall status at discharge: patient is progressing back to baseline Mental Status: mental status grossly normal Speech and Movement: No speech and movement normal (not responding verbally but nodding appropriately) Mood: congruent mood Affect: normal affect Quality:SDOH Health Related Social Needs: No Data to Display Exam Const General: cooperative, comfortable and no acute distress Nutritional Appearance: thin Orientation: alert, awake and other (not responding verbally, nods head) HENMT Head: normal to inspection, normocephalic and atraumatic Mouth: oral mucosae normal Neck Neck: normal visual inspection, full ROM and no JVD Resp Effort & Inspection: normal respiratory effort Cardio Rate: regular rate Rhythm: regular rhythm GI Inspection: normal to inspection Skin General skin exam: no rashes or lesions noted Neuro General: patient alert, patient awake, gait normal (uses walker) and tone normal Extrem General: normal to inspection, full ROM and no pedal edema Psych Appearance: grossly normal Mental Status: mental status grossly normal Speech and Movement: speech and movement abnormal (not responding verbally but nodding appropriately) Mood: congruent mood Affect: normal affect DS: Data Vitals/I&O Vitals and I&O: Vital Signs Temperature 36.3 C L 06/08/23 09:13 Temperature Source Tympanic 06/08/23 09:13 Pulse 78 06/08/23 09:13 Pulse Rhythm Regular 06/08/23 02:35 Pulse 90 05/27/23 10:25 Respiratory Rate 16 06/08/23 09:13 Respiratory Effort Normal 06/08/23 02:35 Respiratory Depth Normal 06/08/23 02:35 Respiratory Pattern Normal 06/08/23 02:35 Blood Pressure 115/86 06/08/23 09:13 Blood Pressure Mean 136 05/28/23 10:48 Blood Pressure Position Supine 05/21/23 16:00 Pulse Oximetry 98 06/08/23 09:13 Oxygen Delivery Method Room Air 06/08/23 09:13 Oxygen Flow Rate 0 06/08/23 09:13 Pain Level 0 06/07/23 18:42 Comment pt refusing vitals at this time per aid 06/08/23 03:05 Comment While resistive to care 05/28/23 06:17 Intake & Output 06/07/23 06/07/23 06/08/23 11:59 23:59 11:59 Intake Total 100 / 100 110 / 110 Output Total 200 / 200 Balance -100 / -100 110 / 110 Intake: IV Oral 100 / 100 100 / 100 Output: Urine 200 / 200 Other: Urine Color Straw Straw Yellow Urine Appearance Clear Clear Clear Urine Odor Normal Comment could not measure Pt voided in the shower Pt walked to toilet with walker pt voided and also incontinent Voiding Methods Bedside Commode Toilet Toilet Diaper Incontinent Data Completed and Pending Labs on day of discharge: Labs from last 24 hours 06/08/23 06:02 Sodium 146 H Potassium 4.0 Chloride 107 Carbon Dioxide 27.6 Anion Gap 11.4 H BUN 21 H Creatinine 1.1 Est GFR (CKD-EPI 2020) 68.71 Glucose 101 Calcium 9.8 Total Bilirubin 0.9 AST 27 ALT 29 Alkaline Phosphatase 95 Total Protein 7.7 Albumin 3.6 PFSH All Active Problems (Updated 06/05/23 @ 18:04 by Alix Frey NP) Hypersomnolence (Acute) Agitation (Acute) Palliative care patient (Acute) Colloid cyst of brain (Acute) Discharge planning issues (Acute) DVT prophylaxis (Acute) Hypertension (Chronic) At risk for falls (Acute) Acute CVA (cerebrovascular accident) (Acute) CKD (chronic kidney disease) (Acute) Insomnia, unspecified (Chronic 07/09/16) IFG (impaired fasting glucose) (Chronic 03/19/16) Hypothyroidism, unspecified (Chronic 04/23/15) Hypertension (Chronic 12/11/14) Hyperlipidemia (Chronic 04/23/15) GERD (gastroesophageal reflux disease) (Chronic 12/11/14) ADHD (attention deficit hyperactivity disorder), combined 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 Calvillo) 10/2017 Surgical History Status post cholecystectomy [facility] [place] [place] Colonoscopy - IV Sedation (01/01/16) Family History Mother Personal history of malignant neoplasm BREAST Heart disease VALVE REPLACEMENT Father Personal history of malignant neoplasm SKIN Brother Essential hypertension Hyperlipidemia Grandfather Personal history of malignant neoplasm Grandfather Heart disease Grandmother Stroke Grandmother No problems noted. 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
[2023-06-08 12:32] VITALS: BP 136/81; PULSE 60; RESP 16; TEMP 36; O2SAT 98
--- NOTE | 2023-06-08 14:56 | PT.INIE ---
PT Notes Visit Reasons: Acute CVA Inpatient Physical Therapy Initial Evaluation Date: 06/08/2023 Referring Doctor: Angel Pang MD PT Orders: PT CONSULT: extended stay- weakness Precautions: Standard. Activity as tolerated. Impaired safety awareness. Subjective: Objective: General Observation: Restless, attempting to get ut of bed alone when PT arrived. Nurse Chrissy came in to help patient. Mental Status: Responds when name is called. Able to follow simple commands with repetition. Pain: None verbalized/expressed Vital Signs: Closely monitored via nursing ROM: Unable to formally assess at this time Right Upper Extremity: Grossly WFL Left Upper Extremity: Grossly WFL Right Lower Extremity: Grossly WFL Left Lower Extremity: Grossly WFL Strength: Unable to formally assess at this time Right Upper Extremity: Grossly 3-/5 Left Upper Extremity: Grossly 3/5 Right Lower Extremity: Grossly 3-/5 Left Lower Extremity: Grossly 3/5 Sensation: Unable to assess Bed Mobility/Transfers: Sit?stand: minimal assist Sit?supine: minimal assist Stand?sit: minimal assist Gait: Covered 100 feet with front-wheeled walker requiring repeated assistance with maneuvering walker. Minimal assist and maximal verbal.tactile/and visual cueing provided for safety, AD management, directional change, and overall safety. Balance: Static Sitting: Good Dynamic Sitting: Good Static Standing: Fair Dynamic Standing: fair Special Tests: Mobility Limitations Standardized Measure [facility] AM-PAC 6 clicks Basic Mobility Inpatient Short Form: Raw Score: 18 CMS Score: 47% deficit Informed Consent/Education: Patient and patient's have been instructed in purpose of PT consult and plan of care. ASSESSMENT: Safety awareness, along with impulsivity, continues to increase risk for falls. Session tolerance and ability to follow instructions contribute to good prognosis in achieving mobility goals below. unable to provide needed physical assistance for who currently requires assist of 1for safe mobility ADL performance. Goals: Goals X1 week 1. Supine-Sit SBA NOT MET, CONTINUE 2. Sit-Supine SBA NOT MET, CONTINUE 3. Sit-Stand CGx1 to front wheeled walker NOT MET, CONTINUE 4. Stand-Sit CG X1 with FWW NOT MET, CONTINUE 5. Bed-Chair CGx1 with FWW NOT MET, CONTINUE 6. Chair-Bed CGx1 with FWW NOT MET, CONTINUE 7. CGx1 with gait on level surface with use of FWW for at least 15-30 feet (enough to cover bedroom<>bathroom and bedroom<>kitchen distances at home) NOT MET, CONTINUE 8. Supervision with home exercise program NOT MET, CONTINUE 9. Fair static and dynamic standing balance/tolerance NOT MET, CONTINUE Plan of Care/Treatment Plan: 1-2x/day, 7 days/week x 1 week. Plan of care has been reviewed with the SALES AND MERCHANDISING ASSOCIATE providing the service under Physical Therapy direction. Initiate Physical Therapy intervention for strengthening, bed mobility, transfers, gait, stairs, balance training, use of assistive device. -Continue training with and use of FWW for all mobility performance to maximize independence and reduce fall risk. DISCHARGE RECOMMENDATIONS: [] Home with no services [] [] Home with services [specify] [] Home with outpatient PT [] [] SNF for continued rehabilitation [] [] Dental Hygiene Instructor Care [] [X] SNF versus LTC based on ability to participate and progress TREATMENT CODE/TIME: 23962 x 20 minutes for 1 unit (13:33-13:53).
[2023-06-08 15:25] VITALS: BP 129/91; PULSE 73; RESP 19; TEMP 36; O2SAT 97
--- NOTE | 2023-06-08 18:11 | PDOC.CMPRO ---
Date of service: 06/08/23 Time of Service: 18:11 Care Management Progress Note Progress Note Text Progress Note Text: Ilya will be transitioned to SB-1 today to continue working with PT. A request for prior authorization has been submitted to his insurance company; a determination is expected tomorrow. SDOH(Care Management) Screening Will the Patient Participate in the Screening?: Unable to obtain
== END 2023-06-08 18:53 | disposition swing bed (61) | DRG 65 ==
LOC: ER 11:01 → ICU 13:12 → MS 05-28 11:30
PROVIDERS: Family Medicine; Internal Medicine; Student in an Organized Health Care Education/Training Program; Admitting Provider Internal Medicine; Emergency Provider Student in an Organized Health Care Education/Training Program; PCP Nurse Practitioner Family; Visit Provider Internal Medicine
DX: I63.49 Cerebral infarction due to embolism of other cerebral artery (principal); I48.3 Typical atrial flutter; Q04.6 Congenital cerebral cysts; E03.9 Hypothyroidism, unspecified; E78.5 Hyperlipidemia, unspecified; K21.9 Gastro-esophageal reflux disease without esophagitis; R45.1 Restlessness and agitation; G47.10 Hypersomnia, unspecified; F90.9 Attention-deficit hyperactivity disorder, unspecified type; N18.9 Chronic kidney disease, unspecified; I12.9 Hypertensive chronic kidney disease with stage 1 through stage 4 chronic kidney disease, or unspecified chronic kidney disease; R73.03 Prediabetes; R41.89 Other symptoms and signs involving cognitive functions and awareness; R26.89 Other abnormalities of gait and mobility; H53.462 Homonymous bilateral field defects, left side; G25.3 Myoclonus
CPT/HCPCS: 00123; 36415; 36416; 70496; 70498; 80048; 80053; 80061; 80076; 82962; 92526; 92610; 93005; 95816; 95822; 96374; 97110; 97112; 97116; 97163; 97167; 97530; 97535; 99223; 99231; 99232; 99291; J1650; 70450; 70551; 81003; 81015; 83036; 83735; 84443; 84484; 85025; 85730; 87086; 93010; 93306; 94640; 99233; 99239; 99310; J0650; J1630; J2060; J2250; J2359; J2470; J3360; J3480; J3486; J7620

== ENCOUNTER → 2023-05-22 08:00 | Outpatient (BNVA) | payer MEDICARE, SELFPAY | PROVIDERS: PCP Nurse Practitioner Family; Referring Provider Nurse Practitioner Family; Visit Provider Psychiatry & Neurology Neurology ==

== ENCOUNTER 2023-06-08 09:21 | Inpatient (IN) | payer MEDICARE, SELFPAY ==
--- NOTE | 2023-06-08 12:13 | W.PM.HP.N ---
Date of service: 06/08/23 Time of Service: 12:14 Assessment and Plan Assessment and plan (1) Acute CVA (cerebrovascular accident): Status: Acute Assessment and plan: S/p embolic CVA right occipital lobe, right temporal lobe and bilateral thalami with some microhemorrhages in the right thalamus and right posterior occipital lobe. Deficits wax and wane: cognitive dysfunction, agitation/sedation, gait imbalance, probable vision loss. Continue depakote 250 mg BID; check LFTs in a few days trial of Provigil to see if we can improve his alertness during the day Will also trial marinol to improve his eating Now on apixaban for PAF and treatment of embolism continue w/ P.T. (2) Atrial flutter: Status: Resolved Assessment and plan: Converted to NSR (new diagnosis). The likely cause of the embolic CVA. He is on atenolol. 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 Will need repeat MRI scan in 6 months as outpatient. (4) Hypothyroidism, unspecified: Status: Chronic Assessment and plan: Continue levothyroxine. Qualifiers: Hypothyroidism type: unspecified Qualified Code(s): E03.9 - Hypothyroidism, unspecified (5) Hypertension: Status: Chronic Assessment and plan: He is on atenolol. BPs seem mostly controlled. Continue this. Qualifiers: Hypertension type: essential hypertension Qualified Code(s): I10 - Essential (primary) hypertension (6) Hyperlipidemia: Status: Chronic Assessment and plan: Continue atorvastatin. Qualifiers: Hyperlipidemia type: unspecified Qualified Code(s): E78.5 - Hyperlipidemia, unspecified (7) GERD (gastroesophageal reflux disease): Status: Chronic Assessment and plan: Continue nexium. Qualifiers: Esophagitis presence: esophagitis presence not specified Qualified Code(s): K21.9 - Gastro-esophageal reflux disease without esophagitis (8) DVT prophylaxis: Status: Acute Assessment and plan: now on apixaban (9) Discharge planning issues: Status: Acute Assessment and plan: Full code PT/OT/Speech/Palliative care admit to swing bed status discussed with DR Pang History of Present Illness History of Present Illness Chief Complaint: cva Narrative: This is a 78-year-old male patient past medical history significant for hypertension hyperlipidemia chronic kidney disease hypothyroidism GERD ADHD depression prediabetes who is a vegetarian and quite active who presented to the emergency department with with AMS and agitation in the setting of acute R occipital and thalamic strokes with possible L temporal ischemia. He was admitted under hospitalist services with neurologic consultation. Hospital course complicated with significant agitation requiring lorazepam propofol and Precedex to control his symptoms. His hospital course was prolonged secondary to this agitation restlessness and confusion. He was eventually started on Geodon with marked improvement in his symptoms over time. While being monitored on telemetry, noted to have atrial flutter and was started on low-dose beta-elbert. This is most likely the etiology of his embolic CVA. He was initially not a candidate for anticoagulation due to the subacute timing of his stroke but it was safely started on apixaban on June 05 which he has been tolerating well. He has been working with physical therapy and has been reambulated. He still does require significant supervision and has been requiring assistance with meals. He was also noted to be somnolent during the day and was started on modafinil. He was also started on Marinol to help increase appetite. Case management has been following closely for discharge planning. Deficits that continue to wax and wane include cognitive dysfunction agitation/sedation, gait imbalance and probable vision loss he will require skilled rehabilitation prior to final disposition. He was started on Depakote per neurology recommendations, thus liver functions will need to be followed. Also noted to have a colloid cyst of the brain with no evidence of hydrocephalus. He will need an repeat MRI in 6 months. he is being admitted to [facility] level [address] Pang Review of Systems All systems reviewed & are unremarkable except as noted in HPI and below PFSH All Active Problems (Updated 06/05/23 @ 18:04 by Alix Frey NP) Hypersomnolence (Acute) Agitation (Acute) Palliative care patient (Acute) Colloid cyst of brain (Acute) Discharge planning issues (Acute) DVT prophylaxis (Acute) Hypertension (Chronic) At risk for falls (Acute) Acute CVA (cerebrovascular accident) (Acute) CKD (chronic kidney disease) (Acute) Insomnia, unspecified (Chronic 07/09/16) IFG (impaired fasting glucose) (Chronic 03/19/16) Hypothyroidism, unspecified (Chronic 04/23/15) Hypertension (Chronic 12/11/14) Hyperlipidemia (Chronic 04/23/15) GERD (gastroesophageal reflux disease) (Chronic 12/11/14) ADHD (attention deficit hyperactivity disorder), combined 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 Calvillo) 10/2017 Surgical History Status post cholecystectomy [facility] [place] Colonoscopy - IV Sedation (01/01/16) Family History Mother Personal history of malignant neoplasm BREAST Heart disease VALVE REPLACEMENT Father Personal history of malignant neoplasm SKIN Brother Essential hypertension Hyperlipidemia Grandfather Personal history of malignant neoplasm Grandfather Heart disease Grandmother Stroke Grandmother No problems noted. 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 Duration: 60-90 minutes/day Frequency: daily Meds Allergies and Home Medications Allergies Allergy/AdvReac Type Severity Reaction Status Date / Time bupropion AdvReac Other (See Verified 05/21/23 07:27 Comment) Home Medications Medication Instructions Recorded Confirmed Type cholecalciferol (vitamin D3) 25 1,000 unit PO DAILY 09/29/14 05/21/23 History mcg (1,000 unit) capsule (Vitamin D3) multivitamin (Daily Multi-Vitamin 1 ea PO DAILY 09/29/14 05/21/23 History tablet) omega-3 acid ethyl esters 1 gram 2 gm PO BID #120 tab-caps 12/19/14 05/21/23 History capsule melatonin 10 mg capsule 10 mg PO HS PRN 11/10/18 05/21/23 History glucosamine HCl 1,500 mg tablet 1,500 mg PO DAILY 08/02/20 05/21/23 History atenolol 50 mg tablet See Rx Instructions .Route 06/30/22 05/21/23 Rx .COMPLEX #90 tabs tamsulosin 0.4 mg capsule (Flomax) 0.4 mg PO DAILY #90 tab-caps 07/30/22 05/21/23 Rx losartan 100 mg tablet 100 mg PO DAILY #90 tab-caps 08/14/22 05/21/23 Rx trazodone 50 mg tablet 50 mg PO HS #90 tab-caps 09/30/22 05/21/23 Rx levothyroxine 137 mcg tablet See Rx Instructions .Route 12/25/22 05/21/23 Rx .COMPLEX #90 tabs omeprazole 20 mg capsule,delayed 20 mg PO DAILY #90 tab-caps 01/05/23 05/21/23 Rx release Exam Const General: cooperative, comfortable and no acute distress Nutritional Appearance: thin Orientation: alert, awake and other (not responding verbally, nods head) HENMT Head: normal to inspection, normocephalic and atraumatic Mouth: oral mucosae normal Neck Neck: normal visual inspection, full ROM and no JVD Resp Effort & Inspection: normal respiratory effort Cardio Rate: regular rate Rhythm: regular rhythm GI Inspection: normal to inspection Skin General skin exam: no rashes or lesions noted Neuro General: patient alert, patient awake, gait normal (uses walker) and tone normal Extrem General: normal to inspection, full ROM and no pedal edema Psych Appearance: grossly normal Mental Status: mental status grossly normal Speech and Movement: speech and movement abnormal (not responding verbally but nodding appropriately) Mood: congruent mood Affect: normal affect Time Spent Time spent with Patient: 55-74 minutes Time was spent: preparing to see the patient(eg.review tests), obtaining and/or reviewing separately otained hiistory, ordering medications,tests, procedures, indepentently interpreting results, counseling the patient and care coordination
--- NOTE | 2023-06-08 15:09 | IN_ITS ---
PT Notes Inpatient Physical Therapy Initial Evaluation Date: 06/08/2023 Referring Doctor: Angel Pang MD PT Orders: PT CONSULT: extended stay- weakness Precautions: Standard. Activity as tolerated. Impaired safety awareness. Patient Profile/Admitting Diagnosis: Patient is a 78-year-old male admitted on May 21, 2023. Arrived in emergency department suffering acute CVA. Patient had right occipital stroke and left temporal stroke with questionable embolus as a source. He participated in PT intervention during the course of his acute care stay, and has now transitioned to Swing Bed level of care to maximize mobility and safety. PMHX: PFSH All Active Problems (Updated 05/21/23 @ 16:56 by Angel Pang MD) Discharge planning issues (Acute) DVT prophylaxis (Acute) Hypertension (Chronic) At risk for falls (Acute) Acute CVA (cerebrovascular accident) (Acute) CKD (chronic kidney disease) (Acute) Insomnia, unspecified (Chronic 07/09/16) IFG (impaired fasting glucose) (Chronic 03/19/16) Hypothyroidism, unspecified (Chronic 04/23/15) Hypertension (Chronic 12/11/14) Hyperlipidemia (Chronic 04/23/15) GERD (gastroesophageal reflux disease) (Chronic 12/11/14) ADHD (attention deficit hyperactivity disorder), combined 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 Calvillo) 10/2017 Surgical History [facility] ([facility]) Social History/Home Situation: Lives with his in [facility]. He is primary caregiver for his , who is wheelchair bound. Retired [employer]. No family in the area. Independent at baseline. Equipment Owned/DME: Undetermined Subjective: Ilya initially declines PT consultation. Agreeable to getting up with PT later, and is cooperative on second attempt. Objective: General Observation: Sitting up in chair, no lines. Nursing present for patient supervision. Demonstrates difficulty grasping items, requiring multiple attempts to reach items. Misjudges table surface location when attempting to place cup down. Struggles to place straw to mouth, again, requiring multiple attempts. Mental Status: Responds when name is called. Able to follow single step commands. Pain: None verbalized/expressed Vital Signs: Closely monitored via nursing ROM: Right Upper Extremity: Grossly WFL Left Upper Extremity: Grossly WFL Right Lower Extremity: Grossly WFL Left Lower Extremity: Grossly WFL Strength: Right Upper Extremity: Shoulder flexion 4+/5. Biceps 5/5. Triceps 5/5. Shredded Filler Hopper Feeder is strong and equal. Left Upper Extremity: Shoulder flexion 4+/5. Biceps 5/5. Triceps 5/5. Shredded Filler Hopper Feeder is strong and equal. Right Lower Extremity: Able to demonstrate active SLR without extension lag. Able to pump ankles. Left Lower Extremity: Able to demonstrate active SLR without extension lag. Able to pump ankles. Bed Mobility/Transfers: Rolling L/R: supervision Supine-sit: ?supervision ? Sit-supine: ?supervision? ? Sit?stand: CGA, with cues for hand placement and equipment management Stand-sit: SBA with cues for hand placement Scooting up in chair: independent, although with need for various cues to achieve independent completion Gait: Ambulates 150 feet with front-wheeled walker requiring repeated assistance with maneuvering walker. Minimal assist and maximal verbal, tactile/and visual cueing provided for safety, AD management, directional change, and overall safety. During ambulation, Ilya requires max cues to navigate around obstacles. He attempts to enter patient rooms, requiring cueing continuously. Balance: Static Sitting: Good Dynamic Sitting: Good Static Standing: Fair Dynamic Standing: fair Special Tests: Mobility Limitations Standardized Measure [facility] AM-PAC 6 clicks Basic Mobility Inpatient Short Form: Raw Score: 19 CMS Score: 42% deficit Treatment: Initial Evaluation (73861) ASSESSMENT: Patient is a 78 year male s/p CVA resulting in cognitive dysfunction and decreased kinesthetic awareness. He demonstrates good strength and static balance, however his limited safety awareness and impulsivity continue to increase risk for falls. Session tolerance and ability to follow instructions contribute to good prognosis in achieving mobility goals below. unable to provide needed physical assistance for who currently requires assist of 1 for safe mobility ADL performance. Goals: Goals X1 week 1. Supine-Sit SBA (MET) 2. Sit-Supine SBA (MET) 3. Sit-Stand CGx1 to front wheeled walker (MET) 4. Stand-Sit CG X1 with FWW (MET) 5. Bed-Chair CGx1 with FWW (MET) 6. Chair-Bed CGx1 with FWW (MET) 7. CGx1 with gait on level surface with use of FWW for at least 15-30 feet (enough to cover bedroom<>bathroom and bedroom<>kitchen distances at home) (MET) 8. Supervision with home exercise program NOT MET, CONTINUE 9. Fair static and dynamic standing balance/tolerance NOT MET, CONTINUE NEW GOALS: 1. Demonstrate improved safety with FWW management, demonstrating ability to ambulate 100' without need for assistance to FWW Plan of Care/Treatment Plan: 1-2x/day, 7 days/week x 1 week. Plan of care has been reviewed with the HOUSEKEEPING ATTENDANT providing the service under Physical Therapy direction. Initiate Physical Therapy intervention for strengthening, bed mobility, transfers, gait, stairs, balance training, use of assistive device. -Continue training with and use of FWW for all mobility performance to maximize independence and reduce fall risk. DISCHARGE RECOMMENDATIONS: [] Home with no services [] [] Home with services [specify] [] Home with outpatient PT [] [] SNF for continued rehabilitation [] [] Business Applications Manager Care [] [X] SNF versus LTC based on ability to participate and progress TREATMENT CODE/TIME: 0660-3926 ([id number]) Margaret Rahman, PT, DPT [facility]
--- NOTE | 2023-06-08 18:17 | CMSA_ITS ---
Date of service: 06/08/23 Time of Service: 18:17 SB Psychosocial/Act. Asswv Hospital Admission Admission Date: 05/21/23 Admission From:: [place], [place] Diagnosis:: Acute CVA Swing Bed Admission Swing Bed Admit Date:: 06/08/23 Swing Bed Level of Care: Level 1/SNF Social Supports PREVIOUS FUNCTIONAL STATUS/SOCIAL/FAMILY SUPPORTS:: Ilya live with his Tara in [facility]. They have no children or any relatives in the area. Prior to his stroke, Ilya was independent and cared for himself and his . He maintained the household, paid the bills etc. Education Highest Grade Completed:: some college Work History Employment Status:: retired [place]: No [place]'s Spouse: No Benefits Financial: Social Security Jehovah'S Witness Active Pentecostalism Member:: No Advance Directives for Healthcare If no AD, do you want more information:: No Community Community Supports/Involvement: Ilya and his have no family nearby and very few friends. Interests Hobbies:: collecting cares. Has a [employer] Other Activities:: Ilya has and uses a computer and Ipad for entertainment and communication Present Functional Status Physical Abilities:: balance and gait affected by stroke Cognitive:: stroke has made Ilya impulsive and easily irritated. Improving with medication adjustments Communication:: poor. Speech indistinct and often does not make sense Behavior:: impulsive, was aggressive early in admission but more cooperative and compliant now. Medical History General Health:: good prior to stroke Admission Data Reason for Swing Bed Admission:: no safe discharge plan Assessment: Ilya is a 78 year old man admitted to [facility] after suffering multiple cerebral infarcts Customer Relations Representative: Estephanie Hernandez Date Assessment was completed:: 06/08/23
--- NOTE | 2023-06-08 18:18 | CM.SWINGPC ---
Date of service: 06/08/23 Time of Service: 18:18 Swingbed Plan of Care Activites/Discharge Plan of care: SWING BED PROGRAM ACTIVITIES/DISCHARGE PLAN OF CARE ACTIVITIES PLAN Date:06/08/23 Identified Need:acticity plan Intervention/Plan:Ilya suffered significant cognitive impairment as a result of his strokes. He has limited ability to engage in conversation or activities. He bazan at times watch TV and enjoys going for walks with staff,and visiting with his who comes daily. Initials [facility] DISCHARGE PLAN Date:06/08/23 Identified Need:safe discharge plan Intervention/Plan:Ilya's discharge plan is unclear at this time. Referrals have been sent to every SNF in [place] and many in [place] with no bed offers.His is unable to care for him at home as she has her own health issues. Initials: [facility]
[2023-06-08] MEDS: Apixaban 5 MG TAB PO (21:21)
[2023-06-08] MEDS: Divalproex 125 MG SPRINKLE 250 MG PO (21:22)
[2023-06-08] MEDS: Miconazole 2% Topical Powder 85 GM BTL TP (21:23)
[2023-06-08 22:32] VITALS: BP 147/77; PULSE 76; RESP 20; TEMP 36.3; O2SAT 97
--- NOTE | 2023-06-09 08:37 | CMPROGNOTE_ITS ---
Date of service: 06/09/23 Time of Service: 08:37 Care Management Progress Note Progress Note Text Progress Note Text: S/O:Ilya was sitting up in bed visiting with Tara when CM met with him. He was quite sleepy and kept rubbing his face. CM was asking Tara questions to complete the swingbed assessment. Ilya seemed to be listening and was whispering to Tara throughout the conversation. CM asked Tara what he was saying but she stated she did not know. Fernandodianne went to see her PCP today and was told that she looks pale and will need to get an infusion tomorrow and the next day but did not have more information than that. She shared that she has a follo w up appointment on Thursday. Tara still has not contacted the [place] [facility].Today CM provided her with a patient Financial Assist packet and a Supervisor Component Assembler Medicaid application. Tara and Ilya have a friend Serafin who may be willing to assist with their completion. A: Ilya is a 78 year old man admitted on 05/21/23 with an acute CVA P:Ilya is likely going to need to transfer to a SNF for short term rehab, if not for director long term care care. Referrals have been sent to [facility], [facility], [facility], [facility] and [facility]. A referral was also sent to [facility] [place] [facility] for long range planning, options counseling and community case management for both Ilya and his . CM will follow and continue to asses for discharge needs.
[2023-06-09 09:53] VITALS: BP 137/85; PULSE 77; RESP 17; TEMP 36.3; O2SAT 93
--- NOTE | 2023-06-09 09:57 | OT.INIE ---
Occupational Therapy Notes Inpatient Occupational Therapy [facility] Bed 1 Evaluation Date: 06/09/23 Referring Doctor: Dr. Pang OT Orders: Non Urgent Precautions: Fall, standard, Full PATIENT PROFILE/ADMITTING DIAGNOSIS: Pt is a 78 year old male who is admitted to [facility] for the following dx of right occipital and m stroke and left temporal stroke with questionable embolus as a source. He was first admitted into the ICU and transitioned to [facility]. He is currently transitioning to [facility] B1 level of care at this time. Past Medical History: All Active Problems (Updated 05/21/23 @ 16:56 by Angel Pagn MD) Discharge planning issues (Acute) DVT prophylaxis (Acute) Hypertension (Chronic) At risk for falls (Acute) Acute CVA (cerebrovascular accident) (Acute) CKD (chronic kidney disease) (Acute) Insomnia, unspecified (Chronic 07/09/16) IFG (impaired fasting glucose) (Chronic 03/19/16) Hypothyroidism, unspecified (Chronic 04/23/15) Hypertension (Chronic 12/11/14) Hyperlipidemia (Chronic 04/23/15) GERD (gastroesophageal reflux disease) (Chronic 12/11/14) ADHD (attention deficit hyperactivity disorder), combined 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 Calvillo) 10/2017 Surgical History [facility]) Social History/Home Situation: Unable to assess from discussion with pt. I know pt has a and lived at home prior. He is unable to to give details about his baseline level of function and notes that he is at home at this moment. Equipment owned/DME: Unable to assess. SUBJECTIVE: Pt was lying in bed when OT arrived. He is able to open his eyes slightly but is not verbally communicating for all of his answers only whispering at times. OBJECTIVE: General Observation: Pt is peacefully lying in bed, he can open his eyes and has ideal AROM with vc. Mental Status: Alert to name, thinks he is at home Pain: Pt says no and no pain behaviors noted. ROM: RUE AROM WFL with slower processing to verbal cues but able to perform L UE AROM WFL with slower processing to verbal cues but able to perform STRENGTH: shoulder flexion 4/5, bicep and tricep (B) 4/5, civil drafting technician strength is weak however pt really does not squeeze tightly just off and on. FUNCTIONAL MOBILITY/ADLS: BATHING Pt refused actualy bathing routines so OT and pt perform AROM for performance Bathing UE mod vc and tactile cue pt was able to (I) touch his face, (B) UE with min vc to underarms, (I) abdomen,. Bathing LE able to actively touch from hip to toes without limitations *Bathing will required verbal and tactile cues throughout. DRESSING seated in chair with mod vc and mod (A) Dressing UE Pt was able to lift his (B) UE off chair to (A) with dressing, max (A) with pulling on to arms Dressing LE (I) david and doff (B) socks GROOMING NT TOILETING NT *Pts fatigue limits him in his tolerance to activity but he is able to perform AROM and has ROM ideal for (I) in his ADL routines. BALANCE: Static sitting Good Dynamic Sitting Good with max (A) support to pts core and back SPECIAL TESTS: Daily Activity Limitations Standardized Measure [facility] AM -PAC ?6 clicks? Daily Activity Inpatient Short Form: Raw score: 14 Standardized score: 33.39 CMS score: 59.67% INFORMED CONSENT/EDUCATION: Pt instructed in purpose of OT Consult and plan of care. ASSESSMENT: Patient is a 78-year-old male referred to occupational therapy services with diagnosis of acute CVA, hypersomnolence, agitation, atrial flutter, colloid cyst of brain, DVT prophylaxis, HTN, at risk for falls. Patient presents with clinical signs and symptoms consistent with dx, as demonstrated by the following impairment level findings/functional limitations: Impairments in ADL/IADL and leisure activities, decreased gross and fine motor control, requires mod-max (A) vc and tactile cues at times, decreased functional activity time with increased fatigue, decreased cognitive awareness and agitation related to CVA dx, decreased executive processing and functioning without vc, decreased task initiation without vc. [facility] score 14 Patient is assessed as a high 71432 complexity based on the following: History: see above Examination: see functional limitations as noted above Presentation: evolving Decision Making: high complexity GOALS Goals x1 week 1. Oral Hygiene with mod vc pt will be able to brush his teeth 2. Dressing- with mod (A) pt will be able to (A) with UE dressing by lifting his UE and mod LE by lifting his legs (I) 3. Bathing- seated in chair with min vc (I) UE and mod (A) LE 4. Toileting- mod (A) on commode 5. Eating- Mod vc (I) with hand to mouth PLAN OF CARE/TREATMENT PLAN: 1x/day, 3-5 days/ week x 1week Initiate Occupational Therapy Services for bathing, dressing, grooming, toileting, eating, transfer training. DISCHARGE RECOMMENDATIONS OT recommends SNF vs. LTC TREATMENT TIME/MINUTES/CODES 51143, 15887, 20 minutes Shaila Gerard OTR/L [facility] [place], [place]
[2023-06-09] MEDS: Miconazole 2% Topical Powder 85 GM BTL TP ×2 (11:52→19:37)
[2023-06-09] MEDS: Divalproex 125 MG SPRINKLE 250 MG PO ×2 (11:52→19:36)
[2023-06-09] MEDS: Modafinil 100 MG TAB PO (11:53)
[2023-06-09] MEDS: Dronabinol 2.5 MG CAP PO ×2 (11:53→15:53)
[2023-06-09] MEDS: Docusate Sodium 100 MG/10 ML CUP PO ×2 (11:54→19:36)
[2023-06-09] MEDS: Atenolol 50 MG TAB PO (11:54)
[2023-06-09] MEDS: Apixaban 5 MG TAB PO ×2 (11:54→19:37)
[2023-06-09] MEDS: Atorvastatin 40 MG TAB PO (19:36)
--- NOTE | 2023-06-09 22:01 | STREC_ITS ---
Date of service: 06/09/23 Time of Service: 12:10 Speech Therapy Recommendations Report ST Recommendations: RELAY CHECKER attempting to contact patient today during lunch meal - per nursing he has been unwilling to take any liquids this date and with minimal PO intake there fore not appropriate for PO trials with RELAY CHECKER at this time. RELAY CHECKER to continue to follow and will re-attempt contact tomorrow.
--- NOTE | 2023-06-09 22:01 | PDOC.STREC ---
Date of service: 06/09/23 Time of Service: 12:10 Speech Therapy Recommendations Report ST Recommendations: HANDLE MACHINE OPERATOR attempting to contact patient today during lunch meal - per nursing he has been unwilling to take any liquids this date and with minimal PO intake therefore not appropriate for PO trials with HANDLE MACHINE OPERATOR at this time. HANDLE MACHINE OPERATOR to continue to follow and will re-attempt contact tomorrow.
[2023-06-10 01:12] VITALS: BP 121/74; PULSE 67; RESP 14; TEMP 36.8; O2SAT 96
[2023-06-10] MEDS: Dronabinol 2.5 MG CAP PO ×2 (07:38→15:10)
[2023-06-10] MEDS: Docusate Sodium 100 MG/10 ML CUP PO ×2 (07:38→20:05)
[2023-06-10] MEDS: Divalproex 125 MG SPRINKLE 250 MG PO ×2 (07:39→20:05)
[2023-06-10] MEDS: Apixaban 5 MG TAB PO ×2 (07:39→20:06)
[2023-06-10] MEDS: Atenolol 50 MG TAB PO (07:39)
[2023-06-10] MEDS: Modafinil 100 MG TAB PO (07:39)
[2023-06-10] MEDS: Miconazole 2% Topical Powder 85 GM BTL TP ×2 (07:40→20:07)
[2023-06-10 08:19] VITALS: BP 119/80; PULSE 69; RESP 17; TEMP 36; O2SAT 95
--- NOTE | 2023-06-10 10:33 | SPP_ITS ---
Date of service: 06/10/23 Time of Service: 10:33 Subjective Ilya was seen for dysphagia f/u today midmorning. His eyes remained closed but he was responsive to clinician questions with nod/head shake and followed simple instructions/suggestions without error. Per nursing he refused his breakfast and liquids this morning. Oral care recently provided. He did take his meds earlier, but aspirated on a liquid formulation. He continues to take mildly thickened liquids otherwise and generally tolerates these well per nursing report. Objective/Assessment/Plan Objective Treatment Techniques & Outcomes: PO trials: Mildly thick liquids via straw: Consecutive sips x2 Thin liquids via straw: Single (cued) x2 and consecutive sips x1 Patient refusing any further trials. Oral phase: Good lip seal and adequate straw sucking, no anterior loss Pharyngeal Phase: Timely pharyngeal initiation for rapid consecutive sips. With consecutive sips thin liquids patient stops, opens mouth before swallowing last sip and aspirates on presumed anterior loss into pharynx. Tolerates cued single sips of thin liquids well, and tolerates mildly thick consecutive sips without s/sx aspiration. Patient/Caregiver/Staff Education: Provided to nursing/CUSHION BUILDER re: WHARF TENDER HEAD findings/aspiration precautions. Assessment Patient with recent reports of aspiration on liquid medications. Demonstrates likely aspiration with thin liquids this date, likely secondary to poor sequencing of respiration & swallow, attention/cognitive factors. Continue to recommend mildly thick liquids. Liquid medications should be thickened or mixed into a few oz of thickened liquid or applesauce. WHARF TENDER HEAD will continue to follow patient for trials of upgraded textures or for re- assessment of patient overall status changes or level of care increases. RECOMMENDATIONS: Diet: 4-Pureed/Extremely Thick Liquids: 2- Mildly Thick Liquids Other: Medications - Crushed (If pt alert, OK small capsules whole) in applesauce/custard/pudding followed by sips of liquid. View oral cavity and use swab in cheeks to ensure he is not pocketing. Liquid formulations should be thickened. [place] upright for all PO. Out of bed/in chair encouraged for meals. Encourage physical mobility as tolerated. Oral hygiene before/after PO intake using either suction swab or toothbrush if patient cognitively appropriate PO intake only when awake/alert Strategies/Adaptations/Assistive Equipment: Reduce auditory and/or visual distractions when eating Small sips and bites when eating Slow rate of intake Posture/Positioning Needs: Maintain upright position at least 30 minutes after meals Supervision: Direct supervision via of [facility] staff, assist w/feeding Plan Patient to be followed while on unit for diet upgrade as appropriate. 3-4x/weekly, 2 weeks Continue monitor need for MBSS Upon Discharge, recommend WHARF TENDER HEAD services at nursing home Chemical Applicator Goals: Patient will remain free from aspiration-related illness, malnutrition, and de hydration. Short Term Goals: Patient will tolerate Puree Diet and Thin liquids without overt s/s aspiration across 2/2 visits. Patient will tolerate PO trials for consideration of diet upgrade without overt s/s aspiration across 2/2 visits. Recommendations Total Time Spent: 15min: 10:00-10:15am
--- NOTE | 2023-06-10 14:36 | PT.INNT ---
Date of service: 06/10/23 Time of Service: 09:55 PT Notes Visit Reasons: s/p embolic CVA Patient refuses therapy at 9:55, 10:41, 11:20, and 12:53. At 14:23, patient initially appears agreeable, allows this clinician to lower the footrest on the recliner, however he immediately puts the footrest back up and waves this clinician away. Will resume tomorrow.
[2023-06-10 16:14] VITALS: BP 103/69; PULSE 64; RESP 14; TEMP 36.6; O2SAT 100
--- NOTE | 2023-06-10 16:58 | CMPROGNOTE_ITS ---
Date of service: 06/10/23 Time of Service: 16:59 Care Management Progress Note Progress Note Text Progress Note Text: S/O:Ilya was sitting up in a chair when CM met with him. He seemed lethargic today and did not interact as much with CM or staff. Per his sitters, he also did not eat much. Ilya's CLINICAL ASSESSMENT MANAGER reported that his urine was dark and she felt his color was not as good. he also refused to work with PT on 5 occasions today. Tara has not visited with Ilya yet today. A: Ilya is a 78 year old man admitted on 05/21/23 with an acute CVA P:Ilya is likely going to need to transfer to a SNF for short term rehab, if not for terminal make up operator care. Referrals have been sent to [facility], [facility], [facility], [facility] and [facility]. A referral was also sent to [facility] for long range planning, options counseling and community case management for both Ilya and his . CM will follow and continue to asses for discharge needs.
[2023-06-10] MEDS: Atorvastatin 40 MG TAB PO (20:06)
[2023-06-10 22:42] VITALS: BP 127/83; PULSE 77; RESP 17; TEMP 36.5; O2SAT 95
[2023-06-11] MEDS: Dronabinol 2.5 MG CAP PO ×2 (05:55→15:42)
[2023-06-11 07:33] VITALS: BP 101/68; PULSE 69; RESP 12; TEMP 36.3; O2SAT 93
[2023-06-11 07:36] VITALS: BP 101/68; PULSE 70; RESP 12; TEMP 36.3; O2SAT 94
[2023-06-11 09:03] VITALS: BP 161/89; PULSE 71
[2023-06-11] MEDS: Docusate Sodium 100 MG/10 ML CUP PO ×2 (09:06→19:29)
[2023-06-11] MEDS: Modafinil 100 MG TAB PO (09:08)
[2023-06-11] MEDS: Apixaban 5 MG TAB PO ×2 (09:09→19:29)
[2023-06-11] MEDS: Atenolol 50 MG TAB PO (09:09)
[2023-06-11] MEDS: Divalproex 125 MG SPRINKLE 250 MG PO ×2 (09:12→19:32)
[2023-06-11] MEDS: Miconazole 2% Topical Powder 85 GM BTL TP ×2 (09:15→19:33)
--- NOTE | 2023-06-11 09:51 | PT.INTREAT ---
Date of service: 06/11/23 Time of Service: 09:36 PT Notes Visit Reasons: s/p embolic CVA Inpatient Physical Therapy Treatment Note [facility] Date: 06/11/23 PRECAUTIONS: Fall, standard, activity as tolerated. Impulsive. Poor safety awareness. SUBJECTIVE: Patient has a 1:1 sitter with him today. He reports shaving at 3:50 and the LOAN SPECIALIST sitter clarifies that they just finished getting cleaned up and today that did include shaving his face. OBJECTIVE: Patient sitting up in bedside recliner, feet down, with a blanket over his legs. Holding his head in his hands. Denies pain.? PAIN: none reported. VITALS: monitored by nursing staff. Therapeutic Activities ([id number]): Direct one-on-one instruction in dynamic activities to improve functional performance. ? BED MOBILITY/TRANSFERS? Rolling L/R: not assessed Supine-sit: not assessed ? Sit-supine: not assessed ? Sit-stand x3: CGA to min assist with gait belt for balance, verbal and tactile cues for limb placement and sequencing.?Stand-sit: CGA with gait belt, verbal and tactile cues for limb placement and sequencing.? Chair-Toilet: mod assist to steer walker, min assist at gait belt for balance, near-continuous verbal cues and encouragement to keep patient engaged and concentrating as well as demonstrating safe posture and gait sequence with assistive device. Patient demonstrates deficits in ambulation which may be caused by visual disturbance: Difficulty steering walker, tendency to crash into objects, requires repeated verbal and visual cues to location of toilet. Patient also rubs / covers his eyes nearly all the time during treatment, often removing one or both hands from walker to rub his eyes. ? Patient ambulates 30 feet within room with mod assist to steer walker and CGA for balance at gait belt. ? Provided skilled cues and instruction on performance and technique throughout. ASSESSMENT:? This clinician attempts to get patient to ambulate in the hallway, but patient turns abruptly around the moment he enters the hallway and returns to his recliner instead. Unclear why patient did not want to enter hallway. Perhaps too bright or too loud. Due to expressive aphasia, patient was unable to provide insight. PLAN: Continue treatment per plan of care within patient tolerance. Patient will benefit from continued skilled therapy to maximize functional recovery and minimize functional losses. Consult with hospitalist to find out whether patient's eye rubbing is cause for concern. TREATMENT CODE/TIME: 25 minutes beginning at 9:36
[2023-06-11 11:22] VITALS: BP 125/80; PULSE 74; RESP 16; TEMP 35.9; O2SAT 95
[2023-06-11] MEDS: Acetaminophen 325 MG TAB 650 MG PO (13:46)
--- NOTE | 2023-06-11 14:16 | SPP_ITS ---
Date of service: 06/11/23 Time of Service: 12:05 Subjective Ilya was seen for dysphagia follow-up with noon meal. He was alert, sitting upright in a chair. He covered his eyes with his hands for most of the meal, with whispering speech though mostly intelligible, some perseverative responses. At one pont Ilya was potentially hallucinating, grabbing for something and bringing it up to his lips in a sipping motion. Objective/Assessment/Plan Objective Treatment Techniques & Outcomes: PO Trials: L4 Puree mashed potatoes/gravy/roast beef & Vanilla Ice Cream L2 Mildly Thick - Gingerale, smoothie (thickener added) Positioning: Upright in a chair Respiratory Status: Tolerating room air Feeding: Full assist, with patient taking the spoon intermittently for approximately 50% of meal, given verbal prompting Oral Phase Findings: WFL for trials administered Pharyngeal Phase Findings: Cough x 2 noted, a few seconds following swallowing ice cream. Suspect penetration vs aspiration. No overt s/s aspiration with mildly thick liquids or additional puree solids Oral Care: Completed at end of meal Conversational/orientation questions: What are you eating? no response Is that vanilla, chocolate, or strawberry? vanilla. It's not my favorite. (accurate response) What season are we in? no response Is it winter or summer? Well, it's basically winter into summer Is your name Ilya? it's chocolate covered strawberry (perseveration from prior response) Is your name Garth or Ilya? Ilya Patient/Caregiver/Staff Education: Provided to nursing/TAILER OFF re: SUPERVISOR SEWER MAINTENANCE findings and recommendations Assessment Ilya tolerated noon meal well overall, with coughing noted x2, appearing directly related to ice cream. As ice cream can present as a thin liquid (melting within the temperature of the oral cavity) recommend ordering patient magic cups in replacement of regular ice cream- will edit diet order to reflect this. SUPERVISOR SEWER MAINTENANCE attempted to engage patient in conversation and questions - see above. Will continue to explore candidacy for cognitive-communication intervention. Support ongoing cognitive engagement (conversation, coloring, fidget blanket) and lights on/blinds open during daytime to reduce risk for further confusion/delirium. SUPERVISOR SEWER MAINTENANCE will continue to follow patient for trials of upgraded textures or for re- assessment of patient overall status changes or level of care increases. Continue to recommend strict aspiration precautions as outlined below, with dysphagia diet of pureed foods and mildly thick liquids. RECOMMENDATIONS: Diet: 4-Pureed/Extremely Thick Liquids: 2- Mildly Thick Liquids Other: Medications - Crushed (If pt alert, OK small capsules whole) in applesauce/custard/pudding followed by sips of liquid. View oral cavity and use swab in cheeks to ensure he is not pocketing. Liquid formulations should be thickened. [place] upright for all PO. Out of bed/in chair encouraged for meals. Encourage physical mobility as tolerated. Oral hygiene before/after PO intake using either suction swab or toothbrush if patient cognitively appropriate PO intake only when awake/alert Strategies/Adaptations/Assistive Equipment: Reduce auditory and/or visual distractions when eating Small sips and bites when eating Slow rate of intake Posture/Positioning Needs: Maintain upright position at least 30 minutes after meals Supervision: Direct supervision via of [facility] staff, assist w/feeding Plan Plan: Patient to be followed while on unit for diet upgrade as appropriate. 3-4x/weekly, 2 weeks Continue monitor need for MBSS Upon Discharge, recommend SUPERVISOR SEWER MAINTENANCE services at [facility] Assisted Goals: Patient will remain free from aspiration-related illness, malnutrition, and dehydration. Short Term Goals: Patient will tolerate Puree Diet and Thin liquids without overt s/s aspiration across 2/2 visits. Patient will tolerate PO trials for consideration of diet upgrade without overt s/s aspiration across 2/2 visits. Recommendations Total Time Spent: 25 minutes ([id number])
[2023-06-11 15:09] VITALS: BP 120/71; PULSE 68; RESP 14; TEMP 36.9; O2SAT 98
--- NOTE | 2023-06-11 16:34 | CMACTNOTE_ITS ---
Date of service: 06/11/23 Time of Service: 16:35 Care Management Activity Note Activity Note Text Activity Note Text: Ilya continues to wax and wane with presentation, though overall improving. Hospitalist reports behaviors have subsided, and Ilya is much more likely to be placed in SNF; coordination continues. MVP requested additional clinical information to continue to approve SWB1 necessity; PT reports Ilya was agreeable to engaging. PT completed form per MVP request. OT notes provided for review as well. PT: Therapeutic Activities ([id number]): Direct one-on-one instruction in dynamic activities to improve functional performance. ? BED MOBILITY/TRANSFERS? Rolling L/R: not assessed Supine-sit: not assessed ? Sit-supine: not assessed ? Sit-stand x3: CGA to min assist with gait belt for balance, verbal and tactile cues for limb placement and sequencing.?Stand-sit: CGA with gait belt, verbal and tactile cues for limb placement and sequencing.? Chair-Toilet: mod assist to steer walker, min assist at gait belt for balance, near-continuous verbal cues and encouragement to keep patient engaged and concentrating as well as demonstrating safe posture and gait sequence with brenda tive device. Patient demonstrates deficits in ambulation which may be caused by visual disturbance: Difficulty steering walker, tendency to crash into objects, requires repeated verbal and visual cues to location of toilet. Patient also rubs / covers his eyes nearly all the time during treatment, often removing one or both hands from walker to rub his eyes. ? Patient ambulates 30 feet within room with mod assist to steer walker and CGA for balance at gait belt. Speech: Respiratory Status: Tolerating room air Feeding: Full assist, with patient taking the spoon intermittently for approximately 50% of meal, given verbal prompting Conversational/orientation questions: What are you eating? no response Is that vanilla, chocolate, or strawberry? vanilla. It's not my favorite. (accurate response) What season are we in? no response Is it winter or summer? Well, it's basically winter into summer Is your name Ilya? it's chocolate covered strawberry (perseveration from prior response) Is your name Garth or Ilya? Ilya RECOMMENDATIONS: Diet: 4-Pureed/Extremely Thick Liquids: 2- Mildly Thick Liquids Other: Medications - Crushed (If pt alert, OK small capsules whole) in applesauce/custard/pudding followed by sips of liquid. View oral cavity and use swab in cheeks to ensure he is not pocketing. Liquid formulations should be thickened. [place] upright for all PO. Out of bed/in chair encouraged for meals. Encourage physical mobility as tolerated. Oral hygiene before/after PO intake using either suction swab or toothbrush if patient cognitively appropriate PO intake only when awake/alert Strategies/Adaptations/Assistive Equipment: Reduce auditory and/or visual distractions when eating Small sips and bites when eating Slow rate of intake Posture/Positioning Needs: Maintain upright position at least 30 minutes after meals Supervision: Direct supervision via of [facility] staff, assist w/feeding Plan Plan: Patient to be followed while on unit for diet upgrade as appropriate. 3-4x/weekly, 2 weeks Continue monitor need for MBSS Upon Discharge, recommend TRAFFIC ASSISTANT services at group home Closing Specialist Goals: Patient will remain free from aspiration-related illness, malnutrition, and dehydration. Short Term Goals: Patient will tolerate Puree Diet and Thin liquids without overt s/s aspiration across 2/2 visits. Patient will tolerate PO trials for consideration of diet upgrade without overt s/s aspiration across 2/2 visits.
[2023-06-11] MEDS: Atorvastatin 40 MG TAB PO (19:30)
[2023-06-12] MEDS: Acetaminophen 325 MG TAB 650 MG PO ×2 (02:35→23:05)
[2023-06-12] MEDS: Dronabinol 2.5 MG CAP PO (06:21)
[2023-06-12 08:44] VITALS: BP 107/71; PULSE 68; RESP 12; TEMP 36.4; O2SAT 64
[2023-06-12 10:57] LABS: HCT 45.4 % (40.0-50.0); HGB 15.9 g/dL (13.5-17.5); MCH 29.8 pg (27.0-33.0); MCV 85 fL (80-95); MPV 9.3 fL (8.0-11.0); Platelet Count 202 10^3/uL (130-400); RBC 5.34 10^6/uL (4.36-5.78); RDW 11.9 % (11.8-14.1); RDW-SD 36.2 fL; WBC 7.94 10^3/uL (4.4-10.8)
[2023-06-12 11:07] LABS: Anion Gap 8.8 mmol/L (3-11); BUN 29 mg/dL (7-18); CO2 32.2 mmol/L (21.0-32.0); CREATININE 1.4 mg/dL (0.70-1.30); Calcium 9.7 mg/dL (8.5-10.1); Chloride 107 mmol/L (98-107); Estimated GFR 51.45 (mL/min/1.73m2); Glucose 106 mg/dL (74-106); Potassium 4.2 mmol/L (3.5-5.1); Sodium 148 mmol/L (136-145)
--- NOTE | 2023-06-12 11:28 | PT.INNT ---
Date of service: 06/12/23 Time of Service: 09:21 PT Notes Visit Reasons: s/p embolic CVA At 9:21 patient is asleep and unable to be roused by loud name calling, jostling, or firm joint compressions over shoulders and elbows - Patient is therefore unable to participate in therapy. At 11:21, patient is found to be minimally responsive, nodding yes when greeted and told good morning, nodding yes again when this clinician introduces herself, but failing to open eyes even when directly prompted, failing to respond when asked for any voluntary movement (sit up, push my hand, wiggle your toes). Patient is again unable to participate in therapy. Will resume therapy attempts this afternoon.
--- NOTE | 2023-06-12 13:51 | PHA.REVIEW2 ---
Pharmacy Admission Review Admission Clinical Review Admission Pharmacy Review: Colloid cyst of brain (Acute) Discharge planning issues (Acute) DVT prophylaxis (Acute) Acute CVA (cerebrovascular accident) (Acute) bupropion Adverse Reaction (Verified 05/21/23 07:27) Other (See Comment) Resuscitation Status Full Code Height 5 ft 10 in Weight 72.257 kg Comments Comments/Follow Ups: Watch VS, labs and for med changes (possible renal dose adjustments). Pharmacy Admission Review Renal Dosing Renal Dosing: BUN 29 mg/dL (7-18) H 06/12/23 10:47 Creatinine 1.4 mg/dL (0.70-1.30) H 06/12/23 10:47 Medications needing adjustments: Reviewed (Crcl ~44.4 mL/min current meds okay) Anticoagulation Anticoagulation: Hgb 15.9 g/dL (13.5-17.5) 06/12/23 10:47 Hct 45.4 % (40.0-50.0) 06/12/23 10:47 Plt Count 202 10^3/uL (130-400) 06/12/23 10:47 Creatinine 1.4 mg/dL (0.70-1.30) H 06/12/23 10:47 Therapeutic Anticoagulation: Reviewed Medications: Apixaban Opiate Usage Evaluate Pain Scale/Pains Meds: N/A Relevant Labs Relevant Labs: Sodium 148 mmol/L (136-145) H 06/12/23 10:47 Potassium 4.2 mmol/L (3.5-5.1) 06/12/23 10:47 Chloride 107 mmol/L (98-107) 06/12/23 10:47 Electrolytes, C-Reactive P, ESR: Reviewed DM Control DM Control: N/A Cardiac Review BP, HR, EF%: Reviewed QTc Review QTc: N/A IV to PO Switch IV Medications: Reviewed Home Meds Home Med List reviewed: Not Reviewed (there were some adjustments to his medications prior to him transitioning to swingbed, does not look like the home med list has been updated to reflect those changes though) Current Meds Current Medication Order Review: Intervened (I asked the provider if both PRN acetaminophen orders were needed or if one could be discontinued) Comments Comments/Follow Ups: Watch VS, labs and for med changes (possible renal dose adjustments).
--- NOTE | 2023-06-12 16:01 | PT.INNT ---
Date of service: 06/12/23 Time of Service: 13:33 PT Notes Visit Reasons: s/p embolic CVA Patient continues to be unable to participate in therapy this afternoon, not able to respond to deep joint compressions to hands, knees, feet, brisk rubbing of upper arms, loud voice calling at 13:33 and 15:40. Patient is scheduled to receive physical therapy intervention Thursday-Thursday only, therefore will resume physical therapy intervention attempts on Thursday.
--- NOTE | 2023-06-12 16:38 | CHAPLAIN ---
Ilya was sleeping when I visited. I spend some time with Tara. She said Ilya seems to be sleeping more lately. She said she was awake most of the night, and she's not sure why. She asked for a eggsalad sandwich so I called food server and requested on for her. According to nursing staff, Tara has been coming in to visit in the late afternoon lately and then leaving around 7 p.m. That's a change from her pervious pattern when she'd arrived mid day and leave to be home before dark. I will continue to visited.
--- NOTE | 2023-06-12 17:16 | STREC_ITS ---
Date of service: 06/12/23 Time of Service: 17:17 Speech Therapy Recommendations Report ST Recommendations: Attempting to contact patient this pm, has been somnolent, difficult to rouse all day and having apneas. HOSE CEMENTER unable to rouse patient for session, no tx comp leted. HOSE CEMENTER will continue to attempt treatment and work with patient as able.
--- NOTE | 2023-06-12 17:16 | PDOC.STREC ---
Date of service: 06/12/23 Time of Service: 17:17 Speech Therapy Recommendations Report ST Recommendations: Attempting to contact patient this pm, has been somnolent, difficult to rouse all day and having apneas. RAW JUICE WEIGHER unable to rouse patient for session, no tx completed. RAW JUICE WEIGHER will continue to attempt treatment and work with patient as able.
[2023-06-12 23:04] VITALS: BP 128/69; PULSE 78; RESP 12; TEMP 36.3; O2SAT 96
[2023-06-12] MEDS: Atorvastatin 40 MG TAB PO (23:04)
[2023-06-12] MEDS: Divalproex 125 MG SPRINKLE 250 MG PO (23:04)
[2023-06-12] MEDS: Apixaban 5 MG TAB PO (23:04)
--- NOTE | 2023-06-12 23:35 | NUR.NOTE ---
Nursing Note: Pts 2000 medications passed late ~2300 d/t pt being too lethargic to take medications.
--- NOTE | 2023-06-13 | DI.CT_ITS ---
Exam(s) CT HEAD WO EXAM: CT HEAD WO CLINICAL HISTORY: fall, hit head. TECHNIQUE: Imaging Protocol: Axial computed tomography images with coronal and sagittal reformatted images were created and reviewed COMPARISON: CT CT BRAIN NECK CTA from 05/21/[address] HEAD - STROKE PROTOCOL from 05/21/2023 FINDINGS: The examination is limited due to patient motion artifact. Ventricles and Extra axial spaces: Normal in size and morphology for the patient's age. Hemorrhage: Please see below under cerebral parenchyma. Cerebral parenchyma: There again seen findings of an acute infarct in the right occipital lobe with e annamarie present. There is now acute hemorrhage present. This measures 2.9 x 2.4 cm. There is mild mass effect present. There are areas of decreased attenuation in the white matter consistent with chroni c microvascular ischemic disease. There again seen areas of decreased attenuation in the thalami con sistent with infarcts. Note is also again made of a colloid cyst. Midline shift: None. Brainstem/Cerebellum: Normal. Calvarium: Normal. Visualized Paranasal sinuses/Mastoids: Clear. Soft Tissues: Unremarkable. IMPRESSION: 1. Findings of subacute strokes in the thalami bilaterally and the right occipital lobe. 2. Interval development of acute hemorrhage associated with the right occipital infarct. There is mi ld mass effect. RADIATION DOSE DELIVERED: 747.15mGy.cm Total DLP DATA REPOSITORY: All CT scans at this facility are submitted to the National Radiology Data Registry (NRDR) Dose Index Registry (DIR) with the [employer] (ACR). RADIATION OPTIMIZATION: All CT scans at this facility use at least one of these dose optimization te chniques: automated exposure control; mA and/or kV adjustment per patient size (includes targeted exa ms where dose is matched to clinical indication); or iterative reconstruction.
[2023-06-13 07:29] VITALS: BP 129/79; PULSE 64; RESP 16; TEMP 36.3; O2SAT 93
[2023-06-13] MEDS: Dronabinol 2.5 MG CAP PO ×2 (07:34→15:20)
[2023-06-13] MEDS: Docusate Sodium 100 MG/10 ML CUP PO (07:34)
[2023-06-13] MEDS: Atenolol 50 MG TAB PO (07:34)
[2023-06-13] MEDS: Apixaban 5 MG TAB PO (07:34)
[2023-06-13] MEDS: Divalproex 125 MG SPRINKLE 250 MG PO (07:35)
[2023-06-13] MEDS: Modafinil 100 MG TAB PO (07:35)
[2023-06-13] MEDS: Miconazole 2% Topical Powder 85 GM BTL TP (07:40)
[2023-06-13 16:10] VITALS: BP 159/84; PULSE 70; RESP 18; TEMP 36.3; O2SAT 93
[2023-06-13 16:30] VITALS: BP 123/69; PULSE 71; RESP 18; O2SAT 96
[2023-06-13 16:45] VITALS: BP 120/84; PULSE 77; RESP 18; O2SAT 96
[2023-06-13 17:00] VITALS: BP 126/72; PULSE 74; RESP 16; TEMP 36.2; O2SAT 94
--- NOTE | 2023-06-13 17:12 | DI.VRAD_ITS ---
Addendum created by Mer Dunbar MD on 06/13/2023 5:13:36 PM EST: I discussed case findings with Blaise Gonzales 06/13/2023 5:12 PM EST. Initial report created on 06/13/2023 5:12:05 PM EST: PROCEDURE INFORMATION: Exam: CT Head Without Contrast Exam date and time: 06/13/2023 4:20 PM Age: 78 years old Clinical indication: Other: Fall, hit head TECHNIQUE: Imaging protocol: Computed tomography of the head without contrast. COMPARISON: MR BRAIN WO 05/22/2023 11:28 AM FINDINGS: Brain: There is cytotoxic edema involving several sulci in the right occipital region. There is heterogeneous acute increased attenuation consistent with hemorrhage, likely secondary to luxury reperfusion. The area of involvement measures 2.9 x 2.4 cm. There is mild mass effect. No additional hemorrhage noted. Mac-white matter differentiation appears otherwise unremarkable. There is a focus of increased attenuation in the anterior aspect of the 3rd ventricle, 7 mm. Appearance is hyperdense. The lesion was present on previous MRI exam. Appearances consistent with colloid cyst. Cerebral ventricles: See Brain finding. Paranasal sinuses: Visualized sinuses are unremarkable. No fluid levels. Mastoid air cells: Visualized mastoid air cells are well aerated. Bones/joints: Unremarkable. No acute fracture. Soft tissues: Unremarkable. IMPRESSION: 1. Concern for right occipital hemorrhage associated with changes of underlying subacute stroke. 2. 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 Dictated and Authenticated by: Mer Dunbar MD. Ordering:VINCE Welsh MD
--- NOTE | 2023-06-13 17:41 | W.PM.PROGNOT ---
Date of Service Date of service: 06/13/23 Time of Service: 17:41 Assessment and Plan Assessment and plan (1) Intracranial hemorrhage: Status: Acute Assessment and plan: - Patient experienced a fall earlier this afternoon but was reported to have only tapped his head on the floor -Stat head CT showed heterogeneous acute increased attenuation consistent with hemorrhage likely secondary to luxury reperfusion area of involvement measuring 2.9 x 2.4 cm with mild mass effect in the area of the right occipital region consistent with area of previous ischemic stroke -Discontinuing Eliquis -Continue Depakote -Can discontinue frequent vitals and neurochecks -Prolonged discussion was had with patient and his regarding new finding, uncertainty of prognosis/timing, and patient's CODE STATUS. Ultimately, they have decided to remain full code at this time Objective Last Vital Signs Temp 97.2 F L 06/13/23 17:00 Pulse 74 06/13/23 17:00 Resp 16 06/13/23 17:00 BP 126/72 06/13/23 17:00 Pulse Ox 94 06/13/23 17:00 Time Spent with Patient Time Spent with Patient: >50 minutes Time was spent: preparing to see the patient(eg.review tests), obtaining and/or reviewing separately otained hiistory, ordering medications,tests, procedures, referring, communicating with other health primary care nurse, indepentently interpreting results, counseling the patient and care coordination
[2023-06-14] MEDS: Docusate Sodium 100 MG/10 ML CUP PO ×2 (09:12→20:33)
[2023-06-14] MEDS: Modafinil 100 MG TAB PO (09:12)
[2023-06-14] MEDS: Atenolol 50 MG TAB PO (09:12)
[2023-06-14] MEDS: Divalproex 125 MG SPRINKLE 250 MG PO ×2 (09:12→19:48)
[2023-06-14] MEDS: Dronabinol 2.5 MG CAP PO ×2 (09:12→15:26)
[2023-06-14 09:16] VITALS: BP 172/97; PULSE 72; RESP 16; TEMP 36; O2SAT 95
[2023-06-14] MEDS: Miconazole 2% Topical Powder 85 GM BTL TP ×2 (09:18→20:32)
[2023-06-14 10:21] VITALS: BP 127/85
--- NOTE | 2023-06-14 14:16 | PCPN_ITS ---
Date of service: 06/14/23 Time of Service: 13:00 Assessment and Plan Assessment and plan (1) At risk for falls: Status: Acute (2) Agitation: Status: Acute (3) Atrial flutter: Status: Resolved Qualifiers: Atrial flutter type: typical Qualified Code(s): I48.3 - Typical atrial flutter (4) Acute CVA (cerebrovascular accident): Status: Acute (5) Intracranial hemorrhage: Status: Acute Assessment and plan: I have followed Ilya since his initial admission to the hospital. He was loosened the morning that I spoke with him and talk to him about CODE STATUS. He has not been lucent since then. Different staff have reported moments of lucency. Today he was mostly sleeping. With his multiple CVAs, very little progress made in the last several days that he has been hospitalized, and now a new hemorrhage with mass effect, it is unlikely that he will be able to recover from this. CPR is likely to be futile and cause more harm than good. His was not here today. We have made arrangements to meet with her tomorrow. Subjective Subjective Interval history since last seen: Unfortunately Ilya fell and now has a brain hemorrhage. Dr Gonzales did discuss code status and goals of care with Ilya and . His indicated she wanted to continue with aggressive care. The cadre states he has been sleeping most of her shift Exam Narrative Exam Narrative: pupils were mid dilation; brathing unlabored; not tachycardic; responded to my commands such as squeezed my hand - there was slight movement of his fingers; there is a cadre in place which states he has been sleeping most of the time; there has been a 25 pound weight loss since hospitalization He did not open his eyes during my exam Objective Last Vital Signs Temp 96.8 F L 06/14/23 09:16 Pulse 72 06/14/23 09:16 Resp 16 06/14/23 09:16 BP 127/85 06/14/23 10:21 Pulse Ox 95 06/14/23 09:16 CT Scan FINDINGS: The examination is limited due to patient motion artifact. Ventricles and Extra axial spaces: Normal in size and morphology for the patient's age. Hemorrhage: Please see below under cerebral parenchyma. Cerebral parenchyma: There again seen findings of an acute infarct in the right occipital lobe with edema present. There is now acute hemorrhage present. This measures 2.9 x 2.4 cm. There is mild mass effect present. There are areas of decreased attenuation in the white matter consistent with chronic microvascular ischemic disease. There again seen areas of decreased attenuation in the thalami consistent with infarcts. Note is also again made of a colloid cyst. Midline shift: None. Brainstem/Cerebellum: Normal. Calvarium: Normal. Visualized Paranasal sinuses/Mastoids: Clear. Soft Tissues: Unremarkable. IMPRESSION: 1. Findings of subacute strokes in the thalami bilaterally and the right occipi alison lobe. 2. Interval development of acute hemorrhage associated with the right occipital infarct. There is mild mass effect.
[2023-06-14] MEDS: Atorvastatin 40 MG TAB PO (19:48)
[2023-06-14 20:02] VITALS: BP 138/87; PULSE 73; RESP 20; TEMP 36.3; O2SAT 94
--- NOTE | 2023-06-15 08:14 | PCPN_ITS ---
Date of service: 06/15/23 Time of Service: 08:14 Assessment and Plan Assessment and plan (1) At risk for falls: Status: Acute (2) Atrial flutter: Status: Resolved Qualifiers: Atrial flutter type: typical Qualified Code(s): I48.3 - Typical atrial flutter (3) Acute CVA (cerebrovascular accident): Status: Acute (4) Intracranial hemorrhage: Status: Acute Assessment and plan: I have seen Ilya every few days since he was admitted for multiple CVAs. He did have a short time of lucency when I met with him. At that time he stated that he wanted a chance to get better. In the interim I have seen him and unfortunately he has not gotten better. In fact he has lost 25 pounds, recently had a intracranial hemorrhage, and continues to be hypersomnolent and speak very softly. Tara, his , states that lIya did most of the thinking for both of them. She states that she was unaware that he had multiple strokes. She did not think CPR was a good idea but at the same time was unwilling to make decisions for him. She states that she wants him to live. Ilya wants CPR, and aggressive care. At the same time he wants to be comfortable. He did not seem to understand that he already is stable and not improving regarding his strokes. The recent intracranial hemorrhage probably decreases his ability to improve. I spoke to him about how I anticipate things going for him. 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 She is not able to take care of him if he were to go home. He is not able to go home and the cadre told me that he is a 1-2 person assist. He did not participate in PT today. He is drinking but not very much. I explained to him that if he truly wants to get better that he is going to need to eat and drink. It appears that he was hoping for some Magic bullet wear just because he states that he wants to live that he will. We spoke about the pluses and minuses of CPR specifically intubation. Although he said it did not sound pleasant he also thought that he would be unconscious during this and therefore it would not be painful. We also talked about the emotional toll this would have on his . I gave him the choice of comfort care, nonaggressive care but possible fluids and antibiotics, and full-court press. It was unclear how much intervention he wants but he was clear that he did not want to . Again I stressed how important it was for him to eat and drink so that he could gain strength and get better. Due to his present fragility, weight loss, lack of progress regarding regaining strength and abilities I do not feel that CPR is in his best interest. I think that it would be traumatic and could leave him significantly worse than how he is at the present. I will come back and see him in a few days to see if he has any change in what he wants. His knows that she can contact me at any time and I will come back in to talk about choices. At this time he remains a full code Subjective Subjective Interval history since last seen: Resting in his bed. He did acknowledge me and stated that he was not in pain by nodding his head. He did not whisper or talk. When I did say that I was going to come back later today he did not make any motion to communicate with me. I did come back at 3:00 to talk to Ilya and his manage. Please see under assessment and plan Exam Narrative Exam Narrative: Ilya is constantly fidgeting. He has both of his hands and his face and his running his hands up and down his face. He talks but in a very very low whisper. They are in very short sentences maybe 2-3 words. He rarely opens his eyes. Objective Last Vital Signs Temp 97.3 F L 06/14/23 20:02 Pulse 73 06/14/23 20:02 Resp 20 06/14/23 20:02 BP 138/87 06/14/23 20:02 Pulse Ox 94 06/14/23 20:02
[2023-06-15 11:14] VITALS: BP 132/83; PULSE 66; RESP 12; TEMP 36.3; O2SAT 96
--- NOTE | 2023-06-15 11:29 | W.SPSTP ---
Date of service: 06/15/23 Time of Service: 08:50 Subjective Ilya received awake in bed with INFRASTRUCTURE DEVELOPER/1:1 present. He initially declined PO offered to him at 8:00AM, but was agreeable when asked again at 850AM. Ilya followed some verbal instructions during oral care. He covered face with hands for majority of breakfast. See below for additional notes re: cognitive-communication status. Per medical notes Ilya experienced a fall 06/14/23 with head impact, with stat head CT revealing heterogeneous acute increased attenuation consistent with hemorrhage likely secondary to luxury reperfusion area of involvement measuring 2.9 x 2.4 cm with mild mass effect in the area of the right occipital region consistent with area of previous ischemic stroke. Objective/Assessment/Plan Objective Treatment Techniques & Outcomes: PO Trials: L4 Puree Cream of wheat - 2 bites, then declined L2 Vanilla Ensure (thickener added for mildly thick consistency) - approximately 4-6 ounces via straw Positioning: Upright in bed Respiratory Status: Tolerating room air Feeding: Full assist/hand over hand Oral Phase Findings: WFL for trials administered Pharyngeal Phase Findings: No overt s/s aspiration with trials assessed Oral Care: Patient with dried secretions at lips/on front upper teeth prior to session. Completed oral care prior to meal with toothbrush, swabs, and warm wash cloth. Orientation Questions: Open Ended = 1/3 What is your name? +Independently Ilya Hanna What state are we in: - 135 What year is it? - 165. Field of 2 = 2/4 Are we in [place] or [place]? +135. [place] Are you at home or at the hospital? - home Is it 2020 or 2023? - 2020 Is it winter or summer? +winter Patient/Caregiver/Staff Education: Provided to nursing/INFRASTRUCTURE DEVELOPER re: INSTRUCTOR WEAVING findings and recommendations Assessment Ilya was seen by INSTRUCTOR WEAVING for dysphaia follow up. Of notice, his cognitive-communication and swallowing appear largely unchanged since last evaluation/in the setting of recent fall with head impact and noted hemorrhage. Ilya continues to demonstrate whispering speech, including contextually appropriate sentence length responses (what is in that? while drinking Ensure) and some perseverative nonsensical responses (135). He remains oriented to self only, with chance-level accuracy (50%) given fielf of 2 orientation questions. Ilya accepted small amounts of breakfast meal without s/s aspiration, and continues to tolerate diet modifications/aspiration precautions well overall. In light of severity of confusion and fluctuating mental status, he is not yet appropriate for diet upgrade. INSTRUCTOR WEAVING will continue to follow. Continue to recommend strict aspiration precautions as outlined below. RECOMMENDATIONS: Diet: 4-Pureed/Extremely Thick (*Please order Magic Cup instead of ice cream- diet order updated) Liquids: 2- Mildly Thick Liquids (*Please add thickener to Ensure/smoothies) Other: Medications - Crushed (If pt alert, OK small capsules whole) in applesauce/custard/pudding followed by sips of liquid. View oral cavity and use swab in cheeks to ensure he is not pocketing. Liquid formulations should be thickened. Independence upright for all PO. Out of bed/in chair encouraged for meals. Encourage physical mobility as tolerated. Oral hygiene before/after PO intake using either suction swab or toothbrush if patient cognitively appropriate PO intake only when awake/alert Strategies/Adaptations/Assistive Equipment: Reduce auditory and/or visual distractions when eating Small sips and bites when eating Slow rate of intake Posture/Positioning Needs: Maintain upright position at least 30 minutes after meals Supervision: Direct supervision via of [facility] staff, assist w/feeding Plan Patient to be followed while on unit for diet upgrade as appropriate. 3-4x/weekly, 2 weeks Continue monitor need for MBSS Upon Discharge, recommend INSTRUCTOR WEAVING services at group home [facility] [place] Goals: Patient will remain free from aspiration-related illness, malnutrition, and dehydration. Short Term Goals: Patient will tolerate Puree Diet and Thin liquids without overt s/s aspiration across 2/2 visits. Patient will tolerate PO trials for consideration of diet upgrade without overt s/s aspiration across 2/2 visits. Recommendations Total Time Spent: 20 minutes ([id number])
--- NOTE | 2023-06-15 11:51 | PT.INTREAT ---
PT Notes Visit Reasons: s/p embolic CVA Date: 06/15/2023 PRECAUTIONS: Fall, standard, activity as tolerated. Impulsive. Poor safety awareness. SUBJECTIVE: PT in room commode when approached for therapy session, pt not able to converse and will shake his head to answer conversation. pt demonstrating increased face and eyes rubbing. OBJECTIVE: ? PAIN: none mentioned VITALS: Closely monitored by nursing Therapeutic Activities [id number]: Direct one-on-one instruction in dynamic activities to improve functional performance. ?? BED MOBILITY/TRANSFERS? Rolling L/R: Not performed Supine-sit: ?Not performed ? Sit-supine: ?Not performed? Sit-stand: ?Min A? Stand-sit: ?Min A ? Bed-Chair:? Min A? Chair-bed: Min A Upward movement in recliner: Min A Provided skilled cues and instruction on performance and technique throughout. Gait Training [id number]: Direct one-on-one instruction and skilled instruction in: Employing an assistive device Modified weight-bearing status Movement sequencing Turning and movement with proper form Provided verbal cues for equipment management and technique Provided instruction in gait pattern Patient education regarding pacing and breathing techniques to maximize activity tolerance? GAIT? Assistive Device: FWW? Weight bearing: FWB Assist: ?min A for guidance with direction obstacle avoidance? Distance:??20' ? ASSESSMENT:?Pt dependent on tactile cue for guidance with activity, ot able to reply verbally using head nods answer questions. PLAN: Continue global strengthening per plan of care until patient is medically cleared for discharge and obtains safe discharge plan. TREATMENT CODE/TIME: [id number] 16mins (11:32-11:48am)
[2023-06-15] MEDS: Divalproex 125 MG SPRINKLE 250 MG PO (12:13)
[2023-06-15] MEDS: Modafinil 100 MG TAB PO (12:13)
[2023-06-15] MEDS: Atenolol 50 MG TAB PO (12:13)
[2023-06-15] MEDS: Miconazole 2% Topical Powder 85 GM BTL TP ×2 (12:14→20:27)
[2023-06-15] MEDS: Docusate Sodium 100 MG/10 ML CUP PO ×2 (12:14→20:27)
--- NOTE | 2023-06-15 12:53 | W.PM.PROGNOT ---
Date of Service Date of service: 06/15/23 Time of Service: 12:53 Assessment and Plan Assessment and plan (1) Failure to thrive in adult: Status: Acute Assessment and plan: will try increasing marinol decrease depakote offered IV fluids and lab draw which he adamantly refused continue to encourage fluids, feed offering frequent snacks and drinks PT/OT (2) Acute CVA (cerebrovascular accident): Status: Acute Assessment and plan: S/p embolic CVA right occipital lobe, right temporal lobe and bilateral thalami with some microhemorrhages in the right thalamus and right posterior occipital lobe. Deficits wax and wane: cognitive dysfunction, agitation/sedation, gait imbalance, probable vision loss. has been less interactive and taking little PO will decrease depakote 125 mg BID; check labs continue Provigil to see if we can improve his alertness during the day increased marinol to improve his eating Now on apixaban for PAF and treatment of embolism continue w/ P.T. (3) Atrial flutter: Status: Resolved Assessment and plan: Converted to NSR (new diagnosis). The likely cause of the embolic CVA. He is on atenolol. Qualifiers: Atrial flutter type: typical Qualified Code(s): I48.3 - Typical atrial flutter (4) Colloid cyst of brain: Status: Acute Assessment and plan: No evidence of hydrocephalus on CT. Will need repeat MRI scan in 6 months as outpatient. (5) Hypothyroidism, unspecified: Status: Chronic Assessment and plan: Continue levothyroxine. Qualifiers: Hypothyroidism type: unspecified Qualified Code(s): E03.9 - Hypothyroidism, unspecified (6) Hypertension: Status: Chronic Assessment and plan: He is on atenolol. BPs seem mostly controlled. Continue this. Qualifiers: Hypertension type: essential hypertension Qualified Code(s): I10 - Essential (primary) hypertension (7) Hyperlipidemia: Status: Chronic Assessment and plan: Continue atorvastatin. Qualifiers: Hyperlipidemia type: unspecified Qualified Code(s): E78.5 - Hyperlipidemia, unspecified (8) GERD (gastroesophageal reflux disease): Status: Chronic Assessment and plan: Continue nexium. Qualifiers: Esophagitis presence: esophagitis presence not specified Qualified Code(s): K21.9 - Gastro-esophageal reflux disease without esophagitis (9) DVT prophylaxis: Status: Acute Assessment and plan: now on apixaban (10) Discharge planning issues: Status: Acute Assessment and plan: Full code PT/OT/Speech/Palliative care discussed with DR Gonzales Subjective Subjective Patient reports: afebrile; denies shortness of breath Interval history since last seen: Patient reportedly with decreased p.o. intake over the past several days. Less interactive. Exam Const General: cooperative, comfortable and no acute distress Nutritional Appearance: thin Orientation: other (not responding verbally, nods head) HENMT Head: normal to inspection, normocephalic and atraumatic Mouth: oral mucosa abnormal (Dry oral mucosa) Neck Neck: normal visual inspection and full ROM Resp Effort & Inspection: normal respiratory effort Cardio Rate: regular rate Rhythm: regular rhythm GI Inspection: normal to inspection Skin General skin exam: no rashes or lesions noted Extrem General: normal to inspection, full ROM and no pedal edema Objective Last Vital Signs Temp 36.3 C L 06/15/23 11:14 Pulse 66 06/15/23 11:14 Resp 12 06/15/23 11:14 BP 132/83 06/15/23 11:14 Pulse Ox 96 06/15/23 11:14 Time Spent with Patient Time Spent with Patient: 35-49 minutes Time was spent: preparing to see the patient(eg.review tests), obtaining and/or reviewing separately otained hiistory, ordering medications,tests, procedures, referring, communicating with other health lawn care technician, indepentently interpreting results, counseling the patient and care coordination
[2023-06-15] MEDS: Dronabinol 2.5 MG CAP 5 MG PO (16:58)
[2023-06-15] MEDS: Atorvastatin 40 MG TAB PO (20:26)
[2023-06-15] MEDS: Acetaminophen 325 MG TAB 650 MG PO (20:26)
[2023-06-15] MEDS: Divalproex 125 MG SPRINKLE PO (20:27)
[2023-06-16] MEDS: Dronabinol 2.5 MG CAP 5 MG PO ×2 (06:25→16:20)
[2023-06-16 06:54] LABS: Abs Immature Grans 0.02 10^3/uL (0.0-0.06); Absolute Basophil Count 0.07 10^3/uL (0.0-0.2); Absolute Eosinophil Count 0.24 10^3/uL (0.0-0.7); Absolute Lymphocyte Count 1.19 10^3/uL (1.2-3.4); Absolute Monocyte Count 0.67 10^3/uL (0.1-0.8); Basophils % 1.2; HCT 43.9 % (40.0-50.0); HGB 15.5 g/dL (13.5-17.5); Immature Grans % 0.3; Lymphocytes % 19.9; MCH 29.9 pg (27.0-33.0); MCHC 35.3 % (32.0-36.0); MCV 85 fL (80-95); MPV 10.4 fL (8.0-11.0); Monocytes % 11.2; Neutrophils % 63.4; Platelet Count 170 10^3/uL (130-400); RBC 5.18 10^6/uL (4.36-5.78); RDW 11.7 % (11.8-14.1); RDW-SD 35.9 fL; WBC 5.99 10^3/uL (4.4-10.8)
[2023-06-16 07:15] LABS: ALT 26 U/L (16-63); AST 20 U/L (15-37); Albumin 3.4 g/dL (3.4-5.0); Alkaline Phosphatase 102 U/L (46-116); Anion Gap 7.6 mmol/L (3-11); BUN 33 mg/dL (7-18); Bilirubin, Total 0.6 mg/dL (0.2-1.0); CO2 33.4 mmol/L (21.0-32.0); CREATININE 1.3 mg/dL (0.70-1.30); Calcium 9.9 mg/dL (8.5-10.1); Chloride 108 mmol/L (98-107); Estimated GFR 56.23 (mL/min/1.73m2); Glucose 101 mg/dL (74-106); Potassium 3.7 mmol/L (3.5-5.1); Sodium 149 mmol/L (136-145); Total Protein 7.5 g/dL (6.4-8.2)
[2023-06-16 09:17] VITALS: BP 120/80; PULSE 64; RESP 16; TEMP 36.6; O2SAT 94
[2023-06-16] MEDS: Atenolol 50 MG TAB PO (09:33)
[2023-06-16] MEDS: Divalproex 125 MG SPRINKLE PO (09:33)
[2023-06-16] MEDS: Modafinil 100 MG TAB PO (09:33)
[2023-06-16] MEDS: Miconazole 2% Topical Powder 85 GM BTL TP (09:33)
[2023-06-16] MEDS: Docusate Sodium 100 MG/10 ML CUP PO (09:33)
--- NOTE | 2023-06-16 11:23 | PT.INPN ---
PT Notes Visit Reasons: s/p embolic CVA Inpatient Physical Therapy Progress Note Date: 06/16/2023 Dates of Service: 06/08/2023 through 06/16/2023 Referring Doctor: Angel Pang MD PT Orders: PT CONSULT: Falls safety assessment Precautions: Standard. Activity as tolerated. Impaired safety awareness. Subjective: Today, the only appropriate response to PT's question (of who his 's name is) was M[place]. All other responses not appropriate. Patient kept on signalling PT to keep quiet. Covered his face throughout, oftentimes rubbing eyes. When asked if his eyes hurt, patient would not respond. Did agree to being repositioned on the chair to be more comfortable. Objective: General Observation: Eyes closed most of the time, appeared drowsy and wanting to rest Mental Status: Responds when name is called. Unwilling and unable to follow instructions. Pain: None verbalized/expressed Vital Signs: Closely monitored via nursing ROM: Unable to formally assess at this time Right Upper Extremity: Grossly WFL Left Upper Extremity: Grossly WFL Right Lower Extremity: Grossly WFL Left Lower Extremity: Grossly WFL Strength: Unable to formally assess at this time Right Upper Extremity: Grossly 3-/5 Left Upper Extremity: Grossly 3/5 Right Lower Extremity: Grossly 3-/5 Left Lower Extremity: Grossly 3/5 Sensation: Unable to assess Bed Mobility/Transfers: Refused to get out of chair despite repeated persuasion. Signalled PT to be quiet. Gait: Refused to get out of chair despite repeated persuasion. Signalled PT to be quiet. Balance: Unable to test Informed Consent/Education: Patient unwilling to participate in therapy at this time. ASSESSMENT: Patient unable and unwilling today to participate in meaningful session. Per nursing staff, he has needed maximal verbal cueing and assistance to transfers due to limited ability to follow instructions. Expressed concerns and planned discontinuation of services to [facility] in a week or so should upcoming sessions prove to be of no benefit for patient. Goals: Goals X1 week 1. Supine-Sit SBA NOT MET, CONTINUE 2. Sit-Supine SBA NOT MET, CONTINUE 3. Sit-Stand CGx1 to front wheeled walker NOT MET, CONTINUE 4. Stand-Sit CG X1 with FWW NOT MET, CONTINUE 5. Bed-Chair CGx1 with FWW NOT MET, CONTINUE 6. Chair-Bed CGx1 with FWW NOT MET, CONTINUE 7. CGx1 with gait on level surface with use of FWW for at least 15-30 feet (enough to cover bedroom<>bathroom and bedroom<>kitchen distances at home) NOT MET, CONTINUE 8. Supervision with home exercise program NOT MET, CONTINUE 9. Fair static and dynamic standing balance/tolerance NOT MET, CONTINUE Plan of Care/Treatment Plan: 1-2x/day, 7 days/week x 1 week. Plan of care has been reviewed with the QUALITY ASSURANCE MONITOR CHASSIS providing the service under Physical Therapy direction. Initiate Physical Therapy intervention for strengthening, bed mobility, transfers, gait, stairs, balance training, use of assistive device. -Continue training with and use of FWW for all mobility performance to maximize independence and reduce fall risk. DISCHARGE RECOMMENDATIONS: [] Home with no services [] [] Home with services [specify] [] Home with outpatient PT [] [] SNF for continued rehabilitation [] [] [facility] [] [X] SNF versus LTC based on ability to participate and progress TREATMENT CODE/TIME: Patient was seen from 11:23-11:45 AM for 22 minutes but has been unable to participate. No charge was made for this session.
[2023-06-16] MEDS: Acetaminophen 325 MG TAB 650 MG PO (14:00)
[2023-06-16 15:49] VITALS: BP 120/71; PULSE 66; RESP 18; TEMP 36.1; O2SAT 94
[2023-06-16 20:00] VITALS: BP 101/58; PULSE 89; RESP 18; TEMP 36.4; O2SAT 97
--- NOTE | 2023-06-17 | DI.CT_ITS ---
Exam(s) CT HEAD WO EXAM: CT HEAD WO CLINICAL HISTORY: F/u hemorrhagic conversion. TECHNIQUE: Imaging Protocol: Axial computed tomography images with coronal and sagittal reformatted images were created and reviewed COMPARISON: CT CT HEAD - STROKE PROTOCOL from 05/21/2023 MR MR BRAIN WO from 05/22/[address] HEAD WO from 06/13/2023 FINDINGS: There are no skull fractures. There is no fluid in the visualized paranasal sinuses. The hemorrhagic infarct in the right occipital lobe appears unchanged from 06/13/2023. Other hyperde nse area noted at the foramen of Monro, unchanged from 06/13/2023 this either representing colloid cy st on the recent MRI of 05/22/2023 there is no evidence of colloid was not evident at this location o n recent MRI scan of 05/22/2023. Cyst at that time. Therefore this may represent hemorrhage. The l ateral ventricles are unchanged in size P or hemorrhage at this level Nonhemorrhagic infarcts in both thalami again noted. IMPRESSION: Unchanged appearance of CT scan when compared to 06/13 24. Right occipital lobe hemorrhagic infarct. Also possible blood versus colloid cyst at the foramen of Monro. A colloid cyst was not evident at this location on the recent MRI scan of 05/22/2023. RADIATION DOSE DELIVERED: 762.59mGy.cm Total DLP DATA REPOSITORY: All CT scans at this facility are submitted to the National Radiology Data Registry (NRDR) Dose Index Registry (DIR) with the [employer] ([employer]). RADIATION OPTIMIZATION: All CT scans at this facility use at least one of these dose optimization te chniques: automated exposure control; mA and/or kV adjustment per patient size (includes targeted exa ms where dose is matched to clinical indication); or iterative reconstruction.
[2023-06-17 08:18] VITALS: BP 134/85; PULSE 76; RESP 18; TEMP 36.9; O2SAT 93
[2023-06-17] MEDS: Docusate Sodium 100 MG/10 ML CUP PO ×2 (09:28→21:45)
[2023-06-17] MEDS: Divalproex 125 MG SPRINKLE PO ×2 (09:28→21:44)
[2023-06-17] MEDS: Atenolol 50 MG TAB PO (09:28)
[2023-06-17] MEDS: Dronabinol 2.5 MG CAP 5 MG PO (09:29)
[2023-06-17] MEDS: Modafinil 100 MG TAB PO (09:29)
[2023-06-17] MEDS: Miconazole 2% Topical Powder 85 GM BTL TP ×2 (09:49→21:47)
--- NOTE | 2023-06-17 12:29 | W.PM.PROGNOT ---
Date of Service Date of service: 06/17/23 Time of Service: 12:30 Assessment and Plan Assessment and plan (1) Failure to thrive in adult: Status: Acute Assessment and plan: Nutrition consult and recording of oral intake per nursing continue to encourage fluids, feed offering frequent snacks and drinks Continue marinol Continue depakote offered IV fluids and lab draw which he adamantly refused Try IV access for IVF infusion if the patient accepts Palliative consult Continue PT/OT (2) Acute CVA (cerebrovascular accident): Status: Acute Assessment and plan: Initially admitted with S/p embolic CVA right occipital lobe, right temporal lobe and bilateral thalami with some microhemorrhages in the right thalamus and right posterior occipital lobe. Deficits wax and wane: cognitive dysfunction, agitation/sedation, gait imbalance, probable vision loss. has been less interactive and taking little PO On decreased dose of depakote 125 mg PO BID continue Provigil to see if we can improve his alertness during the day S/p fall on 06/13 CT of the head on 06/13 Findings of subacute strokes in the thalami bilaterally and the right occipital lobe. Interval development of acute hemorrhage associated with the right occipital infarct. There is mild mass effect Apixaban stopped and s/p discussion with Dr. Gonzales on 06/13 notes patient is a full code Neuro consultation Repeat head CT 06/17/[address] scan when compared to 06/13 24. Right occipital lobe hemorrhagic infarct. Also possible blood versus colloid cyst at the foramen of Monro. A colloid cyst was not evident at this location on the recent MRI scan of 05/22/2023. [facility] [place] as per recommended by Dr. Pavel Dorado and Team -MRI not suspicious of hydrocephalus; no transempydemal flow -Colliod cyst appearant on previous imaging also -Repeat MRI for hydrocephalus and look for increased transempydemal flow; If positive reconsult [facility] [place] otherwise f/u outpatient -EEG for waxing and waning (3) Discharge planning issues: Status: Acute Assessment and plan: Full code PT/OT/Speech/Palliative care discussed with Dr. Bañuelos Subjective Subjective Interval history since last seen: When seen patient was not complaining of any discomfort. was at the bedside, discussed consultation with [facility] neurosurgery team and made aware of low suspicion for hydrocephalus as well as repeated testing in the morning for MRI to follow-up on trends empydemal flow increase and EEG in the setting of waxing and waning level of consciousness Exam Eyes General: appearance normal, both eyes and all related structures Pupils: PERRL, irregular (right) on the right and other Resp Effort & Inspection: normal respiratory effort Auscultation: clear to auscultation bilaterally (decreased bases) Cardio Jugular venous pressure: no JVD Palpation: normal PMI Rate: regular rate Heart Sounds: S1 normal and S2 normal Pulses: radial pulses present and dorsalis pedis present GI Inspection: normal to inspection Palpation: soft, no hepatosplenomegaly and nontender Auscultation: normal bowel sounds Objective Last Vital Signs Temp 36.9 C 06/17/23 08:18 Pulse 76 06/17/23 08:18 Resp 18 06/17/23 08:18 BP 134/85 06/17/23 08:18 Pulse Ox 93 06/17/23 08:18 Time Spent with Patient Time Spent with Patient: >50 minutes Time was spent: preparing to see the patient(eg.review tests), obtaining and/or reviewing separately otained hiistory, ordering medications,tests, procedures, referring, communicating with other health patient care technician, indepentently interpreting results, counseling the patient and care coordination
[2023-06-17] MEDS: Lactated Ringers 1,000 ML 83 ML IV (16:42)
--- NOTE | 2023-06-17 16:47 | W.PM.PROGNOT ---
Date of Service Date of service: 06/17/23 Time of Service: 16:47 Assessment and Plan Assessment and plan (1) Acute CVA (cerebrovascular accident): Status: Acute (2) Colloid cyst of brain: Status: Acute (3) Atrial flutter: Status: Resolved Qualifiers: Atrial flutter type: typical Qualified Code(s): I48.3 - Typical atrial flutter (4) Agitation: Status: Acute (5) Hypersomnolence: Status: Acute (6) Hypertension: Status: Chronic Assessment and plan: #1. 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 Continue to hold anticoagulation due to hemorrhagic transformation. Could consider starting ASA 81mg at this time given stable hemorrhage on CT. Would plan to repeat CTH in 2 weeks on 06/27/23 and if hemorrhage has resolved, could re-start apixaban at that time. #2. Decreased responsiveness. Onset since his fall on 06/13/23. Hemorrhage is not so large that I would suspect that it could be the cause - and I do think the hemorrhage is conversion of the underlying ischemic stroke and not due to trauma. He has hypernatremia that has been trending higher since 06/08/23 - currently 149. Concussion could be playing a role. On CTH imaging, I do see slight enlargement of his 3rd ventricle compared to his initial imaging concerning for early obstructive hydrocephalus. Recommend consultation with neurosurgery. They also rec'd EEG which is a good idea as well. Modafinil not maxed out. Consider increasing to 200mg daily. #3. Colloid cyst. See above. Subjective Subjective Interval history since last seen: Mr. Hanna was admitted on 05/21/23 for bilateral embolic strokes secondary to previously unknown p.afib - including bilateral thalamic strokes with hemorrhagic transformation; last seen by me on 06/02/23. He is now on swing bed status. On 06/13/23, it seems that he had a fall and may have hit his head. He underwent CT head imaging which showed enlarged hemorrhagic transformation in the R occipital lobe. I reviewed those images myself. Apixaban was stopped at that time (had been started 06/05/23 2 weeks following his stroke). Since 06/13/23, he has been less responsive with decreased PO intake. He is no longer participating in PT - previously walking the halls. He initially was having agitation following his ischemic stroke along with altered wakefulness - transitioned from anti-psychotics/benzos to Depakote which seemed to work well without oversedating him on 250mg BID. Modafanil 100mg daily was added on 06/09/23. Depakote has since been reduced to 125mg BID with no change in symptoms. He has a repeat CTH today which I was able to review. It was unchanged from the previous CT. However, when compared to his initial CTH on 05/21/23 and MR on 05/22/23 there appears to be new bowing of the third ventricle - concerning for possible new hydrocephalus. He has increasing hypernatremia - 149 as of yesterday - not checked today. LFTs ok. TSH normal on 05/21/23. No fevers or sign of infection. Exam Narrative Exam Narrative: Physical Exam: Constitutional: Patient of apparent stated age, thin, no acute distress Neuro: MS/Language/Speech: awake, oriented to self only, clear language (fluency and comprehension), no dysarthria CN: PERRL, EOM intact by observation, L HH, no facial asymmetry, hearing intact Motor: Normal bulk and tone. FMM intact, no pronator drift. 5/5 strength in bilateral upper and lower extremities Coordination: Finger to nose performed without dysmetria Objective Last Vital Signs Temp 98.4 F 06/17/23 08:18 Pulse 76 06/17/23 08:18 Resp 18 06/17/23 08:18 BP 134/85 06/17/23 08:18 Pulse Ox 93 06/17/23 08:18 Time Spent with Patient Time Spent with Patient: >50 minutes Time was spent: preparing to see the patient(eg.review tests), obtaining and/or reviewing separately otained hiistory, referring, communicating with other health child care centre manager, indepentently interpreting results and care coordination
[2023-06-17] MEDS: SODIUM CHLORIDE 0.45% 1,000 ML 110 ML IV (17:53)
[2023-06-17] MEDS: Refresh PLUS Eye Drops 0.4ml OU (21:45)
[2023-06-17 23:13] VITALS: BP 120/71; PULSE 61; RESP 16; TEMP 36; O2SAT 94
--- NOTE | 2023-06-18 | DI.MRI_ITS ---
Exam(s) MR LIMITED EXAM EXAM: MR LIMITED EXAM CLINICAL HISTORY: Hydrocephal.,colloid cyst,?incr transempydemal fl TECHNIQUE: Multiplanar multisequence MRI of the brain was performed. COMPARISON: MR MR BRAIN WO from 05/22/[address] HEAD WO from 06/13/[address] HEAD WO from 06/17/2023 FINDINGS: This is a nondiagnostic examination. The patient was unable to complete the examination due to sign ificant motion artifact. The patient is scheduled to return. IMPRESSION: Incomplete nondiagnostic examination. DATA REPOSITORY:
[2023-06-18] MEDS: SODIUM CHLORIDE 0.45% 1,000 ML 110 ML IV ×3 (03:02→20:43)
[2023-06-18] MEDS: Dronabinol 2.5 MG CAP 5 MG PO ×2 (06:02→15:12)
--- NOTE | 2023-06-18 07:52 | W.PALPGNOTE ---
Date of service: 06/18/23 Time of Service: 07:52 Assessment and Plan Assessment and plan (1) Intracranial hemorrhage: Status: Acute (2) Acute CVA (cerebrovascular accident): Status: Acute (3) Palliative care patient: Status: Acute Assessment and plan: Hypernatremia?would encourage free fluids due to his hypernatremia CT scan is unchanged. Labs are all stable. Per staff he seems to be doing a little more i.e. walking with assistance. He also is cooperating with taking medications and testing. Capacity he does shake his head and it seems like it is appropriate. But at the same time he is does not speak above a Nearly inaudible whisper. It is difficult to assess capacity due to his infrequent whispers Per staff he will be seeing neurology today. If there is a question of capacity he may need telehealth psychiatric evaluation. I will continue to follow. Subjective Subjective Interval history since last seen: Staff states that Ilya is following simple commands. He was able to walk with help yesterday. He cooperated with taking medications. Ilya did not talk to me but did shake his head when I came into the room to see him. I asked if he was in pain and he shook his head no. I did state that I enjoyed meeting his hannah on Thursday and he shook his head yes. He does have additional testing today. Staff is concerned about capacity. Please see my note from Thursday Exam Narrative Exam Narrative: Ilya did not talk. He shook his head. He opened his eyes briefly. He continued to put his hands over his face and rubbed his face. Cadre states that he took his medications without problems Objective Last Vital Signs Temp 96.8 F L 06/17/23 23:13 Pulse 61 06/17/23 23:13 Resp 16 06/17/23 23:13 BP 120/71 06/17/23 23:13 Pulse Ox 94 06/17/23 23:13 06/18/23 IMPRESSION: Unchanged appearance of CT scan when compared to 06/13 23. Right occipital lobe hemorrhagic infarct. Also possible blood versus colloid cyst at the foramen of Monro. A colloid cyst was not evident at this location on the recent MRI scan of 05/22/2023. Laboratory Tests 06/16/23 06:00 WBC 5.99 Hct 43.9 Sodium 149 H Carbon Dioxide 33.4 H Creatinine 1.3
[2023-06-18] MEDS: Docusate Sodium 100 MG/10 ML CUP PO ×2 (08:08→20:41)
[2023-06-18] MEDS: Atenolol 50 MG TAB PO (08:08)
[2023-06-18] MEDS: Modafinil 100 MG TAB PO (08:08)
[2023-06-18] MEDS: Divalproex 125 MG SPRINKLE PO ×2 (08:08→20:41)
[2023-06-18] MEDS: Miconazole 2% Topical Powder 85 GM BTL TP ×2 (08:09→20:46)
[2023-06-18] MEDS: Normal Saline Flush 10 ML SYR IVP ×2 (08:17→20:42)
[2023-06-18 08:57] VITALS: BP 135/72; PULSE 62; RESP 16; TEMP 36; O2SAT 93
--- NOTE | 2023-06-18 09:27 | PGE_ITS ---
Date of Service Date of service: 06/18/23 Time of Service: 09:28 Assessment and Plan Assessment and plan (1) Intracranial hemorrhage: Status: Acute (2) Acute CVA (cerebrovascular accident): Status: Acute Assessment and plan: Initially admitted with S/p embolic CVA right occipital lobe, right temporal lobe and bilateral thalami with some microhemorrhages in the right thalamus and right posterior occipital lobe. Deficits wax and wane: cognitive dysfunction, agitation/sedation, gait imbalance, probable vision loss. has been less interactive and taking little PO On decreased dose of depakote 125 mg PO BID continue Provigil to see if we can improve his alertness during the day S/p fall on 06/13 CT of the head on 06/13 Findings of subacute strokes in the thalami bilaterally and the right occipital lobe. Interval development of acute hemorrhage associated with the right occipital infarct. There is mild mass effect Apixaban stopped and s/p discussion with Dr. Gonzales on 06/13 notes; Patient is a full code Palliative care is following patient: Please see notes Psychiatric consult earlier in the stay: Please read notes Neuro consultation: Ongoing Repeat head CT 06/17/[address] scan when compared to 06/13 24. Right occipital lobe hemorrhagic infarct. Also possible blood versus colloid cyst at the foramen of Monro. A colloid cyst was not evident at this location on the recent MRI scan of 05/22/2023. [facility] [place] neuro[place] consult as per recommended by Dr. Pavel Dorado and Team recommendation -MRI not suspicious of hydrocephalus; no transependymal flow - Readind that Colliod cyst also appearant on previous imaging -Repeat MRI for hydrocephalus and look for increased transependymal flow; If positive reconsult [facility] neurosurgery otherwise f/u outpatient MRI unsuccessful today despite sedation: Reordered for AM with lorazepam 1mg IVP 130 minutes prior to imaging -EEG for waxing and waning EEG in progress today and patient is unable to remain still and sedation would affect results Reading by Dr. Zhao pending completion (3) Failure to thrive in adult: Status: Acute Assessment and plan: Nutrition consult peniding Intake and outpout Encourage fluids, feed offering frequent snacks and drinks Continue marinol Continue depakote IV fluids in progress Na was 149 now 146 BMP in AM Continue PT/OT (4) Discharge planning issues: Status: Acute Assessment and plan: Full code PT/OT/Speech/Palliative care discussed with Dr. Bañuelos Objective Last Vital Signs Temp 36.0 C L 06/18/23 08:57 Pulse 62 06/18/23 08:57 Resp 16 06/18/23 08:57 BP 135/72 06/18/23 08:57 Pulse Ox 93 06/18/23 08:57 Time Spent with Patient Time Spent with Patient: >50 minutes Time was spent: preparing to see the patient(eg.review tests), obtaining and/or reviewing separately otained hiistory, ordering medications,tests, procedures, referring, communicating with other health patient care representative, indepentently interpreting results, counseling the patient and care coordination
[2023-06-18 11:02] LABS: Anion Gap 4.7 mmol/L (3-11); BUN 26 mg/dL (7-18); CO2 31.3 mmol/L (21.0-32.0); CREATININE 1.2 mg/dL (0.70-1.30); Calcium 8.8 mg/dL (8.5-10.1); Chloride 110 mmol/L (98-107); Glucose 172 mg/dL (74-106); Potassium 3.6 mmol/L (3.5-5.1); Sodium 146 mmol/L (136-145)
[2023-06-18] MEDS: LORazepam 2 MG/ML VIAL 0.5 MG IVP (11:10)
--- NOTE | 2023-06-18 18:49 | PDOC.CMACT ---
Date of service: 06/18/23 Time of Service: 18:49 Care Management Activity Note Activity Note Text Activity Note Text: S/O:Ilya was sitting up bed when CM met with him. He remains less interactive and more confused. He was unable to engage in conversation and does not show interest in any activities. Tara has not visited with Ilya yet today. He has a newly identified area of hemorrhage in his brain felt to be related to his decrease in function.CM will continue to offer pet therapy and music therapy when available. A: Ilya is a 78 year old man admitted on 05/21/23 with an acute CVA P:Ilya is likely going to need to transfer to a SNF for short term rehab, if not for assisted care. Referrals have been sent to [facility], [facility], [facility], [facility] and [facility]. A referral was also sent to [facility] for long range planning, options counseling and community case management for both Ilya and his . CM will follow and continue to asses for discharge needs.
--- NOTE | 2023-06-18 18:56 | PDOC.CMPRO ---
Date of service: 06/18/23 Time of Service: 18:56 Care Management Progress Note Progress Note Text Progress Note Text: S/O:Ilya was sitting up in bed when CM met with him. He did not engage in conversation. Ilya was pre-medicated for an MRI ordered as recommended by [facility]. Unfortunately, the MRI could not be completed because of movement. Efforts will be made to repeat it with more sedation tomorrow. An EEG, also recommended by the [facility] team, was done today but has not been read. Ilya's level of engagement waxes and wanes. Today he ambulated a few feet in his room with assist of 2 with a FWW. CM received a call today from Ilya's brother Vik. He had learned of Ilya's stroke from Tara a few days ago. Vik and his Alix had many questions and offered as much information as they were able . They explained that they have not been in close contact with Ilya and Tara for about 20 years. They are not clear how or why the communication ceased. Vik explained that Ilya has always been different and that they do not know Tara well. Vik and Alix expressed regret that they will not be able to come north to see Ilya. Vik has an eye condition that precludes him from flying. Since they are both in their 80s, they feel that the long drive would not be feasible. They requested that CM keep them updated as the situation evolves. They did provide some names of other relative in the [place] area but are unsure if Ilya has been in contact with them either. A: Ilya is a 78 year old man admitted on 05/21/23 with an acute CVA P:Ilya is likely going to need to transfer to a SNF for short term rehab, if not for fpc care. Referrals have been sent to [facility], [facility], [facility], [facility] and [facility]. A referral was also sent to [facility] [place] [facility] for long range planning, options counseling and community case management for both Ilya and his . CM will follow and continue to asses for discharge needs.
--- NOTE | 2023-06-18 19:20 | PDOC.EEG_ITS ---
Neurology EEG EEG: [facility] Department of Neurology INPATIENT EEG REPORT Date of Recordin06/18/23 Interpreting Physician: Dr. Angela Cooney Reason for study: Mr. Hanna was admitted with bilateral embolic strokes complicated by hemorrhagic conversion, who has had decreased responsiveness in the last few days concerning for subclinical seizures. Current Medications: Current Medications Acetaminophen (Acetaminophen 325 Mg Tab) 650 mg PO Q4H PRN PRN Last Admin: 06/16/23 14:00 Dose: 650 mg Al Hydrox/Mg Hydrox/Simethicone (Mylanta Suspension 30 Ml Cup) 30 ml PO Q2H PRN PRN Albuterol/Ipratropium (Albuterol/Ipratropium 3 Ml Upd Vial) 3 ml UPD Q4H PRN PRN Atenolol (Atenolol 50 Mg Tab) 50 mg PO DAILY [facility] Last Admin: 06/18/23 08:08 Dose: 50 mg Atorvastatin Calcium (Atorvastatin 40 Mg Tab) 40 mg PO QPM [facility] Last Admin: 06/17/23 22:28 Dose: Not Given Bisacodyl (Bisacodyl 10 Mg Supp) 10 mg PA DAILY PRN PRN PRN Reason: Constipation Carboxymethylcellulose Sodium (Refresh Plus Eye Drops 0.4ml) 0 each OU PRN PRN Last Admin: 06/17/23 21:45 Dose: 2 drp Divalproex Sodium (Divalproex 125 Mg Sprinkle) 125 mg PO BID [facility] Last Admin: 06/18/23 08:08 Dose: 125 mg Docusate Sodium (Docusate Sodium 100 Mg/10 Ml Cup) 100 mg PO BID [facility] Last Admin: 06/18/23 08:08 Dose: 100 mg Dronabinol (Dronabinol 2.5 Mg Cap) 5 mg PO BID@0700,1600 [facility] Last Admin: 06/18/23 15:12 Dose: 5 mg Esomeprazole Magnesium (Esomeprazole Oral Suspension 40 Mg Pkt) 40 mg PO Q24H [facility] Last Admin: 06/18/23 15:12 Dose: 40 mg Glycerin (Glycerin Adult Suppository Jar) 1 supp PA DAILY PRN PRN PRN Reason: Constipation Sodium Chloride (Half Normal Saline) 1,000 mls @ 110 mls/hr IV INFUSION [facility] Last Admin: 06/18/23 12:47 Dose: 110 mls/hr IV Miscellaneous Supplies (Iv Access) 1 each IV DIRECTED [facility] Levothyroxine Sodium (Levothyroxine 137 Mcg Tab) 137 mcg PO DAILY@0600 [facility] Last Admin: 06/18/23 06:02 Dose: 137 mcg Lidocaine HCl (Lidocaine 2% Jelly 11 Ml Syr) 11 ml UR Q6H PRN PRN PRN Reason: use for straight cath Lorazepam (Lorazepam 2 Mg/Ml Vial) 1 mg IVP TODAY@0700 [facility] Stop: 06/19/23 16:00 Magnesium Hydroxide (Milk Of Magnesia 30 Ml Cup) 30 ml PO DAILY PRN PRN PRN Reason: Constipation Miconazole Nitrate (Miconazole 2% Topical Powder 85 Gm Btl) 0 gm TP BID [facility] Stop: 06/22/23 23:59 Last Admin: 06/18/23 08:09 Dose: 1 applic Modafinil (Modafinil 100 Mg Tab) 100 mg PO QAM [facility] Last Admin: 06/18/23 08:08 Dose: 100 mg Polyethylene Glycol (Polyethylene Glycol 3350 17 Gm Packet) 17 gm PO DAILY PRN PRN Sodium Biphosphate/Sodium Phosphate (Na Phosphate Enema 133 Ml Btl) 133 ml PA PRN PRN PRN Reason: Constipation Sodium Chloride (Normal Saline Flush 10 Ml Syr) 0 ml IVP PRN PRN Sodium Chloride (Normal Saline Flush 10 Ml Syr) 0 ml IVP BID [facility] Last Admin: 06/18/23 08:17 Dose: 10 ml Sodium Chloride (Normal Saline 10 Ml Vial) 0 ml IJ DIRECTED PRN White Petrol/Mineral Oil/Lanolin (Eucerin 106 Gm Jar) 0 gm TP PRN PRN METHODS: A 21 channel digitized electroencephalogram was performed in the [facility] Med/Surg Floor or ICU. The 10/20 international system of electrode placement was used and bipolar and referential electrode montages were recorded. In addition to EEG the patient was monitored for EKG and lateral/vertical eye movements. Activation procedures of photic stimulation and hyperventilation were performed if applicable. Video was used during activation procedures and during events where applicable. The duration of the recording was 30 minutes. DESCRIPTION OF EEG: The patient was noted to be awake and drowsy during the recording. During maximal wakefulness an 8-Hz posterior background rhythm was present which was well-modulated, symmetrical, reactive to eye opening, and of moderate voltage. With eye opening the background activity changed to a low voltage mixture of alpha, beta, and occasional theta range frequencies. Faster frequencies were present in the bilateral anterior head regions. There was a normal anterior- posterior voltage gradient. During drowsiness, there was attenuation of the posterior dominant background rhythm and vertex waves. No stage II sleep was recorded. There was diffuse, moderate-amplitude, polymorphic generalized theta slowing throughout the recording. Activating Procedures: Photic stimulation was performed which produced a symmetrical posterior driving response at various flash frequencies. Hyperventilation was not performed. EKG: EKG revealed normal sinus rhythm. INTERPRETATION: This EEG is abnormal due to non-rhythmic diffuse generalized slowing. PRIOR EEG: none CLINICAL CORRELATION: The generalized slowing is suggestive of a mild diffuse cerebral encephalopathy of broad differential including toxic-metabolic etiology. No focal regions of cerebral dysfunction or epileptiform activity was present. Clinical correlation is advised. Angela Cooney MD Date of service: 06/18/23
[2023-06-18] MEDS: Atorvastatin 40 MG TAB PO (20:42)
[2023-06-18 20:50] VITALS: BP 162/76; PULSE 71; RESP 18; TEMP 35.8; O2SAT 96
[2023-06-19] MEDS: SODIUM CHLORIDE 0.45% 1,000 ML 110 ML IV (04:56)
[2023-06-19] MEDS: Dronabinol 2.5 MG CAP 5 MG PO (06:01)
[2023-06-19] MEDS: LORazepam 2 MG/ML VIAL 1 MG IVP (06:50)
[2023-06-19 07:21] LABS: Anion Gap 9.5 mmol/L (3-11); BUN 16 mg/dL (7-18); CO2 26.5 mmol/L (21.0-32.0); Chloride 108 mmol/L (98-107); Estimated GFR 77.04 (mL/min/1.73m2); Glucose 103 mg/dL (74-106); Potassium 3.6 mmol/L (3.5-5.1); Sodium 144 mmol/L (136-145)
[2023-06-19] MEDS: Atenolol 50 MG TAB PO (10:23)
[2023-06-19] MEDS: Miconazole 2% Topical Powder 85 GM BTL TP (10:24)
[2023-06-19] MEDS: Docusate Sodium 100 MG/10 ML CUP PO (10:24)
[2023-06-19] MEDS: Divalproex 125 MG SPRINKLE PO (10:24)
[2023-06-19] MEDS: Normal Saline Flush 10 ML SYR IVP (10:25)
--- NOTE | 2023-06-19 10:44 | W.NUTRFU ---
Date of service: 06/18/23 Time of Service: 10:00 Nutrition Note NOTE: Follow up with Ilya regarding his weight loss and intake during admission. Ilya was asleep on his side upon visit and spoke with SERENA Ruiz outside his door doing supervision. Ilya has been having poor po intake and has lost significant weight during this admission. He is down another 5.3 kg from 05/27 (7% of body weight). Moderate malnutrition present with >5% of body weight loss in less than a month with evidence of mild muscle and fat loss. Pt's ability to communicate preferences is a hinderance, as is his low efficiency in self feedings. boost, custards, puddings, magic cups are all offered with inconsistent intake. 06/15 marinol ordered at 5mg BID. Will continue to have PNC check with pt to offer what he might prefer any given meal for his meal choices as well as ONS for extra kcals/protein and nutrition. Recommendations: liquid protein concentrate ordered TID, have pt ordered for assist feeding so intake is more efficient and encouraged. If weight continues down trend, recommend a conversation about appropriateness of enteral feedings. Monitoring: will monitor weight and initiate kcal count if he continues to appear to meet <50% of his energy needs with po intake. Time Spent in Nutritional Counseling and Treatment: 10 minutes
--- NOTE | 2023-06-19 10:57 | W.PM.PROGNOT ---
Date of Service Date of service: 06/19/23 Time of Service: 10:57 Assessment and Plan Assessment and plan (1) Intracranial hemorrhage: Status: Acute (2) Acute CVA (cerebrovascular accident): Status: Acute Assessment and plan: Initially admitted with S/p embolic CVA right occipital lobe, right temporal lobe and bilateral thalami with some microhemorrhages in the right thalamus and right posterior occipital lobe. Deficits wax and wane: cognitive dysfunction, agitation/sedation, gait imbalance, probable vision loss. has been less interactive and taking little PO On decreased dose of depakote 125 mg PO BID continue Provigil to see if we can improve his alertness during the day S/p fall on 06/13 CT of the head on 06/13 Findings of subacute strokes in the thalami bilaterally and the right occipital lobe. Interval development of acute hemorrhage associated with the right occipital infarct. There is mild mass effect Apixaban stopped and s/p discussion with Dr. Gonzales on 06/13 notes; Patient is a full code Palliative care is following patient: Please see notes Psychiatric consult earlier in the stay: Please read notes Neuro consultation: Ongoing Repeat head CT 06/17/[address] scan when compared to 06/13 24. Right occipital lobe hemorrhagic infarct. Also possible blood versus colloid cyst at the foramen of Monro. A colloid cyst was not evident at this location on the recent MRI scan of 05/22/2023. [facility] [place] consult as per recommended by Dr. Pavel Dorado and Team recommendation on 06/17/2023 -MRI not suspicious of hydrocephalus; no transependymal flow - Readind that Colliod cyst also appearant on previous imaging -Repeat MRI for hydrocephalus and look for increased transependymal flow; If positive reconsult [facility] neurosurgery otherwise f/u outpatient MRI unsuccessful yesterday and today again despite sedation with Lorazepam : Reports of paradoxical agitation MRI this PM - premedicate with Geodon 30-60 minutes prior to MRI -Image forwarded to [facility] and neuro-surgery consult placed: Will mention bulging 3rd ventricle as pointed by Dr. Zhao and obvious when comparing images from 04/2023 and the current one. Spoke to member of neurosurgery team: TRU Dang. Recommends to maintain initial plan after reviewing the images and results;monitor for clinical worsening Mentioned that in case of significant entrapment the lateral ventricles would have also been affected and the bulging of the third ventricle might be caused by the cyst VS initial increased of fluid -EEG for waxing and waning EEG read by Dr. Zhao mentioned no focal regions of cerebral dysfunction, no epileptiform activity, mild encephalopathy; please read notes (3) Failure to thrive in adult: Status: Acute Assessment and plan: Nutrition consult peniding Intake and outpout Encourage fluids, feed offering frequent snacks and drinks Continue marinol Continue depakote IV fluids in progress Na was 149 now 146 BMP in AM Continue PT/OT (4) Discharge planning issues: Status: Acute Assessment and plan: Full code PT/OT/Speech/Palliative care discussed with Dr. Bañuelos Exam Const General: comfortable and no acute distress HENMT Head: normocephalic, atraumatic and no acral cyanosis Eyes General: appearance normal, both eyes and all related structures Resp Effort & Inspection: normal respiratory effort Cardio Jugular venous pressure: no JVD GI Inspection: normal to inspection Skin General skin exam: no rashes or lesions noted Neuro General: patient alert and no meningeal signs Speech: expressive aphasia (no change from previous ) Objective Last Vital Signs Temp 35.8 C L 06/18/23 20:50 Pulse 71 06/18/23 20:50 Resp 18 06/18/23 20:50 BP 162/76 H 06/18/23 20:50 Pulse Ox 96 06/18/23 20:50 Laboratory Results - last 24 hr 06/18/23 06/19/23 10:33 06:25 Sodium 146 H 144 Potassium 3.6 3.6 Chloride 110 H 108 H Carbon Dioxide 31.3 26.5 Anion Gap 4.7 9.5 BUN 26 H 16 Creatinine 1.2 1.0 Est GFR (CKD-EPI 2020) 61.90 77.04 Glucose 172 H 103 Calcium 8.8 9.0 Time Spent with Patient Time Spent with Patient: 35-49 minutes Time was spent: preparing to see the patient(eg.review tests), obtaining and/or reviewing separately otained hiistory, ordering medications,tests, procedures, referring, communicating with other health clinical care coordinator, indepentently interpreting results and care coordination
[2023-06-19 12:43] VITALS: BP 147/81; PULSE 74; RESP 18; TEMP 36.9; O2SAT 96
[2023-06-19] MEDS: Ziprasidone 20 MG VIAL IM (13:41)
[2023-06-19] MEDS: Water,Injection,Sterile 10 ML VIAL 1.2 ML IM ×2 (13:41→14:18)
--- NOTE | 2023-06-19 13:56 | PT.INTREAT ---
Date of service: 06/19/23 Time of Service: 13:07 PT Notes Visit Reasons: s/p embolic CVA Inpatient Physical Therapy Treatment Note [facility] Date: 06/19/23 PRECAUTIONS: Fall, standard, activity as tolerated. Impulsive. Poor safety awareness. Visual field deficits. SUBJECTIVE: Patient found to be ambulating in hallway with SCHEDULE MANAGER x2. Agreeable to walk a little bit more. Voice inaudible whisper, continuous rubbing of face / eyes continues. Midge in patient's room. OBJECTIVE: Ambulating with FWW, SCHEDULE MANAGER 2. ? PAIN: potentially face / eye / head pain, indicated by rubbing. VITALS: monitored by nursing staff. Therapeutic Activities ([id number]): Direct one-on-one instruction in dynamic activities to improve functional performance. ? BED MOBILITY/TRANSFERS? Rolling L/R: not assessed Supine-sit: not assessed ? Sit-supine: not assessed ? Sit-stand: not assessed ? Stand-sit: max verbal and tactile cueing, min assist to physically help patient with limb placement, lining up safely to sit. ? Patient observed performing short distance ambulation, as one would between rooms in a house. Patient requires mod assist x2 to safely steer walker, LOB noted x1, Patient repeatedly lets go of walker to rub face / eyes and struggles to replace hands on the walker, frequently turning ~20 degrees and losing the walker altogether. Repeatedly places hands on the front cross bar instead of handles, has to be physically redirected (min-mod assist). Provided skilled cues and instruction on performance and technique throughout. ASSESSMENT:? Patient requires assist of 2 to ambulate safely. Lacks awareness of his surroundings including his assistive device. PLAN: Continue global strengthening per plan of care until patient achieves safe discharge plan. TREATMENT CODE/TIME: 10 minutes beginning at 13:07
--- NOTE | 2023-06-19 14:10 | NUR.NOTE ---
Nursing Note: Patient resisted administration of ziprasidone as ordered, and this RN estimated about half the solution was spilled and half the solution was administered but could not give an exact administration amount. Discussed with Dr. Bañuelos and JESUS Logan in person, who both instructed this RN to administer the other 10mg estimated to be lost. The 10mg ziprasodone was administered as directed.
[2023-06-19] MEDS: Ziprasidone 20 MG VIAL 10 MG IM (14:17)
[2023-06-19 14:20] VITALS: RESP 12; O2SAT 97
--- NOTE | 2023-06-19 15:15 | DI.MRI_ITS ---
Exam(s) MR BRAIN WO EXAM: MR BRAIN WO CLINICAL HISTORY: ? hydrocephalus ? incr. transependymal flow TECHNIQUE: Multiplanar multisequence MRI of the brain was performed. COMPARISON: MR MR BRAIN WO from 05/22/[address] HEAD WO from 06/17/2023 FINDINGS: Submitted for interpretation 06/21/2023 CEREBRAL PARENCHYMA: When compared to the prior study listed above there has been hemorrhagic transformation of the right occipital lobe infarct and there is also gyriform T1 hyper intensity consistent with laminar necrosis in the right occipital and affected medial right temporal lobe. The ex epidural lobe hemorrhagic tr ansformation exhibits a somewhat masslike appearance. The previously present bilateral thalamic infarcts are again noted, exhibiting an element of subacute hemorrhagic transformation on the right side exhibiting T1 hyperintensity and dropout on SWI. The l eft thalamic infarct is not hemorrhagic. There is a new area of signal abnormality in the white robyn er adjacent to the left lateral ventricle which was not previously present, exhibiting restricted dif fusion consistent with new infarct at this level. The left thalamic infarct continues to exhibit mil d restricted diffusion. There is no new signal abnormality evident within the cerebellar hemispheres nor within the reji and midbrain. 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 PITUITARY GLAND: No mass nor parasellar abnormality. No obvious abnormality in the cavernous sinuses. FLOW VOIDS: The expected flow void are noted. No evidence of obvious aneurysm nor obvious vascular ma lformation. PARANASAL SINUSES: The visualized paranasal sinuses appear unremarkable. No obvious finding ORBITS: No obvious findings. IMPRESSION: Compared to prior MRI scan of 05/22/2023 there has been hemorrhagic transformation of the occipital l obe aspect of the previously described occipital temporal infarct in the territory of the right poste rior cerebral artery. There is also been hemorrhagic transformation of the ipsilateral right thalami c infarct (the left thalamic infarct is not hemorrhagic). There is gyriform T1 hyperintensity in the posterior right temporal lobe gyri consistent with laminar necrosis. New nonhemorrhagic lacunar infarct evident on the left side adjacent to the left lateral ventricle. 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 There is no asymmetry in the size of the frontal horns of the lateral ventricles. DATA REPOSITORY:
--- NOTE | 2023-06-19 15:28 | CHAPLAIN ---
Ilya has been here nearly a month, following his stroke. He has good days and bad days according to the staff caring for him. He hasn't been speaking and responding in quite a while. His Tara visits usually daily. Today she asked for a egg salad sandwich so I brought her the fixings from the kitchen so she could make a sandwich. Ilya appeared to be sleeping today when I visited. Tara said he'd recently been medicated. He was going for an MRI this afternoon.
[2023-06-19 15:55] VITALS: RESP 14
--- NOTE | 2023-06-19 16:21 | DI.VRAD_ITS ---
PROCEDURE INFORMATION: Exam: MR Head Without Contrast Exam date and time: 06/19/2023 8:56 AM Age: 78 years old Clinical indication: Other: ? Hydrocephalus, ? increased transepenymal flow? , CT on 06/17/23 questioned blood vs colloid cyst at foramen of monro TECHNIQUE: Imaging protocol: Magnetic resonance imaging of the head without contrast. COMPARISON: CT HEAD WO 06/17/2023 1:09 PM FINDINGS: Limitations: Motion limited examination. Brain: Moderate parenchymal volume loss. Moderate bilateral periventricular and subcortical white matter T2 hyperintensities are present compatible with small-vessel ischemic disease. No midline shift. No mass, acute infarct, hemorrhage, or extra-axial fluid collection. Nonacute lacunar infarcts bilaterally in the basal ganglia and thalami. Lobar hemorrhage right occipital pole, similar to what was seen on CT from 06/17/2023. Gyriform T1 hyperintensity in these regions consistent laminar necrosis. Overall this most likely represents right-sided posterior cerebral artery infarct with hemorrhagic transformation posteriorly. Cerebral ventricles: As seen on CT there is colloid cysts anterior midline 3rd ventricle. Bones/joints: Unremarkable. Paranasal sinuses: Normal as visualized. No acute sinusitis. Mastoid air cells: Normal as visualized. No mastoid effusion. Orbital cavities: Unremarkable. Soft tissues: Unremarkable. IMPRESSION: 1. Motion limited examination. 2. Subacute right posterior cerebral artery infarct with hemorrhagic transformation and occipital pole as seen on recent CT. Continued follow-up with CT as appropriate. 3. 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 4. Underlying volume loss and small vessel ischemic disease. Remote basal ganglia and thalamic lacunar infarcts. Dictated and Authenticated by: Abdifatah Rivero MD. Ordering:ALISA Kauffman MD
[2023-06-20] MEDS: Dronabinol 2.5 MG CAP 5 MG PO ×2 (06:50→15:59)
[2023-06-20 07:47] VITALS: BP 124/50; PULSE 70; RESP 17; TEMP 36.4; O2SAT 96
[2023-06-20] MEDS: Atenolol 50 MG TAB PO (09:02)
[2023-06-20] MEDS: Divalproex 125 MG SPRINKLE PO ×2 (09:02→19:31)
[2023-06-20] MEDS: Docusate Sodium 100 MG/10 ML CUP PO ×2 (09:02→19:31)
[2023-06-20] MEDS: Normal Saline Flush 10 ML SYR IVP ×2 (09:03→19:32)
[2023-06-20] MEDS: Miconazole 2% Topical Powder 85 GM BTL TP (09:03)
[2023-06-20] MEDS: Modafinil 100 MG TAB PO (09:03)
[2023-06-20 15:15] VITALS: BP 123/73; PULSE 61; RESP 17; TEMP 36.5; O2SAT 96
--- NOTE | 2023-06-20 19:01 | NUR.NOTE ---
Nursing Note: pT said she went to bed at 1 am and didn't wake up until later the next day to PT. PT woke up disoriented and was wondering where he was she stated. But also that she hadn't eaten all day.
[2023-06-20] MEDS: Atorvastatin 40 MG TAB PO (19:31)
[2023-06-20 21:38] VITALS: BP 142/77; PULSE 53; RESP 18; TEMP 36.5; O2SAT 96
[2023-06-21] MEDS: Dronabinol 2.5 MG CAP 5 MG PO ×2 (06:16→14:18)
[2023-06-21 10:46] VITALS: BP 143/82; PULSE 67; RESP 18; TEMP 35.7; O2SAT 95
[2023-06-21] MEDS: Divalproex 125 MG SPRINKLE PO ×2 (11:01→20:51)
[2023-06-21] MEDS: Modafinil 100 MG TAB PO (11:01)
[2023-06-21] MEDS: Normal Saline Flush 10 ML SYR IVP ×2 (11:01→20:51)
[2023-06-21] MEDS: Docusate Sodium 100 MG/10 ML CUP PO ×2 (11:02→20:51)
[2023-06-21] MEDS: Atenolol 50 MG TAB PO (11:02)
[2023-06-21 11:52] LABS: Anion Gap 8.4 mmol/L (3-11); BUN 17 mg/dL (7-18); CO2 29.6 mmol/L (21.0-32.0); CREATININE 1.2 mg/dL (0.70-1.30); Calcium 9.7 mg/dL (8.5-10.1); Chloride 109 mmol/L (98-107); Glucose 114 mg/dL (74-106); Potassium 3.7 mmol/L (3.5-5.1); Sodium 147 mmol/L (136-145)
[2023-06-21] MEDS: Atorvastatin 40 MG TAB PO (20:50)
[2023-06-21 23:38] VITALS: BP 145/77; PULSE 74; RESP 18; TEMP 36.5; O2SAT 94
[2023-06-22 06:51] LABS: Sodium 147 mmol/L (136-145)
[2023-06-22] MEDS: Atenolol 50 MG TAB PO (07:58)
[2023-06-22] MEDS: Modafinil 100 MG TAB PO (07:58)
[2023-06-22] MEDS: Acetaminophen 325 MG TAB 650 MG PO (07:58)
[2023-06-22] MEDS: Normal Saline Flush 10 ML SYR IVP ×3 (07:59→21:22)
[2023-06-22] MEDS: Divalproex 125 MG SPRINKLE PO ×2 (07:59→21:21)
[2023-06-22] MEDS: Dronabinol 2.5 MG CAP 5 MG PO ×2 (07:59→16:04)
[2023-06-22] MEDS: Docusate Sodium 100 MG/10 ML CUP PO ×2 (07:59→21:21)
--- NOTE | 2023-06-22 08:02 | PCPN_ITS ---
Date of service: 06/22/23 Time of Service: 08:02 Assessment and Plan Assessment and plan (1) Hypertension: Status: Chronic Qualifiers: Hypertension type: essential hypertension Qualified Code(s): I10 - Essential (primary) hypertension (2) Atrial flutter: Status: Resolved Qualifiers: Atrial flutter type: typical Qualified Code(s): I48.3 - Typical atrial flutter (3) Hypothyroidism, unspecified: Status: Chronic Qualifiers: Hypothyroidism type: unspecified Qualified Code(s): E03.9 - Hypothyroidism, unspecified (4) Failure to thrive in adult: Status: Acute (5) Acute CVA (cerebrovascular accident): Status: Acute (6) Intracranial hemorrhage: Status: Acute (7) Palliative care patient: Status: Acute Assessment and plan: Ilya was very loosened today. He thought about my questions and formulated answers that were appropriate to the questions. We talked about CPR and the adverse effects from it especially broken ribs, being sedated with the tube down your throat hooked up to machine, and the fact that if he needed these things to be done that his brain might suffer even further because of anoxia. 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 He would most likely spend the rest of his life in a group home. Despite the grim prognosis, he still stated that he would like to be a full code. He does need mouth care if he will allow it He asked me several times what it is that he could do to get better. I told him drink plenty of fluid, eat, and exercise. His sodium today was elevated. He needs more free fluid. I did convey this information to Dr. Alcazar Subjective Subjective Interval history since last seen: Ilya said that he feels okay. He does not have any pain. He was especially lucid today. Nursing cadre who has also cared for Ilya states that he has never heard him speak so clear, and loud. Generally Ilya speaks in a low whisper which is almost impossible to make out. Exam Narrative Exam Narrative: Ilya was very lucid today the most that I have ever seen him. His mouth look like it was quite dry and he that he needs mouth care. In the past nursing has told me that he resists mouth care his heart was regular I did not hear any arrhythmias. Lungs good air movement. Abdomen nontender. He does not have any edema. He was able to tell me many things about what had been going on. He did ask me what was going on and how he could get better. Objective Last Vital Signs Temp 97.7 F 06/21/23 23:38 Pulse 74 06/21/23 23:38 Resp 18 06/21/23 23:38 BP 145/77 H 06/21/23 23:38 Pulse Ox 94 06/21/23 23:38 Laboratory Results - last 24 hr 06/21/23 06/22/23 11:35 06:23 Sodium 147 H 147 H Potassium 3.7 Chloride 109 H Carbon Dioxide 29.6 Anion Gap 8.4 BUN 17 Creatinine 1.2 Est GFR (CKD-EPI 2020) 61.90 Glucose 114 H Calcium 9.7
[2023-06-22 08:03] VITALS: BP 131/80; PULSE 81; RESP 16; TEMP 36.2; O2SAT 98
[2023-06-22] MEDS: Miconazole 2% Topical Powder 85 GM BTL TP (08:06)
--- NOTE | 2023-06-22 09:23 | PT.INDS ---
PT Notes Visit Reasons: s/p embolic CVA Inpatient Physical Therapy Discharge Summary Date: 06/22/2023 Dates of Service: 06/08/2023 through 06/22/2023 Referring Doctor: Angel Pang MD PT Orders: PT CONSULT: Falls safety assessment Precautions: Standard. Activity as tolerated. Impaired safety awareness. This document serves as a summary of care. No PT services were provided on this date. Subjective: none obtained Objective: Mental Status: Responds when name is called. Has been consistently unable to follow instructions. Has been unable to meaningfully participate in PT intervention. Pain: None verbalized/expressed ROM: Unable to formally assess at this time Right Upper Extremity: Grossly WFL Left Upper Extremity: Grossly WFL Right Lower Extremity: Grossly WFL Left Lower Extremity: Grossly WFL Strength: Unable to formally assess at this time Right Upper Extremity: Grossly 3-/5 Left Upper Extremity: Grossly 3/5 Right Lower Extremity: Grossly 3-/5 Left Lower Extremity: Grossly 3/5 Bed Mobility/Transfers: At last assessment: Sit-stand: ?Min A? Stand-sit: ?Min A ? Bed-Chair:? Min A? Chair-bed: Min A Gait: Has ambulated with PT infrequently over past 2 weeks, without significant carryover for safety awareness. Last week, patient required mod assist x2 to safely steer walker, LOB noted x1, Patient repeatedly let go of walker to rub face / eyes and struggled to replace hands on the walker. Required physical redirection for hand placement (min-mod assist). Balance: Unable to test due to inability to follow commands Informed Consent/Education: Patient unable to meaningfully participate in therapy at this time. ASSESSMENT: Patient unable to participate in meaningful PT sessions. No progress has been made toward goals, and patient demonstrates limited ability to participate or carry over from session to session. Due to lack of progress and inability to participate, he is appropriate for discharge from PT services. Goals: Goals X1 week 1. Supine-Sit SBA NOT MET 2. Sit-Supine SBA NOT MET 3. Sit-Stand CGx1 to front wheeled walker NOT MET 4. Stand-Sit CG X1 with FWW NOT MET 5. Bed-Chair CGx1 with FWW NOT MET 6. Chair-Bed CGx1 with FWW NOT MET 7. CGx1 with gait on level surface with use of FWW for at least 15-30 feet (enough to cover bedroom<>bathroom and bedroom<>kitchen distances at home) NOT MET 8. Supervision with home exercise program NOT MET 9. Fair static and dynamic standing balance/tolerance NOT MET Plan of Care/Treatment Plan: D/C from PT services DISCHARGE RECOMMENDATIONS: [facility] TREATMENT CODE/TIME: No charges for today's date Margaret Rahman, PT, DPT [facility]
--- NOTE | 2023-06-22 10:44 | OTDS_ITS ---
Occupational Therapy Notes 06/22/23 Discharge Summary Pt is a 78 year old male who has been participating in OT services infrequently for a number of visits now. He has plateaued in regards to his functional (I) for his daily ADL/IADL routines. Based on his CLOF he does require vc for task initiation and execution and tactile cues at times for task performance. Cognitively he is confused and requires (A) with all functional activities. Goals- 1. Oral Hygiene with mod vc pt will be able to brush his teeth- not met 2. Dressing- with mod (A) pt will be able to (A) with UE dressing by lifting his UE and mod LE by lifting his legs (I)- met 3. Bathing- seated in chair with min vc (I) UE and mod (A) LE - not met as pt is able to demonstrate this at times and others requires increased (A) 4. Toileting- mod (A) on commode- met 5. Eating- Mod vc (I) with hand to mouth - met Pt has not made progressions in regards to his (I) level at this time. His current level of (I) based on last tx note: BATHING: sitting in chair with max (A) set up and clean up Upper Body: Mod vc and min tactile cues pt was (I) with washing face, (B) hands and forearms and underarms. He denies his abdomen again today but does wash this (I) when OT did not ask later on. Lower Body: (I) with (B) LE from thigh to ankles with appropriate leg bend and ideal ROM of UE. Mod vc and mod tactile cue provided. DRESSING: Mod (A) donning gown. He is able to lift his (B) UE up. GROOMING: sitting in chair, pt is (I) with brushing his hair. OT did attempt oral hygiene today which pt denied. OT recommends that pt go SNF vs. LTC when medically cleared per MD. 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 He will need to be in a place with 24 hour (A) to be provided as needed. Based on pts current level of function and his minimal gains in regards to his functional (I), OT will plan to discharge pt at this time. Plan is for pt to transition to [facility] B2 level of care at this time. No skilled services were provided for todays documentation. Discharge from OT services. Shaila Gerard OTR/[facility] [place], [place]
--- NOTE | 2023-06-22 13:08 | STREC_ITS ---
Date of service: 06/22/23 Time of Service: 13:00 Speech Therapy Recommendations Report ST Recommendations: Speech Language Pathology Discharge Summary (Non Billable Visit) DISCHARGE SUMMARY: Patient is a 78 yo male admitted with CVAs who has been p articipating in [employer] services since admission for dysphagia treatment as well as trials of cognitive communication rehab focused on orientation. He continues to present with moderate oral pharyngeal dysphagia largely impacted by cognition/confusion. This is being mitigated by modified diet- L4 Puree Diet and L2 Mildly Thick Liquids, 1:1 supervision/assistance, as well as aspiration precautions as outlined below. Ilya's PO intake remains limited, though he is tolerating his diet well. He has not demonstrated indication of readiness for diet upgrade or candidacy for dysphagia therapeutic exercise since admission. In regards to cognitive-communication, Ilya continues to demonstrate whispering speech, including contextually appropriate sentence length responses (eg what is in that? while drinking Ensure) and some perseverative nonsensical responses (135). He remains oriented to self only, with chance-level accuracy (50%) given field of 2 orientation questions. Ultimately he has demonstrated plataeu in progress. In light of transition to [facility] B2 level care, [employer] will discharge at this time. If change in status occurs please re-consult. RECOMMENDATIONS: Cognitive Recommendations To Reduce Risk for Delirium: - Have shades open/lights on during the day - Provide engaging activities for Ilya such as fidgets, coloring, etc. - Recommend 1:1 provides frequent orientation to month/date/year/day/location/situation Diet: 4-Pureed/Extremely Thick (*Please order Magic Cup instead of ice cream- diet order updated) Liquids: 2- Mildly Thick Liquids (*Please add thickener to Ensure/smoothies) Other: Medications - Crushed (If pt alert, OK small capsules whole) in applesauce/custard/pudding followed by sips of liquid. View oral cavity and use swab in cheeks to ensure he is not pocketing. Liquid formulations should be thickened. [place] upright for all PO. Out of bed/in chair encouraged for meals. Encourage physical mobility as tolerated. Oral hygiene before/after PO intake using either suction swab or toothbrush if patient cognitively appropriate PO intake only when awake/alert Strategies/Adaptations/Assistive Equipment: Reduce auditory and/or visual distractions when eating Small sips and bites when eating Slow rate of intake Posture/Positioning Needs: Maintain upright position at least 30 minutes after meals Supervision: Direct supervision via of [facility] staff, assist w/feeding Plan Discharge acute [employer] secondary to swing bed II status/lack of progress Penitentiary Goals: Patient will remain free from aspiration-related illness, malnutrition, and dehydration. - MET Short Term Goals: Patient will tolerate Puree Diet and Thin liquids without overt s/s aspiration across 2/2 visits. - MET Patient will tolerate PO trials for consideration of diet upgrade without overt s/s aspiration across 2/2 visits. -NOT MET Discharge recommendations: Anticipate patient will require 24/ supervision and support- LTC
--- NOTE | 2023-06-22 17:36 | PGE_ITS ---
Date of Service Date of service: 06/22/23 Time of Service: 09:45 Subjective Subjective Patient reports: tolerating liquids well, tolerating a regular diet and afebrile; denies still having pain, nausea, vomiting or shortness of breath Interval history since last seen: Patient with decreased p.o. and had IVF to normalize his sodium a few days ago; he is more interactive than last week.. Exam Narrative Exam Narrative: Ilya was very lucid today the most that I have ever seen him. His mouth look like it was quite dry and he that he needs mouth care. In the past nursing has told me that he resists mouth care his heart was regular I did not hear any arrhythmias. Lungs good air movement. Abdomen nontender. He does not have any edema. He was able to tell me many things about what had been going on. He did ask me what was going on and how he could get better. Eyes General: appearance normal, both eyes and all related structures Pupils: PERRL, irregular (right) on the right and other Resp Effort & Inspection: normal respiratory effort Auscultation: clear to auscultation bilaterally (decreased bases) Cardio Jugular venous pressure: no JVD Palpation: normal PMI Rate: regular rate Heart Sounds: S1 normal and S2 normal Pulses: radial pulses present and dorsalis pedis present GI Inspection: normal to inspection Palpation: soft, no hepatosplenomegaly and nontender Auscultation: normal bowel sounds Neuro General: patient alert, patient awake and oriented Patient Orientation: Person and Place Cranial Nerves: tongue midline and other (does not comply but moves all four ext, not compliant with instructions ) Extrem Right upper extremity: normal to inspection and full ROM Left upper extremity: normal to inspection and full ROM Right lower extremity: normal to inspection and full ROM Left lower extremity: normal to inspection and full ROM Objective Last Vital Signs Temp 36.2 C L 06/22/23 08:03 Pulse 81 06/22/23 08:03 Resp 16 06/22/23 08:03 BP 131/80 06/22/23 08:03 Pulse Ox 98 06/22/23 08:03 Laboratory Results - last 24 hr 06/22/23 06:23 Sodium 147 H Time Spent with Patient Time Spent with Patient: 25-34 minutes Time was spent: preparing to see the patient(eg.review tests), ordering medications,tests, procedures, referring, communicating with other health care center manager, indepentently interpreting results and counseling the patient
[2023-06-22] MEDS: Atorvastatin 40 MG TAB PO (21:21)
[2023-06-22] MEDS: SODIUM CHLORIDE 0.45% 1,000 ML 110 ML IV (21:32)
[2023-06-22] MEDS: Refresh PLUS Eye Drops 0.4ml OU (22:08)
[2023-06-22 22:35] VITALS: BP 137/81; PULSE 63; RESP 16; TEMP 36.9; O2SAT 95
[2023-06-23] MEDS: SODIUM CHLORIDE 0.45% 1,000 ML 110 ML IV ×3 (06:32→19:38)
[2023-06-23 07:00] LABS: Anion Gap 7.3 mmol/L (3-11); BUN 18 mg/dL (7-18); CO2 30.7 mmol/L (21.0-32.0); Calcium 9.3 mg/dL (8.5-10.1); Chloride 110 mmol/L (98-107); Estimated GFR 77.04 (mL/min/1.73m2); Glucose 90 mg/dL (74-106); Potassium 3.3 mmol/L (3.5-5.1); Sodium 148 mmol/L (136-145)
[2023-06-23 07:45] VITALS: BP 142/81; PULSE 75; RESP 16; TEMP 36.2; O2SAT 96
[2023-06-23] MEDS: Divalproex 125 MG SPRINKLE PO ×2 (07:57→20:41)
[2023-06-23] MEDS: Docusate Sodium 100 MG/10 ML CUP PO ×2 (07:57→20:41)
[2023-06-23] MEDS: Atenolol 50 MG TAB PO (07:58)
[2023-06-23] MEDS: Normal Saline Flush 10 ML SYR IVP ×2 (07:58→20:42)
[2023-06-23] MEDS: Modafinil 100 MG TAB PO (07:58)
[2023-06-23] MEDS: Dronabinol 2.5 MG CAP 5 MG PO ×2 (07:58→15:21)
[2023-06-23] MEDS: POTASSIUM CHLORIDE 20 MEQ/100 ML BAG 50 MEQ IVPB ×2 (10:48→12:55)
[2023-06-23 15:49] VITALS: BP 133/74; PULSE 69; RESP 16; TEMP 36.2; O2SAT 95
[2023-06-23] MEDS: Atorvastatin 40 MG TAB PO (20:41)
[2023-06-24] MEDS: Acetaminophen 325 MG TAB 650 MG PO ×2 (02:53→10:05)
[2023-06-24] MEDS: SODIUM CHLORIDE 0.45% 1,000 ML 110 ML IV (03:36)
[2023-06-24] MEDS: Dronabinol 2.5 MG CAP 5 MG PO ×2 (05:53→15:13)
[2023-06-24 07:37] LABS: Anion Gap 9.8 mmol/L (3-11); BUN 10 mg/dL (7-18); CO2 26.2 mmol/L (21.0-32.0); Calcium 8.8 mg/dL (8.5-10.1); Chloride 109 mmol/L (98-107); Estimated GFR 77.04 (mL/min/1.73m2); Glucose 106 mg/dL (74-106); Potassium 3.4 mmol/L (3.5-5.1); Sodium 145 mmol/L (136-145)
--- NOTE | 2023-06-24 09:11 | PDOC.CMACT ---
Date of service: 06/24/23 Time of Service: 09:11 Care Management Activity Note Activity Note Text Activity Note Text: Ilya has been discharged from both OT and PT services. He has reached his maximum functional ability given his restrictions. He is not consistently able to follow commands and does not remember from session to session. He will be transitioned to SB-2. CM discussed this with his Tara who expressed understanding. Additionally, Ilya's insurance has served notice that his last day of coverage will be 06/25/23. Ilya continues to go for frequent walks with staff which he enjoys. Unfortunately he is unable to read or follow a TV program. Tara continues to visit daily and spends seevral hours with Ilya, holding his hand and keeping him company.Ilya would enjoy Pet and music therapy should they be available.
[2023-06-24 10:04] VITALS: BP 134/80; PULSE 66; RESP 14; TEMP 36.8; O2SAT 98
[2023-06-24] MEDS: Docusate Sodium 100 MG/10 ML CUP PO ×2 (10:05→20:42)
[2023-06-24] MEDS: Atenolol 50 MG TAB PO (10:05)
[2023-06-24] MEDS: Milk of Magnesia 30 ML CUP PO (10:05)
[2023-06-24] MEDS: Divalproex 125 MG SPRINKLE PO ×2 (10:05→20:43)
[2023-06-24] MEDS: Modafinil 100 MG TAB PO (10:05)
[2023-06-24] MEDS: Polyethylene Glycol 3350 17 GM PACKET PO (10:05)
[2023-06-24] MEDS: Atorvastatin 40 MG TAB PO (20:43)
[2023-06-24 22:12] VITALS: PULSE 60; RESP 18; TEMP 36.8; O2SAT 95
[2023-06-25] MEDS: Dronabinol 2.5 MG CAP 5 MG PO ×2 (06:02→16:04)
[2023-06-25 07:12] VITALS: BP 157/85; PULSE 71; RESP 16; TEMP 36.8; O2SAT 94
[2023-06-25] MEDS: Docusate Sodium 100 MG/10 ML CUP PO ×2 (07:44→20:04)
[2023-06-25] MEDS: Modafinil 100 MG TAB PO (07:45)
[2023-06-25] MEDS: Atenolol 50 MG TAB PO (07:45)
[2023-06-25] MEDS: Divalproex 125 MG SPRINKLE PO ×2 (07:49→20:04)
[2023-06-25] MEDS: Atorvastatin 40 MG TAB PO (20:04)
[2023-06-26 00:18] VITALS: BP 129/79; PULSE 60; RESP 16; TEMP 36.1; O2SAT 95
[2023-06-26] MEDS: Acetaminophen 325 MG TAB 650 MG PO (05:00)
[2023-06-26] MEDS: Dronabinol 2.5 MG CAP 5 MG PO ×2 (06:01→15:29)
[2023-06-26] MEDS: Modafinil 100 MG TAB PO (09:10)
[2023-06-26] MEDS: Divalproex 125 MG SPRINKLE PO ×2 (09:10→21:12)
[2023-06-26] MEDS: Atenolol 50 MG TAB PO (09:10)
[2023-06-26] MEDS: Docusate Sodium 100 MG/10 ML CUP PO ×2 (09:10→21:13)
[2023-06-26 15:09] VITALS: BP 129/75; PULSE 60; RESP 16; TEMP 36.2; O2SAT 96
[2023-06-26] MEDS: Atorvastatin 40 MG TAB PO (21:13)
[2023-06-26 23:35] VITALS: BP 126/78; PULSE 62; RESP 16; TEMP 36; O2SAT 98
[2023-06-27] MEDS: Dronabinol 2.5 MG CAP 5 MG PO ×2 (06:03→17:18)
[2023-06-27 08:55] VITALS: BP 113/69; PULSE 64; RESP 16; TEMP 36.2; O2SAT 95
[2023-06-27 11:00] VITALS: BP 141/77; PULSE 80; RESP 17; O2SAT 98
--- NOTE | 2023-06-27 14:40 | W.PM.PROGNOT ---
Date of Service Date of service: 06/27/23 Time of Service: 14:40 Assessment and Plan Assessment and plan (1) Hypernatremia: Status: Acute Assessment and plan: Patient was receiving 0.45% saline for sodium 148, and was rechecked on 06/24 down to 145, fluids were continued - patient pulled his IV out and was aggressive when nursing tried to restart it, they contacted MD and advised it was ok to keep out, order was not d/c'd at that time. Order D/C'd today with electrolytes being checked. Potassium was also low on 06/24 3.4. Today potassium 3.8 and sodium 146 Objective Last Vital Signs Temp 36.2 C L 06/27/23 08:55 Pulse 80 06/27/23 11:00 Resp 17 06/27/23 11:00 BP 141/77 H 06/27/23 11:00 Pulse Ox 98 06/27/23 11:00 Time Spent with Patient Time Spent with Patient: <25 minutes Time was spent: ordering medications,tests, procedures
[2023-06-27 15:08] LABS: Abs Immature Grans 0.01 10^3/uL (0.0-0.06); Absolute Basophil Count 0.04 10^3/uL (0.0-0.2); Absolute Eosinophil Count 0.16 10^3/uL (0.0-0.7); Absolute Monocyte Count 0.42 10^3/uL (0.1-0.8); Absolute Neutrophil Count 4.07 10^3/uL (1.2-6.7); Basophils % 0.7; Eosinophils % 2.9; HCT 36.5 % (40.0-50.0); HGB 13.4 g/dL (13.5-17.5); Immature Grans % 0.2; Lymphocytes % 14.5; MCH 30.7 pg (27.0-33.0); MCHC 36.7 % (32.0-36.0); MCV 84 fL (80-95); MPV 9.1 fL (8.0-11.0); Monocytes % 7.6; Neutrophils % 74.1; Platelet Count 153 10^3/uL (130-400); RBC 4.37 10^6/uL (4.36-5.78); RDW 11.9 % (11.8-14.1); RDW-SD 35.1 fL
[2023-06-27 15:21] LABS: BUN 15 mg/dL (7-18); Calcium 9.1 mg/dL (8.5-10.1); Chloride 109 mmol/L (98-107); Estimated GFR 77.04 (mL/min/1.73m2); Glucose 120 mg/dL (74-106); Magnesium 1.9 mg/dL (1.8-2.4); Potassium 3.8 mmol/L (3.5-5.1); Sodium 146 mmol/L (136-145)
[2023-06-27] MEDS: Divalproex 125 MG SPRINKLE PO (20:03)
[2023-06-27] MEDS: Atorvastatin 40 MG TAB PO (20:03)
[2023-06-27 21:39] VITALS: BP 147/81; PULSE 71; RESP 17; TEMP 35.4; O2SAT 93
[2023-06-28] MEDS: Dronabinol 2.5 MG CAP 5 MG PO ×2 (06:11→16:50)
[2023-06-28 07:46] VITALS: BP 138/75; PULSE 63; RESP 17; TEMP 36.1; O2SAT 95
[2023-06-28] MEDS: Divalproex 125 MG SPRINKLE PO (09:07)
[2023-06-28] MEDS: Atenolol 50 MG TAB PO (09:07)
[2023-06-28] MEDS: Modafinil 100 MG TAB PO (09:07)
[2023-06-28] MEDS: Docusate Sodium 100 MG/10 ML CUP PO (09:07)
[2023-06-28 15:27] VITALS: BP 179/82; PULSE 69; RESP 16; TEMP 35.6; O2SAT 97
[2023-06-28 21:00] VITALS: BP 117/77; PULSE 70; RESP 18; TEMP 36.6; O2SAT 99
[2023-06-29 07:34] VITALS: BP 120/64; PULSE 63; RESP 17; TEMP 36; O2SAT 97
[2023-06-29] MEDS: Docusate Sodium 100 MG/10 ML CUP PO ×2 (08:15→19:21)
[2023-06-29] MEDS: Atenolol 50 MG TAB PO (08:15)
[2023-06-29] MEDS: Dronabinol 2.5 MG CAP 5 MG PO ×2 (08:15→15:10)
[2023-06-29] MEDS: Modafinil 100 MG TAB PO (08:15)
[2023-06-29] MEDS: Divalproex 125 MG SPRINKLE PO ×2 (08:15→19:21)
[2023-06-29 15:14] VITALS: BP 145/86; PULSE 80; RESP 18; TEMP 36.6; O2SAT 95
[2023-06-29] MEDS: Atorvastatin 40 MG TAB PO (19:21)
[2023-06-29 19:25] VITALS: BP 133/85; PULSE 72; RESP 20; TEMP 35.6; O2SAT 92
[2023-06-30] MEDS: Dronabinol 2.5 MG CAP 5 MG PO ×2 (07:06→15:08)
[2023-06-30 07:28] VITALS: BP 120/78; PULSE 64; RESP 18; TEMP 35.7; O2SAT 95
[2023-06-30] MEDS: Divalproex 125 MG SPRINKLE PO (07:48)
[2023-06-30] MEDS: Docusate Sodium 100 MG/10 ML CUP PO (07:48)
[2023-06-30] MEDS: Modafinil 100 MG TAB PO (07:48)
[2023-06-30] MEDS: Atenolol 50 MG TAB PO (07:49)
[2023-06-30] MEDS: Acetaminophen 325 MG TAB 650 MG PO ×2 (08:05→15:08)
[2023-06-30] MEDS: Refresh PLUS Eye Drops 0.4ml OU ×2 (13:57→17:23)
[2023-06-30 19:05] VITALS: RESP 18
--- NOTE | 2023-07-01 08:57 | CMACTNOTE_ITS ---
Date of service: 07/01/23 Time of Service: 08:57 Care Management Activity Note Activity Note Text Activity Note Text: S/O:Ilya remains in SB-2 status. No bed offers have been received from any of the referrals sent. Ilya's mentation and willingness or ability to engage in activities, PT etc waxes and wanes. He spends most of his time sitting up in bed or a chair, rubbing his hands over his face again and again. He denies pain or itching and does not seem aware that he is doing it. In terms of activities, Ilya's ability to participate is limited by his cognitive, speech, visual and hearing impairments. He does like to walk and the staff has been very good about getting him out of bed and ambulating him when he indicates a desire to do so. A: Ilya is a 78 year old man admitted on 05/21/23 with a CVA P:Ilya is likely going to need to transfer to a SNF for short term rehab, if not for manager terminal care. Referrals have been sent to all of the SNFs in [place] and many in [place]. No bed offers have been received. A referral was also sent to [facility] [place] [facility] for long range planning, options counseling and community case management for both Ilya and his . CM will follow and continue to asses for discharge needs.
[2023-07-01] MEDS: Divalproex 125 MG SPRINKLE PO ×2 (09:20→19:35)
[2023-07-01] MEDS: Dronabinol 2.5 MG CAP 5 MG PO ×2 (09:20→15:59)
[2023-07-01] MEDS: Docusate Sodium 100 MG/10 ML CUP PO ×2 (09:20→19:34)
[2023-07-01] MEDS: Modafinil 100 MG TAB PO (09:20)
[2023-07-01] MEDS: Atenolol 50 MG TAB PO (09:20)
[2023-07-01 15:52] VITALS: BP 126/79; PULSE 83; RESP 18; TEMP 36.3; O2SAT 99
[2023-07-01] MEDS: Atorvastatin 40 MG TAB PO (19:34)
[2023-07-02 00:17] VITALS: BP 113/62; PULSE 69; RESP 16; TEMP 36.2; O2SAT 95
[2023-07-02] MEDS: Dronabinol 2.5 MG CAP 5 MG PO ×2 (06:24→16:50)
[2023-07-02 08:29] VITALS: BP 123/75; PULSE 71; RESP 14; TEMP 35.9; O2SAT 98
[2023-07-02] MEDS: Divalproex 125 MG SPRINKLE PO ×2 (08:55→19:54)
[2023-07-02] MEDS: Docusate Sodium 100 MG/10 ML CUP PO ×2 (08:55→19:54)
[2023-07-02] MEDS: Atenolol 50 MG TAB PO (08:56)
[2023-07-02] MEDS: Modafinil 100 MG TAB PO (08:56)
[2023-07-02] MEDS: Atorvastatin 40 MG TAB PO (19:54)
[2023-07-02 21:44] VITALS: BP 115/70; PULSE 69; RESP 17; TEMP 36.2; O2SAT 95
[2023-07-03 07:40] VITALS: BP 118/72; PULSE 66; RESP 16; TEMP 35.9; O2SAT 99
[2023-07-03] MEDS: Modafinil 100 MG TAB PO (08:42)
[2023-07-03] MEDS: Docusate Sodium 100 MG/10 ML CUP PO ×2 (08:42→20:48)
[2023-07-03] MEDS: Atenolol 50 MG TAB PO (08:42)
[2023-07-03] MEDS: Divalproex 125 MG SPRINKLE PO ×2 (08:42→20:48)
[2023-07-03 14:28] VITALS: BP 120/68; PULSE 63; RESP 15; TEMP 35.9; O2SAT 98
[2023-07-03] MEDS: Atorvastatin 40 MG TAB PO (20:48)
[2023-07-04 08:04] VITALS: BP 122/74; PULSE 69; RESP 16; TEMP 36.3; O2SAT 97
[2023-07-04] MEDS: Atenolol 50 MG TAB PO (08:30)
[2023-07-04] MEDS: Docusate Sodium 100 MG/10 ML CUP PO ×2 (08:30→19:51)
[2023-07-04] MEDS: Modafinil 100 MG TAB PO (08:30)
[2023-07-04] MEDS: Divalproex 125 MG SPRINKLE PO ×2 (08:30→19:30)
--- NOTE | 2023-07-04 19:01 | NUR.NOTE ---
Nursing Note: Patient appeared more alert today and was attempting to joke with staff. Denied discomfort. Patient's appetite appeared to have improved today.
[2023-07-04 19:28] VITALS: BP 121/67; PULSE 72; RESP 18; TEMP 36.3; O2SAT 94
[2023-07-04] MEDS: Acetaminophen 325 MG TAB 650 MG PO (19:30)
[2023-07-04] MEDS: Atorvastatin 40 MG TAB PO (19:31)
[2023-07-05] MEDS: Atenolol 50 MG TAB PO (08:45)
[2023-07-05] MEDS: Divalproex 125 MG SPRINKLE PO ×2 (08:46→20:32)
[2023-07-05] MEDS: Modafinil 100 MG TAB PO (08:46)
[2023-07-05] MEDS: Docusate Sodium 100 MG/10 ML CUP PO (08:46)
[2023-07-05 09:57] VITALS: BP 121/72; PULSE 69; RESP 16; TEMP 36.6; O2SAT 95
--- NOTE | 2023-07-05 15:06 | NUR.NOTE ---
Nursing Note: Patient is alert and conversant today. Patient spoke with his on the phone for some time and is resting in the chair. A patient health and safety director is present. Patient denied discomfort and needs.
[2023-07-05 20:31] VITALS: BP 155/80; PULSE 80; RESP 18; TEMP 36.5; O2SAT 96
[2023-07-05] MEDS: Atorvastatin 40 MG TAB PO (20:32)
[2023-07-06 07:25] VITALS: BP 134/79; PULSE 70; RESP 17; TEMP 36.4; O2SAT 97
[2023-07-06] MEDS: Docusate Sodium 100 MG/10 ML CUP PO (07:38)
[2023-07-06] MEDS: Modafinil 100 MG TAB PO (07:39)
[2023-07-06] MEDS: Divalproex 125 MG SPRINKLE PO ×2 (07:39→21:15)
[2023-07-06] MEDS: Atenolol 50 MG TAB PO (07:39)
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
[2023-07-06 15:33] VITALS: BP 131/78; PULSE 79; RESP 16; TEMP 36.2; O2SAT 96
[2023-07-06] MEDS: Atorvastatin 40 MG TAB PO (21:15)
[2023-07-07] MEDS: Docusate Sodium 100 MG/10 ML CUP PO (07:39)
[2023-07-07] MEDS: Divalproex 125 MG SPRINKLE PO ×2 (07:39→19:48)
[2023-07-07] MEDS: Modafinil 100 MG TAB PO (07:40)
[2023-07-07] MEDS: Atenolol 50 MG TAB PO (07:40)
[2023-07-07 08:30] VITALS: BP 113/71; PULSE 75; RESP 15; TEMP 35.9; O2SAT 95
[2023-07-07] MEDS: Atorvastatin 40 MG TAB PO (19:48)
[2023-07-07 19:49] VITALS: BP 111/72; PULSE 68; RESP 16; TEMP 36; O2SAT 94
[2023-07-08 06:10] VITALS: BP 125/76; PULSE 69; RESP 18; TEMP 36; O2SAT 93
[2023-07-08 07:12] VITALS: BP 118/66; PULSE 66; RESP 18; TEMP 36.5; O2SAT 97
[2023-07-08] MEDS: Docusate Sodium 100 MG/10 ML CUP PO ×2 (08:03→20:33)
[2023-07-08] MEDS: Modafinil 100 MG TAB PO (08:03)
[2023-07-08] MEDS: Divalproex 125 MG SPRINKLE PO ×2 (08:03→20:34)
[2023-07-08] MEDS: Atenolol 50 MG TAB PO (08:03)
--- NOTE | 2023-07-08 12:23 | W.SPSTE ---
Date of service: 07/08/23 Time of Service: 12:00 Subjective Clinical (Bedside) Swallow Evaluation - Inpatient Speech Language Pathology Referred by: Jermain Pang MD Start time: 1199 End time: 12:30 Total patient contact: 30m Referral Type: Routine Swallow Consult Precautions: Standard, Full Code, Fall Reason for Referral/HPI: Ilya is a 78 y/o M admitted s/p embolic R occipital , R temporal, and bilateral thalmic CVA as well further hemmorrhage associated with R occipital infarct as of 06/13. He was initially followed by [facility] for swallow function, presenting with moderate oral pharyngeal dysphagia largely impacted by cognition/confusion. [facility] d/c him from active caseload due to plateau in progress, with a modified diet- L4 Puree Diet and L2 Mildly Thick Liquids, 1:1 supervision/assistance, as well as aspiration precautions. [facility] reconsulted now for repeat evaluation due to significant improvements in mental status noted by nursing. [facility] IMPRESSIONS & RECOMMENDATIONS: Ilya demonstrates marked improvement in mentation and energy levels, which is accompanied by improvements in oral-motor coordination and awareness. He appears at this time per bedside assessment with largely functional and safe swallow function and normal cranial nerve assessment, however, question if there is still a risk for some fluctuation in mental status/attention/awareness which could impact his aspiration/choking risk. He is currently partially oriented (e.g., gives birthday but unsure of year, unsure if he is currently in [facility] or [place], etc). At this time he appears to tolerate all textures/consistencies safely, but [facility] will place patient on conservative solid diet with 1:1 supervision in order to mitigate risks posed by potential reduced mentation. [facility] will follow patient closely for diet tolerance for several days and make adjustments to diet texture and supervision requirements as appropriate. Patient may also be appropriate for further cognitive-communication intervention in light of recent spontaneous recovery. Recommend to re-consult PT/OT to see if he may be able to participate in add/l therapy at this time. Also noting this date that patient states he is a vegetarian. Comments added to new diet orders by [facility]. FURTHER INPATIENT [facility] SERVICES: Patient to be followed while on unit Suggested Referrals/Consults: Occupational Therapy Physical Therapy DISCHARGE RECOMMENDATIONS: Recommend [facility] Diet Recommendations: ? SOLIDS: 6-Soft & Bite-Sized Solids LIQUIDS: 0-Thin Liquids MEDICATIONS: Crushed (If pt alert, OK small capsules whole) in applesauce/custard/pudding followed by sips of liquid. View oral cavity and use swab in cheeks to ensure he is not pocketing. RISK MANAGEMENT: Level of Assistance/Supervision: 1:1 close supervision for all PO intake or line of sight if pt maintains independence with self-feeding. Positioning and environment: PO intake only when awake/alert? Reduce auditory and/or visual distractions when eating Up to chair Oral hygiene BID/2x per day Using friction with toothbrush on all oral structures as tolerated Strategies/Adaptations/Assistive Equipment: Small sips Small bites Slow rate of intake Maintain upright position 30+ min after meals of bed elevated to reduce likelihood of nocturnal reflux Education Provided to: Nursing Patient Family Topics Addressed: anatomy/physiology of swallowing mechanism definition and impacts of aspiration impact of current diagnoses on swallow function role of [facility] in management of swallow disorders overt s/sx to monitor for re: potential aspiration of food / liquids relationship between respiratory function and deglutition rationale and instruction for additional risk management strategies as below SUBJECTIVE: Patient received: alert/awake, up to chair. Agreeable to evaluation. Pleasant, social, joking, somewhat reduced insight into situation but significantly improved over previous observations. His is present as well. Pain Reported n/a Baseline Swallow Function: Patient denies swallowing difficulty prior to admission and ate a regular diet at baseline. OBJECTIVE Patient positioning: Up to chair/90 degrees Oral care: Reported recently completed Respiratory status: Room air Orientation/Mental status: Oriented to self (but unable to state year of ), Oriented to location, recall of recent events is impaired, confused, able to follow simple instructions with occasional perseveration of previous task. Speech: WFL Oral Mechanism Examination: Dentition: Partial natural dentition Oral mucosa: Dry, otherwise good oral care. ? Cranial Nerve Assessment: CN V ? Trigeminal Facial Sensation WNL Jaw Strength/ROM WNL ?WNL CN VII- Facial WNL labial ROM, strength, coordination. WNL lingual sensation WNL CN IX ? Glossopharyngeal WNL palatal elevation with phonation. No evidence of nasal emissions WNL CN X ? Vagus WNL Vocal quality and volume. Strong/sharp volitional cough WNL CX XII ? Hypoglossal WNL lingual ROM, strength, coordination WNL PO Intake: Trials Assessed: IDDSI 0 Thin Liquids (water via straw, single, consecutive) IDDSI 4 Puree Solid (pudding) IDDSI 6 Soft & Bite Size Solid (pieces of cheddar cheese) IDDSI 7 Regular Solid (whole carrotts) Oral Phase Findings: WFL Pharyngeal Phase Findings: WFL Esophageal Phase Findings: ? No observed or reported symptoms at bedside ? [place] Swallow Protocol Results: PASS Complete/uninterrupted without s/sx aspiration PLAN: [facility] to follow while on unit Goals: [place] Goals: Patient will remain free from aspiration-related illness, malnutrition, and dehydration. Short Term Goals: Patient will participate in ongoing diagnostic treatment addressing areas of cognitive-communication. Patient will tolerate Soft/Bite Size Diet and Thin liquids without overt s/s aspiration across 2/2 visits. Patient will tolerate PO trials for consideration of diet upgrade without overt s/s aspiration across 2/2 visits. [facility] CPT Code: 54950 Clinical Swallowing Evaluation
[2023-07-08] MEDS: Atorvastatin 40 MG TAB PO (20:34)
[2023-07-08 23:41] VITALS: BP 105/64; PULSE 72; RESP 17; TEMP 37.1; O2SAT 95
[2023-07-09 07:38] VITALS: BP 123/82; PULSE 73; RESP 14; TEMP 36.3; O2SAT 96
[2023-07-09 08:40] VITALS: BP 125/84; PULSE 73; RESP 14; TEMP 36.4
[2023-07-09] MEDS: Docusate Sodium 100 MG/10 ML CUP PO ×2 (08:40→20:11)
[2023-07-09] MEDS: Modafinil 100 MG TAB PO (08:40)
[2023-07-09] MEDS: Divalproex 125 MG SPRINKLE PO ×2 (08:40→20:11)
[2023-07-09] MEDS: Mylanta Suspension 30 ML CUP PO (08:40)
[2023-07-09] MEDS: Atenolol 50 MG TAB PO (08:40)
--- NOTE | 2023-07-09 15:07 | W.SPSTP ---
Date of service: 07/09/23 Time of Service: 09:30 Subjective Patient received sitting upright in a chair, agreeable to CARDIOPULMONARY TECHNOLOGIST treatment. He was notably more engaged and conversant with this clinician than prior treatments. Objective/Assessment/Plan Objective Treatment Techniques & Outcomes: PO Trials: Diced fruit, water via straw Oral Phase Findings: WFL Pharyngeal Phase Findings: WFL Personal Orientation = 07/29 Name: + : + 's name: + Town: + General Orientation = 1/5, + 2 for near correct response) Year: - Month: - Season: +/- (early winter) State: +/- (I assume [place], but could be [place]) Reason for admission: + (only because I keep being told I had a stroke) Yes/No Single Step Questions (eg Do chairs walk?, Do pens write?) = 10/10 accuracy Short Term Memory/Delayed Recall: 3 word recall = 3/3 for immediate recall Following 1 min conversational distraction = 0/3, 0/3 given category cues, 1/3 given field of 3 option for each word [employer] Picture Description - Attempted, patient unable to complete due to vision. Stating I can't see anything Assessment Ilya was seen today for follow-up CARDIOPULMONARY TECHNOLOGIST treatment targeting dysphagia and cognitive-communication. Nursing reports no concerns and that patient is pleased with diet upgrade. He demonstrated independent self-feeding with PO snack without overt s/s aspiration. In light of this, recommend upgrade supervision to intermittent. Will plan to re-attempt at meal for consideration of further solid texture upgrade. In regards to cognitive-communication, Ilya answered personal orientation questions with 100% accuracy, but general orientation questions with only 20% accuracy. He demonstrates profound short term memory deficit. For example, when given information (eg. It is June) and then asked less than a minute later the month he could not recall, despite given Fo3 options (when asked if it was October, June, or August, he stated August, despite earlier stating it was 'early winter'). Additional cognitive-communication assessments limited due to vision, with patient stating I just can't see. He may benefit from more formal cognitive assessment, such as MOCA BLIND, for standardized ability to re-test and measure progress. CARDIOPULMONARY TECHNOLOGIST to continue to follow. DISCHARGE RECOMMENDATIONS: Recommend CARDIOPULMONARY TECHNOLOGIST services at shelter Diet Recommendations: ? SOLIDS: 6-Soft & Bite-Sized Solids LIQUIDS: 0-Thin Liquids MEDICATIONS: Crushed or whole in applesauce/custard/pudding followed by sips of liquid. RISK MANAGEMENT: Level of Assistance/Supervision: Intermittent supervision Positioning and environment: PO intake only when awake/alert? Reduce auditory and/or visual distractions when eating Up to chair Oral hygiene BID/2x per day Using friction with toothbrush on all oral structures as tolerated Strategies/Adaptations/Assistive Equipment: Small sips Small bites Slow rate of intake Maintain upright position 30+ min after meals of bed elevated to reduce likelihood of nocturnal reflux PLAN: CARDIOPULMONARY TECHNOLOGIST to follow while on unit Goals: [facility] Goals: Patient will remain free from aspiration-related illness, malnutrition, and dehydration. Short Term Goals: Patient will participate in ongoing diagnostic treatment addressing areas of cognitive-communication. Patient will tolerate Soft/Bite Size Diet and Thin liquids without overt s/s aspiration across 2/2 visits. Patient will tolerate PO trials for consideration of diet upgrade without overt s/s aspiration across 2/2 visits. CARDIOPULMONARY TECHNOLOGIST CPT Code: 38786 ([phone]) [id number] ([phone]) Total Time: 20 minutes
--- NOTE | 2023-07-09 15:22 | PDOC.CMACT ---
Date of service: 07/09/23 Time of Service: 15:22 Care Management Activity Note Activity Note Text Activity Note Text: S/O:Ilya remains in SB-2 status. No bed offers have been received from any of the referrals sent. Ilya's mentation has been steadily improving over the past week or so. He is able to engage in conversation and is much less impulsive. He has improved so much that he is no longer requiring a sitter to be with him. Ilya occasionally goes to the doorway to the [facility] but is easily redirected. Because he is showing such improvement, new orders were placed for a PT and OT consult as well as another neurology visit. Depending on the outcome of the various assessments, his discharge plan will be revisited. new referrals may be sent with the updated information. A: Ilya is a 78 year old man admitted on 05/21/23 with a CVA P:Ilya is likely going to need to transfer to a SNF for short term rehab, if not for correction care. Referrals have been sent to all of the SNFs in [place] and many in [place]. No bed offers have been received. A referral was also sent to [facility] [place] [facility] for long range planning, options counseling and community case management for both Ilya and his . CM will follow and continue to asses for discharge needs.
[2023-07-09 19:00] VITALS: BP 148/75; PULSE 72; RESP 20; TEMP 36.2; O2SAT 100
[2023-07-09] MEDS: Atorvastatin 40 MG TAB PO (20:11)
[2023-07-10] MEDS: Divalproex 125 MG SPRINKLE PO ×2 (08:22→19:21)
[2023-07-10] MEDS: Modafinil 100 MG TAB PO (08:23)
[2023-07-10 08:30] VITALS: BP 106/71; PULSE 63; RESP 12; TEMP 36.2; O2SAT 97
--- NOTE | 2023-07-10 08:48 | OT.INNT ---
Occupational Therapy Notes 07/10/23 OT consult received and pts chart was reviewed. OT went in to see pt for consultation. He states that he is not doing anything and wants to lay down. OT does ask pt to perform his ADLs and he adamantly refused consult for today. OT will attempt to consult with pt on Wednesday 07/12. Shaila Gerard, OTR/L
[2023-07-10 09:05] VITALS: BP 102/67
--- NOTE | 2023-07-10 14:11 | IN_ITS ---
PT Notes Visit Reasons: s/p embolic CVA Inpatient Physical Therapy Evaluation Date: 07/10/2023 Referring Doctor: Eryn Dunn NP PT Orders: PT CONSULT: Evla/Treatment Precautions: [place]. Falls. ACtivity as tolerated. Patient Profile/Admitting Diagnosis: Patient is a 78-year-old male admitted on 05/21/2023 for management of CVA. A new referral for PT was placed to assess mobility level and determine ability to now participate in services since cognitive level has been improving since last week and patient has consistently been engaged by staff to walk around the nurses' station. PMHX: All Active Problems (Updated 05/21/23 @ 16:56 by Angel Pang MD) Discharge planning issues (Acute) DVT prophylaxis (Acute) Hypertension (Chronic) At risk for falls (Acute) Acute CVA (cerebrovascular accident) (Acute) CKD (chronic kidney disease) (Acute) Insomnia, unspecified (Chronic 07/09/16) IFG (impaired fasting glucose) (Chronic 03/19/16) Hypothyroidism, unspecified (Chronic 04/23/15) Hypertension (Chronic 12/11/14) Hyperlipidemia (Chronic 04/23/15) GERD (gastroesophageal reflux disease) (Chronic 12/11/14) ADHD (attention deficit hyperactivity disorder), combined 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 Calvillo) 10/2017 Surgical History Status post cholecystectomy [facility] [place] Colonoscopy - IV Sedation (01/01/16) Social History/Home Situation: Lives with his in a private home. Retired [employer] worker. No family in the area. Equipment Owned/DME: FWW Subjective: Wanted to use the bathroom first before agreeing to walk with PT for this session. Per SERENA Evans, patient was attempting to stand up from bed wanting to do something. Objective: General Observation: Seated on bedside chair. Mental Status: Oreiented to person and purpose only. Pain: None reported Vital Signs: Closley monitored by nursing staff ROM: Right Upper Extremity: Shoulder Flexion WFL. Shoulder abduction WFL. Elbow flexion WFL. Wrist flexion WFL. Functional opening and closing of hand WFL. Left Upper Extremity: Shoulder Flexion lacks the last 25% of AROM. Shoulder abduction lacks the last 25% of AROM. Elbow flexion WFL. Wrist flexion WFL. Functional opening and closing of hand WFL. Right Lower Extremity: Hip flexion WFL. Hip abduction WFL. Knee flexion WFL. Ankle dorsiflexion WFL. Ankle plantarflexion WFL. Left Lower Extremity: Hip flexion lacks the last 25% of AROM. Hip abduction WFL. Knee flexion 20 degrees to 90 degrees. Knee extension -20 degrees. Ankle dorsiflexion to neutral only. Ankle plantarflexion WFL. Strength: Right Upper Extremity: Shoulder flexors 4/5. Shoulder abductors 4/5. Elbow flexors 4/5. Elbow extensors 4/5. Substation Inspector strong. Left Upper Extremity: Shoulder flexors 3-/5. Shoulder abductors 3-/5. Elbow flexors 4-/5. Elbow extensors 4-/5. Substation Inspector weaker compared to R but functional. Right Lower Extremity: Hip flexors 4/5. Hip abductors 4/5. Knee flexors 5/5. Knee extensors 4-/5. Ankle dorsiflexors 4/5. Ankle plantarflexors 4/5. Left Lower Extremity:Hip flexors 3-/5. Hip abductors 4-/5. Knee flexors 3-/5. Knee extensors 3-/5. Ankle dorsiflexors 3-/5. Ankle plantarflexors 4-/5. Bed Mobility/Transfers: Minimal cueing provided for use of B hands as needed for support, movement sequence, AD management, and posture to reduce fall risk and minimize pain report Sit to stand: stand by assist Stand to sit: stand by assist Gait: 250 feet with front-wheeled walker with contact guard assist and moderate verbal cueing for safe AD management, directional changes, and environmental navigation. No LOB. No SOB. Balance: Static Sitting: Good Dynamic Sitting: Good Static Standing: Fair Dynamic Standing: Fair Special Tests: Mobility Limitations Standardized Measure [facility] AM-PAC 6 clicks Basic Mobility Inpatient Short Form: Raw Score: 22 CMS Score: 21% deficit Informed Consent/Education: Patient instructed in purpose of PT consult and plan of care. ASSESSMENT: Compliance and ability to participate much improved per nursing staff and UMBRELLA MENDER Eryn. Level of alertness and ability to consistently follow instruction increased during this evaluation. Patient will beenfit from resumption of PT services to achieve highest and safest mobility level. Patient presents with clinical signs and symptoms consistent with current/admitting diagnoses that have resulted to mobility limitations, gait instability, generalized weakness, and overall ADL decline as demonstrated by the following impairment level findings: 1. Decreased strength to L UE/LE 2. Impaired sitting/standing balance 3. Impaired activity tolerance Impairments are contributing to the following functional limitations: 1. Difficulty with ambulation without assistive device and physical assistance 2. Increased completion time for mobility ADL performance 3. Increased risk for falls 4. Difficulty with managing steps alone safely Patient is assessed [place] a 25168 moderate complexity based on the following: History: 78-year-old male with past medical history as indicated above Examination: Demonstrable impairment in strength, balance, and mobility level with underlying impairments and functional limitations as exhibited above as well as deficit score of 21% utilizing the [facility] Mobility Inpatient Short Form Presentation: Evolving Decision Makin moderate complexity Goals: Goals X1 week 1. Supine-Sit independent 2. Sit-Supine independent 3. Sit-Stand independent 4. Stand-Sit independent 5. Bed-Chair independent 6. Chair-Bed independent 7. Independent gait on level surface with use of FWW for at least 300 feet without report of pain nor dyspnea 8. Independent stair negotiation while holding onto bilateral rails for at least 10 steps without report of pain nor dyspnea 9. Independent with home exercise program 10. Good static and dynamic standing balance/tolerance Plan of Care/Treatment Plan: 1-2x/day, 7 days/week x 1 week. Plan of care has been reviewed with the UTILITY PLANT OPERATIVE providing the service under Physical Therapy direction. Initiate Physical Therapy intervention for strengthening, bed mobility, transfers, gait, stairs, balance training, use of assistive device. DISCHARGE RECOMMENDATIONS: [] Home with no services [] [] Home with services [specify] [] Home with outpatient PT [] [] SNF for continued rehabilitation [] [] Skilled Nursing Care [] X SNF versus PT on ability to participate and progress TREATMENT CODE/TIME: 9716 2 x 23 minutes for 1 unit (14:11-14:34). Thank you for the opportunity to participate in the care of this patient. Sue Moreno PT, DPT, CLT [facility], [place]
[2023-07-10 14:54] VITALS: BP 100/60; PULSE 70; RESP 17; TEMP 36.1; O2SAT 96
[2023-07-10 16:51] VITALS: BP 112/78
[2023-07-10 19:15] VITALS: BP 107/61; PULSE 78; RESP 16; TEMP 36.2; O2SAT 95
[2023-07-10] MEDS: Docusate Sodium 100 MG CAP PO (19:21)
[2023-07-10] MEDS: Atorvastatin 40 MG TAB PO (19:21)
[2023-07-11] MEDS: Docusate Sodium 100 MG CAP PO ×2 (08:46→19:21)
[2023-07-11] MEDS: Atenolol 50 MG TAB PO (08:46)
[2023-07-11] MEDS: Divalproex 125 MG SPRINKLE PO ×2 (08:46→19:21)
[2023-07-11] MEDS: Modafinil 100 MG TAB PO (08:46)
[2023-07-11 08:59] VITALS: BP 108/76; PULSE 70; RESP 16; TEMP 35.8; O2SAT 97
--- NOTE | 2023-07-11 11:00 | PT.INTREAT ---
PT Notes Visit Reasons: s/p embolic CVA Date: 07/11/23 PRECAUTIONS: Standard. Falls. Activity as tolerated. SUBJECTIVE: pt initially protested, complaining why he needs to participate withtherapy, eventually agreed to walking after therapist counselling providing emphasis on importance of keeping active vs staying in bed the whole day. OBJECTIVE: ? PAIN: none reported VITALS: monitored by nursing Therapeutic Activities [id number]: Direct one-on-one instruction in dynamic activities to improve functional performance. ?? BED MOBILITY/TRANSFERS? Rolling L/R: supervision Supine-sit: ?supervision ? Sit-supine: ? supervision? Sit-stand: ? SBA? Stand-sit: ??SBA ? Bed-Chair:? SBA? Chair-bed: SBA Provided skilled cues and instruction on performance and technique throughout. Gait Training : Direct one-on-one instruction and skilled instruction in: Employing an assistive device Modified weight-bearing status Movement sequencing Turning and movement with proper form Provided verbal cues for equipment management and technique Provided instruction in gait pattern Patient education regarding pacing and breathing techniques to maximize activity tolerance? GAIT? Assistive Device: ?? FWW ? Weight bearing: FWB Assist: ? ?SBA? Distance:?? 300'? Deviation: ?Stoop forward posture, decreased keshawn speed, low step height, short step length? ASSESSMENT:?Pt did not want to do anything else after gait training, requesting to go back in bed, asked for something to drink prior to situating himself in bed. PLAN: Continue with balance training, global strengthening and general conditioning for improved safety, mobility and activity tolerance until pt is ready for DC.: TREATMENT CODE/TIME: 25384e4 15mins (10:45-11:00am)
[2023-07-11 15:45] VITALS: BP 98/60; PULSE 72; RESP 17; TEMP 36.4; O2SAT 98
[2023-07-11 19:20] VITALS: BP 111/76; PULSE 76; RESP 20; TEMP 36.8; O2SAT 95
[2023-07-11] MEDS: Atorvastatin 40 MG TAB PO (19:21)
[2023-07-12 08:43] VITALS: BP 125/78; PULSE 62; RESP 18; TEMP 35.1; O2SAT 97
[2023-07-12] MEDS: Atenolol 50 MG TAB PO (08:50)
[2023-07-12] MEDS: Modafinil 100 MG TAB PO (08:50)
[2023-07-12] MEDS: Divalproex 125 MG SPRINKLE PO ×2 (08:50→19:16)
[2023-07-12] MEDS: Docusate Sodium 100 MG CAP PO ×2 (08:50→19:16)
[2023-07-12] MEDS: Refresh PLUS Eye Drops 0.4ml OU (11:05)
--- NOTE | 2023-07-12 11:29 | PT.INTREAT ---
PT Notes Visit Reasons: s/p embolic CVA Date: 07/12/23 PRECAUTIONS: Standard. Falls. Activity as tolerated. SUBJECTIVE: Pt very pleasant today, did not hesitate and agreed to participating with therapy. OBJECTIVE: ?in recliner awake ? PAIN: none reported VITALS: monitored by nursing Therapeutic Activities [id number]: Direct one-on-one instruction in dynamic activities to improve functional performance. ?? BED MOBILITY/TRANSFERS? Rolling L/R: supervision Supine-sit: ?supervision ? Sit-supine: ? supervision? Sit-stand: ? SBA? Stand-sit: ??SBA ? Bed-Chair:? SBA? Chair-bed: SBA Provided skilled cues and instruction on performance and technique throughout. Gait Training : Direct one-on-one instruction and skilled instruction in: Employing an assistive device Modified weight-bearing status Movement sequencing Turning and movement with proper form Provided verbal cues for equipment management and technique Provided instruction in gait pattern Patient education regarding pacing and breathing techniques to maximize activity tolerance? GAIT? Assistive Device: ?? FWW ? Weight bearing: FWB Assist: ? ?SBA? Distance:?? 600'? Deviation: ?Stoop forward posture, increased keshawn speed lateral sway bilaterally? ASSESSMENT:?pt requires verbal and tactile cue for FWW tracking to stay in middle of the hallway, pt stayed in bed post gait training, refused further engagement. PLAN: Continue with balance training, global strengthening and general conditioning for improved safety, mobility and activity tolerance until pt is ready for DC.: TREATMENT CODE/TIME: 62257x3 15mins (11:10-11:25am)
[2023-07-12 15:56] VITALS: BP 109/73; PULSE 75; RESP 18; TEMP 36.1; O2SAT 97
[2023-07-12 19:10] VITALS: BP 113/68; PULSE 74; RESP 18; TEMP 36.5; O2SAT 100
[2023-07-12] MEDS: Atorvastatin 40 MG TAB PO (19:16)
--- NOTE | 2023-07-13 | DI.CT_ITS ---
Exam(s) CT HEAD WO EXAM: CT HEAD WO CLINICAL HISTORY: F/u hemorragic conversion for resump. of antiplat. TECHNIQUE: Imaging Protocol: Axial computed tomography images with coronal and sagittal reformatted images were created and reviewed COMPARISON: CT CT HEAD WO from 06/17/2023 FINDINGS: There are no skull fractures. There is no fluid in the visualized paranasal sinuses. The previously described right occipital infarcts again noted and the amount of hemorrhage at this lo cation is significantly decreased although not completely resolved. In addition, the round hyperdens ity the anterosuperior aspect of the 3rd ventricle is again noted, unchanged in size and position and most probably a colloid cysts. There is no associated asymmetric hydrocephalus of the lateral ventr icles. IMPRESSION: Decrease in amount of hemorrhage evident in the right occipital infarct region. No new areas of hemo rrhage. Colloid cyst measuring 8 mm again noted in the anterosuperior aspect of the 3rd ventricle. No hydroc ephalus evident. RADIATION DOSE DELIVERED: Total DLP DATA REPOSITORY: All CT scans at this facility are submitted to the National Radiology Data Registry (NRDR) Dose Index Registry (DIR) with the [employer] (ACR). RADIATION OPTIMIZATION: All CT scans at this facility use at least one of these dose optimization te chniques: automated exposure control; mA and/or kV adjustment per patient size (includes targeted exa ms where dose is matched to clinical indication); or iterative reconstruction.
--- NOTE | 2023-07-13 07:29 | W.PALPGNOTE ---
Date of service: 07/13/23 Time of Service: 07:29 Assessment and Plan Assessment and plan (1) Acute CVA (cerebrovascular accident): Status: Acute (2) Intracranial hemorrhage: Status: Acute Assessment and plan: Ilya has made an unbelievable recovery. He is ambulating, he is much more cognitively intact. He still requires considerable help with his ADLs. He will need senior care placement at this time. Unfortunately his significant other at home is wonderful, but not able to care for him. He no longer needs a cadre and there have been no problems with behavior. At this time I am going to sign off on his care. He is doing much better and awaits placement. If you feel that palliative care can help him, please reconsult us. Subjective Subjective Interval history since last seen: Ilya is lying in his bed. He does acknowledge my presence and states that he is feeling fine. He has no concerns or complaints. Staff states that he no longer needs a cadre. He is walking in the halls and acting appropriately. He does need help with many of his activities of daily living. His mood is considerably better Exam Narrative Exam Narrative: today Ilya was very cooperative. His lungs were clear. His heart was regular. His mood was appropriate. Objective Last Vital Signs Temp 97.7 F 07/12/23 19:10 Pulse 74 07/12/23 19:10 Resp 18 07/12/23 19:10 BP 113/68 07/12/23 19:10 Pulse Ox 100 07/12/23 19:10
[2023-07-13 07:49] VITALS: BP 111/73; PULSE 80; RESP 18; TEMP 36.4; O2SAT 95
[2023-07-13] MEDS: Modafinil 100 MG TAB PO (08:35)
[2023-07-13] MEDS: Divalproex 125 MG SPRINKLE PO ×2 (08:36→21:00)
[2023-07-13] MEDS: Atenolol 50 MG TAB PO (08:36)
[2023-07-13] MEDS: Docusate Sodium 100 MG CAP PO ×2 (08:36→21:00)
--- NOTE | 2023-07-13 09:41 | PGE_ITS ---
Date of Service Date of service: 07/13/23 Time of Service: 09:41 Assessment and Plan Assessment and plan (1) Acute CVA (cerebrovascular accident): Status: Acute (2) Colloid cyst of brain: Status: Acute (3) Atrial flutter: Status: Resolved Qualifiers: Atrial flutter type: typical Qualified Code(s): I48.3 - Typical atrial flutter (4) Agitation: Status: Acute (5) Hypersomnolence: Status: Acute (6) Hypertension: Status: Chronic Assessment and plan: #1. 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 Started on apixaban 06/05/23 for secondary stroke prevention. Complicated by hemorrhagic transformation noted on 06/13/23 s/p fall, at which time apixaban was stopped. I recommend getting an updated CTH. If hemorrhage has resolved, would restart apixaba 5mg BID for secondary stroke prevention. #2. Decreased responsiveness, complicated by bilateral thalamic strokes and colloid cyst with ?obstructive hydrocephalus, ?hypernatremia. Agree that mentation has improved - less agitation. He is still disorganized in his thinking and at times perseverates. He remains impulsive. He is participating in PT but not fully. Continue Depakote and modafanil unchanged. Agree that SNF remains his best option and he is agreeable to placement. He may qualify now that he is more alert and participating. #3. Colloid cyst. See above. Getting updated CTH. Subjective Subjective Interval history since last seen: I last saw Mr. Hanna on 06/17/23 at which time he was having decreasing wakefulness. He underwent EEG and MRI imaging as below. [facility] was consulted regarding subtle increase in hydrocephalus per my read, but they did not feel that the colloid cyst was obstructing at that time. In the last 1+ week, Mr. Hanna has become more alert. He is less agitated. He no longer requires a sitter. He is more conversant. PT, OT, ST all re-started in the last one week. He is participating but not fully. On my evaluation today, Mr. Hanna was sleeping when I entered the room, but easily awaken. We talked for some time. His thoughts are still disorganized and his reasoning is not intact. He remains disoriented to time and place. He remains on Depakote 125mg BID for mood and modafanil 100mg daily for wakefulness. He has been unable to be placed in a SNF and had not been a candidate for care at home - not able to care for him. Work-up: -EEG (06/18/23): mild, non-rhythmic generalized slowing c/w a mild encephalopathy. -MRI brain w/o (06/18/23 and 06/19/23): Per rads, there is a New nonhemorrhagic lacunar infarct evident on the left side adjacent to the left lateral ventricle. Agree this is new compared to previous on 05/22/23, but it is not acute/subacute at this time. There is active hemorrhagic transformation in the right occiptial lobe and old hemorrhage in the previously infarcted R thalamus. Evolving R occipital and bilateral thalamic ischemic infarcts. The colloid cyst remains unchanged in size. The third ventricle is clearly larger than on previous study on 05/22/23, but agree there is no evidence of transepyndymal flow. I reviewed these images personally and this is my personal interpretation; please see the official radiology report. Exam Narrative Exam Narrative: Physical Exam: Constitutional: Patient of apparent stated age, thin, no acute distress Neuro: MS/Language/Speech: awake, oriented to self only, clear language (fluency and comprehension), no dysarthria but hypophonia present; thinking disorganized; perseverates at times CN: PERRL, EOM intact by observation - unclear dysconjugation - he kept closing his left eye so it was difficult to assess, L HH still appears present, no facial asymmetry, hearing intact Motor: Normal bulk and tone. FMM intact, no pronator drift. 5/5 strength in bilateral upper and lower extremities Coordination: Finger to nose performed without dysmetria Objective Last Vital Signs Temp 97.5 F L 07/13/23 07:49 Pulse 80 07/13/23 07:49 Resp 18 07/13/23 07:49 BP 111/73 07/13/23 07:49 Pulse Ox 95 07/13/23 07:49 Time Spent with Patient Time Spent with Patient: 35-49 minutes Time was spent: preparing to see the patient(eg.review tests), obtaining and/or reviewing separately otained hiistory, referring, communicating with other health specialist wound care, indepentently interpreting results and counseling the patient
--- NOTE | 2023-07-13 09:51 | PT.INTREAT ---
PT Notes Visit Reasons: s/p embolic CVA Date: 07/13/23 PRECAUTIONS: Standard. Falls. Activity as tolerated. SUBJECTIVE: Pt again very agreeable, did not hesitate to participate with therapy. OBJECTIVE: ?in recliner awake ? PAIN: none reported VITALS: monitored by nursing Therapeutic Activities [id number]: Direct one-on-one instruction in dynamic activities to improve functional performance. ?? BED MOBILITY/TRANSFERS? Rolling L/R: supervision Supine-sit: ?supervision ? Sit-supine: ? supervision? Sit-stand: ? SBA? Stand-sit: ??SBA ? Bed-Chair:? SBA? Chair-bed: SBA Provided skilled cues and instruction on performance and technique throughout. Gait Training : Direct one-on-one instruction and skilled instruction in: Employing an assistive device Modified weight-bearing status Movement sequencing Turning and movement with proper form Provided verbal cues for equipment management and technique Provided instruction in gait pattern Patient education regarding pacing and breathing techniques to maximize activity tolerance? GAIT? Assistive Device: ?? FWW ? Weight bearing: FWB Assist: ? ?SBA? Distance:?? 600'? Deviation: ?Stoop forward posture, increased keshawn speed ? ASSESSMENT:?pt much more aware of obstacles in hallway and is able to maneuver FWW to avoid collisions, pt able to improve step height and step length with min tactile and verbal cue during gait training. PLAN: Continue with balance training, global strengthening and general conditioning for improved safety, mobility and activity tolerance until pt is ready for DC.: TREATMENT CODE/TIME: [id number] 20mins (9:40-10:00am)
--- NOTE | 2023-07-13 13:29 | PT.INTREAT ---
PT Notes Visit Reasons: s/p embolic CVA Inpatient Physical Therapy Treatment Note [facility] Date: PRECAUTIONS:Standard SUBJECTIVE: Pt reports that he is cold. OBJECTIVE: ? Therapeutic Activities (96417z[1]): Direct one-on-one instruction in dynamic activities to improve functional performance. ? BED MOBILITY/TRANSFERS? Sit-stand: CGAx1? Stand-sit: CGAx1? Provided skilled cues and instruction on performance and technique throughout. Gait Training (31702m[]): Direct one-on-one instruction and skilled instruction in: ? GAIT? Assistive Device: FWW? Weight bearing: Full Assist: CGAx1 ? Distance:? 600ft? Deviation: [] ? Therapeutic Exercises (26352z[]): Direct one-on-one instruction in therapeutic exercises to develop strength, endurance, range of motion and flexibility. ? Exercises ? Seated LAQ x 5 Seated rowing x 5 ASSESSMENT:? Pt had some difficulty with staying on task with seated exercises. PLAN: Cont as per PT POC. TREATMENT CODE/TIME: 1:10-1:25 ( 15) TA
--- NOTE | 2023-07-13 14:18 | NUR.NOTE ---
Pt had declined to go to CT scan twice earlier, did eventually go down and have test done. Nursing Note:
[2023-07-13 14:46] VITALS: BP 114/83; PULSE 71; RESP 18; TEMP 36.5; O2SAT 96
--- NOTE | 2023-07-13 15:13 | PDOC.STREC ---
Date of service: 07/13/23 Time of Service: 13:30 Speech Therapy Recommendations Report ST Recommendations: CENTR[employer]UG[employer] SPINNER non-treatment note/Communication note: Attempting to contact patient at bedside for cognitive-communication/orientation session but patient was on his way out of his room to get CT scan. Will re-attempt therapy tomorrow for cognitive-communication and/or possible upgrades of solid textures. DISCHARGE RECOMMENDATIONS: Recommend [facility] services at [facility] Recommendations: ? SOLIDS: 6-Soft & Bite-Sized Solids LIQUIDS: 0-Thin Liquids MEDICATIONS: Crushed or whole in applesauce/custard/pudding followed by sips of liquid. RISK MANAGEMENT: Level of Assistance/Supervision: Intermittent supervision Positioning and environment: PO intake only when awake/alert? Reduce auditory and/or visual distractions when eating Up to chair Oral hygiene BID/2x per day Using friction with toothbrush on all oral structures as tolerated Strategies/Adaptations/Assistive Equipment: Small sips Small bites Slow rate of intake Maintain upright position 30+ min after meals of bed elevated to reduce likelihood of nocturnal reflux PLAN: CENTR[employer]UGAL SPINNER to follow while on unit Goals: Adult Live In Caregiver Goals: Patient will remain free from aspiration-related illness, malnutrition, and dehydration. Short Term Goals: Patient will participate in ongoing diagnostic treatment addressing areas of cognitive-communication. Patient will tolerate Soft/Bite Size Diet and Thin liquids without overt s/s aspiration across 2/2 visits. Patient will tolerate PO trials for consideration of diet upgrade without overt s/s aspiration across 2/2 visits. CENTR[employer]UGAL SPINNER CPT Code: 43241 ([phone]) 13469 ([phone]) Total Time: 20 minutes
[2023-07-13] MEDS: Atorvastatin 40 MG TAB PO (21:00)
[2023-07-14 00:33] VITALS: BP 116/66; PULSE 68; RESP 14; TEMP 36.4; O2SAT 98
[2023-07-14 07:58] VITALS: BP 105/51; PULSE 66; RESP 18; TEMP 36.9; O2SAT 99
[2023-07-14] MEDS: Divalproex 125 MG SPRINKLE PO ×2 (08:41→19:48)
[2023-07-14] MEDS: Atenolol 50 MG TAB PO (08:42)
[2023-07-14] MEDS: Modafinil 100 MG TAB PO (08:42)
[2023-07-14] MEDS: Docusate Sodium 100 MG CAP PO ×2 (08:42→19:48)
[2023-07-14] MEDS: Refresh PLUS Eye Drops 0.4ml OU (08:42)
--- NOTE | 2023-07-14 08:44 | PT.INTREAT ---
PT Notes Visit Reasons: s/p embolic CVA Inpatient Physical Therapy Treatment Note [facility] Date: 07/14/23 PRECAUTIONS:Standard OBJECTIVE: Therapeutic Activities (68645l[1]): Direct one-on-one instruction in dynamic activities to improve functional performance. ? BED MOBILITY/TRANSFERS? Sit-stand: CGA? Stand-sit: CGA ? Provided skilled cues and instruction on performance and technique throughout. Gait Training (18003y[]): Direct one-on-one instruction and skilled instruction in: [] employing an assistive device [] modified weight-bearing status [] movement sequencing [] turning and movement with proper form [] Provided verbal cues for equipment management and technique [] Provided instruction in gait pattern [] Patient education regarding pacing and breathing techniques to maximize activity tolerance? GAIT? Assistive Device: FWW? Weight bearing: Full Assist: CGA? Distance:? Approx 700ft ? ASSESSMENT:? Pt did not wish to complete seated exercises post ambulation. PLAN: Cont as per PT POC. TREATMENT CODE/TIME: 8:25-8:40(15) TA
--- NOTE | 2023-07-14 09:31 | OT.INIE ---
Occupational Therapy Notes Inpatient Occupational Therapy Evaluation Date: 07/15/23 Referring Doctor: Daly Logan OT Orders: Non urgent Precautions: Fall, standard, Full PATIENT PROFILE/ADMITTING DIAGNOSIS: Pt is a 78 year old male who is admitted in the ICU for the following dx of right occipital and m stroke and left temporal stroke with questionable embolus as a source. Past Medical History: All Active Problems (Updated 05/21/23 @ 16:56 by Angel Pang MD) Discharge planning issues (Acute) DVT prophylaxis (Acute) Hypertension (Chronic) At risk for falls (Acute) Acute CVA (cerebrovascular accident) (Acute) CKD (chronic kidney disease) (Acute) Insomnia, unspecified (Chronic 07/09/16) IFG (impaired fasting glucose) (Chronic 03/19/16) Hypothyroidism, unspecified (Chronic 04/23/15) Hypertension (Chronic 12/11/14) Hyperlipidemia (Chronic 04/23/15) GERD (gastroesophageal reflux disease) (Chronic 12/11/14) ADHD (attention deficit hyperactivity disorder), combined 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 Calvillo) 10/2017 [facility] Social History/Home Situation: Unable to assess from discussion with pt. Pt is very confused. 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 Equipment owned/DME: Unable to assess. SUBJECTIVE: Pt was sitting in chair when OT arrived. He states that he is sick of working with people and just wants to sleep but will do the consult and then wants to go to bed. OBJECTIVE: General Observation: Weakness in (B) UE and increased fatigue with prolonged functional activity. Mental Status: Alert to name, he is cognitively very confused and cannot tell OT date or place Pain: Unable to assess with pt. No c/o pain while performing OT consult. ROM: RUE AROM WFL L UE AROM WFL STRENGTH: (B) UE about a 3+/5 functionally. FUNCTIONAL MOBILITY/ADLS: BATHING max (A) Set up/ clean up Bathing UE mod vc pt was able to (I) wash his face, (B) UE with min (A) to underarms, (I) abdomen, max (A) back, max (A) hair. OT did have to provide min vc for task initiation. Bathing LE (I) with min vc with leg lift and cross for performance DRESSING seated in chair with mod vc and mod (A) Dressing UE mod (A) for don and doffing sweatshirt/shirt Dressing LE od (A) don and doffing pants GROOMING seated in chair with min vc and tactile cue pt was able to brush his hair with min (A). TOILETING NT EATING (I) with min (A) set up BALANCE: Static sitting Good Dynamic Sitting Good with max (A) support to pts core and back SPECIAL TESTS: Daily Activity Limitations Standardized Measure [facility] AM -PAC ?6 clicks? Daily Activity Inpatient Short Form: Raw score: 17 Standardized score: 37.26 CMS score: 50.11% INFORMED CONSENT/EDUCATION: Pt instructed in purpose of OT Consult and plan of care. ASSESSMENT: Patient is a 78-year-old male referred to occupational therapy services with diagnosis of acute CVA, hypersomnolence, agitation, atrial flutter, colloid cyst of brain, DVT prophylaxis, HTN, at risk for falls. Patient presents with clinical signs and symptoms consistent with dx, as demonstrated by the following impairment level findings/functional limitations: Impairments in ADL/IADL and leisure activities, decreased gross and fine motor control, requires mod-max (A) vc and tactile cues at times, decreased functional activity time with increased fatigue, decreased cognitive awareness and agitation related to CVA dx, decreased executive processing and functioning without vc, decreased task initiation without vc. AMPAC score 12 Patient is assessed as a Mod 04790 complexity based on the following: History: see above Examination: see functional limitations as noted above Presentation: evolving Decision Making: moderate complexity GOALS Goals x1 week 1. Oral Hygiene with mod vc pt will be able to brush his teeth standing at sink 2. Dressing- with min (A) pt will be able to (A) with UE dressing by lifting his UE and min LE by lifting his legs (I) 3. Bathing- seated in chair with min vc (I) UE and mod (A) LE 4. Toileting- mod (A) on toilet 5. Eating- (I) PLAN OF CARE/TREATMENT PLAN: 1x/day, 5 days/ week x 1week Initiate Occupational Therapy Services for bathing, dressing, grooming, toileting, eating, transfer training. DISCHARGE RECOMMENDATIONS OT recommends SNF vs. LTC TREATMENT TIME/MINUTES/CODES 01525, 01933, 25 minutes Shaila Gerard OTR/L [facility] [place], [place]
--- NOTE | 2023-07-14 12:14 | SPP_ITS ---
Date of service: 07/14/23 Time of Service: 10:20 Subjective Ilya was received asleep in bed. He woke easily and declined working with POLYSOMNOGRAPHY TECHNICIAN initially, but agreed to do so 'a little later'. POLYSOMNOGRAPHY TECHNICIAN returned 30 minutes later and patient agreeable to POLYSOMNOGRAPHY TECHNICIAN session. He presented as alert, squinting or closing eyes and stating It's annoying that I can't see anything. He spoke in whispered voice intermittently, with normal volume for majority of conversation. Objective/Assessment/Plan Objective Treatment Techniques & Outcomes: Personal Orientation Questions: Name: Luis Hanna Age: - I really don't know Location: + at the hospital Reason for hospitalization: + I had a stroke Current State: - I don't know. Given Fo3 options, he selected [facility]. [place] Cognitive Assessment -MOCA Blind Version 7.1: Task/Description: Score: Comment: Digit Recall (5 digit forward, 3 digit reverse) 0/2 Letter Tapping (String of letters read aloud, patient prompted to tap on letter 'A' 0/1 3 false positives Serial 7 Subtraction 0/1 I should be able to do that Sentence Repetition 1/2 Fluency (Name as many words that begin with 'F' in 60 seconds) 0/1 Repeated instructions several times aloud, unable to name any /f/ words. Abstraction (ID category of 2 words, ie train and bicycle) 2/2 Delayed Recall (Recall of 5 words presented x2 at start of assessment) 0/5 Immediate recall (no score) = 3/5, 3/5 for 2 consecutive trials Delayed recall= 0/5 given category cue and field of 3 options for each target word Orientation: 0/6 - date, - month, - year, - day, - place, -city TOTAL SCORE: 322 Normal = 18+/22 Assessment Ilya was seen today for diagnostic treatment targeting cognitive- communication. POLYSOMNOGRAPHY TECHNICIAN administered the MOCA-BLIND screening this date as a means to objectively assess cognitive status as well as have a means for re-assessment. The BLIND version of the MOCA was administered as Ilya continues to report inability to see clearly, which he states is new since his stroke. He appeared to put forth effort on all tasks, though demonstrated high use of sarcasm and humor throughout testing. He demonstrated good awareness/insight into errors and specifically into memory challenges. At one point during the assessment he was able to read the white board in his room that stated Dr. Cantrell met with you this AM and stated I don't remember that at all. My memory is not working. He achieved a score of 3/22 on the MOCA BLIND, whereas a score of 18+ indicates WNL. Relative strengths are noted in reasoning; he was able to correctly identify the category/similarity between two words (train + bicycle, watch + ruler). He also demonstrates ability to follow and participate in conversation with appropriate use of humor. Profound weakness/deficits are appreciated in areas of attention, working memory, and STM/delayed recall. Overall, Ilya has demonstrated increased engagement and alertness and ability to participate in ST over the past week; his persistent cognitive deficits remain profound. POLYSOMNOGRAPHY TECHNICIAN will continue to follow for diagnostic treatment cognitive- communication therapy, targeting attention and memory skills as well as general orientation. POLYSOMNOGRAPHY TECHNICIAN continues to follow for dysphagia goals- not addressed this date. Plan Plan: POLYSOMNOGRAPHY TECHNICIAN to follow while on unit, 2-3x/week DISCHARGE RECOMMENDATIONS: Recommend [facility]OM[facility]GRAPHY TECHNICIAN services at [facility] Diet Recommendations: ? SOLIDS: 6-Soft & Bite-Sized Solids LIQUIDS: 0-Thin Liquids MEDICATIONS: Crushed or whole in applesauce/custard/pudding followed by sips of liquid. RISK MANAGEMENT: Level of Assistance/Supervision: Intermittent supervision Positioning and environment: PO intake only when awake/alert? Reduce auditory and/or visual distractions when eating Up to chair Oral hygiene BID/2x per day Using friction with toothbrush on all oral structures as tolerated Strategies/Adaptations/Assistive Equipment: Small sips Small bites Slow rate of intake Maintain upright position 30+ min after meals of bed elevated to reduce likelihood of nocturnal reflux Goals: Forensic Structural Engineer Goals: Patient will remain free from aspiration-related illness, malnutrition, and dehydration. Short Term Goals: Patient will participate in ongoing diagnostic treatment addressing areas of cognitive-communication. Patient will tolerate Soft/Bite Size Diet and Thin liquids without overt s/s aspiration across 2/2 visits. Patient will tolerate PO trials for consideration of diet upgrade without overt s/s aspiration across 2/2 visits. POLYSOMNOGRAPHY TECHNICIAN CPT Code: 83218 ([id number] Total Time: 20 minutes
--- NOTE | 2023-07-14 12:59 | PT.INTREAT ---
PT Notes Visit Reasons: s/p embolic CVA Date: 07/14/23 PRECAUTIONS: Standard. Falls. Activity as tolerated. SUBJECTIVE: Pt in recliner when approached for therapy this afternoon, pleasant, agreeable to participating with therapy. OBJECTIVE: ?in recliner awake ? PAIN: none reported VITALS: monitored by nursing Therapeutic Activities 99116y9: Direct one-on-one instruction in dynamic activities to improve functional performance. ?? BED MOBILITY/TRANSFERS? Rolling L/R: supervision Supine-sit: ?supervision ? Sit-supine: ? supervision? Sit-stand: ? supervision? Stand-sit: ??supervision? Bed-Chair:? supervision ? Chair-bed: supervision Provided skilled cues and instruction on performance and technique throughout. Gait Training : Direct one-on-one instruction and skilled instruction in: Employing an assistive device Movement sequencing Turning and movement with proper form Provided verbal cues for equipment management and technique Provided instruction in gait pattern Patient education regarding pacing and breathing techniques to maximize activity tolerance? GAIT? Assistive Device: ?? FWW ? Weight bearing: FWB Assist: ? ?SBA? Distance:?? 600'? Deviation: ?Stoop forward posture, increased keshawn speed ? ASSESSMENT:?pt did not want to do anything else after getting back in recliner, pt setup for call bonilla, chair alarm and proper body alignment for safety and comfort while in recliner. PLAN: Continue with balance training, global strengthening and general conditioning for improved safety, mobility and activity tolerance until pt is ready for DC.: TREATMENT CODE/TIME: 98141n0 15mins (12:35-12:50pm)
[2023-07-14 15:24] VITALS: BP 135/76; PULSE 69; RESP 17; TEMP 36.9; O2SAT 98
[2023-07-14 19:40] VITALS: BP 114/79; PULSE 71; RESP 16; TEMP 36.2; O2SAT 98
[2023-07-14] MEDS: Atorvastatin 40 MG TAB PO (19:48)
--- NOTE | 2023-07-15 09:05 | PDOC.CMACT ---
Date of service: 07/15/23 Time of Service: 09:05 Care Management Activity Note Activity Note Text Activity Note Text: S/O:Ilya was re-evaluated by PT and OT. He will be transitioned to -1 to resume working with both services now that he is better able to follow direction. Ilya still enjoys walking and frequently ambulates in the hallways with staff. Because of his visual and hearing impairments, he is not able to take advantage of any of the activities available on the activity cart. Referrals updated with the new PT and OT evaluations and recommendations will be resent to all of the facilities in [place] and border facilities in [place]. 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 Referrals have been re-sent to all of the SNFs in [place] and many in [place]. Follow up phone calls will be made later in the week. CM will follow and continue to asses for discharge needs.
--- NOTE | 2023-07-15 09:17 | OT.INTREAT ---
Occupational Therapy Notes Occupational Therapy Inpatient Treatment Note Date: 07/15/23 PRECAUTIONS: Fall, Standard, Full SUBJECTIVE: Pt was going to the bathroom with CROSSWORD PUZZLE MAKER when OT arrived. He states that he just wants to sleep. He notes that he thinks his left him reporting, I wouldn't blame her, I'm here and shes gone. he talks about how he worked with his hands but is unable to tell OT what he did. FUNCTIONAL MOBILITY Supine-sit: (I) Sit-supine: (I) Sit-stand: (S) Stand-sit: (S) Bed-Chair: SBA Chair-bed: SBA TOILETING: SBA for functional mobility Device: Toilet Assist: (S) EATING: Pt refused to eat at this time, noting that he just wants to sleep and everything else can wait. Self Care Training [id number]: Pt was able to don and doff his socks (I) in the seated position with min vc. He requires vc for task initiation, task sequencing, and executive function of tasks. He has normal balancing in seated position and functional raching in the seated position. Able to verbally communicate with confusion. OT and pt work on folind of clothes which he required mod vc for and with mod vc straightening up his bed in the standing position, which he was not successful with today and required vc for task initiation and progression. TREATMENT CODES/TIME: 37635, 20 minutes [facility] [place], [place]
[2023-07-15] MEDS: Divalproex 125 MG SPRINKLE PO ×2 (10:04→19:26)
[2023-07-15] MEDS: Atenolol 50 MG TAB PO (10:04)
[2023-07-15] MEDS: Modafinil 100 MG TAB PO (10:04)
--- NOTE | 2023-07-15 12:49 | PT.INTREAT ---
Date of service: 07/15/23 Time of Service: 10:00 PT Notes Visit Reasons: s/p embolic CVA Inpatient Physical Therapy Treatment Note [facility] Date: 07/15/2023 PRECAUTIONS:Standard, Fall and Activities as tolerated. SUBJECTIVE: Stated he did well with PT yesterday. Does not mind walking as long as someone is with him. OBJECTIVE: ? PAIN: No complaints of pain offered. Therapeutic Activities (45928x3): Direct one-on-one instruction in dynamic activities to improve functional performance. ?? Up with in chair when I arrived. Sit-stand: ? supervision? Stand-sit: ??supervision? GAIT? Assistive Device: FWW ? Weight bearing: Full Assist: SBA ? Distance:? 600ft ? Able to perform LAQs for 10 reps and seated rows for 10 reps with verbal cueing while seated in recliner. Advised to perform 2-3 times per day to keep arms and legs moving. ? Patient left in sitting position in recliner with call bonilla and chair alarm set. ? ASSESSMENT:? Tolerated today's session, well with good effort given. PLAN: Continue with current plan of care with focus on improved functional mobility, advancing as able to tolerate. TREATMENT CODE/TIME: 13652s3, 10:00-10:25 (25')
--- NOTE | 2023-07-15 14:06 | PT.INTREAT ---
PT Notes Visit Reasons: s/p embolic CVA Inpatient Physical Therapy Treatment Note [facility] Date: 07/15/23 SUBJECTIVE: Ilya states that he is doing well. I want to go home. Just let me go home. Agreeable to PT, however just returned from walk with nurse 5 min ago. OBJECTIVE: []? VITALS: ?monitored by nsg. Therapeutic Activities (27384t5): Direct one-on-one instruction in dynamic activities to improve functional performance. ? BED MOBILITY/TRANSFERS? pt seated in recliner.? Sit-stand: S? Stand-sit: S? Provided skilled cues and instruction on performance and technique throughout.? GAIT? Assistive Device: FWW? Weight bearing: full Assist: CGA/SBA? Distance:?400'? Exercises at no charge. Performed LAQ: 15x ea, seated june x 10, hip AB/ADD x10. ASSESSMENT:? tolerated session very well. Cues for proper ex performance and avoiding compensation as he tends to move through them quite quickly. No LOB noted during ambulation. PLAN: continue working on strength and functional mobility following PT POC. TREATMENT CODE/TIME: 20 min. (37083y4)
--- NOTE | 2023-07-15 16:46 | PDOC.STREC ---
Date of service: 07/15/23 Time of Service: 16:46 Speech Therapy Recommendations Report ST Recommendations: FORMATION TESTING OPERATOR attempting therapy session with patient today to attempt clock draw task and sustained attention activities. When contact made at 4:15 pm pt stating he was unwilling to participate in speech therapy, stating I am trying to go to sleep. Per nursing, he has slept much of the day but did participate in physical therapy. FORMATION TESTING OPERATOR service will attempt therapy session again tomorrow. Plan FORMATION TESTING OPERATOR to follow while on unit, 2-3x/week DISCHARGE RECOMMENDATIONS: Recommend FORMATION TESTING OPERATOR services at [facility] Diet Recommendations: ? SOLIDS: 6-Soft & Bite-Sized Solids LIQUIDS: 0-Thin Liquids MEDICATIONS: Crushed or whole in applesauce/custard/pudding followed by sips of liquid. RISK MANAGEMENT: Level of Assistance/Supervision: Intermittent supervision Positioning and environment: PO intake only when awake/alert? Reduce auditory and/or visual distractions when eating Up to chair Oral hygiene BID/2x per day Using friction with toothbrush on all oral structures as tolerated Strategies/Adaptations/Assistive Equipment: Small sips Small bites Slow rate of intake Maintain upright position 30+ min after meals of bed elevated to reduce likelihood of nocturnal reflux
[2023-07-15 18:29] VITALS: BP 130/80; PULSE 71; RESP 22; TEMP 35.5; O2SAT 99
[2023-07-15] MEDS: Docusate Sodium 100 MG CAP PO (19:26)
[2023-07-15] MEDS: Atorvastatin 40 MG TAB PO (19:26)
[2023-07-15 23:24] VITALS: BP 94/66; PULSE 60; RESP 17; TEMP 34; O2SAT 97
[2023-07-16] MEDS: Divalproex 125 MG SPRINKLE PO ×2 (08:15→19:45)
[2023-07-16] MEDS: Atenolol 50 MG TAB PO (08:15)
[2023-07-16] MEDS: Docusate Sodium 100 MG CAP PO ×2 (08:15→19:45)
[2023-07-16] MEDS: Modafinil 100 MG TAB PO (08:15)
[2023-07-16 09:05] VITALS: BP 100/64; PULSE 77; RESP 16; TEMP 34.6; O2SAT 95
--- NOTE | 2023-07-16 10:29 | PT.INTREAT ---
PT Notes Visit Reasons: s/p embolic CVA Inpatient Physical Therapy Treatment Note [facility] Date: 07/16/23 PRECAUTIONS:Standard CVA OBJECTIVE: Therapeutic Activities (34354a[1]): Direct one-on-one instruction in dynamic activities to improve functional performance. ? BED MOBILITY/TRANSFERS? Sit-stand: CGA/SBA? Stand-sit: SBA? Provided skilled cues and instruction on performance and technique throughout. Gait Training (79154g[]): Direct one-on-one instruction and skilled instruction in: ? GAIT? Assistive Device: FWW? Weight bearing: Full Assist: CGA? Distance:? Approx 600ft ? Therapeutic Exercises (56623t[]): Direct one-on-one instruction in therapeutic exercises to develop strength, endurance, range of motion and flexibility. ? Exercises ? Pt refused seated exercises. ASSESSMENT:? Pt did not wish to complete exercises post ambulation. PLAN: Cont as per PT POC. TREATMENT CODE/TIME: 10:15-10:30 (15) TA
--- NOTE | 2023-07-16 11:49 | SPP_ITS ---
Date of service: 07/16/23 Time of Service: 11:00 Subjective Patient received sitting upright in a chair. He was alert and agreeable to SLITTER CREASER SLOTTER HELPER treatment. While Ilya was engaged with this clinician and did appear to put forth effort, he utilized sarcasm frequently throughout session and repeatedly stated I don't care when presented with tasks or provided a prompt. Objective/Assessment/Plan Objective Treatment Techniques & Outcomes: Clock Drawing: Pt provided blank piece of paper and instructed to draw a clock. 1st attempt: patient zachariah an appropriate [place], then zachariah a cross the [place] into 4 quadrants. He placed a '1' in the first quadrant (top L), a '2' in the second quandrant (top R), a '3' and '6' in the third quadrant (bottom L) and a 4, 7, 8 in the fourth quadrant (bottom R). When asked to set the hands to a designated time, he requested starting over. 2nd attempt: Patient zachariah an appropriate [place]. He wrote the numbers 12, 16, 20, 18, 14 in a vertical column on the left side of the [place] and 15, 17, 13 in a vertical column on the right side of the [place]. No hands drawn. He verbalized awareness that he could not complete the task. 4 Picture Recall (With prompting to repeat all 4 words aloud x 2) 5 minute delay = 0/4, 3/4 given category cue (eg It's found in a tool box, It's used in the water) 10 minute delay = 0/4, 3/4 given category cue Calendar: - Able to ID piece of paper handed to him as 'a calendar', read aloud the month/year with min verbal prompt, and state aloud the date once it was circled for him. - Following <1 minute delay, he was unable to recall month/year. Correctly recalled the date. Recall of information from short orally presented paragraph:Pt presented with 2- 3 sentence paragraph and then asked a specific question asking for 2 units of information. (Ex: Roxy loves animals. She has a black cat and a white dog. At one time she wanted to be a slab installer. What animals does Roxy have?) = 1/2, 2/2, 1/2, 1/2 (average = 63% accuracy) Assessment Ilya was seen today for ongoing diagnostic treatment, targeting areas of attention, memory, and executive function. He continues to demonstrate strengths in ability to participate in conversation and use humor/sarcasm appropriately, with profound cognitive impairments becoming more evident with more structured tasks. He reports ongoing difficulty with vision (frequently stating I can't see), and thus anticipate visual deficits further exacerbating cognitive impairments. When handed an 8x11 paper with 4 line drawings, he stated he could not see them, though was able to point to the pictures when dictated by this clinician with 100% accuracy. While unable to demonstrate free recall of these 4 pictures after even brief delay of <1 minute (0% accuracy), he was able to recall 75% of targets (3 out of 4) given a category cue following a 5 minute delay and again at a 10 minute delay. Ilya demonstrated 63% accuracy this date with immediate recall of orally presented information. He was unable to successfully draw a clock despite 2 attempts, with performance indicating significant executive dysfunction, and not appearing consistent with visual neglect. Overall, Ilya would benefit from ongoing diagnostic treatment targeting attention, memory, and executive functioning. SLITTER CREASER SLOTTER HELPER continues to also follow for dysphagia goals; not addressed this date. Strategies copied below. DISCHARGE RECOMMENDATIONS: Recommend SLITTER CREASER SLOTTER HELPER services at [facility] Diet Recommendations: ? SOLIDS: 6-Soft & Bite-Sized Solids LIQUIDS: 0-Thin Liquids MEDICATIONS: Crushed or whole in applesauce/custard/pudding followed by sips of liquid. RISK MANAGEMENT: Level of Assistance/Supervision: Intermittent supervision Positioning and environment: PO intake only when awake/alert? Reduce auditory and/or visual distractions when eating Up to chair Oral hygiene BID/2x per day Using friction with toothbrush on all oral structures as tolerated Strategies/Adaptations/Assistive Equipment: Small sips Small bites Slow rate of intake Maintain upright position 30+ min after meals of bed elevated to reduce likelihood of nocturnal reflux Plan Plan: 2-3x/week x4 weeks; will continue to follow while in-house
--- NOTE | 2023-07-16 16:34 | PT.INNT ---
PT Notes Visit Reasons: s/p embolic CVA Pt approached 4x during the course of the afternoon but was refused by pt at all attempts, supervising PT informed of pt refusal and present in one of the times pt was refusing therapy.
--- NOTE | 2023-07-16 16:35 | PT.INTREAT ---
PT Notes Visit Reasons: s/p embolic CVA Date: 07/17/23 PRECAUTIONS: Standard. Falls. Activity as tolerated. SUBJECTIVE: Pt just got back from taking a shower, pt very pleasant today and agreed to participating with therapy. OBJECTIVE: ?in recliner awake ? PAIN: none reported VITALS: monitored by nursing Therapeutic Activities [id number]: Direct one-on-one instruction in dynamic activities to improve functional performance. ?? BED MOBILITY/TRANSFERS? Rolling L/R: supervion Supine-sit: ?supervision ? Sit-supine: ? supervision? Sit-stand: ? supervision? Stand-sit: ??supervision? Bed-Chair:? supervision ? Chair-bed: supervision Provided skilled cues and instruction on performance and technique throughout. Gait Training : Direct one-on-one instruction and skilled instruction in: Employing an assistive device Movement sequencing Turning and movement with proper form Provided verbal cues for equipment management and technique Provided instruction in gait pattern Patient education regarding pacing and breathing techniques to maximize activity tolerance? GAIT? Assistive Device: ?? FWW ? Weight bearing: FWB Assist: ? ?SBA? Distance:?? 600'?, 200' without AD SBA? Deviation: ?Stoop forward posture, increased keshawn speed ? ASSESSMENT: pt went straight to bed after gait training, did not want to do anything else after getting under the blankets. PLAN: Continue with balance training, global strengthening and general conditioning for improved safety, mobility and activity tolerance until pt is ready for DC.: TREATMENT CODE/TIME: [id number] 30mins (2:00-2:30pm)
[2023-07-16] MEDS: Atorvastatin 40 MG TAB PO (19:45)
[2023-07-16 22:08] VITALS: BP 112/62; PULSE 61; RESP 17; TEMP 36.3; O2SAT 98
[2023-07-17] MEDS: Docusate Sodium 100 MG CAP PO ×2 (07:42→19:41)
[2023-07-17] MEDS: Divalproex 125 MG SPRINKLE PO ×2 (07:42→19:40)
[2023-07-17] MEDS: Modafinil 100 MG TAB PO (07:43)
[2023-07-17] MEDS: Atenolol 50 MG TAB PO (07:43)
[2023-07-17 07:44] VITALS: BP 115/62; PULSE 63; RESP 17; TEMP 35.7; O2SAT 98
--- NOTE | 2023-07-17 11:23 | INPN_ITS ---
PT Notes Visit Reasons: s/p embolic CVA Inpatient Physical Therapy Progress Note Date: 07/17/2023 Dates of Service: 07/10/2023 through 07/17/2023 Precautions: Standard. Falls. Activity as tolerated. Subjective: I prefer walking with the girls than with boys. Declined using the NuStep for this session. Refused doing standing exercises stating that he does not need any strengthening. Objective: General Observation: SERENA Le about to walk client in hallway and agreed to have PT take over. Mental Status: Oriented to person and purpose only. Pain: None reported Vital Signs: Closely monitored by nursing staff ROM: Right Upper Extremity: Shoulder Flexion WFL. Shoulder abduction WFL. Elbow flexion WFL. Wrist flexion WFL. Functional opening and closing of hand WFL. Left Upper Extremity: Shoulder Flexion lacks the last 25% of AROM. Shoulder abduction lacks the last 25% of AROM. Elbow flexion WFL. Wrist flexion WFL. Functional opening and closing of hand WFL. Right Lower Extremity: Hip flexion WFL. Hip abduction WFL. Knee flexion WFL. Ankle dorsiflexion WFL. Ankle plantarflexion WFL. Left Lower Extremity: Hip flexion lacks the last 25% of AROM. Hip abduction WFL. Knee flexion 20 degrees to 90 degrees. Knee extension -20 degrees. Ankle dorsiflexion to neutral only. Ankle plantarflexion WFL. Strength: Right Upper Extremity: Shoulder flexors 4/5. Shoulder abductors 4/5. Elbow flexors 4/5. Elbow extensors 4/5. Sales Appointment Coordinator strong. Left Upper Extremity: Shoulder flexors 3-/5. Shoulder abductors 3-/5. Elbow flexors 4-/5. Elbow extensors 4-/5. Sales Appointment Coordinator weaker compared to R but functional. Right Lower Extremity: Hip flexors 4/5. Hip abductors 4/5. Knee flexors 5/5. Knee extensors 4-/5. Ankle dorsiflexors 4/5. Ankle plantarflexors 4/5. Left Lower Extremity:Hip flexors 3-/5. Hip abductors 4-/5. Knee flexors 3-/5. Knee extensors 3-/5. Ankle dorsiflexors 3-/5. Ankle plantarflexors 4-/5. Bed Mobility/Transfers: Minimal cueing provided for use of B hands as needed for support, movement sequence, AD management, and posture to reduce fall risk and minimize pain report Sit to stand: stand by assist Stand to sit: stand by assist Gait: 600 feet with front-wheeled walker with stand by assist and moderate verbal cueing for safe AD management, directional changes, and environmental navigation. No LOB. No SOB. Stairs: Guided patient with safe and correct negotiation of 3 x 4-inch steps and 2 x 6- inch steps while holding onto B rails with step over step pattern requiring only stand by assist and minimal cueing for movement sequence and safety. Balance: Static Sitting: Good Dynamic Sitting: Good Static Standing: Fair Dynamic Standing: Fair Special Tests: Mobility Limitations Standardized Measure [facility] AM-PAC 6 clicks Basic Mobility Inpatient Short Form: Raw Score: 23 CMS Score: 11% deficit Informed Consent/Education: Patient instructed in purpose of PT consult and plan of care. ASSESSMENT: Energy and attention level much more improved. Responses more appropriate. Activity tolerance improving. Safety awareness remains impaired and will require supervision to reduce falls and ensure safety. Patient presents with clinical signs and symptoms consistent with current/admitting diagnoses that have resulted to mobility limitations, gait instability, generalized weakness, and overall ADL decline as demonstrated by the following impairment level findings: 1. Decreased strength to L UE/LE 2. Impaired sitting/standing balance Impairments are contributing to the following functional limitations: 1. Difficulty with ambulation without assistive device 2. Increased completion time for mobility ADL performance 3. Increased risk for falls 4. Difficulty with managing steps alone safely Patient is assessed as a 21749 moderate complexity based on the following: History: 78-year-old male with past medical history as indicated above Examination: Demonstrable impairment in strength, balance, and mobility level with underlying impairments and functional limitations as exhibited above as well as deficit score of 11% utilizing the [facility] Mobility Inpatient Short Form Presentation: Evolving Decision Makin moderate complexity Goals: Goals X1 week 1. Supine-Sit independent NOT MET, CONTINUE 2. Sit-Supine independent NOT MET, CONTINUE 3. Sit-Stand independent NOT MET, CONTINUE 4. Stand-Sit independent NOT MET, CONTINUE 5. Bed-Chair independent NOT MET, CONTINUE 6. Chair-Bed independent NOT MET, CONTINUE 7. Independent gait on level surface with use of FWW for at least 300 feet without report of pain nor dyspnea NOT MET, CONTINUE 8. Independent stair negotiation while holding onto bilateral rails for at least 10 steps without report of pain nor dyspnea NOT MET, CONTINUE 9. Independent with home exercise program NOT MET, CONTINUE 10. Good static and dynamic standing balance/tolerance NOT MET, CONTINUE Plan of Care/Treatment Plan: 1-2x/day, 7 days/week x 1 week. Plan of care has been reviewed with the DIRECTOR DIETETICS DEPARTMENT providing the service under Physical Therapy direction. Initiate Physical Therapy intervention for strengthening, bed mobility, transfers, gait, stairs, balance training, use of assistive device. DISCHARGE RECOMMENDATIONS: [] Home with no services [] [] Home with services [specify] [] Home with outpatient PT [] [X] SNF for continued rehabilitation. Patient will benefit from retirement facility placement for continued skilled physical therapy services in order to progress mobility level, strength, and balance in preparation for a safe discharge to home. [] [facility] [] [X] SNF vs LTC depending on ability and availability of caregiver at home TREATMENT CODE/TIME: 67115 x 27 minutes for 2 units (11:23-11:50). Thank you for the opportunity to participate in the care of this patient. Sue Moreno PT, DPT, CLT [facility] [place], [place]
[2023-07-17] MEDS: Atorvastatin 40 MG TAB PO (19:41)
[2023-07-17] MEDS: Acetaminophen 325 MG TAB 650 MG PO (22:09)
[2023-07-17 22:23] VITALS: BP 100/67; PULSE 62; RESP 17; TEMP 36; O2SAT 96
[2023-07-18] MEDS: Docusate Sodium 100 MG CAP PO ×2 (08:24→19:18)
[2023-07-18] MEDS: Modafinil 100 MG TAB PO (08:24)
[2023-07-18] MEDS: Atenolol 50 MG TAB PO (08:24)
[2023-07-18] MEDS: Divalproex 125 MG SPRINKLE PO ×2 (08:24→19:17)
[2023-07-18 08:42] VITALS: BP 104/59; PULSE 66; RESP 15; TEMP 35.7; O2SAT 98
--- NOTE | 2023-07-18 10:52 | PTTR_ITS ---
PT Notes Visit Reasons: s/p embolic CVA Inpatient Physical Therapy Treatment Note [facility] Date: 07/18/23 SUBJECTIVE: Ilya states that he wants to go home. I don't understand why I can't go home. Ilya repeats this statement frequently t/o this session. OBJECTIVE: []? PAIN: none VITALS: ? monitored by nursing Therapeutic Activities (05025j2): Direct one-on-one instruction in dynamic activ ities to improve functional performance. ? BED MOBILITY/TRANSFERS? Supine-sit: S? Sit-supine: S? Sit-stand: S? Stand-sit: S? Bed-Chair:S ? Chair-bed: S Provided skilled cues and instruction on performance and technique throughout for safety.? GAIT? Assistive Device: FWW? Weight bearing: full Assist:SBA ? Distance:?600'+ ? Deviation: steering of walker due to his poor vision ?He was able to do approx 5 sit to stands today with SBA. ASSESSMENT:?ambulates well despite poor vision. Very focused on going home. He refused to complete on any ex, or stair training today, as he became only focused on going home. I was not successful in focusing on achieving goals in order for him to return home. Repeatedly asked to go home t/o entire session and stopped listening to directions/ follow instructions in regards to ex. PLAN: will continue to work on his functional mobility progressing independence. TREATMENT CODE/TIME: 25 min.
[2023-07-18 15:59] VITALS: BP 119/67; PULSE 67; RESP 16; TEMP 36.7; O2SAT 97
[2023-07-18] MEDS: Atorvastatin 40 MG TAB PO (19:17)
[2023-07-18] MEDS: Mylanta Suspension 30 ML CUP PO (20:30)
[2023-07-19] MEDS: Docusate Sodium 100 MG CAP PO ×2 (09:40→20:40)
[2023-07-19] MEDS: Divalproex 125 MG SPRINKLE PO ×2 (09:40→20:40)
[2023-07-19] MEDS: Atenolol 50 MG TAB PO (09:40)
[2023-07-19] MEDS: Modafinil 100 MG TAB PO (09:40)
--- NOTE | 2023-07-19 10:25 | PT.INTREAT ---
PT Notes Visit Reasons: s/p embolic CVA Inpatient Physical Therapy Treatment Note [facility] Date: 07/19/23 SUBJECTIVE: Ilya continues to request going home. Agreeable to walking but refuses to exercise. OBJECTIVE: []? PAIN: none VITALS: ? monitored by nursing Therapeutic Activities ([id number]): Direct one-on-one instruction in dynamic activities to improve functional performance. ? BED MOBILITY/TRANSFERS? Supine-sit: S? Sit-supine: S? Sit-stand: S? Stand-sit: S? Bed-Chair:S ? Chair-bed: S Provided skilled cues and instruction on performance and technique throughout for safety.? GAIT? Assistive Device: FWW? Weight bearing: full Assist:SBA ? Distance:?600'+ ? Deviation: steering of walker due to his poor vision ? Stairs: ascend/descend 2, 6 steps and 3,4 steps with 2 rails and S x2. Reported he had enough. ASSESSMENT:?refuses to exercise. He is happy to walk any distance but I am unable to get him engaged is any exercise or balance activity. No LOB or fatigue noted during ambulation. PLAN: will continue to work on his functional mobility progressing independence. TREATMENT CODE/TIME: 25 min. [id number]
[2023-07-19 10:30] VITALS: BP 104/59; PULSE 64; RESP 16; TEMP 36.6; O2SAT 97
[2023-07-19] MEDS: Atorvastatin 40 MG TAB PO (20:40)
[2023-07-20 07:48] VITALS: BP 145/72; PULSE 55; RESP 17; TEMP 34.9; O2SAT 96
[2023-07-20] MEDS: Modafinil 100 MG TAB PO (08:03)
[2023-07-20] MEDS: Divalproex 125 MG SPRINKLE PO ×2 (08:03→20:46)
[2023-07-20] MEDS: Docusate Sodium 100 MG CAP PO ×2 (08:03→20:46)
[2023-07-20] MEDS: Atenolol 50 MG TAB PO (08:03)
--- NOTE | 2023-07-20 08:57 | PT.INTREAT ---
PT Notes Visit Reasons: s/p embolic CVA Inpatient Physical Therapy Treatment Note [facility] Date: 07/20/23 SUBJECTIVE: I'd like to go home. Agreeable to walk with PT this am. OBJECTIVE: []? VITALS: ?monitored by nursing. Therapeutic Activities (81825d1): Direct one-on-one instruction in dynamic activities to improve functional performance. ? BED MOBILITY/TRANSFERS? Rolling L/R: I Supine-sit: S ? Sit-supine: S ? Sit-stand: S ? Stand-sit: S? Provided skilled cues and instruction on performance and technique throughout. GAIT? Assistive Device:FWW ? Weight bearing: full Assist: S/SBA ? Distance:?600'+in am. During PM session approx 450' had enough? Deviation: posture fwd flexed. ? ASSESSMENT:?tolerates ambulation well. Refuses to engage in any exercise this am. During pm session he climb back into bed stating he had enough and would like to nap. PLAN: will continue to work on functional mobility, attempting to engage him in some strengthening ex following PT POC. TREATMENT CODE/TIME: 25 min in am [id number] 20 min in pm [id number].
[2023-07-20] MEDS: Atorvastatin 40 MG TAB PO (20:46)
[2023-07-21 08:15] VITALS: BP 124/75; PULSE 71; RESP 18; TEMP 36.1; O2SAT 98
--- NOTE | 2023-07-21 08:39 | OT.INTREAT ---
Occupational Therapy Notes Occupational Therapy Inpatient Treatment Note Date: 07/21/23 PRECAUTIONS: Fall, Standard, Full SUBJECTIVE: Pt was lying in bed when OT arrived. He states that he is tired today. FUNCTIONAL MOBILITY Supine-sit: (I) Sit-supine: (I) Sit-stand: (S) Stand-sit: (S) Self Care Training [id number]: Pt was able to don and doff his socks (I) in the seated position on the side of the bed with min vc and mod vc for task initiation. He requires vc for task initiation, task sequencing, and executive function of tasks. He has normal balancing in seated position and functional reaching in the seated position at various levels for grasp and release. Able to verbally communicate with confusion. OT and pt work on fine motor control which he required mod vc for and with mod vc straightening up his sheets and stuff around his bed and required vc for task initiation and progression. TREATMENT CODES/TIME: 74151, 20 minutes [facility] [place], [place]
[2023-07-21] MEDS: Docusate Sodium 100 MG CAP PO ×2 (09:41→19:56)
[2023-07-21] MEDS: Modafinil 100 MG TAB PO (09:41)
[2023-07-21] MEDS: Atenolol 50 MG TAB PO (09:41)
[2023-07-21] MEDS: Divalproex 125 MG SPRINKLE PO ×2 (09:41→19:56)
--- NOTE | 2023-07-21 10:16 | PT.INTREAT ---
PT Notes Visit Reasons: s/p embolic CVA Date: 07/21/23 SUBJECTIVE: Pt agreed to participate with therapy this morning, pt verbalized he wants to go home multiple times during the entire duration of session. OBJECTIVE: ? VITALS: monitored by nursing. Therapeutic Activities (90915s3): Direct one-on-one instruction in dynamic activities to improve functional performance. ? BED MOBILITY/TRANSFERS? Rolling L/R: I Supine-sit: S ? Sit-supine: S ? Sit-stand: S ? Stand-sit: S? Provided skilled cues and instruction on performance and technique throughout. GAIT? Assistive Device:FWW ? Weight bearing: full Assist: Supervision ? Distance:?1200 feet + in am. ? Deviation: posture fwd flexed. ? ASSESSMENT:?pt stayed in recliner post session, did not want to do anything else after gait training. PLAN: will continue to work on functional mobility, attempting to engage him in some strengthening ex following PT POC. TREATMENT CODE/TIME: [id number] 30mins (9:45-10:15am)
--- NOTE | 2023-07-21 10:57 | PGE_ITS ---
Date of Service Date of service: 07/15/23 Time of Service: 10:57 Assessment and Plan Assessment and plan (1) Intracranial hemorrhage: Status: Acute Assessment and plan: stable (2) Acute CVA (cerebrovascular accident): Status: Acute Assessment and plan: followed by neurology continue atorvastatin. 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 Started on apixaban 06/05/23 for secondary stroke prevention. Complicated by hemorrhagic transformation noted on 06/13/23 s/p fall, at which time apixaban was stopped. recommendations for updated CTH on 07/12 still shows hemorrhage, but decreased in size, neurology would recommend apixaban 5mg BID for secondary stroke prevention if repeat CTH in 1-2 weeks (July 26) is stable. (3) Failure to thrive in adult: Status: Acute Assessment and plan: patient now eating well and stable off marinol. Nutrition following Encourage fluids, feed offering frequent snacks and drinks (4) Discharge planning issues: Status: Acute Assessment and plan: Full code continue PT/OT/Speech/Palliative care now participating and making significant progress, will benefit from inpatient rehab, will change to swing bed [address] Gonzales Subjective Subjective Interval history since last seen: doing much better, working with PT. no behavioral issues. remains medically stable, eating and drinking well, bowels and bladder functioning well. no bedside sitter required for safety Exam Const General: cooperative, comfortable and no acute distress Nutritional Appearance: thin Orientation: alert, awake and other (no behavioral issues, responding simon ropriately) [facility] Head: normal to inspection and normocephalic Mouth: oral mucosa abnormal (Dry oral mucosa) Neck Neck: normal visual inspection and full ROM Resp Effort & Inspection: normal respiratory effort Cardio Rate: regular rate Rhythm: regular rhythm GI Inspection: normal to inspection Skin General skin exam: no rashes or lesions noted Extrem General: normal to inspection, full ROM and no pedal edema Objective Last Vital Signs Temp 36.1 C L 07/21/23 08:15 Pulse 71 07/21/23 08:15 Resp 18 07/21/23 08:15 BP 124/75 07/21/23 08:15 Pulse Ox 98 07/21/23 08:15 Time Spent with Patient Time Spent with Patient: 25-34 minutes Time was spent: preparing to see the patient(eg.review tests), obtaining and/or reviewing separately otained hiistory, ordering medications,tests, procedures, indepentently interpreting results, counseling the patient and care coordination
--- NOTE | 2023-07-21 13:29 | NUR.NOTE ---
Notified CM that Tara is here and she is asking for him to go home with her. Nursing Note:
--- NOTE | 2023-07-21 18:04 | NUR.NOTE ---
Midge asleep in wheelchair in room while pt seeps in bed. Nursing Note:
--- NOTE | 2023-07-21 18:04 | PDOC.CMPRO ---
Date of service: 07/21/23 Time of Service: 18:04 Care Management Progress Note Progress Note Text Progress Note Text: S/O:Ilya was sitting up in a chair visiting with his Tara when CM met with him. He was in good spirits and engaged in conversation with CM and Tara. Ilya continues to show improvement every day. He is coherent and able to engage in conversation. He is not at his baseline however he is much less impulsive and is easily redirected. Ilya has been asking to go home every day. Today CM discussed this possibility with Tara and Ilya. CM met privately with Tara to discuss barriers and concerns. CM also discussed this with the staff that has been caring for him for the past 2 months. A plan is slowly emerging that will involve some DME additions to the home and conversations with his healthcare team including his PCP , [facility] and [facility]. ANAI has also been in contact with 2 of the Cyndi's neighbors who have been very supportive of Tara during this time and will continue to be. It is possible that Ilya could be discharged home as early as next week if appropriate measures can be put into place. A: Ilya is a 78 year old man admitted on 05/21/23 with an acute CVA P:Ilya has not received any bed offers from any of the facilities referrals were sent to and it is unlikely that he will. He has no payer source. During this period however, Ilya has shown great improvement. He continuously verbalizes that he wants to go home and his is willing to have him come home. Efforts are underway to formulate a discharge plan to home that will be as safe as possible. ANAI will continue to communicate with Ilya's community providers and supports as well as [facility] staff for optimum success at discharge.
[2023-07-21] MEDS: Atorvastatin 40 MG TAB PO (19:56)
[2023-07-22 05:03] VITALS: BP 115/73; PULSE 63; RESP 18; TEMP 36.9; O2SAT 97
[2023-07-22] MEDS: Divalproex 125 MG SPRINKLE PO ×2 (09:54→20:17)
[2023-07-22] MEDS: Atenolol 50 MG TAB PO (09:54)
[2023-07-22] MEDS: Docusate Sodium 100 MG CAP PO ×2 (09:54→20:17)
[2023-07-22] MEDS: Modafinil 100 MG TAB PO (09:54)
--- NOTE | 2023-07-22 10:23 | PT.INTREAT ---
PT Notes Visit Reasons: s/p embolic CVA Date: 07/22/23 SUBJECTIVE: Pt agreed to participate with therapy this morning, mentioned he wants to go home multiple times. OBJECTIVE: ? VITALS: monitored by nursing. Therapeutic Activities ([id number]): Direct one-on-one instruction in dynamic activities to improve functional performance. ? BED MOBILITY/TRANSFERS? Rolling L/R: I Supine-sit: S ? Sit-supine: S ? Sit-stand: S ? Stand-sit: S? Provided skilled cues and instruction on performance and technique throughout. GAIT? Assistive Device:FWW ? Weight bearing: full Assist: Supervision ? Distance:?900 feet + in am. ? Deviation: posture fwd flexed. ? ASSESSMENT:?pt stayed in bed post session, did not want to do anything else after gait training. PLAN: will continue to work on functional mobility, attempting to engage him in some strengthening ex following PT POC. TREATMENT CODE/TIME: [id number] 30mins (10:05-10:20am)
--- NOTE | 2023-07-22 11:19 | PGE_ITS ---
Date of Service Date of service: 07/22/23 Time of Service: 11:19 Assessment and Plan Assessment and plan (1) Intracranial hemorrhage: Status: Acute Assessment and plan: stable (2) Acute CVA (cerebrovascular accident): Status: Acute Assessment and plan: followed by neurology continue atorvastatin. 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 Started on apixaban 06/05/23 for secondary stroke prevention. Complicated by hemorrhagic transformation noted on 06/13/23 s/p fall, at which time apixaban was stopped. recommendations for updated CTH on 07/12 still shows hemorrhage, but decreased in size, neurology would recommend apixaban 5mg BID for secondary stroke prevention if repeat CTH in 1-2 weeks (July 26) is stable. (3) Failure to thrive in adult: Status: Acute Assessment and plan: patient now eating well and stable off marinol. Nutrition following Encourage fluids, feed offering frequent snacks and drinks (4) Discharge planning issues: Status: Acute Assessment and plan: Full code continue PT/OT/Speech/Palliative care now participating and making significant progress, continues to benefit from inpatient rehab and anticipate a discharge to home early next week with home health services. discussed with Dr. Pang Subjective Subjective Patient reports: no new complaints, feels better, tolerating liquids well, to lerating a regular diet and afebrile; denies shortness of breath Interval history since last seen: continues to do well, ambulating in the [place]arris, no behavioral issues, looking forward to and requesting discharged to home. medically has been stable. Exam Const General: cooperative, comfortable and no acute distress Nutritional Appearance: thin Orientation: alert, awake and other (no behavioral issues, responding appropriat marcia) [facility] Head: normal to inspection and normocephalic Neck Neck: normal visual inspection and full ROM Resp Effort & Inspection: normal respiratory effort Cardio Rate: regular rate Rhythm: regular rhythm GI Inspection: normal to inspection Skin General skin exam: no rashes or lesions noted Extrem General: normal to inspection, full ROM and no pedal edema Objective Last Vital Signs Temp 36.9 C 07/22/23 05:03 Pulse 63 07/22/23 05:03 Resp 18 07/22/23 05:03 BP 115/73 07/22/23 05:03 Pulse Ox 97 07/22/23 05:03 Time Spent with Patient Time Spent with Patient: 35-49 minutes Time was spent: preparing to see the patient(eg.review tests), ordering medications,tests, procedures, indepentently interpreting results and care coordination
--- NOTE | 2023-07-22 12:07 | NUR.NOTE ---
Discussed with hospitalist that pt is being considered for discharge Thursday07/27/23, but head CT is scheduled for Thursday 07/27. VO to change CT to 07/26. Nursing Note:
--- NOTE | 2023-07-22 16:54 | PTTR_ITS ---
PT Notes Visit Reasons: s/p embolic CVA Inpatient Physical Therapy Note Date: 07/22/2023 Precautions: Standard. Falls. Activity as tolerated. Subjective: Stated that he wanted to go home badly so he could walk his dogs. Agreeable to work with PT and finish his yellow drink later. Objective: General Observation: Found patient walking with Nurse Corinne in the hallway. Mental Status: Oriented to person and purpose only. Pain: None reported Vital Signs: Closely monitored by nursing staff Bed Mobility/Transfers: Minimal cueing provided for use of B hands as needed for support, movement sequence, AD management, and posture to reduce fall risk and minimize pain report Sit to stand: stand by assist Stand to sit: stand by assist Gait: 250 feet with front-wheeled walker with stand by assist and moderate verbal cueing for safe AD management, directional changes, and environmental navigation. No LOB. No SOB. Stairs: Guided patient with safe and correct negotiation of 3 x 4-inch steps and 2 x 6- inch steps while holding onto B rails with step over step pattern requiring only stand by assist and minimal cueing for movement sequence and safety. NuStep: Was able to toelrated 2:04 minutes of the NuStep machine with resistance of 7 before he felt bored and wanted to ove on. Balance: Static Sitting: Good Dynamic Sitting: Good Static Standing: Fair Dynamic Standing: Fair ASSESSMENT: Energy and attention level much more improved. Responses more appropriate. Activity tolerance improving. Safety awareness remains impaired and will require supervision to reduce falls and ensure safety. Plan of Care/Treatment Plan: 1-2x/day, 7 days/week x 1 week. Plan of care has been reviewed with the CERAMICS INSTRUCTOR providing the service under Physical Therapy direction. Initiate Physical Therapy intervention for strengthening, bed mobility, transfers, gait, stairs, balance training, use of assistive device. DISCHARGE RECOMMENDATIONS: [] Home with no services [] [] Home with services [specify] [] Home with outpatient PT [] [X] SNF for continued rehabilitation. Patient will benefit from senior care facility placement for continued skilled physical therapy services in order to progress mobility level, strength, and balance in preparation for a safe discharge to home. [] Assisted Care [] [X] SNF vs LTC depending on ability and availability of caregiver at home TREATMENT CODE/TIME: 13851 x 24 minutes for 2 units (15:56-16:20).
[2023-07-22] MEDS: Atorvastatin 40 MG TAB PO (20:17)
[2023-07-22 23:20] VITALS: BP 105/59; PULSE 63; RESP 18; TEMP 36.3; O2SAT 96
[2023-07-23 07:40] VITALS: BP 101/83; PULSE 67; RESP 18; O2SAT 98
[2023-07-23] MEDS: Divalproex 125 MG SPRINKLE PO ×2 (08:48→20:03)
[2023-07-23] MEDS: Modafinil 100 MG TAB PO (08:48)
[2023-07-23] MEDS: Docusate Sodium 100 MG CAP PO ×2 (08:49→20:03)
--- NOTE | 2023-07-23 09:56 | PT.INTREAT ---
PT Notes Visit Reasons: s/p embolic CVA Inpatient Physical Therapy Treatment Note [facility] Date: 07/23/23 PRECAUTIONS:Standard CVA SUBJECTIVE: Pt reports that he wants to go home. OBJECTIVE: Therapeutic Activities (22646t[1]): Direct one-on-one instruction in dynamic activities to improve functional performance. ? BED MOBILITY/TRANSFERS? Sit-stand: CGA/SBA ? Stand-sit: CGA/SBA ? Provided skilled cues and instruction on performance and technique throughout. ? GAIT? Assistive Device: FWW ? Weight bearing: Full Assist: CGA ? Distance:? Approx 600ft? Therapeutic Exercises (27367n[]): Direct one-on-one instruction in therapeutic exercises to develop strength, endurance, range of motion and flexibility. ? Exercises ? Refused ASSESSMENT:? Pt did not want to complete the Nu Step today or seated exercises. Pt would really like to go home. PLAN: Cont as per PT POC. TREATMENT CODE/TIME: 9:40-9:55 (15) TA
--- NOTE | 2023-07-23 13:24 | PT.INTREAT ---
PT Notes Visit Reasons: s/p embolic CVA Date: 07/23/23 SUBJECTIVE: Pt agreed to participate with therapy this afternoon, pt perseveration on going home. OBJECTIVE: ? VITALS: monitored by nursing. Therapeutic Activities (84525p6): Direct one-on-one instruction in dynamic activities to improve functional performance. ? BED MOBILITY/TRANSFERS? Rolling L/R: I Supine-sit: S ? Sit-supine: S ? Sit-stand: S ? Stand-sit: S? Provided skilled cues and instruction on performance and technique throughout. GAIT? Assistive Device:FWW ? Weight bearing: full Assist: Supervision ? Distance:?600 feet + in pm. ? Deviation: posture fwd flexed. ? ASSESSMENT:?pt stayed in recliner post session, did not want to do anything else after gait training. PLAN: will continue to work on functional mobility, attempting to engage him in some strengthening ex following PT POC. TREATMENT CODE/TIME: 09989s1 15mins (1:00-1:15pm)
--- NOTE | 2023-07-23 15:53 | SPP_ITS ---
Date of service: 07/23/23 Time of Service: 15:30 Subjective Patient received asleep in bed, though awoke easily and agreeable to MEDICAL INSURANCE CLAIMS SPECIALIST visit. He was very alert, pleasant, and used humor throughout visit. Objective/Assessment/Plan Objective Treatment Techniques & Outcomes: Gurmeet Cognitive Assessment -MOCA Blind Version 7.2: RE-ASSESSED COMPARED TO 07/14/23 Task/Description: 07/13 07/22 Comment: Digit Recall (5 digit forward, 3 digit reverse) 0/2 1/2 Letter Tapping (String of letters read aloud, patient prompted to tap on letter 'A' 0/1 0/1 2 false positives Serial 7 Subtraction 0/ 0/ I should be able to do that Sentence Repetition 1/2 2/2 Fluency (Name as many words that begin with 'F' in 60 seconds) 0/ 0/ Repeated instructions several times aloud, unable to name any /f/ words both attempts. Abstraction (ID category of 2 words, ie train and bicycle) 2/2 2/2 Delayed Recall (Recall of 5 words presented x2 at start of assessment) 0/5 0/5 07/13 Memory Index Score = 0/15 07/22 Memory Index Score = 2/15 Orientation: 0/6 0/6 - date, - month, - year, - day, - place, -city TOTAL SCORE: 07/16 09/15 Normal = 18+/22 Clock Drawin/19: 1st attempt: patient brian an appropriate tolowa dee-ni', then brian a cross the tolowa dee-ni' into 4 quadrants. He placed a '1' in the first quadrant (top L), a '2' in the second quandrant (top R), a '3' and '6' in the third quadrant (bottom L) and a 4, 7, 8 in the fourth quadrant (bottom R). When asked to set the hands to a designated time, he requested starting over. 2nd attempt: Patient brian an appropriate tolowa dee-ni'. He wrote the numbers 12, 16, 20, 18, 14 in a vertical column on the left side of the tolowa dee-ni' and 15, 17, 13 in a vertical column on the right side of the tolowa dee-ni'. No hands drawn. He verbalized awareness that he could not complete the task. 07/22: Intact tolowa dee-ni'. Brian 1 at top, 2 in accurate location, 5 6 7 8 in locations for 3 4 5 6, 4 in location of 7, and 3 in location of 9. Unable to draw hands despite attempts. Prompt to use phone in room (large size buttons) to dial MEDICAL INSURANCE CLAIMS SPECIALIST extension ([phone]). Pt appropriately picked up phone but unable to see/press appropriate buttons. Safety Related Questions: - What would you do if there was a fire on your stove top? I'd get out quick - How do you think you will do managing your medications? I'll need a list or something - What if you can't see the list? I have a for that - What kinds of foods do you think you will cook? Pre cooked foods. (When asked to name examples, he said 'beans' and 'weird shaped beans' - Do you think you'd be safe to drive? I probably shouldn't be driving long distances Assessment Ilya was seen today for ongoing cognitive-communication rehab. He is demonstrating very slow though steady gains. He did demonstrate a slight increase in score today on the MOCA BLIND (3/22 on 07/13, increased to 5/22 today), though still falls far below passing score of 18/22. Notably, following safety-related questions, Ilya did demonstrate improved insight into deficits this date, stating several times at end of session I guess I didn't realize how incapacitated I am, and thanked me for bringing up items he hadn't thought about. He expressed I don't think I should drive long distances. Clinician educated patient of recommendation to not drive at all, and he stated plan to try it. However, after discussion on how he could not locate the correct phone numbers to dial my extension, he stated well I don't think I should vote. Overall, Ilya has demonstrated slow gains, though continues with profound cognitive deficits that are not as evident in conversation as when asked to complete functional tasks, such as clock drawing. Cognitive deficits are further exacerbated by vision deficits. MEDICAL INSURANCE CLAIMS SPECIALIST continues to recommend SNF. Per medical notes, there is discussion for consideration for discharge home. If Ilya is discharged home, close supervision is encouraged. Plan Plan: Continue to follow while in-house 2-3x/week for 1-2 weeks
[2023-07-23] MEDS: Atorvastatin 40 MG TAB PO (20:03)
[2023-07-24 06:06] VITALS: BP 122/72; PULSE 59; RESP 17; TEMP 35.8; O2SAT 98
[2023-07-24] MEDS: Atenolol 50 MG TAB PO (07:57)
[2023-07-24] MEDS: Docusate Sodium 100 MG CAP PO (07:57)
[2023-07-24] MEDS: Divalproex 125 MG SPRINKLE PO (07:57)
[2023-07-24] MEDS: Modafinil 100 MG TAB PO (07:57)
[2023-07-24 08:23] VITALS: BP 126/99; PULSE 70; RESP 16; TEMP 36.6; O2SAT 98
--- NOTE | 2023-07-24 08:36 | OTTR_ITS ---
Occupational Therapy Notes Occupational Therapy Inpatient Treatment Note Date: 07/24/23 PRECAUTIONS: Fall, Standard, Full SUBJECTIVE: Pt was lying in bed when OT arrived. He states that he wants to go home. FUNCTIONAL MOBILITY Supine-sit: (I) Sit-supine: (I) Sit-stand: (S) Stand-sit: (S) Bed-sink: (S) Sink-bed: (S) Self Care Training [id number]: Pt was able to don and doff his socks (I) in the seated position on the side of the bed with min vc and mod vc for task initiation. He requires vc for task initiation, task sequencing, and executive function of tasks. He has normal balancing in seated position and functional reaching in the seated position at various levels for grasp and release. Then with use of FWW and (S) Pt walked to the sink and was able to (I) brush his teeth with min vc as he states that he cannot see well. He utilized 1 INFORMATION TECHNOLOGY ARCHITECT to the sink for support with FWW in front of him. He was able to perform with min vc for task initiation. From chair to window pt folded his clothes in the standing position and placed them in his bag. OT will monitor pt and continue to progress. Transition back to chair went well and pt was able to sit (I) in his chair and perform his eating demands. OT and pt talk about functional tasks throughout his day that are meaningful to him. He spends the majority of his time sleeping and OT and pt discuss what he likes to do. He does state that he likes to color but does not want to perform this at this time. TREATMENT CODES/TIME: [id number], 30 minutes Shaila Gerard OTR/[facility] [place], [place]
--- NOTE | 2023-07-24 10:54 | PT.INTREAT ---
PT Notes Visit Reasons: s/p embolic CVA Inpatient Physical Therapy Treatment Note [facility] Date: 07/24/23 PRECAUTIONS:Standard CVA OBJECTIVE: Therapeutic Activities (70174k[1]): Direct one-on-one instruction in dynamic activities to improve functional performance. ? GAIT? Assistive Device: FWW? Weight bearing: Full Assist: CGA/SBA ? Distance:? Approx 700ft ? Therapeutic Exercises (71224q[]): Direct one-on-one instruction in therapeutic exercises to develop strength, endurance, range of motion and flexibility. ? Exercises ? Refused ASSESSMENT:? Pt refused seated exercises today. PLAN: Cont as per PT POC. TREATMENT CODE/TIME: 10:30-10:50 (20) TA
--- NOTE | 2023-07-24 16:15 | SPP_ITS ---
Date of service: 07/24/23 Time of Service: 12:15 Subjective Ilya was contacted at bedside this date, sitting upright after finishing his lunch. He was agreeable to working with this clinician, pleasant and joking throughout. Perseverating on wanting to go home... If I'm to believe what they are telling me... Objective/Assessment/Plan Objective Treatment Techniques & Outcomes: Orientation: Initial Response Delayed Response after Corrected Name + + Building + (hospital) Location - ([place]) - + - Home + Year - + - - Month - - - - Situation + (stroke) Noting frequent perseveration on numbers (e.g. saying 24 when asked the month, or saying 29 for the year after noticing today is the 29th on white board) What year did COVID start?: 2023 Sustained attention: Generative [id number] before distraction, allowing for periodic prompts from clinician (e.g., what about zoo animals?): Named 10 after accounting for perseverative responses (x3, 13 total responses) Patient typically able to persist for approximately 30 seconds before giving up, saying I don't know, I don't know. At which point clinician would provide additional prompting for sub-categories. Biographical Memory: Provided the following details of his life over the course of 2 minutes I was born in [place]. I lived in the [place]. I lived in [place]. I don't know when I got . I don't know when I came to [place]. Assessment Patient was engaged in activities requiring sustained attention and generative naming/narrative this date as well as participated in therapy targeting short term recall for orientation information. Patient with partial recall for orientation information but frequently mixing up responses or perseverating on previous ones. He remains largely oriented to self and situation (broadly speaking) but unable to consistently retain his location, current year, month. He was able to sustain attention to generative tasks for up to 3.5 minutes but required verbal prompts for task perseverance and category naming. Appears with poor ability to access biographical memory in unstructured tasks, but may improve when provided with more specific questions/more structure. Overall, Ilya has demonstrated slow gains, though continues with profound cognitive deficits that are not as evident in conversation as when asked to complete functional tasks, such as clock drawing. Cognitive deficits are further exacerbated by vision deficits. DISCHARGE RECOMMENDATIONS: Recommend DISTRICT MANAGER MAJOR ACCOUNTS SALES services at [facility]. Per medical notes, there is discussion for consideration for discharge home. If Ilya is discharged home, close supervision is encouraged. Diet Recommendations: ? SOLIDS: 6-Soft & Bite-Sized Solids LIQUIDS: 0-Thin Liquids MEDICATIONS: Crushed or whole in applesauce/custard/pudding followed by sips of liquid. RISK MANAGEMENT: Level of Assistance/Supervision: Intermittent supervision Positioning and environment: PO intake only when awake/alert? Reduce auditory and/or visual distractions when eating Up to chair Oral hygiene BID/2x per day Using friction with toothbrush on all oral structures as tolerated Strategies/Adaptations/Assistive Equipment: Small sips Small bites Slow rate of intake Maintain upright position 30+ min after meals of bed elevated to reduce likelihood of nocturnal reflux Plan Plan: Continue to follow while in-house 2-3x/week for 1-2 weeks Total time spent: 30 min (12:15-12:45)
[2023-07-25 08:19] VITALS: BP 117/81; PULSE 100; RESP 18; TEMP 36.2; O2SAT 96
[2023-07-25] MEDS: Modafinil 100 MG TAB PO (08:24)
[2023-07-25] MEDS: Atenolol 50 MG TAB PO (08:24)
[2023-07-25] MEDS: Divalproex 125 MG SPRINKLE PO ×2 (08:24→22:25)
[2023-07-25] MEDS: Docusate Sodium 100 MG CAP PO ×2 (08:24→22:25)
[2023-07-25 15:35] VITALS: BP 127/74; PULSE 67; RESP 16; TEMP 35.9; O2SAT 98
[2023-07-25] MEDS: Atorvastatin 40 MG TAB PO (22:25)
[2023-07-26] MEDS: Modafinil 100 MG TAB PO (08:50)
[2023-07-26] MEDS: Atenolol 50 MG TAB PO (08:51)
[2023-07-26] MEDS: Divalproex 125 MG SPRINKLE PO (08:51)
[2023-07-26] MEDS: Docusate Sodium 100 MG CAP PO (08:51)
[2023-07-26 08:52] VITALS: BP 142/79; PULSE 68; RESP 18; TEMP 36.6; O2SAT 99
--- NOTE | 2023-07-27 | DI.CT_ITS ---
Exam(s) CT HEAD WO EXAM: CT HEAD WO CLINICAL HISTORY: Hemorrhagic changes post ischemic CVA. TECHNIQUE: Imaging Protocol: Axial computed tomography images with coronal and sagittal reformatted images were created and reviewed COMPARISON: CT CT BRAIN NECK CTA from 05/21/[address] HEAD - STROKE PROTOCOL from 05/21/[address] HEAD WO from 06/13/[address] HEAD WO from 06/17/[address] HEAD WO from 07/13/2023 FINDINGS: Ventricles and Extra axial spaces: Normal in size and morphology for the patient's age. 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 It i s unchanged in size. Hemorrhage: None. Cerebral parenchyma: There are areas of decreased attenuation in the white matter consistent with chr onic microvascular ischemic disease. There is again seen a right occipital infarct. There is no prabhu dence of an acute hemorrhage. Midline shift: None. Brainstem/Cerebellum: Normal. Calvarium: Normal. Visualized Paranasal sinuses/Mastoids: Clear. Soft Tissues: Unremarkable. IMPRESSION: 1. Stable right occipital infarct without evidence of acute hemorrhage. 2. 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 3. Chronic microvascular ischemic disease. No evidence of an acute territorial infarct. RADIATION DOSE DELIVERED: Total DLP DATA REPOSITORY: All CT scans at this facility are submitted to the National Radiology Data Registry (NRDR) Dose Index Registry (DIR) with the [employer] (ACR). RADIATION OPTIMIZATION: All CT scans at this facility use at least one of these dose optimization te chniques: automated exposure control; mA and/or kV adjustment per patient size (includes targeted exa ms where dose is matched to clinical indication); or iterative reconstruction.
[2023-07-27 08:21] VITALS: BP 121/78; PULSE 65; RESP 18; TEMP 35.9; O2SAT 98
[2023-07-27] MEDS: Docusate Sodium 100 MG CAP PO ×2 (09:08→20:04)
[2023-07-27] MEDS: Atenolol 50 MG TAB PO (09:08)
[2023-07-27] MEDS: Divalproex 125 MG SPRINKLE PO ×2 (09:09→20:04)
[2023-07-27] MEDS: Modafinil 100 MG TAB PO (09:09)
--- NOTE | 2023-07-27 09:36 | OT.INNT ---
Occupational Therapy Notes 07/27/23 OT attempted to work with pt this morning. He states that he is too tired and just wants to go to bed. He notes that he had testing this morning and is hoping they will let him go home. He was in good spirits just not interested in performing his ADLS. OT continues to recommend SNF Vs. LTC for pt based on his decreased task initiation, impulsivity with needs/wants and decreased functional activity tolerance for task performance. Progress note due at next session. Shaila Gerard, OTR/L
--- NOTE | 2023-07-27 15:17 | PDOC.CMPRO ---
Date of service: 07/27/23 Time of Service: 15:17 Care Management Progress Note Progress Note Text Progress Note Text: S/O:Ilya was sitting up in a chair visiting with his Tara when CM met with him. He was in good spirits and engaged in conversation with CM and Tara. Ilya continues to show improvement every day. He is coherent and able to engage in conversation. He is not at his baseline however he is much less impulsive and is easily redirected. Ilya has been asking to go home every day. Today CM discussed this possibility with Tara and Ilya. CM met privately with Tara to discuss barriers and concerns. CM also discussed this with the staff that has been caring for him for the past 2 months. A plan is slowly emerging that will involve some DME additions to the home and conversations with his healthcare team including his PCP , [facility] and [facility]. ANAI has also been in contact with 2 of the Cyndi's neighbors who have been very supportive of Tara during this time and will continue to be. It is possible that Ilya could be discharged home as early as next week if appropriate measures can be put into place. A: Ilya is a 78 year old man admitted on 05/21/23 with an acute CVA P:Ilya has not received any bed offers from any of the facilities referrals were sent to and it is unlikely that he will. He has no payer source. During this period however, Ilya has shown great improvement. He continuously verbalizes that he wants to go home and his is willing to have him come home. Efforts are underway to formulate a discharge plan to home that will be as safe as possible. ANAI will continue to communicate with Ilya's community providers and supports as well as [facility] staff for optimum success at discharge. cc: Dictated by: David
[2023-07-27] MEDS: Acetaminophen 325 MG TAB 650 MG PO (20:03)
[2023-07-27] MEDS: Atorvastatin 40 MG TAB PO (20:03)
[2023-07-28 06:38] LABS: Abs Immature Grans 0.01 10^3/uL (0.0-0.06); Absolute Basophil Count 0.05 10^3/uL (0.0-0.2); Absolute Eosinophil Count 0.25 10^3/uL (0.0-0.7); Absolute Lymphocyte Count 0.95 10^3/uL (1.2-3.4); Absolute Monocyte Count 0.36 10^3/uL (0.1-0.8); Absolute Neutrophil Count 2.48 10^3/uL (1.2-6.7); Basophils % 1.2; Eosinophils % 6.1; HCT 38.5 % (40.0-50.0); HGB 13.6 g/dL (13.5-17.5); Immature Grans % 0.2; Lymphocytes % 23.2; MCH 30.4 pg (27.0-33.0); MCHC 35.3 % (32.0-36.0); MCV 86 fL (80-95); MPV 8.9 fL (8.0-11.0); Monocytes % 8.8; Neutrophils % 60.5; Platelet Count 134 10^3/uL (130-400); RBC 4.47 10^6/uL (4.36-5.78); RDW 12.9 % (11.8-14.1); RDW-SD 40.1 fL
[2023-07-28 06:58] LABS: BUN 18 mg/dL (7-18); CREATININE 0.9 mg/dL (0.70-1.30); Calcium 8.9 mg/dL (8.5-10.1); Chloride 109 mmol/L (98-107); Estimated GFR 87.42 (mL/min/1.73m2); Glucose 108 mg/dL (74-106); Potassium 3.9 mmol/L (3.5-5.1); Sodium 148 mmol/L (136-145)
[2023-07-28 07:36] VITALS: BP 137/81; PULSE 61; RESP 18; TEMP 35.8; O2SAT 97
[2023-07-28] MEDS: Atenolol 50 MG TAB PO (08:15)
[2023-07-28] MEDS: Modafinil 100 MG TAB PO (08:15)
[2023-07-28] MEDS: Divalproex 125 MG SPRINKLE PO ×2 (08:15→20:46)
[2023-07-28] MEDS: Docusate Sodium 100 MG CAP PO ×2 (08:15→20:46)
--- NOTE | 2023-07-28 13:46 | W.SPSTP ---
Date of service: 07/28/23 Time of Service: 12:30 Subjective Patient was contacted in his room, at end of lunch meal. He was seated upright in chair and agreeable to working with VETERANS CONTACT REPRESENTATIVE on orientation. Joking throughout, using humor to attempt to mask memory deficits frequently. Objective/Assessment/Plan Objective Treatment Techniques & Outcomes: Utilized The Orientation Log ([employer], [employer]) to track recall/retention of orientation information: O-LOG DATE 07/28/23 07/28/23 07/28/23 TIME 12:30 12:40 12:55 City 0 [address] 1 3 3 Name of Hospital 3 0 3 Month 2 2 3 Date 2 3 2 Year 2 2 1 Day of Week 3 2 2 Clock time 1 2 2 Etiology/Event 2 3 3 Pathology/Deficits 1 3 3 TOTAL 17 21 25 3= Spontaneous/Free Recall 2= Logical Cueing (e.g., Last month was June, so this month is...) 1= Multiple Choice or Phonemic Cueing 0=Unable, Incorrect, Inappropriate Assessment Cont'd trial treatment this date for stimulability for recall of orientation information given repetition and continued exposure to orientation information throughout session. Patient demonstrated improved ability to recall with increased exposure/repetitions. Continues overall to demonstrate reduced insight into situation, often saying things such as I don't believe this is true but everyone tells me I had a stroke, etc. Continues to identify vision as primary barrier to independence at this time. Overall, Ilya has demonstrated slow gains, though continues with profound cognitive deficits that are not as evident in conversation as when asked to complete functional tasks, such as clock drawing. Cognitive deficits are further exacerbated by vision deficits. DISCHARGE RECOMMENDATIONS: Recommend VETERANS CONTACT REPRESENTATIVE services at [facility]. Per medical notes, there is discussion for consideration for discharge home. If Ilya is discharged home, close supervision is encouraged. Diet Recommendations: ? SOLIDS: 6-Soft & Bite-Sized Solids LIQUIDS: 0-Thin Liquids MEDICATIONS: Crushed or whole in applesauce/custard/pudding followed by sips of liquid. RISK MANAGEMENT: Level of Assistance/Supervision: Intermittent supervision Positioning and environment: PO intake only when awake/alert? Reduce auditory and/or visual distractions when eating Up to chair Oral hygiene BID/2x per day Using friction with toothbrush on all oral structures as tolerated Strategies/Adaptations/Assistive Equipment: Small sips Small bites Slow rate of intake Maintain upright position 30+ min after meals of bed elevated to reduce likelihood of nocturnal reflux Plan Plan: Continue to follow while in-house 2-3x/week for 1-2 weeks Total time spent: 35 min (12:30-13:05)
--- NOTE | 2023-07-28 13:50 | PT.INTREAT ---
PT Notes Visit Reasons: s/p embolic CVA Inpatient Physical Therapy Treatment Note [facility] Date: 07/28/23 PRECAUTIONS:Standard OBJECTIVE: ? Therapeutic Activities (25723f[2]): Direct one-on-one instruction in dynamic activities to improve functional performance. ? BED MOBILITY/TRANSFERS? Sit-stand: CGA/SBA ? Stand-sit: SBA? Provided skilled cues and instruction on performance and technique throughout. Gait Training ([id number][]): Direct one-on-one instruction and skilled instruction in: ? Therapeutic Exercises (49604q[2]): Direct one-on-one instruction in therapeutic exercises to develop strength, endurance, range of motion and flexibility. ? Exercises ? Refused Ambulation ? Assistive Device: FWW? Weight bearing: Full Assist: CGA/SBA? Distance:? Approx 700ft ? Provided skilled instruction in proper exercise performance Provided skilled manual cues to facilitate proper muscle recruitment and/or form: [] ASSESSMENT:? Pt is motivated to walk but not interested in exercises. PLAN: Cont as per PT POC TREATMENT CODE/TIME: 1:20-1:50 ( 30) TEx2
[2023-07-28 15:40] VITALS: BP 116/69; PULSE 63; RESP 16; TEMP 36.4; O2SAT 95
[2023-07-28] MEDS: Atorvastatin 40 MG TAB PO (20:46)
[2023-07-28 23:00] VITALS: BP 123/84; PULSE 74; RESP 16; TEMP 36.1; O2SAT 97
[2023-07-29] MEDS: Modafinil 100 MG TAB PO (07:45)
[2023-07-29] MEDS: Docusate Sodium 100 MG CAP PO (07:45)
[2023-07-29] MEDS: Divalproex 125 MG SPRINKLE PO (07:45)
[2023-07-29] MEDS: Atenolol 50 MG TAB PO (07:46)
--- NOTE | 2023-07-29 08:59 | PT.INTREAT ---
PT Notes Visit Reasons: s/p embolic CVA Inpatient Physical Therapy Treatment Note [facility] Date: 07/29/23 PRECAUTIONS:Standard SUBJECTIVE: Pt reports that he would like to go home. OBJECTIVE: Therapeutic Activities (04159g[1]): Direct one-on-one instruction in dynamic activities to improve functional performance. ? BED MOBILITY/TRANSFERS? Sit-stand: CGA/SBA? Stand-sit: CGA/SBA ? GAIT? Assistive Device: FWW ? Weight bearing: Full Assist: CGA/SBA? Distance:? Approx 600ft? Therapeutic Exercises (10198y[]): Direct one-on-one instruction in therapeutic exercises to develop strength, endurance, range of motion and flexibility. ? Exercises ? Refused ? ASSESSMENT:? Pt would really like to go home. He continues to be willing to walk but refuses exercises. PLAN: Cont as per PT POC. TREATMENT CODE/TIME: 8:40-9:00 (20) TA
--- NOTE | 2023-07-29 10:21 | PDOC.CMPRO ---
Date of service: 07/29/23 Time of Service: 10:21 Care Management Progress Note Progress Note Text Progress Note Text: CM received call transferred from [facility] [place] [facility]. CM relayed plan for team meeting on Thursday; [facility] reported she will be bringing Ilya home after the meeting. She reported she was shopping today for some of Susie favorite foods and was looking forward to him coming home.
--- NOTE | 2023-07-29 16:48 | DSE_ITS ---
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 Started on apixaban 06/05/23 for secondary stroke prevention. Complicated by hemorrhagic transformation noted on 06/13/23 s/p fall, at which time apixaban was stopped. recommendations for updated CTH on 07/12 still shows hemorrhage, but decreased in size, neurology would recommend apixaban 5mg BID for secondary stroke prevention if repeat CTH in 1-2 weeks (July 26) is stable. (3) Failure to thrive in adult: Status: Acute (4) Discharge planning issues: Status: Acute Discharge Plan Disposition Patient Disposition: Home W/Home Health Services Condition: Good Discharge Details Reason For Visit: s/p embolic CVA Admit Date/Time: 06/08/23 09:21 Admit Provider: Angel Pang Attending Provider: Angel Pang Primary Care Provider: Serina Prakash Hospital Course Hospital Course: Patient has had prolonged hospitalization and stay as a swing bed status after experiencing significant CVA. During that time he had physical therapy which worked with him and resulted in significant improvement of his functional status. However, care management was working on extensive outpatient services for the patient going forward, despite this, the patient at this time is requesting discharge, and given that he is not here for ongoing medical reason he is being discharged with home health services. Home Meds and New Rx's Prescriptions: New atorvastatin 40 mg Tablet 40 mg PO QPM Qty: 90 0RF atenolol 50 mg Tablet 50 mg PO DAILY Qty: 90 0RF divalproex 125 mg Capsule, Delayed Rel Sprinkle 125 mg PO BID Qty: 120 0RF esomeprazole magnesium [Nexium] 40 mg Capsule,Delayed Release(Dr/Ec) 40 mg PO Q24H Qty: 90 0RF levothyroxine 137 mcg Tablet 137 mcg PO DAILY@0600 Qty: 90 0RF modafinil 100 mg Tablet 100 mg PO QAM Qty: 90 0RF Discontinued melatonin 10 mg capsule 10 mg PO HS PRN Hold Instructions: Changed by Provider glucosamine HCl 1,500 mg tablet 1,500 mg PO DAILY Hold Instructions: Changed by Provider Rx Instructions: administer with a meal multivitamin [Daily Multi-Vitamin] 1 EACH tablet 1 ea PO DAILY Hold Instructions: Changed by Provider cholecalciferol (vitamin D3) [Vitamin D3] 1,000 UNIT capsule 1,000 unit PO DAILY Hold Instructions: Changed by Provider omega-3 acid ethyl esters 1 GM capsule 2 gm PO BID Qty: 120 Hold Instructions: Changed by Provider atenolol 50 mg tablet See Rx Instructions .ROUTE .COMPLEX Qty: 90 3RF Dose Instruction: TAKE ONE TABLET BY MOUTH EVERY DAY Rx Instructions: TAKE ONE TABLET BY MOUTH EVERY DAY tamsulosin [Flomax] 0.4 mg capsule 0.4 mg PO DAILY Qty: 90 3RF Hold Instructions: Changed by Provider losartan 100 mg tablet 100 mg PO DAILY Qty: 90 3RF Hold Instructions: Changed by Provider trazodone 50 mg tablet 50 mg PO HS Qty: 90 3RF Hold Instructions: Changed by Provider levothyroxine 137 mcg tablet See Rx Instructions .ROUTE .COMPLEX Qty: 90 3RF Dose Instruction: TAKE ONE TABLET BY MOUTH EVERY MORNING ON AN EMPTY STOMACH, AT LEAST 30-60 MINUTES BEFORE FOOD Rx Instructions: TAKE ONE TABLET BY MOUTH EVERY MORNING ON AN EMPTY STOMACH, AT LEAST 30-60 MINUTES BEFORE FOOD Discharge Instructions Stand Alone Forms: Nursing Discharge Form Referrals: Serina Prakash NP [Primary Care Provider] - 08/19/23 1:00 pm Angela Cooney MD [ [facility] STAFF PHYSICIAN] - 08/04/23 10:30 am Activity:: Activity as Tolerated Equipment/Supplies:: No Equipment Needed Diet:: As Tolerated Discharge Orders Discharge Orders: Discharge Order (Routine); Ordered 07/29/23 Ordered By: Blaise Gonzales Discharge Data Discharge Date/Time-TO BE ENTERED AT DEPARTURE: 07/29/23 17:39 DS: Summary Time Spent with Patient providing and/or coordinating discharge services: Greater than 30 minutes Status at Discharge Functional status at discharge: independent ambulation Overall status at discharge: patient is back to baseline Mental Status: mental status grossly normal Speech and Movement: speech and movement normal Mood: congruent mood Affect: normal affect Quality:SDOH Health Related Social Needs: No Data to Display Exam Const General: cooperative, comfortable and no acute distress Nutritional Appearance: thin Orientation: alert, awake and other (no behavioral issues, responding appropriately) HENMT Head: normal to inspection and normocephalic Neck Neck: normal visual inspection and full ROM Resp Effort & Inspection: normal respiratory effort Cardio Rate: regular rate Rhythm: regular rhythm GI Inspection: normal to inspection Skin General skin exam: no rashes or lesions noted Extrem General: normal to inspection, full ROM and no pedal edema Psych Mental Status: mental status grossly normal Speech and Movement: speech and movement normal Mood: congruent mood Affect: normal affect DS: Data Vitals/I&O Vitals and I&O: Vital Signs Temperature 97.0 F L 07/28/23 23:00 Temperature Source Tympanic 07/28/23 23:00 Pulse 74 07/28/23 23:00 Pulse Rhythm Regular 07/29/23 07:30 Respiratory Rate 16 07/28/23 23:00 Respiratory Effort Normal 07/29/23 07:30 Respiratory Depth Normal 07/29/23 07:30 Respiratory Pattern Normal 07/29/23 07:30 Blood Pressure 123/84 07/28/23 23:00 Pulse Oximetry 97 07/28/23 23:00 Oxygen Delivery Method Room Air 07/28/23 23:00 Oxygen Flow Rate 0 07/28/23 23:00 Pain Level 0 07/29/23 07:30 Comment sleeping at this time. 07/28/23 00:50 Intake & Output 07/28/23 07/29/23 07/29/23 17:59 05:59 17:59 Intake Total 180 / 180 180 / 360 100 / 100 Balance 180 / 180 180 / 360 100 / 100 Intake: Oral 180 / 180 180 / 360 100 / 100 Other: Urine Color Yellow Yellow Urine Appearance Clear Clear Urine Odor Normal Comment pt voided x1 Stool Size Moderate Small Stool Characteristics Formed Brown Voiding Methods Toilet Toilet PFSH All Active Problems (Updated 07/30/23 @ 00:07 by OUMAR BANSAL) Failure to thrive in adult (Acute) Intracranial hemorrhage (Acute) Palliative care patient (Acute) Colloid cyst of brain (Acute) Discharge planning issues (Acute) Hypertension (Chronic) At risk for falls (Acute) Acute CVA (cerebrovascular accident) (Acute) CKD (chronic kidney disease) (Acute) IFG (impaired fasting glucose) (Chronic 03/19/16) Hypothyroidism, unspecified (Chronic 04/23/15) Hypertension (Chronic 12/11/14) Hyperlipidemia (Chronic 04/23/15) GERD (gastroesophageal reflux disease) (Chronic 12/11/14) ADHD (attention deficit hyperactivity disorder), combined type (Chronic 11/04/17) Medical History (Updated 07/30/23 @ 00:07 by OUMAR BANSAL) Insomnia, unspecified (07/09/16) Sigmoid diverticulum (01/01/16) Major depressive disorder with current active episode (11/04/17) Psychiatry consult (Dr. Calvillo) 10/2017 [place] History [place] [facility] [place] - IV Sedation (01/01/16) Family History Mother Personal history of malignant neoplasm BREAST Heart disease VALVE REPLACEMENT Father Personal history of malignant neoplasm SKIN Brother Essential hypertension Hyperlipidemia Grandfather Personal history of malignant neoplasm Grandfather Heart disease Grandmother Stroke Grandmother No problems noted. Social History Smoking/Tobacco Use Status: Former Tobacco Use Quit Date: 04/27/1968 Smoking risk assessment performed?: Yes Alcohol Intake: former Drug use: Never Substance use type: does not use Caregiver/Support person: No Communication Needs: None current occupation: Retired (formerly worked for [employer]) What type of physical activity do you participate in: other Details: rowing machine Duration: 60-90 minutes/day Frequency: daily Time Spent with Patient Time Spent with Patient: <45 minutes Time was spent: preparing to see the patient(eg.review tests), obtaining and/or reviewing separately otained hiistory, ordering medications,tests, procedures, referring, communicating with other health pharmacy care coordinator, indepentently interpreting results, counseling the patient and care coordination
--- NOTE | 2023-07-29 16:52 | PDOC.HHF2F ---
Home Health Referral Home Health Orders Clinical synopsis of why skilled professionals are needed: S/p CVA Registered Nurse: Check all that apply Instruct on new or changed medication(s)/assess compliance: Ordered Instruct on, and maintenance of, urinary device: Ordered Instruct on ostomy care: Ordered Assess for exacerbation of medical condition, instruct patient/caregivers on signs and symptoms to report for early detection: Ordered Physical Therapist: Check all that apply Increase strength & endurance for safe mobility at home: Ordered To design/establish home maintenance program: Ordered Fall reduction therapy program for patient with history of frequent falls: Ordered Home safety evaluation and teaching/gait training including stair management (if applicable): Ordered Occupational Therapist: Evaluate and treat for patient unable to perform ADL/IADL/self-care: Ordered Upper extremity strengthening, range and motion: Ordered Speech Therapist: Check all that apply Cognition/memory: Ordered Speech/communication disorders: Ordered Pipefitter: Assist with community resources: Ordered Assist with terminal make up operator care planning: Ordered Encounter Date and Reason: I certify that a FTF encounter for this patient was performed on July 29, 2023 and that such encounter was related to the primary reason the patient requires home health services. The encounter was conducted in the following manner: By me as the certifying physician, FIRE EQUIPMENT REPAIRER INSPECTOR, PA or By an inpatient physician, FIRE EQUIPMENT REPAIRER INSPECTOR or PA during an inpatient stay who communicated findings to me, Certification And Authentication I certify that I composed the above information based on my clinical judgment relating to this patient's medical condition and, if applicable, clinical findings communicated to me by the NPP or inpatient physician who performed the FTF encounter. Name of Provider that will be monitoring home health services: Serina Prakash
[2023-07-29 20:04] LABS: Campylobacter PCR Negative (Negative); Salmonella PCR Negative (Negative); Shiga Toxin PCR Negative (Negative); Shigella/Enteroinvasive Ecoli Negative (Negative)
--- NOTE | 2023-07-30 12:19 | PDOC.CMDIS ---
Date of service: 07/30/23 Time of Service: 12:20 LACE Index Scoring Tool Questions: Length of Stay (in days): 14 or more Was the patient admitted via the E.D.?: Yes Comorbidities: Cerebrovascular Disease and Liver or Renal Disease E.D. Visits: 0 Answers: Total Score: 15 Risk of Readmission: High Risk Care Management Discharge Plan Reason for Hospitalization: Embolic CVA Discharge Plan: Ilya has elected to return home prior to planned discharge date. Discharge planning had resulted in a scheduled team meeting for 07/31/23 at which time it was anticipated that Ilya would return home. Ilya's , Tara called in the morning advocating for Ilya to return home. CM spoke with Tara who was agreeable to Ilya remaining at [facility] until Thursday. CM was called to bedside in the evening as Ilya was stating that he was returning home. CM reviewed concerns for hastened discharge planning and provision of services, however Ilya was not agreeable to remaining at [facility]. CM reviewed with nursing staff, and MD who also met with Ilya and Tara. Ilya will return home with Tara via private vehicle, he will follow up with his PCP and discharge plan of care. New orders for home health RN, PT, OT, ST and NON[employer]IT [employer]DR[employer] was completed by MD on discharge. CM completed COA referral for MOW and options counseling as well. FWW provided as well. CM reviewed discharge planning considerations and concerns with Chronic Desk Pen Set Assembler Linda at [facility], as well. Patient/Family Education Needs: Reviewed discharge planning concerns; Ilya reported feeling confident in meeting his own care needs in the home setting with natural supports and service supports, he was not agreeable to remaining at [facility]. Services Needed at Discharge: DME Agency, Home Delivered Meals and Home Health Care Services SDOH Health Related Social Needs: No Data to Display Referrals and interventions: [facility], COA, MOW, [facility]
== END 2023-07-29 17:39 | disposition home health service (06) | DRG 65 ==
PROVIDERS: Family Medicine; Internal Medicine; Nurse Practitioner Acute Care; Nurse Practitioner Family; Admitting Provider Internal Medicine; PCP Nurse Practitioner Family; Visit Provider Internal Medicine
DX: I61.1 Nontraumatic intracerebral hemorrhage in hemisphere, cortical (principal); E87.0 Hyperosmolality and hypernatremia; I48.3 Typical atrial flutter; G93.40 Encephalopathy, unspecified; R13.10 Dysphagia, unspecified; Z51.89 Encounter for other specified aftercare; E03.9 Hypothyroidism, unspecified; E78.5 Hyperlipidemia, unspecified; K21.9 Gastro-esophageal reflux disease without esophagitis; Z91.81 History of falling; R45.1 Restlessness and agitation; G47.10 Hypersomnia, unspecified; Z51.5 Encounter for palliative care; R62.7 Adult failure to thrive; N18.9 Chronic kidney disease, unspecified; F32.A Depression, unspecified; R73.03 Prediabetes; D33.2 Benign neoplasm of brain, unspecified; R26.89 Other abnormalities of gait and mobility; H53.462 Homonymous bilateral field defects, left side; R41.89 Other symptoms and signs involving cognitive functions and awareness; I12.9 Hypertensive chronic kidney disease with stage 1 through stage 4 chronic kidney disease, or unspecified chronic kidney disease
CPT/HCPCS: 00123; 36415; 80048; 80053; 85027; 87505; 92526; 92610; 95816; 97110; 97161; 97162; 97166; 97530; 97535; 99306; 99309; 99310; 99316; 70450; 70551; 83735; 84295; 85025; 92507; J2060; J3480; J3486

== ENCOUNTER → 2023-06-19 09:30 | Outpatient (BNVA) | payer MEDICARE, SELFPAY | PROVIDERS: PCP Nurse Practitioner Family; Referring Provider Nurse Practitioner Family; Visit Provider Psychiatry & Neurology Neurology ==